=== PATIENT | male | born 1970 | race African-American/Black ===

== ENCOUNTER 2020-06-09 02:46 | Emergency (ER) | payer OTHER, SELFPAY ==
--- NOTE | ~2020-06-09 | CT_ITS ---
EXAMINATION: CT ABDOMEN AND PELVIS WITH CONTRAST CLINICAL INFORMATION: Left lower quadrant pain. History of diverticulitis and small bowel obstruction COMPARISON: 06/12/2019 and 04/10/2016 TECHNIQUE: Multidetector volumetric images were obtained from the superior aspect of the liver through the pubic symphysis following administration 85 mL of Omnipaque 350 intravenous contrast. Sagittal and coronal reformatted images were obtained on the technologist's workstation. Oral contrast: No This CT examination was performed using dose optimization techniques as appropriate, variously including the following: *Automated exposure control *Adjustment of mA and/or kV according to patient size (this includes techniques or standardized protocols for targeted exams where dose is matched to indication/reason for exam; i.e. extremities or head) *Use of iterative reconstruction technique DLP: 963 mGy-cm FINDINGS: LUNG BASES: The visualized lung bases are unremarkable. LIVER, GALLBLADDER, AND BILIARY TREE: The liver is normal in size, shape, and attenuation. No biliary ductal dilatation. There are multiple hypoattenuating lesions seen throughout the liver. Comparison to the prior noncontrast CT is limited. When compared to the study from 2017 with contrast, there is no significant change in appearance. While the lobulated lesion in segment 2 of the liver measuring 2.3 cm likely represents a cyst based on Hounsfield unit measurement, additional lesions in the right lobe of the liver are more nonspecific and favor hemangiomas. Cholecystectomy. PANCREAS: Unremarkable. SPLEEN: Unremarkable. ADRENAL GLANDS: Unremarkable. KIDNEYS AND URETERS: The kidneys are normal in size, shape, and attenuation. No hydronephrosis, hydroureter, or calculi seen. No perinephric stranding. BLADDER: Unremarkable. GASTROINTESTINAL TRACT: The stomach is unremarkable. Normal caliber small bowel. There is no obstruction. Colonic diverticulosis present without diverticulitis. Right hemicolectomy with enterocolic anastomosis in the anterior midabdomen. There is also a distal colonic anastomosis. No free air. No free fluid. ABDOMINAL WALL: No significant hernia is appreciated. LYMPH NODES: Normal. VASCULAR: Normal caliber aorta with minimal atherosclerotic calcification. PELVIC VISCERA: The prostate and seminal vesicles are unremarkable. OSSEOUS STRUCTURES: No acute or suspicious osseous abnormality. Mild degenerative changes in the spine. Surgical fixation of the right femur with chronic posttraumatic appearance. Degenerative changes of both hips. CT/CT abdomen pelvis w con IMPRESSION: No acute finding in the abdomen or pelvis. No inflammatory changes. There is diffuse colonic diverticulosis. No diverticulitis. Multiple hypoattenuating liver lesions are again noted, similar to 2017. This could be further evaluated with nonemergent MRI if clinically indicated.
[2020-06-09 02:51] VITALS: BP 143/88; PULSE 69; RESP 18; TEMP 36.8; O2SAT 96; BMI 38.4
--- NOTE | 2020-06-09 03:10 | ECG_ITS ---
Test Reason : ABD PAIN Blood Pressure : / mmHG Vent. Rate : 066 BPM Atrial Rate : 066 BPM P-R Int : 206 ms QRS Dur : 096 ms QT Int : 386 ms P-R-T Axes : 057 060 058 degrees QTc Int : 404 ms Normal sinus rhythm Normal ECG No previous ECGs available Referred By: Fernanda Ramos Electronically Signed By:MARIEL BACK MD
--- NOTE | 2020-06-09 03:13 | ED.ABDPAIN ---
HPI - Abdominal Pain General Chief Complaint: Abdominal Pain Stated Complaint: STOMACH PAIN Time Seen by Provider: 06/09/20 03:03 Source: patient and EMS Mode of arrival: EMS Limitations: no limitations History of Present Illness HPI narrative: Patient comes emergency room complaining of abdominal pain and distension. Patient states for the last 4 days he has not had any bowel movements, for last 2 days his abdomen has been increasing in size, becoming more distended and painful. Patient states that he takes chronic opioids for pain in his right hip, despite the pain medications he is still having significant discomfort in his abdomen. Patient has history of diverticulitis and has had 2 surgeries. Patient states that he came before his symptoms got any worse, at this time patient does not have any vomiting, nausea, denies fever chills MD elicited complaint: abdominal pain Related Data Home Medications Medication Instructions Recorded Confirmed oxycodone-acetaminophen [Percocet] 1 tab PO Q4-6H PRN 06/09/20 06/09/20 Previous Rx's Medication Instructions Recorded polyethylene glycol 3350 [Miralax] 17 g PO BID #119 g 06/09/20 Allergies Allergy/AdvReac Type Severity Reaction Status Date / Time aspirin Allergy Unknown Nausea Verified 06/09/20 03:42 Motrin Allergy Unknown Nausea Uncoded 06/09/20 03:42 Review of Systems Review of Systems Constitutional : No Weight loss, No Fever, No Chills, No Night Sweats, No Fatigue, No Malaise ENT/Mouth : No Hearing loss, No Ear Pain, No Nasal Congestion, No Sinus Pain, No Hoarseness, No sore throat, No Rhinorrhea, No Swallowing Difficulty Eyes: No Eye Pain, No Swelling, No Redness, No Foreign Body, No Discharge, No Vision Changes Cardiovascular : No Chest Pain, No SOB, No Dyspnea on Exertion, No Orthopnea, No Edema, No Palpitations Respiratory : No Cough, No Sputum, No Wheezing, No Smoke Exposure, No Dyspnea Gastrointestinal : No Nausea, No Vomiting, No Diarrhea, complaining of Constipation, complaining of diffuse abdominal pain, No Hematochezia, No Melena Genitourinary : no irregular bleeding, No Dysuria, No Urinary Frequency, No Hematuria, No Urinary Incontinence, No Urgency, No Flank Pain, No Urinary Flow Changes, No Hesitancy Musculoskeletal : No joint pain, No Myalgias, No Joint Swelling Skin : No Skin Lesions, No rash Neuro : No Weakness, No Numbness, No Paresthesias, No Loss of Consciousness, No Dizziness, No Headache Psych : No Anxiety/Panic, No Depression, No SI/HI/AH/VH, No Social Issues, Heme/Lymph: No Bruising, No Bleeding,No Lymphadenopathy Endocrine : No Polyuria, No Polydipsia, No Temperature Intolerance Physical Exam Vital Signs: Vital Signs: Last Vital Signs Temp 98.3 F 06/09/20 02:51 Pulse 73 06/09/20 05:31 Resp 18 06/09/20 05:31 BP 139/81 06/09/20 05:31 Pulse Ox 98 06/09/20 05:31 Body Mass Index 38.4 Appearance: Alert. Oriented X3. No acute distress. Eyes: Pupils equal, round and reactive to light. ENT: Pharynx normal. Neck: Normal inspection. Neck supple. No lymph nodes noted. No crepitus CVS: Normal heart rate and rhythm. Pulses normal. Normal S1 and S2 Respiratory: No respiratory distress. Breath sounds normal. No Wheezing. No rales Abdomen: Soft, distended, moderate pain to palpation especially over the left lower quadrant, no rebound, no guarding, No rigidity. Skin: Skin warm and dry. Normal skin color. Normal skin turgor. Extremities: No lower extremity edema. No lower extremity edema. No Lacerations. No Rash Neuro: Oriented X 3. No motor deficit. No sensory deficit. Moving all extermities. No slurred speech. Course Course Course Narrative: I discussed labs and imaging with the patient, patient's abdominal discomfort is likely secondary to constipation. Patient did not wait for urinalysis MDM - Abdominal Pain Lab Data Result diagrams: 06/09/20 03:28 06/09/20 03:28 Labs: Lab Results 06/09/20 06/09/20 06/09/20 Range/Units 03:28 03:28 03:28 WBC 9.1 (4.8-10.8) X10*3/uL RBC 5.15 (4.60-5.80) X10*6/uL Hgb 13.9 L (14.0-18.0) g/dl Hct 43.3 (42-52) % MCV 84.1 (80-98) fL MCH 27.0 (27.0-33.0) pg MCHC 32.1 (31.0-36.0) g/dl RDW 13.8 (11.0-16.0) % Plt Count 274 (160-400) X10*3/uL MPV 9.9 (9.4-12.4) fL Immature Gran % (Auto) 0.1 (0.0-0.4) % Neut % (Auto) 57.7 (45-73) % Lymph % (Auto) 33.4 (20-40) % [place] % (Auto) 7.7 (2-11) % Eos % (Auto) 0.9 (0-4) % Baso % (Auto) 0.2 (0-2) % Lymph # (Auto) 3.0 (1.2-4.9) X10*3/uL [place] # (Auto) 0.7 (0.1-1.2) X10*3/uL Eos # (Auto) 0.1 (0.0-0.4) X10*3/uL Baso # (Auto) 0.0 (0.0-0.2) X10*3/uL Abs Immat Gran (auto) 0.01 (0.00-0.03) X10*3/uL Absolute Neuts (auto) 5.2 (2.0-8.3) X10*3/uL Absolute Nucleated RBC 0.000 (0.0-0.012) X10*3/uL Nucleated RBC % (auto) 0.0 (0.0-0.2) /100WBC Sodium 138 (135-145) mmol/L Potassium 4.3 (3.3-5.1) mmol/L Chloride 108 (96-108) mmol/L Carbon Dioxide 19 L (22-29) mmol/L Anion Gap 15 (12-20) BUN 9 (9-16) mg/dL Creatinine 1.03 (0.5-1.4) mg/dL Estim Creat Clear Calc 107.5 Estimated GFR > 60 Random Glucose 142 H (60-115) mg/dL Calcium 8.6 (8.4-10.2) mg/dL Total Bilirubin 0.3 (0.0-1.0) mg/dL Direct Bilirubin < 0.2 (0.0-0.5) mg/dL AST 21 (5-37) U/L ALT 34 (0-40) U/L Alkaline Phosphatase 28 L (39-117) U/L Total Protein 6.7 (6.5-8.0) g/dL Albumin 3.8 (3.5-5.0) g/dL Lipase 52 (8-78) U/L Imaging Data CT scan - abdomen: Radiologist's impression: FINDINGS: LUNG BASES: The visualized lung bases are unremarkable. LIVER, GALLBLADDER, AND BILIARY TREE: The liver is normal in size, shape, and attenuation. No biliary ductal dilatation. There are multiple hypoattenuating lesions seen throughout the liver. Comparison to the prior noncontrast CT is limited. When compared to the study from 2017 with contrast, there is no significant change in appearance. While the lobulated lesion in segment 2 of the liver measuring 2.3 cm likely represents a cyst based on Hounsfield unit measurement, additional lesions in the right lobe of the liver are more nonspecific and favor hemangiomas. Cholecystectomy. PANCREAS: Unremarkable. SPLEEN: Unremarkable. ADRENAL GLANDS: Unremarkable. KIDNEYS AND URETERS: The kidneys are normal in size, shape, and attenuation. No hydronephrosis, hydroureter, or calculi seen. No perinephric stranding. BLADDER: Unremarkable. GASTROINTESTINAL TRACT: The stomach is unremarkable. Normal caliber small bowel. There is no obstruction. Colonic diverticulosis present without diverticulitis. Right hemicolectomy with enterocolic anastomosis in the anterior midabdomen. There is also a distal colonic anastomosis. No free air. No free fluid. ABDOMINAL WALL: No significant hernia is appreciated. LYMPH NODES: Normal. VASCULAR: Normal caliber aorta with minimal atherosclerotic calcification. PELVIC VISCERA: The prostate and seminal vesicles are unremarkable. OSSEOUS STRUCTURES: No acute or suspicious osseous abnormality. Mild degenerative changes in the spine. Surgical fixation of the right femur with chronic posttraumatic appearance. Degenerative changes of both hips. CT/CT abdomen pelvis w con IMPRESSION: No acute finding in the abdomen or pelvis. No inflammatory changes. There is diffuse colonic diverticulosis. No diverticulitis. ECG Data Attestation: I personally reviewed and interpreted this ECG as follows: (Sinus rhythm, heart rate 66, no ST segment depression or elevation, no T-wave inversion) Discharge Plan Discharge Clinical Impression: Abdominal pain Qualifiers: Abdominal location: generalized Qualified Code(s): R10.84 - Generalized abdominal pain Constipation Qualifiers: Constipation type: unspecified constipation type Qualified Code(s): K59.00 - Constipation, unspecified Patient Disposition: Home, Self-Care Instructions: Constipation (ED) Additional Instructions: Please follow-up with your primary care physician tomorrow. If you have any worsening or new symptoms, please return to the emergency room or call 911 Prescriptions: New polyethylene glycol 3350 [Miralax] 17 gram/dose powder 17 g PO BID Qty: 119 RF: 0 No Action oxycodone-acetaminophen [Percocet] 5-325 mg Tablet 1 tab PO Q4-6H PRN (Reason: Pain) RF: 0 PMFSH Past Medical History Medical History Chronic back pain Diverticulitis History of prediabetes Surgical History History of hip surgery Status post gastrointestinal surgery Social History Social History Alcohol intake: current Alcohol intake frequency: a few times a week Smoking Status: Current every day smoker Smoked in Last 30 Days: Yes Use of substances other than those prescribed or required for medical reasons: No Substance Use Type: Painkillers and Prescription Drugs Substance Use Type Other:: Percocet for chronic pain Substance Use Frequency: Chronic Longstanding Any prior treatment program specific to substance use: No Advance Directives: No Advance Directives Information Provided: No
[2020-06-09 03:29] VITALS: RESP 18
[2020-06-09] MEDS: ondansetron HCL 4 MG/2 ML VIAL IVPUSH (03:29)
[2020-06-09] MEDS: Morphine Sulfate 4 MG/ML CARTRIDGE IVPUSH ×2 (03:29→05:27)
[2020-06-09 03:36] LABS: MANUAL DIFF FLAG NO
[2020-06-09 03:39] LABS: Basophils Percent Auto 0.2 % (0-2); Eosinophils Absolute Auto 0.1 X10*3/uL (0.0-0.4); Eosinophils Percent Auto 0.9 % (0-4); Hematocrit 43.3 % (42-52); Hemoglobin 13.9 g/dl (14.0-18.0); Imm Gran Abs Auto 0.01 X10*3/uL (0.00-0.03); Imm Gran Pct Auto 0.1 % (0.0-0.4); Lymphocytes Percent Auto 33.4 % (20-40); Mean Corpuscular HGB Conc 32.1 g/dl (31.0-36.0); Mean Corpuscular Volume 84.1 fL (80-98); Mean Platelet Volume 9.9 fL (9.4-12.4); Monocytes Absolute Auto 0.7 X10*3/uL (0.1-1.2); Monocytes Percent Auto 7.7 % (2-11); Neutrophils Absolute Auto 5.2 X10*3/uL (2.0-8.3); Neutrophils Percent Auto 57.7 % (45-73); Platelet Count 274 X10*3/uL (160-400); Red Blood Count 5.15 X10*6/uL (4.60-5.80); Red Cell Distribution Width 13.8 % (11.0-16.0); White Blood Count 9.1 X10*3/uL (4.8-10.8)
[2020-06-09 04:00] LABS: Lipase 52 U/L (8-78)
[2020-06-09 04:03] LABS: Alanine Aminotransferase 34 U/L (0-40); Albumin Level 3.8 g/dL (3.5-5.0); Alkaline Phosphatase 28 U/L (39-117); Anion Gap 15 (12-20); Aspartate Amino Transferase 21 U/L (5-37); Bilirubin Direct < 0.2 mg/dL (0.0-0.5); Bilirubin Total 0.3 mg/dL (0.0-1.0); Blood Urea Nitrogen 9 mg/dL (9-16); Calcium 8.6 mg/dL (8.4-10.2); Carbon Dioxide 19 mmol/L (22-29); Chloride 108 mmol/L (96-108); Creatinine Clr Calc Pharmacy 107.5; Estimated Glomerular Filt Rate > 60; Glucose Random 142 mg/dL (60-115); Potassium 4.3 mmol/L (3.3-5.1); Sodium 138 mmol/L (135-145); Total Protein 6.7 g/dL (6.5-8.0)
[2020-06-09] MEDS: iohexoL 350 MG/ML 100 ML INFUS..BTL IV (05:10)
[2020-06-09 05:27] VITALS: RESP 18
[2020-06-09 05:31] VITALS: BP 139/81; PULSE 73; RESP 18; O2SAT 98
== END 2020-06-09 06:03 | disposition home or self-care (01) ==
PROVIDERS: Emergency Provider Emergency Medicine
DX: R10.84 Generalized abdominal pain (principal); K59.00 Constipation, unspecified; F17.200 Nicotine dependence, unspecified, uncomplicated
CPT/HCPCS: 36415; 74177; 80048; 80076; 83690; 85025; 93005; 96374; 96375; 99284; 99285; J2270; J2405; Q9967

== ENCOUNTER 2020-07-27 15:54 | Inpatient (IN) | payer OTHER, SELFPAY ==
--- NOTE | ~2020-07-27 | CT_ITS ---
EXAMINATION: CT ABDOMEN AND PELVIS WITH CONTRAST CLINICAL INFORMATION: Pain COMPARISON: CT abdomen pelvis 05/24/2019 TECHNIQUE: Multidetector volumetric images were obtained from the superior aspect of the liver through the pubic symphysis following administration 85 mL of Omnipaque 350 intravenous contrast. Sagittal and coronal reformatted images were obtained on the technologist's workstation. Oral contrast: No This CT examination was performed using dose optimization techniques as appropriate, variously including the following: *Automated exposure control *Adjustment of mA and/or kV according to patient size (this includes techniques or standardized protocols for targeted exams where dose is matched to indication/reason for exam; i.e. extremities or head) *Use of iterative reconstruction technique DLP: 807 mGy-cm FINDINGS: LUNG BASES: The visualized lung bases are unremarkable. LIVER, GALLBLADDER, AND BILIARY TREE: The liver is normal in size, shape, and attenuation. A 2.3 cm cyst is again seen in the left lobe of the liver with scattered other hypodensities. 3 hypodensities seen in the right lobe have characteristics more in line with hemangiomas. No biliary ductal dilatation is present. Gallbladder is surgically absent PANCREAS: Unremarkable. SPLEEN: Unremarkable. ADRENAL GLANDS: Unremarkable. KIDNEYS AND URETERS: The kidneys are normal in size, shape, and attenuation. No hydronephrosis, hydroureter, or calculi seen. No perinephric stranding. BLADDER: Unremarkable. GASTROINTESTINAL TRACT: Status post right hemicolectomy. A rectosigmoid anastomosis is present as well. Diverticular changes are present in the remaining colon and at the level of the hepatic flexure there are changes of acute diverticulitis present with mucosal thickening and marked pericolonic inflammatory change. There are a few tiny punctate air bubbles that may be extraluminal but they are very well contained. No drainable abscess is seen. No free intraperitoneal air is present. The small bowel is unremarkable. The appendix has been removed. ABDOMINAL WALL: No significant hernia is appreciated. LYMPH NODES: No retroperitoneal lymphadenopathy. VASCULAR: Unremarkable. PELVIC VISCERA: Prostate and seminal vesicles appear normal. OSSEOUS STRUCTURES: Unremarkable. CT/CT abdomen pelvis w con IMPRESSION: 1. Acute diverticulitis involving the region of the hepatic flexure with marked inflammatory changes and a few bubbles of well-contained extraluminal air. No drainable pericolonic abscess is seen. 2. Again noted are multiple hypodensities seen in the liver, some cysts, some probable hemangioma, stable in appearance
[2020-07-27 16:29] VITALS: BP 128/95; PULSE 93; RESP 16; TEMP 36.8; O2SAT 96; BMI 37.6
[2020-07-27 20:10] LABS: Basophils Percent Auto 0.1 % (0-2); Eosinophils Percent Auto 0.1 % (0-4); Hematocrit 47.5 % (42-52); Hemoglobin 15.4 g/dl (14.0-18.0); Imm Gran Abs Auto 0.07 X10*3/uL (0.00-0.03); Imm Gran Pct Auto 0.4 % (0.0-0.4); Lymphocytes Absolute Auto 2.4 X10*3/uL (1.2-4.9); Lymphocytes Percent Auto 12.7 % (20-40); MANUAL DIFF FLAG SCAN; Mean Corpuscular HGB Conc 32.4 g/dl (31.0-36.0); Mean Corpuscular Hemoglobin 27.4 pg (27.0-33.0); Mean Corpuscular Volume 84.4 fL (80-98); Mean Platelet Volume 9.8 fL (9.4-12.4); Monocytes Absolute Auto 1.7 X10*3/uL (0.1-1.2); Monocytes Percent Auto 9.2 % (2-11); Neutrophils Absolute Auto 14.7 X10*3/uL (2.0-8.3); Neutrophils Percent Auto 77.5 % (45-73); Platelet Count 279 X10*3/uL (160-400); Red Blood Count 5.63 X10*6/uL (4.60-5.80); Red Cell Distribution Width 13.6 % (11.0-16.0); SCAN SMEAR FLAG 1; White Blood Count 18.9 X10*3/uL (4.8-10.8)
[2020-07-27 20:33] LABS: SLIDE REVIEW VERIFIED
[2020-07-27 20:41] LABS: Alanine Aminotransferase 27 U/L (0-40); Albumin Level 4.7 g/dL (3.5-5.0); Alkaline Phosphatase 32 U/L (39-117); Anion Gap 16 (12-20); Aspartate Amino Transferase 15 U/L (5-37); Bilirubin Total 0.7 mg/dL (0.0-1.0); Blood Urea Nitrogen 9 mg/dL (9-16); Calcium 9.7 mg/dL (8.4-10.2); Carbon Dioxide 24 mmol/L (22-29); Chloride 106 mmol/L (96-108); Creatinine Clr Calc Pharmacy 78.3; Estimated Glomerular Filt Rate 53; Glucose Random 122 mg/dL (60-115); Potassium 4.1 mmol/L (3.3-5.1); Sodium 142 mmol/L (135-145); Total Protein 8.1 g/dL (6.5-8.0)
[2020-07-27 20:53] VITALS: BP 151/67; PULSE 75; RESP 16; TEMP 37; O2SAT 100
--- NOTE | 2020-07-27 21:20 | ED_ITS ---
HPI - Abdominal Pain General Chief Complaint: Abdominal Pain Stated Complaint: Stomach Pain X 3 Days Diverticulitis Time Seen by Provider: 07/27/20 21:14 Source: patient Mode of arrival: ambulatory History of Present Illness HPI narrative: 49-year-old male with history of diverticulitis presents with 3 days of abdominal discomfort, but states today became a lot worse with associated nausea and vomiting and last passage of bowel movement was this morning. Patient states he has continued to pass flatus and denies any fever, chills, shortness of breath, chest pain/palpitations or urinary symptoms. Related Data Home Medications Medication Instructions Recorded Confirmed oxycodone-acetaminophen [Percocet] 1 tab PO Q4-6H PRN 06/09/20 06/09/20 Previous Rx's Medication Instructions Recorded polyethylene glycol 3350 [Miralax] 17 g PO BID #119 g 06/09/20 Allergies Allergy/AdvReac Type Severity Reaction Status Date / Time aspirin Allergy Unknown Nausea Verified 06/09/20 03:42 Motrin Allergy Unknown Nausea Uncoded 06/09/20 03:42 Review of Systems Review of Systems Pertinent positives and negatives as stated in HPI 10 point review of systems is otherwise negative. Physical Exam Vital Signs: Vital Signs: Last Vital Signs Temp 98.6 F 07/27/20 20:53 Pulse 75 07/27/20 20:53 Resp 16 07/27/20 20:53 BP 151/67 H 07/27/20 20:53 Pulse Ox 100 07/27/20 20:53 Body Mass Index 37.6 VITAL SIGNS: Reviewed. GENERAL: Well developed, well nourished, in no acute distress. HEAD: Normocephalic/atraumatic EYES: PERRLA, EOMI OROPHARYNX: no oral lesions noted, posterior pharynx clearhy LUNGS: Normal breath sounds. No adventitious sounds or accessory muscle use. SpO2<100> CARDIOVASCULAR: Regular rate and rhythm without noted murmurs ABDOMEN: Soft, diffuse tenderness on exam without rebound maximal at left abdomen, non-distended with bowel sounds. NEUROLOGIC: Alert and oriented x 4. Strength and sensation to light touch were grossly intact x 4. Course Course Course Narrative: This is a 49-year-old male with history and clinical presentation suggestive of diverticulitis and less likely SBO. Review of all investigations consistent with acute diverticulitis. Patient will be treated with antiemetics, antibiotics, pain medication, as well as IV hydration. This case was discussed with surgical services who is accepting admission. MDM - Abdominal Pain Lab Data Result diagrams: 07/27/20 20:03 07/27/20 20:03 Labs: Lab Results 07/27/20 07/27/20 Range/Units 20:03 20:03 WBC 18.9 H (4.8-10.8) X10*3/uL RBC 5.63 (4.60-5.80) X10*6/uL Hgb 15.4 (14.0-18.0) g/dl Hct 47.5 (42-52) % MCV 84.4 (80-98) fL MCH 27.4 (27.0-33.0) pg MCHC 32.4 (31.0-36.0) g/dl RDW 13.6 (11.0-16.0) % Plt Count 279 (160-400) X10*3/uL MPV 9.8 (9.4-12.4) fL Immature Gran % (Auto) 0.4 (0.0-0.4) % Neut % (Auto) 77.5 H (45-73) % Lymph % (Auto) 12.7 L (20-40) % [place] % (Auto) 9.2 (2-11) % Eos % (Auto) 0.1 (0-4) % Baso % (Auto) 0.1 (0-2) % Lymph # (Auto) 2.4 (1.2-4.9) X10*3/uL [place] # (Auto) 1.7 H (0.1-1.2) X10*3/uL Eos # (Auto) 0.0 (0.0-0.4) X10*3/uL Baso # (Auto) 0.0 (0.0-0.2) X10*3/uL Abs Immat Gran (auto) 0.07 H (0.00-0.03) X10*3/uL Absolute Neuts (auto) 14.7 H (2.0-8.3) X10*3/uL Absolute Nucleated RBC 0.000 (0.0-0.012) X10*3/uL Nucleated RBC % (auto) 0.0 (0.0-0.2) /100WBC Smear Tech's Comments VERIFIED Sodium 142 (135-145) mmol/L Potassium 4.1 (3.3-5.1) mmol/L Chloride 106 (96-108) mmol/L Carbon Dioxide 24 (22-29) mmol/L Anion Gap 16 (12-20) BUN 9 (9-16) mg/dL Creatinine 1.40 (0.5-1.4) mg/dL Estim Creat Clear Calc 78.3 Estimated GFR 53 Random Glucose 122 H (60-115) mg/dL Calcium 9.7 D (8.4-10.2) mg/dL Total Bilirubin 0.7 (0.0-1.0) mg/dL AST 15 (5-37) U/L ALT 27 (0-40) U/L Alkaline Phosphatase 32 L (39-117) U/L Total Protein 8.1 H D (6.5-8.0) g/dL Albumin 4.7 D (3.5-5.0) g/dL Lipase 65 (8-78) U/L Discharge Plan Discharge Clinical Impression: Diverticulitis Patient Disposition: Admitted As Inpatient Prescriptions: No Action oxycodone-acetaminophen [Percocet] 5-325 mg Tablet 1 tab PO Q4-6H PRN (Reason: Pain) RF: 0 polyethylene glycol 3350 [Miralax] 17 gram/dose powder 17 g PO BID Qty: 119 RF: 0 PMFSH Past Medical History Source: nursing notes reviewed Medical History Chronic back pain Diverticulitis History of prediabetes Surgical History History of hip surgery Status post gastrointestinal surgery Social History Social History Alcohol intake: current Alcohol intake frequency: a few times a week Substance Use Type: Painkillers and Prescription Drugs Advance Directives: No Advance Directives Information Provided: Yes
[2020-07-27 21:28] LABS: Lipase 65 U/L (8-78)
[2020-07-27] MEDS: Ketorolac Tromethamine 15 MG/ML VIAL IVPUSH (21:48)
[2020-07-27] MEDS: ondansetron HCL 4 MG/2 ML VIAL IVPUSH (21:49)
[2020-07-27] MEDS: iohexoL 350 MG/ML 100 ML INFUS..BTL IV (22:02)
[2020-07-27 23:06] VITALS: RESP 16
[2020-07-27] MEDS: HYDROmorphone HCl 0.5 MG/0.5 ML SYRINGE 0.25 MG IVPUSH (23:06)
[2020-07-27] MEDS: Piperacillin Sodium/Tazobactam 3.375 GM in 0.9 % Sodium Chloride 50 ML IV (23:13)
[2020-07-27 23:14] LABS: Lactic Acid 1.1 mmol/L (0.5-2.0)
[2020-07-27 23:35] LABS: COVID-19 Test Negative (Negative)
[2020-07-28 00:17] VITALS: RESP 16
[2020-07-28] MEDS: 0.9 % Sodium Chloride Flush 3 ML SYRINGE IVFLUSH ×2 (00:17→16:46)
[2020-07-28] MEDS: Lactated Ringers 1,000 ML 80 ML IVCONT ×2 (00:35→13:48)
--- NOTE | 2020-07-28 02:00 | PC.NURSE ---
nurse to nurse report given to Thais ADRIAN
[2020-07-28 02:23] VITALS: BP 127/58; PULSE 81; RESP 20; TEMP 36.7; O2SAT 97
[2020-07-28] MEDS: Morphine Sulfate 4 MG/ML CARTRIDGE 3 MG IVPUSH ×3 (02:39→20:56)
[2020-07-28] MEDS: Piperacillin Sodium/Tazobactam 3.375 GM in 0.9 % Sodium Chloride 50 ML IV ×4 (05:34→22:54)
[2020-07-28] MEDS: oxyCODONE HCl Immed Release 5 MG TABLET 10 MG PO ×2 (05:48→09:55)
[2020-07-28 06:13] LABS: Hematocrit 42.1 % (42-52); Hemoglobin 13.5 g/dl (14.0-18.0); Mean Corpuscular HGB Conc 32.1 g/dl (31.0-36.0); Mean Corpuscular Hemoglobin 27.2 pg (27.0-33.0); Mean Corpuscular Volume 84.7 fL (80-98); Mean Platelet Volume 10.2 fL (9.4-12.4); Platelet Count 251 X10*3/uL (160-400); Red Blood Count 4.97 X10*6/uL (4.60-5.80); Red Cell Distribution Width 13.6 % (11.0-16.0); White Blood Count 15.8 X10*3/uL (4.8-10.8)
[2020-07-28 06:41] LABS: Anion Gap 15 (12-20); Blood Urea Nitrogen 11 mg/dL (9-16); Calcium 8.5 mg/dL (8.4-10.2); Carbon Dioxide 23 mmol/L (22-29); Chloride 106 mmol/L (96-108); Creatinine Clr Calc Pharmacy 94.5; Estimated Glomerular Filt Rate > 60; Glucose Random 98 mg/dL (60-115); Potassium 4.1 mmol/L (3.3-5.1); Sodium 140 mmol/L (135-145)
--- NOTE | 2020-07-28 07:20 | HE.PHANOTE ---
MED REC COMPLETE, PATIENT STATES THEY DO NOT TAKE ANY MEDICATION
[2020-07-28 07:52] VITALS: BP 121/65; PULSE 79; RESP 20; TEMP 36.2; O2SAT 93
--- NOTE | 2020-07-28 08:59 | P.HPGS_ITS ---
History of Present Illness History of Present Illness Date of Service: 07/31/20 Chief complaint: Acute Diverticulitis Narrative: Gustavo Thompson is a 49 year old male who cme to the ED last night because of abdominal pain. He says this has been going on on for about 3-04 days. He describes this as on the left side. He sys he had one episode of nausea and vomitting last night when he came to the ED. He denies being constipated. He does state he has had 2 surgeries for diverticulitis about 10 years ago in [facility]. Review of his records show he was here in the ED last May 2020 for abdominal pain and was diagnosed to have constipation. He denies fever or chills. He does state he feels much better now compared to yesterday, and say he has very minimal pain. Review of Systems Constitutional: Constitutional: Denies chills and Denies fever(s) Cardiovascular: Cardiovascular: Denies chest pain, Denies dyspnea and Denies dyspnea on exertion Respiratory: Respiratory: Denies cough, Denies dyspnea and Denies dyspnea on exertion Gastrointestinal: Gastrointestinal: Denies hematochezia, Denies change in bowel habits and Reports constipation Genitourinary: Genitourinary: Denies hematuria and Denies difficulty urinating Musculoskeletal: Musculoskeletal: Denies back pain and Denies limited range of motion Neurologic: Denies focal weakness and Denies convulsions Psychiatric: Psychiatric: Denies depression and Denies mood swings [facility] Past Medical History Medical History (Updated 07/28/20 @ 09:04 by Marek Cifuentes MD) Cholecystectomy planned Chronic back pain Diverticulitis History of prediabetes Morbid obesity Surgical History Surgical History History of hip surgery Status post gastrointestinal surgery Social History Social History Household Members: None Housing: Apartment Do you presently have visiting nurse or other home services: No Alcohol intake: current Alcohol intake frequency: a few times a week Patient Tobacco Use Status: Current everyday Tobacco user Tobacco use type: Cigarette e-Cigarette/Vaping Use: Never Used Substance Use Type: Marijuana service: No Meds Allergies Allergy/AdvReac Type Severity Reaction Status Date / Time aspirin Allergy Unknown Nausea Verified 06/09/20 03:42 Motrin Allergy Unknown Nausea Uncoded 06/09/20 03:42 Active Medications: Current Medications Generic Name Dose Route Start Last Admin Trade Name Jaspalq PRN Reason Stop Dose Admin Acetaminophen 650 mg 07/27/20 23:04 Acetaminophen 325 Mg Tablet PO Q4H PRN fever Lactated Ringer's 1,000 mls @ 80 mls/hr 07/27/20 23:15 07/28/20 00:35 Lr IVCONT 80 mls/hr .[id number] WILLIAN Administration Piperacillin Sod/Tazobactam 50 mls @ 100 mls/hr 07/28/20 05:00 07/28/20 07:22 Sod 3.375 gm/ Sodium Chloride IV Infused Q6H WILLIAN Infusion Morphine Sulfate 3 mg 07/27/20 23:02 07/28/20 02:39 Morphine Sulfate 4 Mg/Ml Cartridge IVPUSH 3 mg Q3H PRN Administration Pain, Severe (Pain Scale 7-10) Oxycodone HCl 10 mg 07/27/20 23:02 07/28/20 05:48 Oxycodone Hcl Immed Release 5 Mg Tablet PO 10 mg Q4H PRN Administration Pain, Moderate (Pain Scale 4-6 Sodium Chloride 3 ml 07/28/20 00:00 07/28/20 07:22 0.9 % Sodium Chloride Flush 3 Ml Syringe IVFLUSH Not Given QSHIFT [facility] Physical Exam Vital Signs: Vital Signs: Last Vital Signs Temp 97.2 F 07/28/20 07:52 Pulse 79 07/28/20 07:52 Resp 20 07/28/20 07:52 BP 121/65 07/28/20 07:52 Pulse Ox 93 07/28/20 07:52 Body Mass Index 37.6 Const: Other: obese, appears well General: comfortable and no acute distress Orientation/consciousness: patient oriented x3 Neck: Neck: Yes no lymphadenopathy Resp: Auscultation: clear to auscultation bilaterally Cardio: Rhythm: regular rhythm GI: Other: minimal tenderness on the left side on deep palpation Palpation (GI): Soft to palpation and no guarding Neuro: General: patient oriented x3 Results Results Labs: Short CBC 07/27/20 07/28/20 Range/Units 20:03 05:18 WBC 18.9 H 15.8 H (4.8-10.8) X10*3/uL Hgb 15.4 13.5 L (14.0-18.0) g/dl Hct 47.5 42.1 (42-52) % Plt Count 279 251 (160-400) X10*3/uL BMP 07/27/20 07/28/20 20:03 05:18 Sodium 142 140 Potassium 4.1 4.1 Chloride 106 106 Carbon Dioxide 24 23 BUN 9 11 Creatinine 1.40 1.16 Calcium 9.7 D 8.5 D Liver Function 07/27/20 Range/Units 20:03 Total Bilirubin 0.7 (0.0-1.0) mg/dL AST 15 (5-37) U/L ALT 27 (0-40) U/L Alkaline Phosphatase 32 L (39-117) U/L Albumin 4.7 D (3.5-5.0) g/dL Abdomen CT scan report/results: report reviewed and image reviewed CT scan - pelvis: report reviewed and image reviewed Assessment and Plan (1) Diverticulitis: Status: Acute He came to the ED last night because of left sided abdominal pain.His CT scan shows inflammatory changes around the splenic flexure of the colon c/w acute diverticulitis. There appears to be some small locules of air adjacent to this segment suggestive of a microperforation. There is no abscess collection. He actually feels much better this morning and was asking for food. I explained to him that the treatment would be IV fluids and bowel rest, so he will be on clear liquids for now. His CT scan has decreased from 18 to 15 since last night. His abdominal exam is very benign and he currently has minimal pain and ternderness. He does understand that there is always a small possibility of him requiring laparotomy or IR depending on his clinical course. Quality Stroke Does the patient have a stroke diagnosis?: No VTE Prior VTE?: No VTE Risk Level:: Medical - moderate - high VTE Device Contraindication: N/A - Device Ordered VTE Drug Contraindication: N/A - Med Ordered Procedures Date of Service Date of Service: 07/27/20
[2020-07-28] MEDS: Acetaminophen 325 MG TABLET 650 MG PO (09:55)
[2020-07-28 10:14] LABS: Glucose Urine UA NEG (NEG); Leukocyte Esterase Urine NEG (NEG); Nitrite Urine NEG (NEG); Specific Gravity - Urine 1.025 (1.005-1.025); Urine Blood TRACE (NEG); Urine Ketones 5 MG/DL (NEG); Urine Protein 1+ MG/DL (NEG-TRACE)
[2020-07-28 10:20] LABS: Appearance Urine HAZY; Color Urine YELLOW
--- NOTE | 2020-07-28 10:23 | MHC.CM.PN ---
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
[2020-07-28 11:02] LABS: Bacteria Urine TRACE /LPF; Other Crystals Urine 2+ /LPF; RBC Urine 0-2 /HPF (0); Squamous Epithelial Cell Urine 1+ /LPF; WBC Urine 0 /HPF (0-4)
[2020-07-28 14:51] VITALS: RESP 20
[2020-07-28 16:00] VITALS: BP 119/69; PULSE 75; RESP 18; TEMP 36.1; O2SAT 93
[2020-07-28 23:49] VITALS: BP 121/52; PULSE 79; RESP 16; TEMP 36.4; O2SAT 95
[2020-07-29] MEDS: Lactated Ringers 1,000 ML 80 ML IVCONT (03:10)
[2020-07-29] MEDS: Piperacillin Sodium/Tazobactam 3.375 GM in 0.9 % Sodium Chloride 50 ML IV ×4 (05:12→22:44)
[2020-07-29 06:25] LABS: Hematocrit 39.2 % (42-52); Hemoglobin 12.3 g/dl (14.0-18.0); Mean Corpuscular HGB Conc 31.4 g/dl (31.0-36.0); Mean Corpuscular Hemoglobin 26.6 pg (27.0-33.0); Mean Corpuscular Volume 84.7 fL (80-98); Mean Platelet Volume 10.2 fL (9.4-12.4); Platelet Count 224 X10*3/uL (160-400); Red Blood Count 4.63 X10*6/uL (4.60-5.80); Red Cell Distribution Width 13.5 % (11.0-16.0)
[2020-07-29 07:23] VITALS: BP 111/59; PULSE 69; RESP 16; TEMP 36.2; O2SAT 96
[2020-07-29] MEDS: oxyCODONE HCl Immed Release 5 MG TABLET 10 MG PO ×4 (08:06→22:45)
[2020-07-29] MEDS: Acetaminophen 325 MG TABLET 650 MG PO ×3 (08:06→17:16)
--- NOTE | 2020-07-29 08:54 | PM.PNGS ---
Subjective Subjective Date of Service: 07/29/20 Interval history: Mr. Thompson reports a decrease in his abdominal pain this morning. He is passin some flatus but no BM. No fever or chills. Physical Exam Vital Signs: Vital Signs: Last Vital Signs Temp 97.2 F 07/29/20 07:23 Pulse 69 07/29/20 07:23 Resp 16 07/29/20 07:23 BP 111/59 L 07/29/20 07:23 Pulse Ox 96 07/29/20 07:23 Body Mass Index 37.6 Const: General: cooperative, comfortable and no acute distress Resp: Effort & Inspection: normal respiratory effort, no cough and not tachypneic GI: Other: soft, mild distension, minimal tenderness in the right upper quadrant Skin: General skin exam: no rashes or lesions noted Extrem: General: Yes capillary refill normal and Yes no clubbing, cyanosis or edema Progress Note: A&P Assessment and plan (1) Diverticulitis: Status: Acute Assessment and Plan: 49 year old male with two previous procedures for diverticulitis, now with splenic flexure microperforation without abscess. WBC improved to 10K Abdominal examination, less tenderness but still with some tenderness in the left upper quadrant Continue clear liquids IV Zosyn Await return of bowel function Ambulation encouraged. Fall Risk Details Current Medications: Current Medications Generic Name Dose Route Start Last Admin Trade Name Freq PRN Reason Stop Dose Admin Acetaminophen 650 mg 07/27/20 23:04 07/29/20 08:06 Acetaminophen 325 Mg Tablet PO 650 mg Q4H PRN Administration fever Piperacillin Sod/Tazobactam 50 mls @ 100 mls/hr 07/28/20 05:00 07/29/20 05:52 Sod 3.375 gm/ Sodium Chloride IV Infused Q6H WILLIAN Infusion Morphine Sulfate 3 mg 07/27/20 23:02 07/28/20 20:56 Morphine Sulfate 4 Mg/Ml Cartridge IVPUSH 3 mg Q3H PRN Administration Pain, Severe (Pain Scale 7-10) Oxycodone HCl 10 mg 07/27/20 23:02 07/29/20 08:06 Oxycodone Hcl Immed Release 5 Mg Tablet PO 10 mg Q4H PRN Administration Pain, Moderate (Pain Scale 4-6 Sodium Chloride 3 ml 07/28/20 00:00 07/29/20 07:21 0.9 % Sodium Chloride Flush 3 Ml Syringe IVFLUSH Not Given QSHIFT WILLIAN Time Spent With Patient Time: Total time spent is greater than 50% in coordination of care (as documented) at patient's floor/unit and/or counseling patient: Time with patient: 15 - 24 minutes Procedures Date of Service Date of Service: 07/29/20 Quality Stroke Does the patient have a stroke diagnosis?: No VTE Prior VTE?: No VTE Risk Level:: Medical - low VTE Device Contraindication: Treatment Not Indicated VTE Drug Contraindication: Treatment Not Indicated
[2020-07-29 15:01] VITALS: BP 115/56; PULSE 65; RESP 16; TEMP 36.2; O2SAT 96
[2020-07-29] MEDS: 0.9 % Sodium Chloride Flush 3 ML SYRINGE IVFLUSH (17:16)
[2020-07-29 23:58] VITALS: BP 170/68; PULSE 82; RESP 18; TEMP 36.4; O2SAT 96
[2020-07-30] MEDS: 0.9 % Sodium Chloride Flush 3 ML SYRINGE IVFLUSH ×2 (00:52→08:15)
[2020-07-30] MEDS: Piperacillin Sodium/Tazobactam 3.375 GM in 0.9 % Sodium Chloride 50 ML IV (05:45)
[2020-07-30 07:33] VITALS: BP 115/60; PULSE 67; RESP 16; TEMP 36.3; O2SAT 98
[2020-07-30] MEDS: oxyCODONE HCl Immed Release 5 MG TABLET 10 MG PO (08:20)
[2020-07-30] MEDS: Acetaminophen 325 MG TABLET 650 MG PO (08:20)
--- NOTE | 2020-07-30 08:39 | MHC.CM.PN ---
PT CLEARED TO DC HOME TODAY WITH NO NEW SERVICES. PT WILL DRIVE HIMSELF HOME, CAR IS OUTSIDE.
--- NOTE | 2020-07-30 09:51 | PM.PNGS ---
Subjective Subjective Date of Service: 07/30/20 Interval history: Feels great with no abdominal pain, tolerating regular diet, feels ready to go home. Physical Exam Vital Signs: Vital Signs: Last Vital Signs Temp 97.3 F 07/30/20 07:33 Pulse 67 07/30/20 07:33 Resp 16 07/30/20 07:33 BP 115/60 07/30/20 07:33 Pulse Ox 98 07/30/20 07:33 Body Mass Index 37.6 Const: General: cooperative, healthy appearing, comfortable, no acute distress, well developed, alert and awake Resp: Other: Breathing comfortably on room air Effort & Inspection: normal respiratory effort GI: Palpation (GI): Soft to palpation, nontender, no guarding, not rigid and no masses Percussion: Yes normal to percussion Auscultation: normal bowel sounds Skin: General skin exam: no rashes or lesions noted Extrem: General: Yes no clubbing, cyanosis or edema Progress Note: A&P Assessment and plan (1) Diverticulitis: Status: Acute Assessment and Plan: Patient is much improved with no further abdominal pain, tolerating a regular diet without nausea or vomiting. Examination reveals his abdomen to be soft in all quadrants without tenderness, rebound, or guarding. Splenic flexure diverticulitis appears much improved. Patient will be discharged to home on oral antibiotics and will follow up with Dr. Cifuentes in 1 week. He was instructed to return for fever, chills, increased abdominal pain. Fall Risk Details Current Medications: Current Medications Generic Name Dose Route Start Last Admin Trade Name Freq PRN Reason Stop Dose Admin Acetaminophen 650 mg 07/27/20 23:04 07/30/20 08:20 Acetaminophen 325 Mg Tablet PO 650 mg Q4H PRN Administration fever Piperacillin Sod/Tazobactam 50 mls @ 100 mls/hr 07/28/20 05:00 07/30/20 06:31 Sod 3.375 gm/ Sodium Chloride IV Infused Q6H WILLIAN Infusion Morphine Sulfate 3 mg 07/27/20 23:02 07/28/20 20:56 Morphine Sulfate 4 Mg/Ml Cartridge IVPUSH 3 mg Q3H PRN Administration Pain, Severe (Pain Scale 7-10) Oxycodone HCl 10 mg 07/27/20 23:02 07/30/20 08:20 Oxycodone Hcl Immed Release 5 Mg Tablet PO 10 mg Q4H PRN Administration Pain, Moderate (Pain Scale 4-6 Sodium Chloride 3 ml 07/28/20 00:00 07/30/20 08:15 0.9 % Sodium Chloride Flush 3 Ml Syringe IVFLUSH 3 ml QSHIFT WILLIAN Administration Time Spent With Patient Time: Total time spent is greater than 50% in coordination of care (as documented) at patient's floor/unit and/or counseling patient: Time with patient: 15 - 24 minutes Procedures Date of Service Date of Service: 07/30/20 Quality Stroke Does the patient have a stroke diagnosis?: No VTE Prior VTE?: No VTE Risk Level:: Medical - low VTE Device Contraindication: Treatment Not Indicated VTE Drug Contraindication: Treatment Not Indicated
--- NOTE | 2020-07-31 16:59 | P.DS_ITS ---
DS: Providers Provider Date of Service: 07/31/20 Date of admission: 07/27/20 23:00 Primary care physician: Unknown Physician DS: Diagnosis Discharge Diagnosis (1) Diverticulitis: Status: Acute Problem details: 49-year-old male who came into the emergency room on July 28 because of left- sided abdominal pain. His CAT scan was suggestive of acute diverticulitis with microperforation at the splenic flexure. He has a history of diverticulitis in the distant past and has had multiple resections of the colon for this. He had a white count of 18 which was a on follow-up CBC. He was on cap clear liquids and was started on IV Zosyn. He had a very benign exam. He is diet was slowly advanced. He continued to tolerate this. He did not really have any significant pain or tenderness for his admission. Remained stable. He was therefore discharged on July 30, 2020. DS: Medications Discharge Medications Home Medications: Previous Rx's Medication Instructions Recorded amoxicillin-pot clavulanate 1 tab PO BID #14 tab 07/28/20 [Augmentin] DS: Summary Time Spent with Patient Time attestation: Total time spent providing and/or coordinating discharge services: Discharge coordination time: Less than 30 minutes Quality: Stroke Does the patient have a stroke diagnosis?: No Physical Exam Vital Signs: Vital Signs: Last Vital Signs Temp 97.3 F 07/30/20 07:33 Pulse 67 07/30/20 07:33 Resp 16 07/30/20 07:33 BP 115/60 07/30/20 07:33 Pulse Ox 98 07/30/20 07:33 Body Mass Index 37.6 Const: General: comfortable and no acute distress Orientation/consciousness: patient oriented x3 Neck: Neck: Yes no lymphadenopathy Resp: Auscultation: clear to auscultation bilaterally Cardio: Rhythm: regular rhythm GI: Palpation (GI): Soft to palpation, nontender and no guarding Neuro: General: patient oriented x3 DS: Data Data Completed and Pending Labs on day of discharge: Preliminary micro results at discharge 07/27/20 22:47 Blood Culture - Preliminary Blood - Venous No growth after 48 hours. 07/27/20 22:47 Blood Culture - Preliminary Blood - Venous No growth after 48 hours. Discharge Plan Discharge Patient Disposition: Home, Self-Care Discharge Diagnosis: acute diverticulitis Referrals: Physician,Unknown [Primary Care Provider] - 1 Week Discharge Medications: New amoxicillin-pot clavulanate [Augmentin] 875-125 mg tablet 1 tab PO BID Qty: 14 RF: 0 Discharge Orders: Discharge Order (Routine); Ordered 07/30/20 Ordered By: Carlos Starr Diet: other Activity on Discharge: As tolerated Stand Alone Forms: Patient Portal Discharge page Care Plan Goals: oral antibiotics for diverticulitis Health Concerns: watch for recurrent diverticulitis morbid obesity Plan of Treatment: oral antibiotics eventual ffup colonoscopy Assessment: doing well after treatment for diverticulitis Patient Instructions: Low Fiber Diet (DC) Discharge Date/Time: 07/30/20 10:10
== END 2020-07-30 10:10 | disposition home or self-care (01) | DRG 392 ==
LOC: HO.ED 22:55 → HO.EDOVER 23:26 → HO.IMC 07-28 01:00 → HO.S3 07-28 18:38
PROVIDERS: Admitting Provider Surgery; Emergency Provider Student in an Organized Health Care Education/Training Program; Visit Provider Surgery
DX: K57.20 Diverticulitis of large intestine with perforation and abscess without bleeding (principal); F17.210 Nicotine dependence, cigarettes, uncomplicated; Z71.6 Tobacco abuse counseling; Z20.822 Contact with and (suspected) exposure to COVID-19; Z88.6 Allergy status to analgesic agent
CPT/HCPCS: 36415; 74177; 80048; 80053; 81001; 83605; 83690; 85025; 85027; 87040; 87635; 99285; J1170; J1885; J2270; J2405; J2543; Q9967

== ENCOUNTER 2021-02-26 07:19 | Emergency (ER) | payer OTHER, SELFPAY ==
[2021-02-26] VITALS (8 sets, daily range): BP systolic 116–165; BP diastolic 68–89; PULSE 72–89; RESP 16–18; TEMP 36.4–37.3; O2SAT 97–99; BMI 37.6
--- NOTE | ~2021-02-26 | CT_ITS ---
EXAMINATION: CT ABDOMEN AND PELVIS WITH CONTRAST CLINICAL INFORMATION: Left lower quadrant pain COMPARISON: Previous CT of the abdomen and pelvis, most recent July 2020 TECHNIQUE: Multidetector volumetric images were obtained from the superior aspect of the liver through the pubic symphysis following administration 85 mL of Omnipaque 350 intravenous contrast. Sagittal and coronal reformatted images were obtained on the technologist's workstation. Oral contrast: Yes This CT examination was performed using dose optimization techniques as appropriate, variously including the following: *Automated exposure control *Adjustment of mA and/or kV according to patient size (this includes techniques or standardized protocols for targeted exams where dose is matched to indication/reason for exam; i.e. extremities or head) *Use of iterative reconstruction technique DLP: 816 mGy-cm FINDINGS: LUNG BASES: The visualized lung bases are unremarkable. LIVER, GALLBLADDER, AND BILIARY TREE: There multiple low-attenuation liver lesions. These appear stable. Larger lesions are a 2.5 cm low-attenuation lesion high in the lateral segment of the left lobe axial image 12 series 3 compatible with a cyst and 1.5 x 3 cm the junction of the anterior segment of the right lobe and medial segment of the left lobe axial image 21 series 3 and 1.8 cm in the anterior segment of the right lobe axial image 22 series 3. Bladder lesions are more suggestive of hemangiomas. The gallbladder is been removed. There is no biliary duct dilatation. PANCREAS: Unremarkable. SPLEEN: Unremarkable. ADRENAL GLANDS: Unremarkable. KIDNEYS AND URETERS: The kidneys are normal in size, shape, and attenuation. No hydronephrosis, hydroureter, or calculi seen. No perinephric stranding. BLADDER: Not optimally distended. GASTROINTESTINAL TRACT: There are postsurgical changes from right colectomy. There are also postsurgical changes in the distal sigmoid colon with surgical staple line. There is diverticulosis of the colon. There is mild wall thickening of the and left colon and stranding of the surrounding fat suggestive of diverticulitis. No evidence of obstruction, perforation or abscess is seen. ABDOMINAL WALL: There are postsurgical changes to the upper abdominal wall. LYMPH NODES: Normal. VASCULAR: Unremarkable. PELVIC VISCERA: Unremarkable. OSSEOUS STRUCTURES: There are are old traumatic deformity and orthopedic hardware seen in the right proximal femur. There are degenerative changes at the hip joints, right greater than left. CT/CT abdomen pelvis w con IMPRESSION: Mild diverticulitis of the left colon. Fleischner guidelines were followed.
[2021-02-26] MEDS: Ondansetron ODT 4 MG TAB.RAPDIS TRANSLINGU (07:45)
[2021-02-26] MEDS: Acetaminophen 325 MG TABLET 650 MG PO (07:45)
[2021-02-26 08:58] LABS: Hematocrit 48.8 % (42.0-52.0); Hemoglobin 15.8 g/dl (14.0-18.0); Mean Corpuscular HGB Conc 32.4 g/dl (31.0-36.0); Mean Corpuscular Hemoglobin 27.2 pg (27.0-33.0); Mean Corpuscular Volume 84.1 fL (80.0-98.0); Mean Platelet Volume 9.7 fL (9.4-12.4); Platelet Count 355 X10*3/uL (160-400); Red Cell Distribution Width 13.9 % (11.0-16.0); White Blood Count 15.1 X10*3/uL (4.8-10.8)
[2021-02-26 09:16] LABS: Anion Gap 13 (12-20); Blood Urea Nitrogen 9 mg/dL (9-16); Calcium 9.7 mg/dL (8.4-10.2); Carbon Dioxide 25 mmol/L (22-29); Chloride 107 mmol/L (96-108); Creatinine Clr Calc Pharmacy 86.7; Estimated Glomerular Filt Rate > 60; Glucose Random 115 mg/dL (60-115); Lipase 54 U/L (8-78); Potassium 4.4 mmol/L (3.3-5.1); Sodium 141 mmol/L (135-145)
[2021-02-26] MEDS: iohexoL 350 MG/ML 100 ML INFUS..BTL IV (13:31)
[2021-02-26] MEDS: Ketorolac Tromethamine 30 MG/ML VIAL 15 MG IVPUSH ×2 (13:33→20:13)
[2021-02-26 13:36] LABS: Alanine Aminotransferase 50 U/L (0-40); Albumin Level 4.4 g/dL (3.5-5.0); Alkaline Phosphatase 35 U/L (39-117); Aspartate Amino Transferase 19 U/L (5-37); Bilirubin Direct 0.2 mg/dL (0.0-0.5); Bilirubin Total 0.3 mg/dL (0.0-1.0); Magnesium 2.1 mg/dL (1.6-2.6); Total Protein 7.5 g/dL (6.5-8.0)
[2021-02-26] MEDS: 0.9 % Sodium Chloride 1,000 ML 999 ML IV ×2 (13:39→15:52)
[2021-02-26 13:59] LABS: Appearance Urine HAZY; Color Urine YELLOW; Glucose Urine UA NEG (NEG); Leukocyte Esterase Urine NEG (NEG); Nitrite Urine NEG (NEG); PH 5.5 (5.0-8.0); Specific Gravity - Urine >= 1.030 (1.005-1.025); UACC Culture Trigger NO; Urine Blood NEG (NEG); Urine Ketones 5 MG/DL (NEG); Urine Protein 1+ MG/DL (NEG-TRACE)
--- NOTE | 2021-02-26 14:10 | ED_ITS ---
HPI - Abdominal Pain General Chief Complaint: Abdominal Pain Stated Complaint: abd pain Time Seen by Provider: 02/26/21 12:08 Source: patient Mode of arrival: ambulatory History of Present Illness HPI narrative: 50-year-old male with a past medical history of pyelonephritis, diverticulitis, presenting to the ED complaining of left lower quadrant abdominal pain, nausea, vomiting, since last night. Admits to having BMs and passing flatus. Denies fever, chills, suspicious food intake, recent travel, dysuria/hematuria, flank pain MD elicited complaint: abdominal pain Pertinent past history: diverticulitis Onset (ago): hour(s) Pain Consistency: constant Related Data Previous Rx's Medication Instructions Recorded amoxicillin 875 mg-potassium 1 tab PO BID #14 tab 07/28/20 clavulanate 125 mg tablet (Augmentin) ciprofloxacin HCl 500 mg tablet 500 mg PO Q12H 7 Days #14 tab 02/26/21 metronidazole 500 mg tablet 500 mg PO Q8H 7 Days #21 tab 02/26/21 Allergies Allergy/AdvReac Type Severity Reaction Status Date / Time aspirin Allergy Unknown Nausea Verified 06/09/20 03:42 Motrin Allergy Unknown Nausea Uncoded 06/09/20 03:42 Review of Systems Review of Systems Constitutional: No Fever, No Chills, No Fatigue, No Malaise ENT/Mouth: No Hearing loss, No Ear Pain, No Nasal Congestion, No sore throat, No Rhinorrhea, No Swallowing Difficulty Eyes: No Eye Pain, No Swelling, No Redness Cardiovascular: No Chest Pain, No SOB, No Edema, No Palpitations Respiratory: No Cough, No Sputum Gastrointestinal: + Nausea, + Vomiting, No Diarrhea, No Constipation, + Ab dominal pain Genitourinary: No Dysuria, No Hematuria, No Urgency, No Flank Pain Musculoskeletal: No joint pain, No Myalgias, No Joint Swelling Skin: No Skin Lesions, No rash Neuro: No Weakness, No Headache Yes all other systems are reviewed and are negative Physical Exam Vital Signs: Vital Signs: Last Vital Signs Temp 97.5 F 02/26/21 12:52 Pulse 72 02/26/21 18:37 Resp 16 02/26/21 18:37 BP 123/73 02/26/21 18:37 Pulse Ox 98 02/26/21 18:37 BMI result Body Mass Index 37.6 Const: General: cooperative, healthy appearing and no acute distress Orientation/consciousness: patient oriented x3 Limitations: no limitations HENMT: Head: Yes normal to inspection and Yes atraumatic Ears: hearing grossly normal bilaterally General nose exam: Normal external nose present Face and sinus: Yes normal facial exam Eyes: General: appearance normal, both eyes and all related structures EOM: EOMs intact bilaterally Neck: Neck: Yes normal visual inspection and Yes no meningeal signs Resp: Effort & Inspection: normal respiratory effort and no respiratory distress Auscultation: clear to auscultation bilaterally Cardio: Rate: regular rate Heart sounds: S1 normal heart sound present and S2 normal heart sound present GI: Inspection: Yes normal to inspection Palpation (GI): Soft to palpation, Tenderness to palpation present (GI) in the LLQ, no guarding and not rigid : General: Yes no CVA tenderness Back/Spine/Pelvis: Back: no CVA tenderness Skin: Rashes: no rashes Wounds: no wounds Neuro: General: patient oriented x3 and no meningeal signs Gait exam (Neuro): Normal gait present Extrem: General: Yes normal to inspection Course Course Course Narrative: - leukocytosis of 15.1 likely reactive nausea/vomiting, labs otherwise unremarkable. Will obtain lactic/ blood cultures and CT - UA negative -1419---CT abdomen pelvis w con IMPRESSION: Mild diverticulitis of the left colon.? ? -1446--lactic elevated 2.2 likely from dehydration/N/V. Low concern for severe sepsis -1640--patient reports pain resolution, is tolerating PO in the ED without difficulty -1900-- ED care transferred to [facility] Misty albright repeat lactic and anticipated d/c home MDM - Abdominal Pain MDM Narrative Medical decision making narrative: 50-year-old male with a past medical history of pyelonephritis, diverticulitis, presenting to the ED complaining of left lower quadrant abdominal pain, nausea, vomiting, since last night. on exam vital signs stable, NAD/nontoxic appearing, abdomen soft with left lower quadrant tenderness, no rebound or guarding, no CVAT. Concern for diverticulitis. Low concern for SBO, appendicitis/ renal stone or UTI low concern for severe sepsis plan: Labs, UA, CT AP, IVF, symptomatic treatment, re-evaluation Differential Diagnosis Differential diagnosis: Likely abdominal pain, bowel perforation, constipation, diverticulitis and small bowel obstruction Medical Records Attestation: I reviewed the patient's medical records. Lab Data Attestation: I reviewed the patient's lab results. Result diagrams: 02/26/21 08:48 02/26/21 08:48 Labs: Lab Results 02/26/21 02/26/21 02/26/21 Range/Units 08:48 08:48 13:48 WBC 15.1 H (4.8-10.8) X10*3/uL RBC 5.80 (4.60-5.80) X10*6/uL Hgb 15.8 (14.0-18.0) g/dl Hct 48.8 (42.0-52.0) % MCV 84.1 (80.0-98.0) fL MCH 27.2 (27.0-33.0) pg MCHC 32.4 (31.0-36.0) g/dl RDW 13.9 (11.0-16.0) % Plt Count 355 (160-400) X10*3/uL MPV 9.7 (9.4-12.4) fL Absolute Nucleated RBC 0.000 (0.0-0.012) X10*3/uL Nucleated RBC % (auto) 0.0 (0.0-0.2) /100WBC Sodium 141 (135-145) mmol/L Potassium 4.4 (3.3-5.1) mmol/L Chloride 107 (96-108) mmol/L Carbon Dioxide 25 (22-29) mmol/L Anion Gap 13 (12-20) BUN 9 (9-16) mg/dL Creatinine 1.25 (0.5-1.4) mg/dL Estim Creat Clear Calc 86.7 Estimated GFR > 60 Random Glucose 115 (60-115) mg/dL Lactic Acid (0.5-2.0) mmol/L Calcium 9.7 D (8.4-10.2) mg/dL Magnesium 2.1 (1.6-2.6) mg/dL Total Bilirubin 0.3 (0.0-1.0) mg/dL Direct Bilirubin 0.2 (0.0-0.5) mg/dL AST 19 (5-37) U/L ALT 50 H (0-40) U/L Alkaline Phosphatase 35 L (39-117) U/L Total Protein 7.5 (6.5-8.0) g/dL Albumin 4.4 (3.5-5.0) g/dL Lipase 54 (8-78) U/L Urine Color YELLOW Urine Appearance HAZY Urine pH 5.5 (5.0-8.0) Ur Specific Disputanta >= 1.030 H (1.005-1.025) Urine Protein 1+ H (NEG-TRACE) MG/DL Urine Glucose (UA) NEG (NEG) MG/DL Urine Ketones 5 (NEG) MG/DL Urine Blood NEG (NEG) Urine Nitrite NEG (NEG) Ur Leukocyte Esterase NEG (NEG) Urine RBC 0-2 (0) /HPF Urine WBC 0-2 (0-4) /HPF Ur Squamous Epith Cells TRACE /LPF Urine Bacteria TRACE /LPF Urine Mucus 2+ /LPF 02/26/21 Range/Units 14:20 WBC (4.8-10.8) X10*3/uL RBC (4.60-5.80) X10*6/uL Hgb (14.0-18.0) g/dl Hct (42.0-52.0) % MCV (80.0-98.0) fL MCH (27.0-33.0) pg MCHC (31.0-36.0) g/dl RDW (11.0-16.0) % Plt Count (160-400) X10*3/uL MPV (9.4-12.4) fL Absolute Nucleated RBC (0.0-0.012) X10*3/uL Nucleated RBC % (auto) (0.0-0.2) /100WBC Sodium (135-145) mmol/L Potassium (3.3-5.1) mmol/L Chloride (96-108) mmol/L Carbon Dioxide (22-29) mmol/L Anion Gap (12-20) BUN (9-16) mg/dL Creatinine (0.5-1.4) mg/dL Estim Creat Clear Calc Estimated GFR Random Glucose (60-115) mg/dL Lactic Acid 2.2 H* (0.5-2.0) mmol/L Calcium (8.4-10.2) mg/dL Magnesium (1.6-2.6) mg/dL Total Bilirubin (0.0-1.0) mg/dL Direct Bilirubin (0.0-0.5) mg/dL AST (5-37) U/L ALT (0-40) U/L Alkaline Phosphatase (39-117) U/L Total Protein (6.5-8.0) g/dL Albumin (3.5-5.0) g/dL Lipase (8-78) U/L Urine Color Urine Appearance Urine pH (5.0-8.0) Ur Specific Disputanta (1.005-1.025) Urine Protein (NEG-TRACE) MG/DL Urine Glucose (UA) (NEG) MG/DL Urine Ketones (NEG) MG/DL Urine Blood (NEG) Urine Nitrite (NEG) Ur Leukocyte Esterase (NEG) Urine RBC (0) /HPF Urine WBC (0-4) /HPF Ur Squamous Epith Cells /LPF Urine Bacteria /LPF Urine Mucus /LPF Discharge Plan Discharge Clinical Impression: Diverticulitis Instructions: Diverticulitis (ED), Diverticulitis Diet (ED) Additional Instructions: you have diverticulitis of your colon. practice clear liquid diet for the next 3 days. Follow diverticulitis diet provided if pain persists or worsens, becomes unbearable, you have fever, you are unable to eat or drink please return to the emergency department Cipro and Flagyl are antibiotics please take as prescribed please follow-up with her primary care doctor Prescriptions: New metronidazole 500 mg tablet 500 mg PO Q8H 7 Days Qty: 21 RF: 0 ciprofloxacin HCl 500 mg tablet 500 mg PO Q12H 7 Days Qty: 14 RF: 0 No Action amoxicillin-pot clavulanate [Augmentin] 875-125 mg tablet 1 tab PO BID Qty: 14 RF: 0 Referrals: Jayesh Adams [Physician] - 3 days [facility] Past Medical History Attestation statement: The following information was validated with the patient. Medical History Cholecystectomy planned Chronic back pain Dislocated shoulder Diverticulitis History of prediabetes Morbid obesity Pyelonephritis Surgical History History of hip surgery History of partial colectomy Social History Social History Household Members: None Housing: Apartment Do you presently have visiting nurse or other home services: No Alcohol intake: current Alcohol intake frequency: a few times a week Patient Tobacco Use Status: Current everyday Tobacco user Tobacco use type: Cigarette e-Cigarette/Vaping Use: Never Used Substance Use Type: Marijuana Advance Directives: No Advance Directives Information Provided: No service: No
[2021-02-26 14:21] LABS: Bacteria Urine TRACE /LPF; Mucus Urine 2+ /LPF; RBC Urine 0-2 /HPF (0); Squamous Epithelial Cell Urine TRACE /LPF; WBC Urine 0-2 /HPF (0-4)
[2021-02-26 14:44] LABS: Lactic Acid 2.2 mmol/L (0.5-2.0)
[2021-02-26] MEDS: levoFLOXacin/D5W 750 MG/150 ML PIGGYBACK 100 MG IV (15:51)
[2021-02-26] MEDS: Morphine Sulfate 2 MG/ML CARTRIDGE IVPUSH (15:51)
[2021-02-26 16:23] LABS: Reflex Lactate? Lactic Acid Added
--- NOTE | 2021-02-26 16:46 | PC.NURSE ---
PT WAS CHALLENGING IV STICK. BLOOD CULTURES DELAYED DUE TO DIFFICULTY IN OBTAINING THEM. ABX HUNG SOON CULTURES OBTAINED.
[2021-02-26] MEDS: metroNIDAZOLE/NS 500 MG/100 ML PIGGYBACK 100 MG IV (17:35)
--- NOTE | 2021-02-26 18:11 | PC.NURSE ---
TECH ATTEMPTING TO OBTAIN SECOND LACTIC ACID
[2021-02-26 18:45] LABS: ~Lactic Acid-LAB USE ONLY 1.4 mmol/L (0.5-2.0)
[2021-02-26] MEDS: oxyCODONE HCl Immed Release 5 MG TABLET PO (19:35)
== END 2021-02-26 20:22 | disposition home or self-care (01) ==
PROVIDERS: Physician Assistant; Emergency Provider Emergency Medicine; PCP Internal Medicine
DX: K57.32 Diverticulitis of large intestine without perforation or abscess without bleeding (principal); R10.32 Left lower quadrant pain
CPT/HCPCS: 36415; 74177; 80048; 80076; 81001; 81003; 83605; 83690; 83735; 85027; 87040; 96361; 96374; 96375; 99284; J1885; J1956; J2270; Q9967

== ENCOUNTER 2021-06-09 08:40 | Outpatient (REF) | payer OTHER, SELFPAY ==
[2021-06-09 11:28] LABS: Cholesterol 209 mg/dL; HDL Cholesterol 60 mg/dL; LDL Cholesterol Calculated 125 mg/dl; Triglycerides 124 mg/dL
== END 2021-06-09 08:41 | disposition home or self-care (01) ==
LOC: HO.HMGCLDS 08:40
PROVIDERS: Visit Provider Student in an Organized Health Care Education/Training Program
DX: E11.9 Type 2 diabetes mellitus without complications (principal)
CPT/HCPCS: 36415; 80061

== ENCOUNTER 2021-10-16 00:12 | Emergency (ER) | payer OTHER, SELFPAY ==
--- NOTE | ~2021-10-16 | CT_ITS ---
EXAMINATION: CT ABDOMEN AND PELVIS WITHOUT CONTRAST CLINICAL INFORMATION: Left lower quadrant pain COMPARISON: 02/26/2021 TECHNIQUE: Multidetector volumetric imaging was performed from the superior aspect of the liver through the pubic symphysis. Sagittal and coronal reformatted images were obtained on the technologist's workstation. This CT examination was performed using dose optimization techniques as appropriate, variously including the following: *Automated exposure control *Adjustment of mA and/or kV according to patient size (this includes techniques or standardized protocols for targeted exams where dose is matched to indication/reason for exam; i.e. extremities or head) *Use of iterative reconstruction technique DLP: 910 mGy-cm FINDINGS: LUNG BASES: The visualized lung bases are unremarkable. LIVER, GALLBLADDER, AND BILIARY TREE: Redemonstrated left hepatic lobe cyst. Right hepatic lobe lesions identified previously are not as well demonstrated on this noncontrast exam. No intrahepatic biliary ductal dilatation. Status post cholecystectomy. PANCREAS: Unremarkable. SPLEEN: Unremarkable. ADRENAL GLANDS: Unremarkable. KIDNEYS AND URETERS: The kidneys are normal in size, shape, and attenuation. No hydronephrosis, hydroureter, or calculi seen. No perinephric stranding. BLADDER: Unremarkable. GASTROINTESTINAL TRACT: No evidence of bowel obstruction. There is colonic diverticulosis with focal wall thickening and surrounding inflammation in the mid descending colon, most consistent with diverticulitis. No pericolonic abscess or free air is seen. Status post partial colectomy with enterocolonic anastomosis in the central abdomen. ABDOMINAL WALL: No significant hernia is appreciated. LYMPH NODES: Normal. VASCULAR: Mild scattered calcification. PELVIC VISCERA: Unremarkable. OSSEOUS STRUCTURES: Partially visualized hardware in the right femur. CT/CT abdomen pelvis wo IV con IMPRESSION: Diverticulitis of the descending colon. No pericolonic abscess or free air identified. Correlation with recent or followup colonoscopy is advised to exclude an underlying mass lesion.
[2021-10-16 00:38] VITALS: PULSE 70; RESP 14; TEMP 36.9; O2SAT 98; BMI 36.9
[2021-10-16 01:16] LABS: MANUAL DIFF FLAG NO
[2021-10-16 01:19] LABS: Basophils Percent Auto 0.1 % (0-2); Eosinophils Absolute Auto 0.1 X10*3/uL (0.0-0.4); Eosinophils Percent Auto 0.7 % (0-4); Hematocrit 46.5 % (42.0-52.0); Hemoglobin 14.5 g/dl (14.0-18.0); Imm Gran Abs Auto 0.04 X10*3/uL (0.00-0.03); Imm Gran Pct Auto 0.3 % (0.0-0.4); Lymphocytes Absolute Auto 3.2 X10*3/uL (1.2-4.9); Lymphocytes Percent Auto 22.5 % (20-40); Mean Corpuscular HGB Conc 31.2 g/dl (31.0-36.0); Mean Corpuscular Hemoglobin 26.4 pg (27.0-33.0); Mean Corpuscular Volume 84.7 fL (80.0-98.0); Mean Platelet Volume 9.9 fL (9.4-12.4); Monocytes Absolute Auto 1.2 X10*3/uL (0.1-1.2); Monocytes Percent Auto 8.6 % (2-11); Neutrophils Absolute Auto 9.6 x10*3/uL (2.0-8.3); Neutrophils Percent Auto 67.8 % (45-73); Platelet Count 282 X10*3/uL (160-400); Red Blood Count 5.49 X10*6/uL (4.60-5.80); Red Cell Distribution Width 13.8 % (11.0-16.0); White Blood Count 14.2 X10*3/uL (4.8-10.8)
[2021-10-16 01:34] LABS: COVID-19 Test Negative (Negative); IDNOW Serial# 9DB6401D
[2021-10-16 01:37] LABS: Alanine Aminotransferase 28 U/L (0-40); Albumin Level 3.9 g/dL (3.5-5.0); Alkaline Phosphatase 29 U/L (39-117); Anion Gap 16 (12-20); Aspartate Amino Transferase 14 U/L (5-37); Bilirubin Total 0.2 mg/dL (0.0-1.0); Blood Urea Nitrogen 13 mg/dL (9-16); Calcium 8.8 mg/dL (8.4-10.2); Carbon Dioxide 23 mmol/L (22-29); Chloride 107 mmol/L (96-108); Creatinine Clr Calc Pharmacy 95.5; Estimated Glomerular Filt Rate > 60; Glucose Random 114 mg/dL (60-115); Potassium 4.3 mmol/L (3.3-5.1); Sodium 142 mmol/L (135-145); Total Protein 6.6 g/dL (6.5-8.0)
[2021-10-16 02:36] VITALS: BP 149/92; PULSE 72; RESP 20; TEMP 37.3; O2SAT 95
--- NOTE | 2021-10-16 02:51 | ED_ITS ---
HPI - Abdominal Pain General Chief Complaint: Abdominal Pain Stated Complaint: diverticulitis Time Seen by Provider: 10/16/21 00:14 Source: patient Mode of arrival: ambulatory History of Present Illness HPI narrative: 51-year-old male with history of diverticulitis who reports that over the past couple of days he has been experiencing worsening left lower quadrant pain and then today became quite severe and was associated with nausea as well as an isolated episode of vomiting. Otherwise he denies any subjective fevers but states he may have had some chills. Otherwise he denies any shortness of breath, chest pain/palpitations or urinary symptoms. Related Data Previous Rx's Medication Instructions Recorded cyclobenzaprine 10 mg tablet 10 mg PO BEDTIME #10 tabs 09/03/21 lidocaine 4 % topical patch 1 patch topical DAILY PRN pain #15 09/03/21 (AsperFlex (lidocaine)) ea amoxicillin 875 mg-potassium 1 tab PO Q12H 10 days #20 tabs 10/16/21 clavulanate 125 mg tablet ketorolac 10 mg tablet 10 mg PO Q6H PRN pain 5 days #20 10/16/21 tabs ondansetron 4 mg disintegrating 4 mg PO Q8H PRN nausea and 10/16/21 tablet vomiting #10 tabs Allergies Allergy/AdvReac Type Severity Reaction Status Date / Time aspirin Allergy Unknown Nausea Verified 09/03/21 09:35 Motrin Allergy Unknown Nausea Uncoded 09/03/21 09:35 Review of Systems Review of Systems Pertinent positives and negatives as stated in HPI 10 point review of systems is otherwise negative. [facility] Past Medical History Source: nursing notes reviewed Medical History Cholecystectomy planned Chronic back pain Dislocated shoulder Diverticulitis History of prediabetes Morbid obesity Pyelonephritis Surgical History History of hip surgery History of partial colectomy Social History Social History Household Members: None Housing: Apartment Do you presently have visiting nurse or other home services: No Alcohol intake: current Alcohol intake frequency: holidays/special occasions only Patient Tobacco Use Status: Current everyday Tobacco user Tobacco use type: Cigarette Smoked in Last 30 Days: Yes e-Cigarette/Vaping Use: Never Used Use of substances other than those prescribed or required for medical reasons: Yes Substance Use Type: Marijuana Substance Use Frequency: Occasionally Advance Directives: No Advance Directives Information Provided: No service: No Physical Exam ED Vital Signs: Vital Signs - 24 hr 10/16/21 00:38 10/16/21 02:36 10/16/21 04:27 Temperature 98.4 F 99.1 F Pulse Rate 70 72 68 Respiratory Rate 14 20 14 Blood Pressure 149/92 H 128/70 Pulse Oximetry 98 95 96 Oxygen Delivery Method Room Air Room Air Room Air BMI result Body Mass Index 36.9 VITAL SIGNS: Reviewed. GENERAL: Well developed, well nourished, in no acute distress. HEAD: Normocephalic/atraumatic EYES: PERRLA, EOMI EARS: Ext canals without abnormality OROPHARYNX: no oral lesions noted, posterior pharynx clear NECK: Supple, no adenopathy LUNGS: Normal breath sounds. No adventitious sounds or accessory muscle use. SpO2<95> CARDIOVASCULAR: Regular rate and rhythm without noted murmurs ABDOMEN: Soft, significant tenderness at the left lower quadrant, non-distended with bowel sounds. MUSCULOSKELETAL: No tenderness, deformities, or effusions noted on gross inspection. EXTREMITIES: No cyanosis, clubbing or edema. SKIN: Inspection of the skin reveals no rashes NEUROLOGIC: Alert and oriented x 4. Strength and sensation to light touch were grossly intact x 4. Course Course Course Narrative: 0100: 51-year-old male with history and clinical presentation consistent with diverticulitis and less clinical suspicion for renal colic or UTI. On review of all investigations findings are consistent with diverticulitis. Patient r eceived lactic acid/blood culture/antibiotics as well as pain medication and 1 L of IV fluids. On re-evaluation patient is feeling better and is otherwise stable for discharge to home. MDM - Abdominal Pain Lab Data Result diagrams: 10/16/21 01:00 10/16/21 01:00 Labs: Lab Results 10/16/21 10/16/21 10/16/21 Range/Units 01:00 01:00 01:00 WBC 14.2 H (4.8-10.8) X10*3/uL RBC 5.49 (4.60-5.80) X10*6/uL Hgb 14.5 (14.0-18.0) g/dl Hct 46.5 (42.0-52.0) % MCV 84.7 (80.0-98.0) fL MCH 26.4 L (27.0-33.0) pg MCHC 31.2 (31.0-36.0) g/dl RDW 13.8 (11.0-16.0) % Plt Count 282 (160-400) X10*3/uL MPV 9.9 (9.4-12.4) fL Immature Gran % (Auto) 0.3 (0.0-0.4) % Neut % (Auto) 67.8 (45-73) % Lymph % (Auto) 22.5 (20-40) % [place] % (Auto) 8.6 (2-11) % Eos % (Auto) 0.7 (0-4) % Baso % (Auto) 0.1 (0-2) % Lymph # (Auto) 3.2 (1.2-4.9) X10*3/uL [place] # (Auto) 1.2 (0.1-1.2) X10*3/uL Eos # (Auto) 0.1 (0.0-0.4) X10*3/uL Baso # (Auto) 0.0 (0.0-0.2) X10*3/uL Abs Immat Gran (auto) 0.04 H (0.00-0.03) X10*3/uL Absolute Neuts (auto) 9.6 H (2.0-8.3) x10*3/uL Absolute Nucleated RBC 0.000 (0.0-0.012) X10*3/uL Nucleated RBC % (auto) 0.0 (0.0-0.2) /100WBC Sodium 142 (135-145) mmol/L Potassium 4.3 (3.3-5.1) mmol/L Chloride 107 (96-108) mmol/L Carbon Dioxide 23 (22-29) mmol/L Anion Gap 16 (12-20) BUN 13 (9-16) mg/dL Creatinine 1.11 (0.5-1.4) mg/dL Estim Creat Clear Calc 95.5 Estimated GFR > 60 POC Glucose (60-115) mg/dL Random Glucose 114 (60-115) mg/dL Lactic Acid (0.5-2.0) mmol/L Calcium 8.8 D (8.4-10.2) mg/dL Magnesium 2.0 (1.6-2.6) mg/dL Total Bilirubin 0.2 (0.0-1.0) mg/dL AST 14 (5-37) U/L ALT 28 (0-40) U/L Alkaline Phosphatase 29 L (39-117) U/L Total Protein 6.6 (6.5-8.0) g/dL Albumin 3.9 (3.5-5.0) g/dL COVID-19 (TONIA) Negative (Negative) COVID-19 Clin Com See Note 10/16/21 10/16/21 Range/Units 02:57 04:30 WBC (4.8-10.8) X10*3/uL RBC (4.60-5.80) X10*6/uL Hgb (14.0-18.0) g/dl Hct (42.0-52.0) % MCV (80.0-98.0) fL MCH (27.0-33.0) pg MCHC (31.0-36.0) g/dl RDW (11.0-16.0) % Plt Count (160-400) X10*3/uL MPV (9.4-12.4) fL Immature Gran % (Auto) (0.0-0.4) % Neut % (Auto) (45-73) % Lymph % (Auto) (20-40) % [place] % (Auto) (2-11) % Eos % (Auto) (0-4) % Baso % (Auto) (0-2) % Lymph # (Auto) (1.2-4.9) X10*3/uL [place] # (Auto) (0.1-1.2) X10*3/uL Eos # (Auto) (0.0-0.4) X10*3/uL Baso # (Auto) (0.0-0.2) X10*3/uL Abs Immat Gran (auto) (0.00-0.03) X10*3/uL Absolute Neuts (auto) (2.0-8.3) x10*3/uL Absolute Nucleated RBC (0.0-0.012) X10*3/uL Nucleated RBC % (auto) (0.0-0.2) /100WBC Sodium (135-145) mmol/L Potassium (3.3-5.1) mmol/L Chloride (96-108) mmol/L Carbon Dioxide (22-29) mmol/L Anion Gap (12-20) BUN (9-16) mg/dL Creatinine (0.5-1.4) mg/dL Estim Creat Clear Calc Estimated GFR POC Glucose 104 (60-115) mg/dL Random Glucose (60-115) mg/dL Lactic Acid 1.5 (0.5-2.0) mmol/L Calcium (8.4-10.2) mg/dL Magnesium (1.6-2.6) mg/dL Total Bilirubin (0.0-1.0) mg/dL AST (5-37) U/L ALT (0-40) U/L Alkaline Phosphatase (39-117) U/L Total Protein (6.5-8.0) g/dL Albumin (3.5-5.0) g/dL COVID-19 (TONIA) (Negative) COVID-19 Clin Com Discharge Plan Discharge Clinical Impression: Diverticulitis Patient Disposition: Home, Self-Care Instructions: Diverticulitis (ED), Diverticulitis Diet (ED) Additional Instructions: 1. Resume all home medications as prescribed. 2. Tylenol 1000 mg, orally, every 6 hours as needed for pain control. Do not exceed 4000 mg within 24 hours. 3. Complete the entire course of antibiotics as ordered. 4. You need to call the office of your primary care provider 1st thing in the morning to schedule an appointment for re-evaluation and you will need to get a colonoscopy in approximately 6 weeks. Return to the ER for worsening symptoms. Prescriptions: New ondansetron 4 mg tablet,disintegrating 4 mg PO Q8H PRN (Reason: nausea and vomiting) Qty: 10 0RF amoxicillin-pot clavulanate 875-125 mg tablet 1 tab PO Q12H 10 Days Qty: 20 0RF ketorolac 10 mg tablet 10 mg PO Q6H PRN (Reason: pain) 5 Days Qty: 20 0RF Rx Instructions: Patient received Toradol in the emergency room. Please instruct patient that he will need to take milk or food prior to using this medication. No Action lidocaine [AsperFlex (lidocaine)] 4 % adhesive patch,medicated 1 patch topical DAILY PRN (Reason: pain) Qty: 15 0RF cyclobenzaprine 10 mg tablet 10 mg PO BEDTIME Qty: 10 0RF Referrals: Roma Yousif MD [Primary Care Provider] -
[2021-10-16 03:14] LABS: Lactic Acid 1.5 mmol/L (0.5-2.0)
[2021-10-16] MEDS: Ketorolac Tromethamine 30 MG/ML VIAL 15 MG IVPUSH (03:50)
[2021-10-16] MEDS: 0.9 % Sodium Chloride 1,000 ML 999 ML IV (03:53)
[2021-10-16] MEDS: Piperacillin Sodium/Tazobactam 3.375 GM in 0.9 % Sodium Chloride 50 ML IV (03:53)
[2021-10-16 04:27] VITALS: BP 128/70; PULSE 68; RESP 14; O2SAT 96
[2021-10-16 04:34] LABS: Glucose, Whole Blood 104 mg/dL (60-115)
[2021-10-16 05:56] VITALS: BP 115/66; PULSE 71; RESP 16; TEMP 37.1; O2SAT 98
[2021-10-16] MEDS: ondansetron HCL 4 MG/2 ML VIAL IVPUSH (05:57)
[2021-10-16] MEDS: Acetaminophen 325 MG TABLET 975 MG PO (05:58)
== END 2021-10-16 06:08 | disposition home or self-care (01) ==
PROVIDERS: Physician Assistant; Emergency Provider Student in an Organized Health Care Education/Training Program; PCP Internal Medicine
DX: K57.32 Diverticulitis of large intestine without perforation or abscess without bleeding (principal); R10.32 Left lower quadrant pain; Z79.899 Other long term (current) drug therapy; Z20.822 Contact with and (suspected) exposure to COVID-19
CPT/HCPCS: 36415; 74176; 80053; 82947; 83605; 83735; 85025; 87040; 87635; 96365; 96366; 96375; 99284; 99285; J1885; J2405; J2543

== ENCOUNTER 2021-10-19 03:47 | Emergency (ER) | payer OTHER, SELFPAY ==
[2021-10-19 03:57] VITALS: BP 120/74; PULSE 83; RESP 16; TEMP 36.4; O2SAT 97; BMI 36.9
--- NOTE | 2021-10-19 04:11 | ED.ABDPAIN ---
HPI - Abdominal Pain General Chief Complaint: General Medical Stated Complaint: abd blotting diarrhea fever Time Seen by Provider: 10/19/21 03:51 Source: patient and old records reviewed Mode of arrival: ambulatory Limitations: no limitations History of Present Illness HPI narrative: 51 yo male with hx of diverticulitis with 2 bowel resections in the past was seen on 10/16 for diverticulitis sent home on augmentin. He has been taking the augmentin. He started to introduce more solid food yesterday and noted increase in bloating. He woke up and also felt hot so he worried he had a fever. He denies other symptoms. He notes this pain is nothing like when he needed to have resections. MD elicited complaint: abdominal pain Pertinent past history: diverticulitis Onset (ago): hour(s) (few) Pain Consistency: intermittent Location: LLQ Severity: mild Quality: fullness and dull Radiation: none Migration to: no migration Exacerbating factors: eating Relieving factors: nothing Context: history of similar episodes Associated symptoms: other (feels a little bloated) Treatments prior to arrival: other (taking his augmentin as prescribed) Related Data Previous Rx's Medication Instructions Recorded cyclobenzaprine 10 mg tablet 10 mg PO BEDTIME #10 tabs 09/03/21 lidocaine 4 % topical patch 1 patch topical DAILY PRN pain #15 09/03/21 (AsperFlex (lidocaine)) ea amoxicillin 875 mg-potassium 1 tab PO Q12H 10 days #20 tabs 10/16/21 clavulanate 125 mg tablet ketorolac 10 mg tablet 10 mg PO Q6H PRN pain 5 days #20 10/16/21 tabs ondansetron 4 mg disintegrating 4 mg PO Q8H PRN nausea and 10/16/21 tablet vomiting #10 tabs Allergies Allergy/AdvReac Type Severity Reaction Status Date / Time aspirin Allergy Unknown Nausea Verified 09/03/21 09:35 Motrin Allergy Unknown Nausea Uncoded 09/03/21 09:35 Review of Systems Review of Systems Constitutional : No Weight loss, No Fever, No Chills ENT/Mouth : No sore throat, No Rhinorrhea Eyes: No Swelling, No Redness Cardiovascular : No Chest Pain, No SOB, NoEdema Respiratory : No Cough, No Sputum, No Wheezing Gastrointestinal : no Nausea, no Vomiting, no Diarrhea, positive mild abdominal Pain, No Hematochezia, No Melena Genitourinary : No Dysuria, No Urinary Frequency, No Hematuria, No Urgency Musculoskeletal : No joint pain, No Myalgias, No Joint Swelling Skin : No Skin Lesions, No rash Neuro : No Weakness, No Numbness, No Dizziness, No Headache Psych : No Anxiety/Panic, No Depression Heme/Lymph: No Bruising, No Lymphadenopathy Endocrine : No Polyuria, No Polydipsia All other systems reviewed and are negative. [facility] Past Medical History Attestation statement: The following information was validated with the patient. Medical History Cholecystectomy planned Chronic back pain Dislocated shoulder Diverticulitis History of prediabetes Morbid obesity Pyelonephritis Surgical History History of hip surgery History of partial colectomy Social History Social History Household Members: None Housing: Apartment Do you presently have visiting nurse or other home services: No Alcohol intake: current Alcohol intake frequency: holidays/special occasions only Patient Tobacco Use Status: Current everyday Tobacco user Tobacco use type: Cigarette e-Cigarette/Vaping Use: Never Used Substance Use Type: Marijuana Advance Directives: No Advance Directives Information Provided: Yes service: No Physical Exam ED Vital Signs: Vital Signs - 24 hr 10/19/21 03:57 Temperature 97.5 F Pulse Rate 83 Respiratory Rate 16 Blood Pressure 120/74 Pulse Oximetry 97 Oxygen Delivery Method Room Air BMI result Body Mass Index 36.9 Appearance: Alert. Oriented X3. No acute distress. Eyes: Pupils equal, round and reactive to light. ENT: Pharynx normal. Neck: Normal inspection. Neck supple. CVS: Normal heart rate and rhythm. Pulses normal. Respiratory: No respiratory distress. Breath sounds normal. Abdomen: Soft and nontender. maybe mild pain with deep palpation to LLQ Skin: Skin warm and dry. Normal skin color. Normal skin turgor. Extremities: No lower extremity edema. No calf ttp Neuro: Oriented X 3. No motor deficit. No sensory deficit. Course Course Course Narrative: benign abdomen CBC normal can continue outpatient treatment MDM - Abdominal Pain MDM Narrative Medical decision making narrative: 51 yo male with hx of diverticulitis with bowel resection in the past dx with another bout on 10/16 started on augmentin which he has been taking. He started to eat more solid foods and became bloated. He was nervous and wanted to get checked out. I explained he is on the treatment for diverticulitis and that it should help to clear his inflammation up. He has very minimal pain to palpation at this time, no fevers here (no anti-pyretics at home), no n/v/d. He feels reassured and actually wants to leave but he does agree to check some blood work. Doubt SBO or abscess, suspect bloating is due to him introducing food. Lab Data Result diagrams: 10/19/21 04:30 10/19/21 04:30 Labs: Lab Results 10/19/21 10/19/21 10/19/21 Range/Units 04:30 04:30 04:30 WBC 8.8 (4.8-10.8) X10*3/uL RBC 5.18 (4.60-5.80) X10*6/uL Hgb 14.0 (14.0-18.0) g/dl Hct 44.0 (42.0-52.0) % MCV 84.9 (80.0-98.0) fL MCH 27.0 (27.0-33.0) pg MCHC 31.8 (31.0-36.0) g/dl RDW 13.6 (11.0-16.0) % Plt Count 261 (160-400) X10*3/uL MPV 10.1 (9.4-12.4) fL Immature Gran % (Auto) 0.2 (0.0-0.4) % Neut % (Auto) 50.6 (45-73) % Lymph % (Auto) 40.6 H (20-40) % [place] % (Auto) 6.9 (2-11) % Eos % (Auto) 1.4 (0-4) % Baso % (Auto) 0.3 (0-2) % Lymph # (Auto) 3.6 (1.2-4.9) X10*3/uL [place] # (Auto) 0.6 (0.1-1.2) X10*3/uL Eos # (Auto) 0.1 (0.0-0.4) X10*3/uL Baso # (Auto) 0.0 (0.0-0.2) X10*3/uL Abs Immat Gran (auto) 0.02 (0.00-0.03) X10*3/uL Absolute Neuts (auto) 4.5 (2.0-8.3) x10*3/uL Absolute Nucleated RBC 0.000 (0.0-0.012) X10*3/uL Nucleated RBC % (auto) 0.0 (0.0-0.2) /100WBC Lactic Acid 0.8 (0.5-2.0) mmol/L COVID-19 (TONIA) Negative (Negative) COVID-19 Clin Com See Note Discharge Plan Discharge Clinical Impression: Diverticulitis Patient Disposition: Home, Self-Care Instructions: Diverticulitis (ED) Additional Instructions: return to ED for any worsening symptoms or concerns return for fevers, worsening pain, bloody stools, no improvement FINISH ALL ANTIBIOTICS. Prescriptions: No Action ondansetron 4 mg tablet,disintegrating 4 mg PO Q8H PRN (Reason: nausea and vomiting) Qty: 10 0RF amoxicillin-pot clavulanate 875-125 mg tablet 1 tab PO Q12H 10 Days Qty: 20 0RF ketorolac 10 mg tablet 10 mg PO Q6H PRN (Reason: pain) 5 Days Qty: 20 0RF Rx Instructions: Patient received Toradol in the emergency room. Please instruct patient that he will need to take milk or food prior to using this medication. lidocaine [AsperFlex (lidocaine)] 4 % adhesive patch,medicated 1 patch topical DAILY PRN (Reason: pain) Qty: 15 0RF cyclobenzaprine 10 mg tablet 10 mg PO BEDTIME Qty: 10 0RF
[2021-10-19 04:37] LABS: Basophils Percent Auto 0.3 % (0-2); Eosinophils Absolute Auto 0.1 X10*3/uL (0.0-0.4); Eosinophils Percent Auto 1.4 % (0-4); Imm Gran Abs Auto 0.02 X10*3/uL (0.00-0.03); Imm Gran Pct Auto 0.2 % (0.0-0.4); Lymphocytes Absolute Auto 3.6 X10*3/uL (1.2-4.9); Lymphocytes Percent Auto 40.6 % (20-40); MANUAL DIFF FLAG NO; Mean Corpuscular HGB Conc 31.8 g/dl (31.0-36.0); Mean Corpuscular Volume 84.9 fL (80.0-98.0); Mean Platelet Volume 10.1 fL (9.4-12.4); Monocytes Absolute Auto 0.6 X10*3/uL (0.1-1.2); Monocytes Percent Auto 6.9 % (2-11); Neutrophils Absolute Auto 4.5 x10*3/uL (2.0-8.3); Neutrophils Percent Auto 50.6 % (45-73); Platelet Count 261 X10*3/uL (160-400); Red Blood Count 5.18 X10*6/uL (4.60-5.80); Red Cell Distribution Width 13.6 % (11.0-16.0); White Blood Count 8.8 X10*3/uL (4.8-10.8)
[2021-10-19 04:52] LABS: COVID-19 Test Negative (Negative)
[2021-10-19 04:53] LABS: Lactic Acid 0.8 mmol/L (0.5-2.0)
[2021-10-19 05:05] LABS: Alanine Aminotransferase 33 U/L (0-40); Albumin Level 3.9 g/dL (3.5-5.0); Alkaline Phosphatase 27 U/L (39-117); Anion Gap 15 (12-20); Aspartate Amino Transferase 23 U/L (5-37); Bilirubin Direct < 0.2 mg/dL (0.0-0.5); Bilirubin Total 0.2 mg/dL (0.0-1.0); Blood Urea Nitrogen 10 mg/dL (9-16); Calcium 8.6 mg/dL (8.4-10.2); Carbon Dioxide 21 mmol/L (22-29); Chloride 108 mmol/L (96-108); Creatinine Clr Calc Pharmacy 101.9; Estimated Glomerular Filt Rate > 60; Glucose Random 107 mg/dL (60-115); Lipase 33 U/L (8-78); Magnesium 2.2 mg/dL (1.6-2.6); Potassium 4.3 mmol/L (3.3-5.1); Sodium 140 mmol/L (135-145); Total Protein 6.9 g/dL (6.5-8.0)
== END 2021-10-19 05:42 | disposition home or self-care (01) ==
PROVIDERS: Emergency Provider Emergency Medicine; PCP Internal Medicine
DX: K57.32 Diverticulitis of large intestine without perforation or abscess without bleeding (principal); R10.32 Left lower quadrant pain; Z20.822 Contact with and (suspected) exposure to COVID-19; Z79.899 Other long term (current) drug therapy
CPT/HCPCS: 36415; 80048; 80076; 83605; 83690; 83735; 85025; 87040; 87635; 99283

== ENCOUNTER 2021-11-28 10:09 | Emergency (ER) | payer OTHER, SELFPAY ==
--- NOTE | ~2021-11-28 | CT_ITS ---
EXAMINATION: CT ABDOMEN AND PELVIS WITHOUT CONTRAST CLINICAL INFORMATION: Left lower quadrant pain with history diverticulitis, microperforation and small bowel obstruction COMPARISON: CT abdomen pelvis 10/16/2021 TECHNIQUE: Multidetector volumetric imaging was performed from the superior aspect of the liver through the pubic symphysis. Sagittal and coronal reformatted images were obtained on the technologist's workstation. This CT examination was performed using dose optimization techniques as appropriate, variously including the following: *Automated exposure control *Adjustment of mA and/or kV according to patient size (this includes techniques or standardized protocols for targeted exams where dose is matched to indication/reason for exam; i.e. extremities or head) *Use of iterative reconstruction technique DLP: None 143 mGy-cm FINDINGS: LUNG BASES: The visualized lung bases are unremarkable. LIVER, GALLBLADDER, AND BILIARY TREE: Mild hepatic hypoattenuation/steatosis. 2.4 cm fluid density simple cyst in the lateral segment left liver lobe. Subcentimeter hypodense probable cyst in the posterior segment right liver lobe, unchanged. No new liver lesion. No biliary ductal dilation. Status post cholecystectomy. Surgical clips in the gallbladder fossa. PANCREAS: Unremarkable. SPLEEN: Unremarkable. ADRENAL GLANDS: Unremarkable. KIDNEYS AND URETERS: The kidneys are normal in size, shape, and attenuation. No hydronephrosis, hydroureter, or calculi seen. No perinephric stranding. BLADDER: Unremarkable. GASTROINTESTINAL TRACT: Colonic diverticulosis. No evidence of acute diverticulitis. Previously seen changes at diverticulitis of the descending colon have resolved. Status post prior sigmoid resection and anastomosis as well as right hemicolectomy with ileocolonic anastomosis. No dilated bowel loops. No bowel wall thickening. No ascites or free air ABDOMINAL WALL: Mild linear scarring in the midline abdomen consistent with prior incision. No hernia LYMPH NODES: . No lymphadenopathy. VASCULAR: Normal caliber abdominal aorta. Minimal vascular calcifications. PELVIC VISCERA: Unremarkable. OSSEOUS STRUCTURES: Small sclerotic lesion in the anterior right sixth rib, unchanged, presumably a bone island. No acute fracture or suspicious osseous lesion. 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 Plain screw fixation of the proximal right femur and femoral neck. CT/CT abdomen pelvis wo IV con IMPRESSION: 1. Colonic diverticulosis. No evidence of acute diverticulitis. 2. No evidence of bowel obstruction or other acute intra-abdominal process.
[2021-11-28 12:09] VITALS: BP 116/80; PULSE 71; RESP 16; TEMP 36.5; O2SAT 97; BMI 37.2
[2021-11-28 12:29] LABS: Hematocrit 46.6 % (42.0-52.0); Hemoglobin 14.9 g/dl (14.0-18.0); Mean Corpuscular Hemoglobin 26.7 pg (27.0-33.0); Mean Corpuscular Volume 83.5 fL (80.0-98.0); Mean Platelet Volume 9.5 fL (9.4-12.4); Platelet Count 263 X10*3/uL (160-400); Red Blood Count 5.58 X10*6/uL (4.60-5.80); Red Cell Distribution Width 13.9 % (11.0-16.0)
[2021-11-28 12:52] LABS: Anion Gap 15 (12-20); Blood Urea Nitrogen 12 mg/dL (9-16); Calcium 9.3 mg/dL (8.4-10.2); Carbon Dioxide 24 mmol/L (22-29); Chloride 108 mmol/L (96-108); Creatinine Clr Calc Pharmacy 94.2; Estimated Glomerular Filt Rate > 60; Glucose Random 106 mg/dL (60-115); Potassium 4.4 mmol/L (3.3-5.1); Sodium 143 mmol/L (135-145)
[2021-11-28 19:05] LABS: Alanine Aminotransferase 45 U/L (0-40); Albumin Level 4.4 g/dL (3.5-5.0); Alkaline Phosphatase 30 U/L (39-117); Aspartate Amino Transferase 20 U/L (5-37); Bilirubin Direct < 0.2 mg/dL (0.0-0.5); Bilirubin Total 0.3 mg/dL (0.0-1.0); Lipase 32 U/L (8-78); Total Protein 7.3 g/dL (6.5-8.0)
--- NOTE | 2021-11-28 21:24 | ED.ABDPAIN ---
HPI - Abdominal Pain General Chief Complaint: Abdominal Pain Stated Complaint: abd pain Time Seen by Provider: 11/28/21 21:14 Source: patient Mode of arrival: ambulatory Limitations: no limitations History of Present Illness HPI narrative: Patient comes emergency room complaining of 3 to 4 days of left lower quadrant pain. Patient denies nausea vomiting, states that he has been having loose stool, no constipation. Patient history of diverticulitis with SBO., perforations. Patient states that it feels very similar to his previous episodes of diverticulitis. Patient denies URI or UTI symptoms. No fever or chills. Related Data Previous Rx's Medication Instructions Recorded cyclobenzaprine 10 mg tablet 10 mg PO BEDTIME #10 tabs 09/03/21 lidocaine 4 % topical patch 1 patch topical DAILY PRN pain #15 09/03/21 (AsperFlex (lidocaine)) ea amoxicillin 875 mg-potassium 1 tab PO Q12H 10 days #20 tabs 10/16/21 clavulanate 125 mg tablet ketorolac 10 mg tablet 10 mg PO Q6H PRN pain 5 days #20 10/16/21 tabs ondansetron 4 mg disintegrating 4 mg PO Q8H PRN nausea and 10/16/21 tablet vomiting #10 tabs ciprofloxacin HCl 500 mg tablet 500 mg PO BID #14 tabs 11/28/21 metronidazole 250 mg tablet 250 mg PO BID #14 tabs 11/28/21 Allergies Allergy/AdvReac Type Severity Reaction Status Date / Time aspirin Allergy Unknown Nausea Verified 09/03/21 09:35 Motrin Allergy Unknown Nausea Uncoded 09/03/21 09:35 Review of Systems Review of Systems Constitutional : No Weight loss, No Fever, No Chills, No Night Sweats, No Fatigue, No Malaise ENT/Mouth : No Hearing loss, No Ear Pain, No Nasal Congestion, No Sinus Pain, No Hoarseness, No sore throat, No Rhinorrhea, No Swallowing Difficulty Eyes: No Eye Pain, No Swelling, No Redness, No Foreign Body, No Discharge, No Vision Changes Cardiovascular : No Chest Pain, No SOB, No Dyspnea on Exertion, No Orthopnea, No Edema, No Palpitations Respiratory : No Cough, No Sputum, No Wheezing, No Smoke Exposure, No Dyspnea Gastrointestinal : No Nausea, No Vomiting, No Diarrhea, No Constipation, complaining of abdominal pain, left lower quadrant, no black stool Genitourinary : no irregular bleeding, No Dysuria, No Urinary Frequency, No Hematuria, No Urinary Incontinence, No Urgency, No Flank Pain, No Urinary Flow Changes, No Hesitancy Musculoskeletal : No joint pain, No Myalgias, No Joint Swelling Skin : No Skin Lesions, No rash Neuro : No Weakness, No Numbness, No Paresthesias, No Loss of Consciousness, No Dizziness, No Headache Psych : No Anxiety/Panic, No Depression, No SI/HI/AH/VH, No Social Issues, Heme/Lymph: No Bruising, No Bleeding,No Lymphadenopathy Endocrine : No Polyuria, No Polydipsia, No Temperature Intolerance FOR[facility]LY [facility] Past Medical History Medical History Cholecystectomy planned Chronic back pain Dislocated shoulder Diverticulitis History of prediabetes Morbid obesity Pyelonephritis Surgical History History of hip surgery History of partial colectomy Social History Social History Household Members: None Housing: Apartment Do you presently have visiting nurse or other home services: No Alcohol intake: current Alcohol intake frequency: holidays/special occasions only Patient Tobacco Use Status: Current everyday Tobacco user Tobacco use type: Cigarette e-Cigarette/Vaping Use: Never Used Substance Use Type: Marijuana Advance Directives: No service: No Physical Exam ED Vital Signs: Vital Signs - 24 hr 11/28/21 12:09 11/28/21 23:26 Temperature 97.7 F 97.8 F Pulse Rate 71 72 Respiratory Rate 16 18 Blood Pressure 116/80 120/76 Pulse Oximetry 97 99 Oxygen Delivery Method Room Air Room Air BMI result Body Mass Index 37.2 Const Other: Appearance: Alert. Oriented X3. No acute distress. Eyes: Pupils equal, round and reactive to light. ENT: Pharynx normal. Neck: Normal inspection. Neck supple. No lymph nodes noted. No crepitus CVS: Normal heart rate and rhythm. Pulses normal. Normal S1 and S2 Respiratory: No respiratory distress. Breath sounds normal. No Wheezing. No rales Abdomen: Soft , [id number] tenderness to palpation over the left lower quadrant, no guarding, no rebound Skin: Skin warm and dry. Normal skin color. Normal skin turgor. Extremities: No lower extremity edema. No Lacerations. No Rash Neuro: Oriented X 3. No motor deficit. No sensory deficit. Moving all extremities. No slurred speech. CN 2 through 12 grossly intact Psych: calm, cooperative, normal affect Course Course Course Narrative: I discussed with the patient labs and imaging, no acute findings. White blood cell count within normal limits. It is possible the patient may have an early onset of diverticulitis. Patient has had multiple episodes of diverticulitis and is familiar with the pain sensation of this condition. Patient will be treated with p.o. antibiotics. MDM - Abdominal Pain Lab Data Result diagrams: 11/28/21 12:17 11/28/21 12:17 Labs: Lab Results 11/28/21 11/28/21 Range/Units 12:17 12:17 WBC 10.0 (4.8-10.8) X10*3/uL RBC 5.58 (4.60-5.80) X10*6/uL Hgb 14.9 (14.0-18.0) g/dl Hct 46.6 (42.0-52.0) % MCV 83.5 (80.0-98.0) fL MCH 26.7 L (27.0-33.0) pg MCHC 32.0 (31.0-36.0) g/dl RDW 13.9 (11.0-16.0) % Plt Count 263 (160-400) X10*3/uL MPV 9.5 (9.4-12.4) fL Absolute Nucleated RBC 0.000 (0.0-0.012) X10*3/uL Nucleated RBC % (auto) 0.0 (0.0-0.2) /100WBC Sodium 143 (135-145) mmol/L Potassium 4.4 (3.3-5.1) mmol/L Chloride 108 (96-108) mmol/L Carbon Dioxide 24 (22-29) mmol/L Anion Gap 15 (12-20) BUN 12 (9-16) mg/dL Creatinine 1.13 (0.5-1.4) mg/dL Estim Creat Clear Calc 94.2 Estimated GFR > 60 Random Glucose 106 (60-115) mg/dL Calcium 9.3 D (8.4-10.2) mg/dL Total Bilirubin 0.3 (0.0-1.0) mg/dL Direct Bilirubin < 0.2 (0.0-0.5) mg/dL AST 20 (5-37) U/L ALT 45 H (0-40) U/L Alkaline Phosphatase 30 L (39-117) U/L Total Protein 7.3 (6.5-8.0) g/dL Albumin 4.4 (3.5-5.0) g/dL Lipase 32 (8-78) U/L Imaging Data CT scan - abdomen: Radiologist's impression: FINDINGS: LUNG BASES: The visualized lung bases are unremarkable.? LIVER, GALLBLADDER, AND BILIARY TREE: Mild hepatic hypoattenuation/steatosis. 2.4 cm fluid density simple cyst in the lateral segment left liver lobe. Subcentimeter hypodense probable cyst in the posterior segment right liver lobe, unchanged. No new liver lesion. No biliary ductal dilation. Status post cholecystectomy. Surgical clips in the gallbladder fossa.? PANCREAS: Unremarkable.? SPLEEN: Unremarkable.? ADRENAL GLANDS: Unremarkable.? KIDNEYS AND URETERS: The kidneys are normal in size, shape, and attenuation. No hydronephrosis, hydroureter, or calculi seen. No perinephric stranding. ? BLADDER: Unremarkable.? GASTROINTESTINAL TRACT: Colonic diverticulosis. No evidence of acute diverticulitis. Previously seen changes at diverticulitis of the descending colon have resolved. Status post prior sigmoid resection and anastomosis as well as right hemicolectomy with ileocolonic anastomosis. No dilated bowel loops. No bowel wall thickening. No ascites or free air? ABDOMINAL WALL: Mild linear scarring in the midline abdomen consistent with prior incision. No hernia? LYMPH NODES: . No lymphadenopathy. VASCULAR: Normal caliber abdominal aorta. Minimal vascular calcifications. PELVIC VISCERA: Unremarkable.? OSSEOUS STRUCTURES: Small sclerotic lesion in the anterior right sixth rib, unchanged, presumably a bone island. No acute fracture or suspicious osseous lesion. 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 Plain screw fixation of the proximal right femur and femoral neck.? CT/CT abdomen pelvis wo IV con IMPRESSION: 1.? Colonic diverticulosis. No evidence of acute diverticulitis. 2.? No evidence of bowel obstruction or other acute intra-abdominal process. Discharge Plan Discharge Clinical Impression: Diverticulosis Patient Disposition: Home, Self-Care Instructions: Diverticulosis (ED), Diverticulitis Diet (ED) Additional Instructions: Please follow-up with your primary care physician tomorrow. If you have any worsening or new symptoms, please return to the emergency room or call 911 Prescriptions: New ciprofloxacin HCl 500 mg tablet 500 mg PO BID Qty: 14 0RF metronidazole 250 mg tablet 250 mg PO BID Qty: 14 0RF No Action ondansetron 4 mg tablet,disintegrating 4 mg PO Q8H PRN (Reason: nausea and vomiting) Qty: 10 0RF amoxicillin-pot clavulanate 875-125 mg tablet 1 tab PO Q12H 10 Days Qty: 20 0RF ketorolac 10 mg tablet 10 mg PO Q6H PRN (Reason: pain) 5 Days Qty: 20 0RF Rx Instructions: Patient received Toradol in the emergency room. Please instruct patient that he will need to take milk or food prior to using this medication. lidocaine [AsperFlex (lidocaine)] 4 % adhesive patch,medicated 1 patch topical DAILY PRN (Reason: pain) Qty: 15 0RF cyclobenzaprine 10 mg tablet 10 mg PO BEDTIME Qty: 10 0RF
--- OUTSIDE RECORDS SUMMARY | 2021-11-28 21:46 | XMS_ITS | Continuity of Care Document ---
:1970 Author Organization [facility] enter/[facility] [place] Address Unavailable , Care Team Providers Name Role Phone Greer Stephen DO Primary Care Physician Encounter [facility] [place] [facility] Date(s): 05/03/21 - 06/02/21 [facility] Allergies, Adverse Reactions, Alerts Substance Reaction Severity Status Tylenol GI upset Active Immunizations Given and Recorded Vaccine Date Status Refusal Reason SARS-CoV-2 (COVID-19) mRNA BNT-162b2 vac 07/06/20 Given SARS-CoV-2 (COVID-19) mRNA BNT-162b2 vac 06/15/20 Given Influenza Virus Vaccine (oldterm) 01/06/20 Recorded tetanus/diphtheria/pertussis, acel(Tdap) 06/23/15 Given Medications Cane See Instructions, # 1 each, Maintenance, Dx: congenital hip deformity Fall risk [facility], 01/20/20 7:44:00 EST, Supply Start Date: 01/20/20 Status: Ordereddiclofenac 1% topical gel = 2 Gm, Topically, 4 times a day, PRN Pain , Moderate, # 100 Gm, 3 Refills, Maintenance, 03/31/21 7:45:00 EST, [id number], 176, cm, 10/31/20 14:09:00 EDT, Height Start Date: 03/31/21 Status: OrderedhydrOXYzine hydrochloride 25 mg oral tablet 1 tablet = 25 mg, By Mouth, 2 times a day, PRN for anxiety, take prior to procedure. May repeat x 1 after 2 hours, # 2 tablet, 0 Refills, Soft Stop, 04/10/20 16:07:00 EST, Tablet, [id number], Partial fill upon patient request if the prescripti... Start Date: 04/10/20 Stop Date: 04/11/20 Status: Orderedraised toilet seat raised toilet seat, See Instructions, # 1 each, Refills 0, Tot. Refills 0, Maintenance, Dx: congenital hip deformity fall risk [facility], 01/20/20 7:44:00 EST, Supply Start Date: 01/20/20 Status: Orderedshower chair shower chair, See Instructions, # 1 each, Refills 0, Tot. Refills 0, Maintenance, Dx: congenital hipdeformity fall risk [facility], 01/20/20 7:44:00 EST, Supply Start Date: 01/20/20 Status: Ordered Problem List Condition Effective Dates Status Health Status Informant Shoulder dislocation(Confirmed) Active Diverticulitis(Confirmed) Active Right hip pain(Confirmed) Active Obesity(Confirmed) Active Positive FIT (fecal immunochemical Active test)(Confirmed)1 Osteoarthritis of right hip(Confirmed) Active *[id number] Active [place]gaard(Confirmed) Pyelonephritis(Confirmed) Active Renal insufficiency(Confirmed) Active Tobacco use disorder(Confirmed) Active Diabetes mellitus type 2 in Active obese(Confirmed) 1referred for colonoscopy Social History Social History Type Response Smoking Status 5-9 cigarettes (between 1/4 to 1/2 pack)/day in last 30 days entered on: 04/10/20 Sex
--- OUTSIDE RECORDS SUMMARY | 2021-11-28 21:46 | XMS_ITS | Continuity of Care Document ---
:1970 Author Organization [facility] enter/[facility] Address Unavailable , Care Team Providers Name Role Phone Zafar DO Greer Primary Care Physician Encounter [facility] Date(s): 10/31/20 - 12/30/20 [facility] Attending Physician: Nancy Flores MD Admitting Physician: Nancy Flores MD Allergies, Adverse Reactions, Alerts Substance Reaction Severity Status Tylenol GI upset Active No known allergies Active Immunizations Given and Recorded Vaccine Date [...] PRN Pain , Moderate, # 100 Gm, 0 Refills, Maintenance, 10/31/20 15:02:00 EDT, [id number], 176, cm, 10/31/20 14:09:00 EDT, Height Start Date: 10/31/20 Stop Date: 11/30/20 Status: OrderedhydrOXYzine hydrochloride 25 mg oral tablet [...] Active test)(Confirmed)1 Osteoarthritis of right hip(Confirmed) Active *[id number] 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
--- OUTSIDE RECORDS SUMMARY | 2021-11-28 21:46 | XMS_ITS | Continuity of Care Document ---
:1970 Author Organization [facility] enter/[facility] [place] Address Unavailable , Care Team Providers Name Role Phone Greer Stephen DO Primary Care Physician Encounter [facility] [place] Date(s): 04/11/21 - 05/11/21 [facility] Allergies, Adverse Reactions, Alerts Substance Reaction Severity [...] 7:44:00 EST, Supply Start Date: 01/20/20 Status: Orderedtriamcinolone 0.1% topical ointment 1 application, Topically, 2 times a day, for 14 days, apply to both elbows, # 60 Gm, 0 Refills, Acute 05/18/21 15:01:00 EDT, 05/04/21 15:01:00 EDT, Ointment, [id number], 1 application Topically2 times a day,x14 days,Instr:apply to both elbows... 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
--- OUTSIDE RECORDS SUMMARY | 2021-11-28 21:47 | XMS_ITS | Continuity of Care Document ---
:1970 Author Organization [facility] Address [address] [place] [address]- Care Team Providers Name Role Phone Roma Youisf MD Primary Care Physician [phone] [place] [facility] [place] 01/04/20 - 02/03/20 [facility] [address] [place] [address]- Allergies, Adverse Reactions, Alerts Substance Reaction Severity Status Tylenol GI upset Active No known allergies Active Immunizations Given and Recorded Vaccine Date Status Refusal Reason Influenza Virus Vaccine (oldterm) 01/06/20 Recorded tetanus/diphtheria/pertussis, acel(Tdap) 06/23/15 Given Medications Cane See Instructions, # 1 each, Maintenance, Dx: congenital hip deformity Fall risk [facility], 01/20/20 7:44:00 EST, Supply Start Date: 01/20/20 Status: Ordereddiclofenac 1% topical gel = 2 Gm, Topically, 4 times a day, # 100 Gm, 0 Refills, Maintenance, 06/07/19 15:04:00 EDT, [id number], 176, cm, 07/18/17 14:01:00 EDT, Height, 113.63, kg, 10/06/17 17:04:00 EDT, Dry Weight Start Date: 06/07/19 Status: Orderedraised toilet seat raised toilet seat, [...] Active Right hip pain(Confirmed) Active Obesity(Confirmed) Active Osteoarthritis of right hip(Confirmed) Active *[id number] 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
--- OUTSIDE RECORDS SUMMARY | 2021-11-28 21:47 | XMS_ITS | Continuity of Care Document ---
:1970 Author Organization [facility] enter/[facility] [place] Address Unavailable , Care Team Providers Name Role Phone Greer Stephen DO Primary Care Physician [place] [facility] [place] 07/05/21 - 08/04/21 [facility] Allergies, Adverse Reactions, Alerts Substance Reaction Severity [...] Active test)(Confirmed)1 Osteoarthritis of right hip(Confirmed) Active *[id number] Active Laura(Confirmed) Pyelonephritis(Confirmed) Active Renal insufficiency(Confirmed) Active Tobacco use disorder(Confirmed) Active Diabetes mellitus type 2 in Active obese(Confirmed) 1referred for colonoscopy Social History Social History Type Response Smoking Status 5-9 cigarettes (between 1/4 to 1/2 pack)/day in last 30 days entered on: 04/10/20 Sex
--- OUTSIDE RECORDS SUMMARY | 2021-11-28 21:47 | XMS_ITS | Continuity of Care Document ---
:1970 Author Organization [facility] Address [address] [place] [address]- Care Team Providers Name Role Phone Roma Yousif MD Primary Care Physician [phone] [id number] Date(s[facility] - 06/14/19 [facility] [address] [address] Encounter Diagnosis Obesity (Discharge Diagnosis) - 06/07/19 Tobacco use disorder (Discharge Diagnosis) - 06/07/19 Osteoarthritis of right hip (Discharge Diagnosis) - 06/07/19 Diabetes mellitus type 2 in obese (Discharge Diagnosis) - 06/07/19 Screening for prostate cancer (Discharge Diagnosis) - 06/07/19 Screening for colon cancer (Discharge Diagnosis) - 06/07/19 Attending Physician: Roma Yousif MD Allergies, Adverse Reactions, Alerts Substance Reaction Severity Status Tylenol GI upset Active No known allergies Active Immunizations Given and Recorded Vaccine Date Status Refusal Reason tetanus/diphtheria/pertussis, acel(Tdap) 06/23/15 Given Medications diclofenac 1% topical gel = 2 Gm, Topically, 4 times a day, # 100 Gm, 0 Refills, Maintenance, 06/07/19 15:04:00 EDT, [id number], 176, cm, 07/18/17 14:01:00 EDT, Height, 113.63, kg, 10/06/17 17:04:00 EDT, Dry Weight Start Date: 06/07/19 Status: Orderednicotine 21 mg/24 hr transdermal film, extended release 1 patch, Topically, Daily, for 30 days, # 30 patch, 0 Refills, Acute 07/07/19 15:12:00 EDT, 06/06/2014:12:00 EDT, [id number], 1 patch Topically Daily,x30 days, 176, cm, 07/18/17 14:01:00 EDT, Height, 113.63, kg, 10/06/17 17:04:00 EDT, Dry Weight Start Date: 06/07/19 Stop Date: 07/07/19 Status: Ordered Problem List Condition Effective Dates Status Health Status Informant Shoulder dislocation(Confirmed) Active Diverticulitis(Confirmed) Active Right hip pain(Confirmed) Active Obesity(Confirmed) Active Osteoarthritis of right hip(Confirmed) Active Pyelonephritis(Confirmed) Active Renal insufficiency(Confirmed) Active Tobacco use disorder(Confirmed) Active Diabetes mellitus type 2 in Active obese(Confirmed) Diagnosis Diagnosis Type Effective Dates Health Clinical Infor mant Status Service Obesity Discharge 06/07/19 Diagnosis Tobacco use disorder Discharge 06/07/19 Diagnosis Osteoarthritis of Discharge 06/07/19 right hip Diagnosis Diabetes mellitus Discharge 06/07/19 type 2 in obese Diagnosis Screening for Discharge 06/07/19 prostate cancer Diagnosis Screening for colon Discharge 06/07/19 cancer Diagnosis Social History Social History Type Response Smoking Status Current every day smoker; To bacco user in household: No; Type: Cigarettes; Tobacco use times per day: 1/2 PPD; entered on: 07/18/17 Sex
--- OUTSIDE RECORDS SUMMARY | 2021-11-28 21:47 | XMS_ITS | Continuity of Care Document ---
:1970 Author Organization [facility] Address [address] [place] [address]- Care Team Providers Name Role Phone Roma Yousif MD Primary Care Physician Encounter [facility] Date(s): 03/09/20 - 06/07/[address] [address] Attending Physician: Roma Yuosif MD Admitting Physician: Roma Yousif MD Referring Physician: Roma Yousif MD Allergies, Adverse Reactions, [...] EDT, Dry Weight Start Date: 06/07/19 Status: OrderedhydrOXYzine hydrochloride 25 mg oral tablet [...] Obesity(Confirmed) Active Osteoarthritis of right hip(Confirmed) Active *[id number] Director 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
--- OUTSIDE RECORDS SUMMARY | 2021-11-28 21:47 | XMS_ITS | Continuity of Care Document ---
:1970 Author Organization [facility] enter/[facility] Address [address] [place] [address]- Care Team Providers Name Role Phone Roma Yousif MD Primary Care Physician En[place] [facility] [place] Date(s): 06/14/19 - 07/14/19 [facility]/[address] [address]- [facility] Attending Physician: Kelsi Jane Admitting Physician: AdmKelsi norton Referring Physician: AdmtrKelsi Allergies, Adverse Reactions, Alerts Substance Reaction Severity [...] EDT, Dry Weight Start Date: 06/07/19 Status: Ordered Problem List Condition Effective Dates [...]
--- OUTSIDE RECORDS SUMMARY | 2021-11-28 21:47 | XMS_ITS | Continuity of Care Document ---
:1970 Author Organization [facility] enter/[facility] Address [address] [place] [address]- Care Team Providers Name Role Phone Greer Stephen DO Primary Care Physician Encounter [facility] [place] Date(s): 10/12/21 - 11/11/21 [facility]/[address] [address]- Attending Physician: Kelsi Jane Admitting Physician: Kelsi Jane Referring Physician: Admtr, Ar8 Allergies, Adverse Reactions, Alerts Substance Reaction Severity [...] Date: 01/20/20 Status: Orderedtriamcinolone 0.1% topical ointment See Instructions, APPLY TOPICALLY TWICE DAILY FOR 14 DAYS APPLY TO BOTH ELBOWS, # 60 Gm, 0 Refills, [id number], 30, APPLY TOPICALLY TWICE DAILY FOR 14 DAYS APPLY TO BOTH ELBOWS, 176, cm, 05/10/21 8:40:00 EDT, Height Start Date: 09/05/21 Status: Ordered Problem List Condition Confirmation Course Effective Dates Status Health I nformant Status Shoulder dislocation Confirmed Active Diverticulitis Confirmed Active Right hip pain Confirmed Active Obesity Confirmed Active Positive FIT (fecal Confirmed Active immunochemical test)1 Osteoarthritis of Confirmed Active right hip [id number] Care Confirmed Active Partner Zoe Lungo Pyelonephritis Confirmed Active Renal insufficiency Confirmed Active Tobacco use disorder Confirmed Active Diabetes mellitus Confirmed Active type 2 in obese 1referred for colonoscopy Social History Social History Type Response Smoking Status 5-9 cigarettes (between 1/4 to 1/2 pack)/day in last 30 days entered on: 04/10/20 Sex Patient Care team information PersonnelName: Greer Stephen DO Address: Address: [address] [place] [address] [place], [place] [address]
--- OUTSIDE RECORDS SUMMARY | 2021-11-28 21:47 | XMS_ITS | Continuity of Care Document ---
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
--- OUTSIDE RECORDS SUMMARY | 2021-11-28 21:47 | XMS_ITS | Continuity of Care Document ---
:1970 Author Organization [facility] enter/[facility] [place] Address Unavailable , Care Team Providers Name Role Phone Zafar DO Greer Primary Care Physician Encounter [facility] [place] Date(s): 02/28/21 - 04/28/21 [facility] Attending Physician: Nancy Flores MD Admitting Physician: Nancy Flores MD Allergies, Adverse Reactions, Alerts No Known Allergies Immunizations Given and Recorded Vaccine Date Status [...] Active test)(Confirmed)1 Osteoarthritis of right hip(Confirmed) Active *[id number] 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
--- OUTSIDE RECORDS SUMMARY | 2021-11-28 21:47 | XMS_ITS | Continuity of Care Document ---
:1970 Author Organization [facility] enter/[facility] Address [address] [place] [address]- Care Team Providers Name Role Phone Roma Yousif MD Primary Care Physician Encounter [facility] [place] Date(s): 02/29/20 - 03/30/20 [facility] [address] [place] [address]- Allergies, Adverse Reactions, Alerts Substance Reaction Severity [...] # 2 tablet, 0 Refills, Soft Stop, 03/14/20 14:23:00 EST, Tablet, [id number], Partial fill upon patient request if the prescripti... Start Date: 03/14/20 Stop Date: 03/15/20 Status: Orderedraised toilet seat raised toilet seat, [...] Obesity(Confirmed) Active Osteoarthritis of right hip(Confirmed) Active *[id number] Signal Tester - Active Lauren Worley(Confirmed) Pyelonephritis(Confirmed) Active Renal insufficiency(Confirmed) Active Tobacco use disorder(Confirmed) Active Diabetes mellitus type 2 in Active obese(Confirmed) Social History Social History Type Response Smoking Status 5-9 cigarettes (between 1/4 to 1/2 pack)/day in last 30 days entered on: 12/29/19 Sex
--- OUTSIDE RECORDS SUMMARY | 2021-11-28 21:47 | XMS_ITS | Continuity of Care Document ---
:1970 Author Organization [facility] enter/[facility] [place] Address Unavailable , Care Team Providers Name Role Phone Zafar DO Greer Primary Care Physician Encounter [facility] [place] Date(s): 04/11/21 - 06/08/21 [facility] Attending Physician: Nancy Flores MD Admitting Physician: [...] Active test)(Confirmed)1 Osteoarthritis of right hip(Confirmed) Active *[id number] Active Laura(Confirmed) Pyelonephritis(Confirmed) Active Renal insufficiency(Confirmed) Active Tobacco use disorder(Confirmed) Active Diabetes mellitus type 2 in Active obese(Confirmed) 1referred for colonoscopy Social History Social History Type Response Smoking Status 5-9 cigarettes (between 1/4 to 1/2 pack)/day in last 30 days entered on: 04/10/20 Sex
--- OUTSIDE RECORDS SUMMARY | 2021-11-28 21:47 | XMS_ITS | Continuity of Care Document ---
:1970 Author Organization [facility] Address [address] [place] [address]- Care Team Providers Name Role Phone Roma Yousif MD Primary Care Physician [id number] Date(s[facility] 06/14/19 - 06/21/19 [facility] [address] [place] [address]- [place] Encounter Diagnosis Pyelonephritis (Discharge Diagnosis) - 06/14/19 Attending Physician: Roma Yousif MD Allergies, Adverse [...] obese(Confirmed) Diagnosis Diagnosis Type Effective Dates Health Status Clinical In formant Service Pyelonephritis Discharge 06/14/19 Diagnosis Social History Social History Type Response Smoking Status Current every day smoker; To bacco user in household: No; Type: Cigarettes; Tobacco use times per day: 1/2 PPD; entered on: 07/18/17 Sex
--- OUTSIDE RECORDS SUMMARY | 2021-11-28 21:47 | XMS_ITS | Continuity of Care Document ---
:1970 Author Organization [facility] Address [address] [place] [address]- Care Team Providers Name Role Phone Benja COREY, Roma Torres Primary Care Physician [id number] Date(s): 03/05/19 - 03/15/19 [facility]/[address] [address]- [facility] Attending Physician: Kelsi Jane Admitting Physician: Kelsi Jane Referring Physician: AdmtrKelsi Allergies, Adverse Reactions, Alerts Substance Reaction Severity Status Tylenol GI upset Active No known allergies Active Immunizations Given and Recorded Vaccine Date Status Refusal Reason tetanus/diphtheria/pertussis, acel(Tdap) 06/23/15 Given Medications cane cane, See Instructions, # 1 application, Refills 0, Tot. Refills 0, Maintenance, dx: Hip deformity [facility], 07/29/16 9:04:30, Compound Start Date: 07/29/16 Status: OrderedColace sodium 100 mg oral capsule 100 mg, 1, capsule, By Mouth, 2 times a day, # 60 capsule, Refills 0, Tot. Refills 0, Maintenance, 05/15/16 9:22:20, Route to Pharmacy Electronically, [id number], [facility]/pharmacy#[id number] Start Date: 05/15/16 Status: OrderedHeating Pad See Instructions, # 1 units, Maintenance, use [id number] min three times a day as needed for hip pain Dx: knee OA [facility], 04/22/16 10:38:16, Compound Start Date: 04/22/16 Status: Orderedplease transfer one transfer shower chair please transfer one transfer shower chair, See Instructions, # 1 each, Refills 0, Tot. Refills 0, Maintenance, diagnosis: right hip chronic pain., 06/06/15 16:25:14, Compound Start Date: 06/06/15 Status: OrderedViagra 100 mg oral tablet 0.5 -1 tablet, By Mouth, Daily, 1 hour before sexual activity, # 5 tablet, 0 Refills, Maintenance, 03/30/18 9:20:10 EST, Tablet Start Date: 03/30/18 Status: Ordered Problem List Condition Effective Dates Status Health Status Informant Shoulder dislocation(Confirmed) Active Diverticulitis(Confirmed) Active Right hip pain(Confirmed) Active Obesity(Confirmed) Active Osteoarthritis of right hip(Confirmed) Active Renal insufficiency(Confirmed) Active Tobacco use disorder(Confirmed) Active Diabetes mellitus type 2 in Active obese(Confirmed) Social History Social History Type Response Smoking Status Current every day smoker; To bacco user in household: No; Type: Cigarettes; Tobacco use times per day: 1/2 PPD; entered on: 07/18/17 Sex
--- OUTSIDE RECORDS SUMMARY | 2021-11-28 21:47 | XMS_ITS | Continuity of Care Document ---
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
--- OUTSIDE RECORDS SUMMARY | 2021-11-28 21:47 | XMS_ITS | Continuity of Care Document ---
:1970 Author Organization [facility] Address [address] [place] [address]- Care Team Providers Name Role Phone Roma Yousif MD Primary Care Physician [place] [facility] [place] 12[place]30[place]19 - 01/29/20 [facility] [address] [place] [address]- Referring Physician: Thu Whitman Allergies, Adverse Reactions, Alerts Substance Reaction Severity [...] Gm, 0 Refills, Maintenance, 06/07/19 15:04:00 EDT, [facility]/pharmacy #[id number], 176, cm, 07/18/17 14:01:00 EDT, Height, [...] Obesity(Confirmed) Active Osteoarthritis of right hip(Confirmed) Active *[id number] 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
--- OUTSIDE RECORDS SUMMARY | 2021-11-28 21:47 | XMS_ITS | Continuity of Care Document ---
:1970 Author Organization [facility] Address [address] [place] [address]- Care Team Providers Name Role Phone Greer Stephen DO Primary Care Physician [place] [facility] [place] - 11/21/20 [facility] [address], [place] [address] Attending Physician: Kelsi Jane Admitting Physician: Kelsi [...] # 2 tablet, 0 Refills, Soft Stop, 03/01/21 16:07:00 EST, Tablet, [facility]/pharmacy #[id number], Partial fill upon patient request if the prescripti... Start Date: 04/10/20 Stop Date: 04/11/20 Status: Orderedlidocaine 5% topical ointment 1 application, Topically, 3 times a day, PRN Pain , Moderate, for 30 days, # 35 Gm, 0 Refills, Acute11/30/20 15:02:00 EDT, 10/31/20 15:02:00 EDT, Ointment, [facility]/pharmacy #[id number], Partial fill upon patient request if the prescription is for a schedule II... 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
--- OUTSIDE RECORDS SUMMARY | 2021-11-28 21:47 | XMS_ITS | Continuity of Care Document ---
:1970 Author Organization 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
--- OUTSIDE RECORDS SUMMARY | 2021-11-28 21:47 | XMS_ITS | Continuity of Care Document ---
:[address] 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
--- OUTSIDE RECORDS SUMMARY | 2021-11-28 21:47 | XMS_ITS | Continuity of Care Document ---
:1970 Author Organization [facility] enter/[facility] [place] Address Unavailable , Care Team Providers Name Role Phone Greer Stephen DO Primary Care Physician [facility] Date(s): 06/25/21 - 07/25/21 [facility] Allergies, Adverse Reactions, Alerts Substance Reaction Severity [...] Active test)(Confirmed)1 Osteoarthritis of right hip(Confirmed) Active *[id number] Active Laura(Confirmed) Pyelonephritis(Confirmed) Active Renal insufficiency(Confirmed) Active Tobacco use disorder(Confirmed) Active Diabetes mellitus type 2 in Active obese(Confirmed) 1referred for colonoscopy Social History Social History Type Response Smoking Status 5-9 cigarettes (between 1/4 to 1/2 pack)/day in last 30 days entered on: 04/10/20 Sex
--- OUTSIDE RECORDS SUMMARY | 2021-11-28 21:47 | XMS_ITS | Continuity of Care Document ---
:1970 Author Organization [facility] enter/[facility] Address [address] [place] [address]- Care Team Providers Name Role Phone Roma Yousif MD Primary Care Physician [phone] [place] [facility] [place] 02/07/20 - 03/08/20 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
--- OUTSIDE RECORDS SUMMARY | 2021-11-28 21:47 | XMS_ITS | Continuity of Care Document ---
:1970 Author Organization [facility] enter/[facility] [place] Address Unavailable , Care Team Providers Name Role Phone Greer Stephen DO Primary Care Physician Encounter [facility] Date(s): 10/30/20 - 11/29/20 [facility] Allergies, Adverse Reactions, Alerts Substance Reaction [...] Acute11/30/20 15:02:00 EDT, 10/31/20 15:02:00 EDT, [facility]int[facility], [id number], Partial fill upon patient request if the [...] Active test)(Confirmed)1 Osteoarthritis of right hip(Confirmed) Active *[id number] 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
--- OUTSIDE RECORDS SUMMARY | 2021-11-28 21:47 | XMS_ITS | Continuity of Care Document ---
:1970 Author Organization [facility] Address [address] [place] [address]- Care Team Providers Name Role Phone Roma Yousif MD Primary Care Physician [id number] Date(s): 03/30/19 - 05/26/19 [facility] [address] [place] [address]- [facility] Attending Physician: Roma Yousif MD Admitting Physician: Roma Yousif MD Allergies, Adverse Reactions, [...] Maintenance, 05/15/16 9:22:20, Route to Pharmacy Electronically, [id number], [facility]/pharmacy#[id number] Start Date: 05/15/16 Status: OrderedHeating Pad See Instructions, # 1 units, Maintenance, use ntp48-47 min three times a day as needed [...]
--- OUTSIDE RECORDS SUMMARY | 2021-11-28 21:47 | XMS_ITS | Continuity of Care Document ---
:1970 Author Organization [facility] Address [address] [place] [address]- Care Team Providers Name Role Phone Roma Yousif MD Primary Care Physician [phone] Encounter [facility] [place] Date(s): 01/28/19 - 04/04/19 [facility]/[address] [address]- [place] Attending Physician: Roma Yousif MD Admitting Physician: [...] Maintenance, 05/15/16 9:22:20, Route to Pharmacy Electronically, [id number], [facility]/pharmacy#[id number] Start Date: 05/15/16 Status: OrderedHeating Pad See Instructions, # 1 units, Maintenance, use iyi70-24 min three times a day as needed [...]
--- OUTSIDE RECORDS SUMMARY | 2021-11-28 21:47 | XMS_ITS | Continuity of Care Document ---
:1970 Author Organization [facility] enter/[facility] [place] Address Unavailable , Care Team Providers Name Role Phone Zafar DO Greer Primary Care Physician [facility] [place] [place] Date(s): 06/13/21 - 07/15/21 [facility] Attending Physician: Nancy Flores MD Admitting Physician: Nnacy Flores MD Allergies, Adverse Reactions, Alerts Substance [...] Active test)(Confirmed)1 Osteoarthritis of right hip(Confirmed) Active *[id number]-Kalyn Active Laura(Confirmed) Pyelonephritis(Confirmed) Active Renal insufficiency(Confirmed) Active Tobacco use disorder(Confirmed) Active Diabetes mellitus type 2 in Active obese(Confirmed) 1referred for colonoscopy Social History Social History Type Response Smoking Status 5-9 cigarettes (between 1/4 to 1/2 pack)/day in last 30 days entered on: 04/10/20 Sex
--- OUTSIDE RECORDS SUMMARY | 2021-11-28 21:47 | XMS_ITS | Continuity of Care Document ---
:1970 Author Organization [facility] Address [address] [place] [address]- Care Team Providers Name Role Phone Greer Stephen DO Primary Care Physician [place] [facility] [place]): [place] 10/29/20 [facility] [address] [place] [address]- Encounter Diagnosis Scar (Discharge Diagnosis) - 10/22/20 Attending Physician: Roscoe Muhammad DO Referring Physician: Roma Yousif MD Allergies, Adverse [...] EDT, Dry Weight Start Date: 06/07/19 Status: Ordereddoxycycline hyclate 100 mg oral capsule 1 capsule = 100 mg, By Mouth, 2 times a day, for 10 days, # 20 capsule, 0 Refills, Acute 11/01/20 11:17:00 EDT, 10/22/20 11:17:00 EDT, Capsule, Partial fill upon patient request if the prescription is for a schedule II opioid drug. Start Date: 10/22/20 Stop Date: 11/01/20 Status: OrderedhydrOXYzine hydrochloride 25 mg oral tablet [...] 7:44:00 EST, Supply Start Date: 01/20/20 Status: OrderedViagra 100 mg oral tablet 0.5 -1 tablet, By Mouth, Daily, 1 hour before sexual activity, # 5 tablet, 0 Refills, Maintenance, 08/17/20 8:29:00 EDT, [facility], [id number], 176, cm, 04/10/20 14:01:00 EST, Height Start Date: 08/17/20 Status: Ordered Problem List Condition Effective Dates Status Health Status Informant Shoulder dislocation(Confirmed) Active Diverticulitis(Confirmed) Active Right hip pain(Confirmed) Active Obesity(Confirmed) Active Osteoarthritis of right hip(Confirmed) Active *[id number] 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 Lauren Worley(Confirmed) Pyelonephritis(Confirmed) Active Renal insufficiency(Confirmed) Active Tobacco use disorder(Confirmed) Active Diabetes mellitus type 2 in Active obese(Confirmed) Diagnosis Diagnosis Type Effective Dates Health Status Clinical Serv ice Informant Scar Discharge 10/22/20 Diagnosis Vital Signs Most recent to oldest [Reference Range]: 1 Height 176 cm (10/22/20 10:54 AM) Oxygen Saturation [94-100 %] 97 % (10/22/20 10:54 AM) Pulse Rate [55-90 bpm] 72 bpm (10/22/20 10:54 AM) Blood Pressure [90-138/55-84 mm Hg] 141/88 mm Hg *H* (10/22/20 10:54 AM) Respiratory Rate [16-30 br/min] 18 br/min (10/22/20 10:54 AM) Temperature [96.8-100.4 DegF] 98.1 DegF (10/22/20 10:54 AM) Mode of Delivery (Oxygen) Room air (10/22/20 10:54 AM) Blood pressure sites Arm, right (10/22/20 10:54 AM) Temperature Route Temporal (10/22/20 10:54 AM) Social History Social History Type Response Smoking Status 5-9 cigarettes (between 1/4 to 1/2 pack)/day in last 30 days entered on: 04/10/20 Sex
--- OUTSIDE RECORDS SUMMARY | 2021-11-28 21:47 | XMS_ITS | Continuity of Care Document ---
:1970 Author Organization [facility] enter/[facility] [place] Address Unavailable , Care Team Providers Name Role Phone Greer Stephen DO Primary Care Physician [facility] [place] Date(s): 09/08/20 - 10/08/20 [facility] Allergies, Adverse Reactions, Alerts Substance Reaction Severity [...] 0 Refills, Maintenance, 08/17/20 8:29:00 EDT, Tablet, [facility]/pharmacy #[id number], 176, cm, 04/10/20 14:01:00 EST, Height Start Date: 08/17/20 Status: Ordered Problem List Condition Effective Dates Status Health Status Informant Shoulder dislocation(Confirmed) Active Diverticulitis(Confirmed) Active Right hip pain(Confirmed) Active Obesity(Confirmed) Active Osteoarthritis of right hip(Confirmed) Active *[id number] 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
--- OUTSIDE RECORDS SUMMARY | 2021-11-28 21:47 | XMS_ITS | Continuity of Care Document ---
:1970 Author Organization [facility] enter/[facility] Address [address] [place] [address]- Care Team Providers Name Role Phone Roma Yousif MD Primary Care Physician [place] [facility] [place] 02/24/20 - 03/25/20 [facility] [address] [place] [address]- Allergies, Adverse Reactions, Alerts Substance Reaction Severity [...] Obesity(Confirmed) Active Osteoarthritis of right hip(Confirmed) Active *[id number] Primary Care Coordinator - Active Lauren Worley(Confirmed) Pyelonephritis(Confirmed) Active Renal insufficiency(Confirmed) Active Tobacco use disorder(Confirmed) Active Diabetes mellitus type 2 in Active obese(Confirmed) Social History Social History Type Response Smoking Status 5-9 cigarettes (between 1/4 to 1/2 pack)/day in last 30 days entered on: 12/29/19 Sex
--- OUTSIDE RECORDS SUMMARY | 2021-11-28 21:47 | XMS_ITS | Continuity of Care Document ---
:1970 Author Organization [facility] enter/[facility] [place] Address Unavailable , Care Team Providers Name Role Phone Greer Stephen DO Primary Care Physician [place] [facility] [place] Date(s): 06/11/21 - 07/11/21 [facility] Allergies, Adverse Reactions, Alerts Substance Reaction [...] Active test)(Confirmed)1 Osteoarthritis of right hip(Confirmed) Active *[id number] Active [place](Confirmed) Pyelonephritis(Confirmed) Active Renal insufficiency(Confirmed) Active Tobacco use disorder(Confirmed) Active Diabetes mellitus type 2 in Active obese(Confirmed) 1referred for colonoscopy Social History Social History Type Response Smoking Status 5-9 cigarettes (between 1/4 to 1/2 pack)/day in last 30 days entered on: 04/10/20 Sex
--- OUTSIDE RECORDS SUMMARY | 2021-11-28 21:47 | XMS_ITS | Continuity of Care Document ---
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
--- OUTSIDE RECORDS SUMMARY | 2021-11-28 21:47 | XMS_ITS | Continuity of Care Document ---
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
--- OUTSIDE RECORDS SUMMARY | 2021-11-28 21:47 | XMS_ITS | Continuity of Care Document ---
:1970 Author Organization [facility] Address [address] [place] [address]- Care Team Providers Name Role Phone Roma Yousif MD Primary Care Physician [place] [facility] [place] - 01/28/20 [facility] [address] [place] [address]- Attending Physician: AdmKelsi norton Admitting Physician: AdmtrKelsi Referring Physician: Admtr, ArElie Allergies, Adverse Reactions, Alerts Substance Reaction Severity [...] Obesity(Confirmed) Active Osteoarthritis of right hip(Confirmed) Active *[id number] 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
--- OUTSIDE RECORDS SUMMARY | 2021-11-28 21:47 | XMS_ITS | Continuity of Care Document ---
:1970 Author Organization [facility] Address [address] [place] [address]- Care Team Providers Name Role Phone Roma Yousif MD Primary Care Physician [phone] [place] [facility] [place] 09/02/19 - 10/02/19 [facility] [address] [place] [address]- [facility] Allergies, Adverse Reactions, Alerts Substance Reaction [...] EDT, Dry Weight Start Date: 06/07/19 Status: OrderedNicotine 2 mg gum 1 each = 2 mg, Chew, Every 2 hours, PRN as needed for smoking cessation, # 40 each, 0 Refills, Acute10/25/19 15:12:00 EDT, 09/27/19 15:12:00 EDT, Gum, [id number], 176, cm, 09/27/19 14:37:00 EDT, Height, 113.63, kg, 10/06/17 17:04:00 EDT, Dry... Start Date: 09/27/19 Stop Date: 10/25/19 Status: Ordered Problem List Condition Effective Dates [...]
--- OUTSIDE RECORDS SUMMARY | 2021-11-28 21:47 | XMS_ITS | Continuity of Care Document ---
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
--- OUTSIDE RECORDS SUMMARY | 2021-11-28 21:47 | XMS_ITS | Continuity of Care Document ---
:1970 Author Organization [facility] enter/[facility] [place] Address Unavailable , Care Team Providers Name Role Phone Greer Stephen DO Primary Care Physician [place] [facility] [place]21 [place] 06/09/21 [facility] Attending Physician: Kelsi Jane Admitting Physician: Kelsi Jane Referring Physician: Kelsi Jane Allergies, Adverse Reactions, Alerts Substance Reaction Severity [...] Active test)(Confirmed)1 Osteoarthritis of right hip(Confirmed) Active *[id number]-Kalyn Active [place](Confirmed) Pyelonephritis(Confirmed) Active Renal insufficiency(Confirmed) Active Tobacco use disorder(Confirmed) Active Diabetes mellitus type 2 in Active obese(Confirmed) 1referred for colonoscopy Social History Social History Type Response Smoking Status 5-9 cigarettes (between 1/4 to 1/2 pack)/day in last 30 days entered on: 04/10/20 Sex
--- OUTSIDE RECORDS SUMMARY | 2021-11-28 21:47 | XMS_ITS | Continuity of Care Document ---
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
--- OUTSIDE RECORDS SUMMARY | 2021-11-28 21:48 | XMS_ITS | Continuity of Care Document ---
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
--- OUTSIDE RECORDS SUMMARY | 2021-11-28 21:48 | XMS_ITS | Continuity of Care Document ---
:1970 Author Organization [facility] enter/[facility] [place] Address Unavailable , Care Team Providers Name Role Phone Greer Stephen DO Primary Care Physician En[place] [facility] [place] Date(s): 08/27/21 - 09/26/21 [facility] Allergies, Adverse Reactions, Alerts Substance [...] BOTH ELBOWS, # 60 Gm, 0 Refills, [id number], 30, APPLY TOPICALLY TWICE DAILY FOR 14 DAYS APPLY TO BOTH ELBOWS, 176, cm, 05/10/21 8:40:00 EDT, Height Start Date: 09/05/21 Status: Ordered Problem List Condition Effective Dates Status Health Status Informant Shoulder dislocation(Confirmed) Active Diverticulitis(Confirmed) Active Right hip pain(Confirmed) Active Obesity(Confirmed) Active Positive FIT (fecal immunochemical Active test)(Confirmed)1 Osteoarthritis of right hip(Confirmed) Active *[id number]-[id number] Active [place](Confirmed) Pyelonephritis(Confirmed) Active Renal insufficiency(Confirmed) Active Tobacco use disorder(Confirmed) Active Diabetes mellitus type 2 in Active obese(Confirmed) 1referred for colonoscopy Social History Social History Type Response Smoking Status 5-9 cigarettes (between 1/4 to 1/2 pack)/day in last 30 days entered on: 04/10/20 Sex
--- OUTSIDE RECORDS SUMMARY | 2021-11-28 21:48 | XMS_ITS | Continuity of Care Document ---
:1970 Author Organization [facility] enter/[facility] [place] Address Unavailable , Care Team Providers Name Role Phone Greer Stephen DO Primary Care Physician En[facility] [place] Date(s): 09/08/20 - 10/08/20 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
--- OUTSIDE RECORDS SUMMARY | 2021-11-28 21:48 | XMS_ITS | Continuity of Care Document ---
:1970 Author Organization [facility] enter/[facility] [place] Address Unavailable , Care Team Providers Name Role Phone Greer Stephen DO Primary Care Physician En[place] [facility] [place] Date(s): 06/15/21 - 07/15/21 [facility] Attending Physician: Kelsi Jane Admitting Physician: [...] Active test)(Confirmed)1 Osteoarthritis of right hip(Confirmed) Active *[id number]-Kalyn Active [place](Confirmed) Pyelonephritis(Confirmed) Active Renal insufficiency(Confirmed) Active Tobacco use disorder(Confirmed) Active Diabetes mellitus type 2 in Active obese(Confirmed) 1referred for colonoscopy Social History Social History Type Response Smoking Status 5-9 cigarettes (between 1/4 to 1/2 pack)/day in last 30 days entered on: 04/10/20 Sex
--- OUTSIDE RECORDS SUMMARY | 2021-11-28 21:48 | XMS_ITS | Continuity of Care Document ---
:1970 Author Organization [facility] enter/[facility] Address [address] [place] [address]- Care Team Providers Name Role Phone Greer Stephen DO Primary Care Physician [place] [facility] [place](s): 09/27/21 - 11/11/21 [facility]/[address] [address]- Attending Physician: Roma Yousif MD Admitting Physician: [...] BOTH ELBOWS, # 60 Gm, 0 Refills, [facility]ORE 0[facility], 30, APPLY TOPICALLY TWICE DAILY FOR 14 DAYS APPLY TO BOTH ELBOWS, 176, cm, 05/10/21 8:40:00 EDT, Height Start Date: 09/05/21 Status: Ordered Problem List Condition Confirmation Course Effective Dates Status Health I nformant Status Shoulder dislocation Confirmed Active Diverticulitis Confirmed Active Right hip pain Confirmed Active Obesity Confirmed Active Positive FIT (fecal Confirmed Active immunochemical test)1 Osteoarthritis of Confirmed Active right hip [id number] Care Confirmed Active Partner Zoe Lungo Pyelonephritis Confirmed Active Renal insufficiency Confirmed Active Tobacco use disorder Confirmed Active Diabetes mellitus Confirmed Active type 2 in obese 1referred for colonoscopy Social History Social History Type Response Smoking Status 5-9 cigarettes (between 1/4 to 1/2 pack)/day in last 30 days entered on: 04/10/20 Sex Patient Care team information PersonnelName: Greer Stephen DO Address: Address: [address] [place] [address]
--- OUTSIDE RECORDS SUMMARY | 2021-11-28 21:48 | XMS_ITS | Continuity of Care Document ---
:1970 Author Organization [facility] enter/[facility] Address [address] [place] [address]- Care Team Providers Name Role Phone Roma Yousif MD Primary Care Physician 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
--- OUTSIDE RECORDS SUMMARY | 2021-11-28 21:48 | XMS_ITS | Continuity of Care Document ---
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
--- OUTSIDE RECORDS SUMMARY | 2021-11-28 21:48 | XMS_ITS | Continuity of Care Document ---
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
--- OUTSIDE RECORDS SUMMARY | 2021-11-28 21:48 | XMS_ITS | Continuity of Care Document ---
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
--- OUTSIDE RECORDS SUMMARY | 2021-11-28 21:48 | XMS_ITS | Continuity of Care Document ---
:1970 Author Organization [facility] Address [address] [place] [address]- Care Team Providers Name Role Phone Roma Yousif MD Primary Care Physician [facility] [place] Date(s): 12/29/19 - 01/28/20 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
--- OUTSIDE RECORDS SUMMARY | 2021-11-28 21:48 | XMS_ITS ---
:1970 Author Organization [facility] Address [address] [place] [address] Care Team Providers Name Role Phone JOSTIN CABRALES Unavailable Unavailable PROBLEMS Unknown Problems ALLERGIES Substance Reaction Event Type Date Status Tylenol Unknown Drug Allergy Oct, Active ENCOUNTERS Encounter Location Date Diagnosis [facility] [address] [address] Oct, [facility] [place] tendinitis o f right leg [address] M76.821 ; Planta r fasciitis, right M72.2 ; Lower limb lengt h difference M21.7 0 and Pes planus of right foot M21.41 IMMUNIZATIONS No Known Immunizations SOCIAL HISTORY Never Assessed REASON FOR REFERRAL FUNCTIONAL STATUS PLAN OF CARE Activity Details Follow Up 4 Weeks Reason: VITAL SIGNS Weight 251.1 lbs 2019-10-19 Heart Rate 84 /min 2019-10-19 Temperature 98.1 degrees Fahrenheit 2019-10-19 Respiratory Rate 16 /min 2019-10-19 MEDICATIONS Medication Instructions Dosage Frequency Start End Date Duration Stat us Date Diclofenac Transdermal 4 as directed 6h Act margaret Sodium 1 % times a day PROCEDURES Procedure Date Ordered Result Body Site Pneumati walking boot prefab Oct 19, 2019 X-RAY EXAM OF FOOT 3 Views Oct 19, 2019 RESULTS No Results REASON FOR VISIT 4 week f/u R foot, Rt foot arch fell would like to know if he needs surgery Insurance Providers [facility] Member Patient Patient Patient Patient Patient Subscriber Subscriber Subscriber Group Insurance Plan Plan Plan Plan ID Relationship Address Phone Name Date of ID Name Date of No Type Insurance Insurance Insurance Coverage to Subscriber Address Phone Name Dates CIGNA [phone] CIGNA self Gustavo [id number] [place] [address] Medicare [phone] Medicare self Gustavo [id number] [facility] [address] [place] [phone]
--- OUTSIDE RECORDS SUMMARY | 2021-11-28 21:48 | XMS_ITS | Continuity of Care Document ---
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
--- OUTSIDE RECORDS SUMMARY | 2021-11-28 21:48 | XMS_ITS | Continuity of Care Document ---
:1970 Author Organization [facility] Address [address] [place] [address]- Care Team Providers Name Role Phone Benja COREY, Roma Torres Primary Care Physician [phone] [id number] Date(s): 04/26/19 - 05/06/19 [facility]/[address] [address]- [facility] Attending Physician: Kelsi Jane Admitting [...] Maintenance, 05/15/16 9:22:20, Route to Pharmacy Electronically, [id number], [facility]/pharmacy#[id number] Start Date: 05/15/16 Status: OrderedHeating Pad See Instructions, # 1 units, Maintenance, use [id number] min three times a day as needed [...]
--- OUTSIDE RECORDS SUMMARY | 2021-11-28 21:48 | XMS_ITS | Continuity of Care Document ---
:1970 Author Organization [facility] enter/[facility] [place] Address Unavailable , Care Team Providers Name Role Phone Greer Stephen DO Primary Care Physician En[place] [facility] [place] Date(s): 04/04/21 - 05/04/21 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
--- OUTSIDE RECORDS SUMMARY | 2021-11-28 21:48 | XMS_ITS | Continuity of Care Document ---
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
--- OUTSIDE RECORDS SUMMARY | 2021-11-28 21:48 | XMS_ITS | Continuity of Care Document ---
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
--- OUTSIDE RECORDS SUMMARY | 2021-11-28 21:48 | XMS_ITS | Continuity of Care Document ---
:1970 Author Organization [facility] enter/[facility] [place] Address Unavailable , Care Team Providers Name Role Phone Greer Stephen DO Primary Care Physician Encounter [facility] Date(s): 06/18/21 - 07/18/21 [facility] Allergies, Adverse Reactions, Alerts Substance [...] Active test)(Confirmed)1 Osteoarthritis of right hip(Confirmed) Active *[id number] Active [place](Confirmed) Pyelonephritis(Confirmed) Active Renal insufficiency(Confirmed) Active Tobacco use disorder(Confirmed) Active Diabetes mellitus type 2 in Active obese(Confirmed) 1referred for colonoscopy Social History Social History Type Response Smoking Status 5-9 cigarettes (between 1/4 to 1/2 pack)/day in last 30 days entered on: 04/10/20 Sex
--- OUTSIDE RECORDS SUMMARY | 2021-11-28 21:48 | XMS_ITS | Continuity of Care Document ---
:1970 Author Organization [facility] enter/[facility] [place] Address Unavailable , Care Team Providers Name Role Phone Greer Stephen DO Primary Care Physician [place] [facility] [place](s[place] 06/20/21 - 07/20/21 [facility] Allergies, Adverse Reactions, Alerts Substance [...] Active test)(Confirmed)1 Osteoarthritis of right hip(Confirmed) Active *[id number] Active Laura(Confirmed) Pyelonephritis(Confirmed) Active Renal insufficiency(Confirmed) Active Tobacco use disorder(Confirmed) Active Diabetes mellitus type 2 in Active obese(Confirmed) 1referred for colonoscopy Social History Social History Type Response Smoking Status 5-9 cigarettes (between 1/4 to 1/2 pack)/day in last 30 days entered on: 04/10/20 Sex
--- OUTSIDE RECORDS SUMMARY | 2021-11-28 21:48 | XMS_ITS | Continuity of Care Document ---
:[address] 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
--- OUTSIDE RECORDS SUMMARY | 2021-11-28 21:48 | XMS_ITS | Continuity of Care Document ---
:1970 Author Organization [facility] enter/[facility] [place] Address Unavailable , Care Team Providers Name Role Phone Greer Stephen DO Primary Care Physician [place] [facility] Date(s): 11/07/20 - 12/07/20 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
[2021-11-28] MEDS: 0.9 % Sodium Chloride 1,000 ML 999 ML IVCONT (22:36)
[2021-11-28] MEDS: Morphine Sulfate 4 MG/ML CARTRIDGE IVPUSH (22:36)
--- NOTE | 2021-11-28 22:40 | PC.NURSE ---
pt a&ox3, attempted to obtain IV access, 2nd nurse placed 20 G IV left AC, medicated per provider order - pt reporting 7/10 abd pain.
[2021-11-28 23:26] VITALS: BP 120/76; PULSE 72; RESP 18; TEMP 36.6; O2SAT 99
== END 2021-11-29 00:04 | disposition home or self-care (01) ==
PROVIDERS: Student in an Organized Health Care Education/Training Program; Emergency Provider Emergency Medicine; PCP Internal Medicine
DX: K57.90 Diverticulosis of intestine, part unspecified, without perforation or abscess without bleeding (principal); R10.32 Left lower quadrant pain; E11.9 Type 2 diabetes mellitus without complications; F17.210 Nicotine dependence, cigarettes, uncomplicated; F12.90 Cannabis use, unspecified, uncomplicated; E66.9 Obesity, unspecified; Z68.37 Body mass index [BMI] 37.0-37.9, adult
CPT/HCPCS: 36415; 74176; 80048; 80076; 83690; 85027; 96374; 99284; J2270

== ENCOUNTER 2022-08-19 07:58 | Outpatient (REF) | payer OTHER, SELFPAY ==
[2022-08-19 12:29] LABS: Prostate Specific Antigen Scr 2.91 ng/mL (<0.05-4.0)
[2022-08-19 14:22] LABS: Alanine Aminotransferase 32 U/L (0-40); Alkaline Phosphatase 27 U/L (39-117); Anion Gap 16 (12-20); Aspartate Amino Transferase 17 U/L (5-37); Bilirubin Total 0.3 mg/dL (0.0-1.0); Blood Urea Nitrogen 8 mg/dL (9-16); Calcium 9.3 mg/dL (8.4-10.2); Carbon Dioxide 23 mmol/L (22-29); Chloride 109 mmol/L (96-108); Cholesterol 180 mg/dL; Estimated Glomerular Filt Rate 60; Glucose Fasting 117 mg/dL (60-99); HDL Cholesterol 60 mg/dL; LDL Cholesterol Calculated 101 mg/dl; Potassium 3.7 mmol/L (3.3-5.1); Sodium 144 mmol/L (135-145); TSH reflex Free T4 2.43 uIU/mL (0.32-4.0); Triglycerides 98 mg/dL
[2022-08-21 04:01] LABS: HIV AB/AG Nonreactive (Nonreactive); HIV Num 1 0.07 S/CO (0.00-0.99); ~Hepatitis C Antibody Nonreactive (Nonreactive)
== END 2022-08-19 07:59 | disposition home or self-care (01) ==
LOC: HO.HMGCLDS 07:58
PROVIDERS: PCP Nurse Practitioner Family; Visit Provider Nurse Practitioner Family
DX: Z00.00 Encounter for general adult medical examination without abnormal findings (principal); Z12.5 Encounter for screening for malignant neoplasm of prostate; Z11.4 Encounter for screening for human immunodeficiency virus [HIV]; Z20.2 Contact with and (suspected) exposure to infections with a predominantly sexual mode of transmission; Z13.220 Encounter for screening for lipoid disorders; Z13.29 Encounter for screening for other suspected endocrine disorder
CPT/HCPCS: 36415; 80053; 80061; 81003; 84153; 84443; 85025; 86780; 86803; 87389

== ENCOUNTER 2022-08-21 14:55 | Outpatient (AMB) | payer OTHER, SELFPAY ==
[2022-08-21 15:02] VITALS: BP 134/92; PULSE 89; RESP 18; O2SAT 97; BMI 37.1
--- NOTE | 2022-08-21 15:02 | A.OFFVIS_ITS ---
Intake Vital Signs 08/21/22 15:02 Height 5 ft 9 in Weight 251 lb 8 oz BMI 37.1 BP 134/92 H Blood Pressure Location Rt brachial Position Sitting Respiration 18 Pulse 89 Pulse Source Pulse Oximeter Pulse Oximetry (%) 97 Oxygen Delivery Method Room Air Intake Visit Reasons: Pain in right hip Allergies aspirin Allergy (Unknown, Verified 08/21/22 15:01) Nausea Motrin Allergy (Unknown, Uncoded 09/03/21 09:35) Nausea HPI HPI Comments History of Present Illness Details Gustavo is a pleasant 51-year-old male who presents the office today for evaluation management of his chronic right hip and right lower back pain. Patient was referred here from his primary care doctor after recent annual physical exam. Patient's main concern today is right hip pain. Status post extensive right hip surgery at the age of 11 or 12 years old. He reports that he has hardware in the right hip, 6-8 screws , that should have been removed in his 20's. He has been told in the past that he needs a right hip replacement but he has been hesitant as he has anxiety about anesthesia. The patient states that he has had chronic pain in the right hip but it has progressively become worse as he has gotten older and with weight gain over the past several years. He is currently working on weight loss with diet and walking. He has not had any recent imaging of his hip or back. He has tried [id number]-bvt-qearycy medications and topical medications that do not help. He says he had a cortisone injection in the hip years ago but he is scared to get repeat injections. Pain today is reported as 8 out of 10 and described as constant worse in the middle the night but is present at all times today. Patient also complaining of right lower back pain. This has been ongoing for many years and is described as tight aching and spasming. Area is tender to palpation and unrelieved with qutv-gry-ynplcny or topical medications. He has tried physical therapy many years ago for this pain and states that it made him feel more sore. In terms of muscle damage condition is described as spasming, cramping, squeezing, throbbing, stabbing and sharp. Pain is adversely affecting his ability to enjoy life, enjoy recreational activities, sleep and walk. Patient denies current alcohol use. Smoking 1/2 pack per day and is working on quitting. Social marijuana use that he obtained from the dispensary. Patient denies implantable devices, pacemaker and/or defibrillator. [facility] Medical History Cholecystectomy planned Chronic back pain Dislocated shoulder Diverticulitis History of prediabetes Morbid obesity Pyelonephritis Surgical History History of hip surgery History of partial colectomy Social History Household Members: None Housing: Apartment Do you presently have visiting nurse or other home services: No Alcohol intake: current Alcohol intake frequency: holidays/special occasions only Patient Tobacco Use Status: Current everyday Tobacco user Tobacco use type: Cigarette Cigarettes Per Day: 10 e-Cigarette/Vaping Use: Never Used Second Hand Smoke Exposure: No Substance Use Type: Marijuana service: No Current occupational status: disabled Current occupational exposures/hazards: No Cognitive needs: No Hearing needs: No Vision needs: Yes Review of Systems Const All systems reviewed & are unremarkable except as noted in HPI and below Physical Exam Vital Signs: Last Vital Signs Pulse 89 08/21/22 15:02 Resp 18 08/21/22 15:02 BP 134/92 H 08/21/22 15:02 Pulse Ox 97 08/21/22 15:02 Oxygen Delivery Method Room Air 08/21/22 15:02 BMI result Body Mass Index 37.1 General: awake, alert, oriented. Answers questions appropriately. Fully engaged in examination. Skin: warm, dry, intact without visible rashes or lesions. HEENT: Normocephalic. Conjuntivae clear without exudate. Sclera non-icteric. Hearing intact. Cardiac: External chest normal in appearance. Respiratory: No signs of trauma. No signs of respiratory distress. No cough, audible wheezing or stridor. Abdomen: without gross distension. Neurological: Oriented to person, place, time and situation. Thought process intact. No gait abnormalities appreciated. Psychiatric: Appropriate mood and affect. Good judgment and insight. Back/Spine/Pelvis Other: Lumbar exam: Able to stand on bilateral tiptoes and bilateral heels. Able to transition from sit to stand unassisted. Visual inspection without gross abnormality Tender to palpation over right paraspinal muscles. Palpable tense muscle right lower back Nontender to palpation over midline lumbar vertebrae paraspinal muscles in region of L2-3 to L4-5 ROM: limited secondary to pain with extension to 10 degrees. flexion to 45 degrees Strength: 5/5 BLE Sensation: intact and symmetric BLE DTR: intact and symmetric Straight leg raises with and without dorsiflexion negative bilaterally Extrem Right lower extremity: hip/thigh (pain with external rotation. normal to visible inspection.) Assessment & Plan Assessment & Plan (1) Myofascial low back pain: Code(s): M54.50 - Low back pain, unspecified (2) Lumbar spondylosis: Code(s): M47.816 - Spondylosis without myelopathy or radiculopathy, lumbar region (3) Right hip pain: Code(s): M25.551 - Pain in right hip Plan Gustavo is a pleasant 51-year-old male who presented to the office today for evaluation and management of his chronic right hip and right lower back pain. Will obtain imaging, x-ray right hip and lumbar spine ordered. Referral placed for orthopedics to evaluate and manage right hip pain. If patient is not candidate for surgical repair or management at Orthopedics will consider interventional management in our office. Patient was encouraged to quit smoking. He has NRT at home and is working on quitting PT eval and treat ordered for myofacial lower back pain. Tizanidine 2mg po bid as needed for muscle spasm. Discussed options for treatment including diagnostic interventional testing, epidural steroid injections, peripheral nerve stimulation with Sprint, RFA and more permanent neuromodulation. Patient will follow up here after he is evaluated by orthopedics for Right Hip Pain as this is his main pain generator at this time. May follow up sooner if needed. All questions and concerns have been answered and patient agrees with the plan. Orders: Orders PT Evaluation and Treatment Today M54.50 - Low back pain, unspecified XR hip RT w PEL1V Today M25.551 - Pain in right hip XR lumbar spine 4V min Today M47.816 - Spondylosis without myelopathy or radiculopathy, lumbar region Referrals Orthopedics Referral M25.551 - Pain in right hip Medications: New tizanidine 2 mg PO BID PRN 60 tabs 0RF muscle spasticity M54.50 - Low back pain, unspecified Coding Level of Care Code New Pt Level 4 (53677) Diagnoses Myofascial low back pain M54.50 Lumbar spondylosis M47.816 Right hip pain M25.551
== END 2022-08-21 15:30 | disposition home or self-care (01) ==
PROVIDERS: PCP Nurse Practitioner Family; Visit Provider Registered Nurse Emergency
DX: M25.551 Pain in right hip (principal); M54.50 Low back pain, unspecified; M47.816 Spondylosis without myelopathy or radiculopathy, lumbar region
CPT/HCPCS: 99204

== ENCOUNTER → 2022-08-21 14:55 | Outpatient (BNVA) | payer OTHER, SELFPAY | PROVIDERS: PCP Nurse Practitioner Family; Visit Provider Registered Nurse Emergency | DX: M54.50 Low back pain, unspecified (principal); M47.816 Spondylosis without myelopathy or radiculopathy, lumbar region; M25.551 Pain in right hip | CPT/HCPCS: 99202 ==

== ENCOUNTER 2022-08-22 06:33 | Outpatient (REF) | payer OTHER, SELFPAY ==
--- NOTE | ~2022-08-22 | XR_ITS ---
EXAMINATION: LUMBAR SPINE AND RIGHT HIP CLINICAL INFORMATION: Right hip pain COMPARISON: CT abdomen pelvis 11/28/2021 TECHNIQUE: 2 views right hip, 5 views cervical spine. FINDINGS: Lumbar spine: Some mild spondylitic endplate changes are present with some osteophytes. Vertebral body heights and disc spaces are well preserved. No bony destructive lesions are seen. Facet joints appear unremarkable. Some mild sclerotic changes seen at the SI joints. There is an old fracture of the right femur with with a plate and screw device present laterally. Appearances are unchanged when compared to the 02/16/2015 study. There is misalignment of the completely healed fracture fragments with lateral displacement of the neck slightly and medial displacement of the femoral head. Hardware is intact and no new fractures are seen. The plate is slightly bent laterally but appearances are unchanged when compared to the 2016 study. Degenerative changes are seen in the hip which have progressed slightly since 2016. XR/XR hip RT w PEL1V IMPRESSION: 1. Mild degenerative changes in the lumbar spine. 2. Old right femoral fracture with plate and screw device intact. 3. Some progression of degenerative changes in the right hip since the 2016 study.
--- NOTE | ~2022-08-22 | XR_ITS ---
EXAMINATION: LUMBAR SPINE AND RIGHT HIP CLINICAL INFORMATION: Right hip pain COMPARISON: CT abdomen pelvis 11/28/2021 TECHNIQUE: 2 views right hip, 5 views cervical spine. FINDINGS: Lumbar spine: Some mild spondylitic endplate changes are present with some osteophytes. Vertebral body heights and disc spaces are well preserved. No bony destructive lesions are seen. Facet joints appear unremarkable. Some mild sclerotic changes seen at the SI joints. There is an old fracture of the right femur with with a plate and screw device present laterally. Appearances are unchanged when compared to the 02/16/2015 study. There is misalignment of the completely healed fracture fragments with lateral displacement of the neck slightly and medial displacement of the femoral head. Hardware is intact and no new fractures are seen. The plate is slightly bent laterally but appearances are unchanged when compared to the 2016 study. Degenerative changes are seen in the hip which have progressed slightly since 2016. XR/XR lumbar spine 4V min IMPRESSION: 1. Mild degenerative changes in the lumbar spine. 2. Old right femoral fracture with plate and screw device intact. 3. Some progression of degenerative changes in the right hip since the 2016 study.
[2022-08-22 11:59] LABS: Magnesium 2.1 mg/dL (1.6-2.6)
[2022-08-22 12:37] LABS: Folate 11.4 ng/mL (> or = 4.0); Vitamin B12 307 pg/mL (200-900)
[2022-08-26 16:13] LABS: Ceruloplasmin 33 mg/dL (18-36)
[2022-08-27 16:38] LABS: Zinc 100 mcg/dL (60-130)
== END 2022-08-22 06:34 | disposition home or self-care (01) ==
LOC: HO.HMGCX 06:33
PROVIDERS: Absent Provider Registered Nurse Emergency; PCP Nurse Practitioner Family; Visit Provider Nurse Practitioner Family
DX: M25.551 Pain in right hip (principal); R74.8 Abnormal levels of other serum enzymes; M47.816 Spondylosis without myelopathy or radiculopathy, lumbar region
CPT/HCPCS: 36415; 72110; 73502; 82390; 82607; 82746; 83735; 84630

== ENCOUNTER → 2022-08-29 13:18 | Outpatient (BNVA) | payer OTHER, SELFPAY | PROVIDERS: PCP Nurse Practitioner Family; Visit Provider Registered Nurse Emergency ==

== ENCOUNTER 2022-08-29 13:19 | Outpatient (AMB) | payer OTHER, SELFPAY ==
--- NOTE | 2022-08-29 13:19 | A.OFFVIS_ITS ---
Intake Intake Visit Reasons: follow up xray results Allergies aspirin Allergy (Unknown, Verified 08/29/22 13:19) Nausea Motrin Allergy (Unknown, Uncoded 09/03/21 09:35) Nausea HPI HPI Comments History of Present Illness Details Tele visit completed today with Gustavo to review recent x-rays. Result as per below. Patient reports that he has received a call from physical therapy and has scheduled his 1st appointment. Today he is requesting medication for his pain. Tizanidine was prescribed at last visit the patient has not picked up from the pharmacy or taken. Patient advised to start this medication will and take as directed. He is still waiting to hear from Orthopedics to schedule appointment. Prior: Gustavo is a pleasant 51-year-old male who presents the office today for evaluation management of his chronic right hip and right lower back pain. Patient was referred here from his primary care doctor after recent annual physical exam. Patient's main concern today is right hip pain. Status post extensive right hip surgery at the age of 11 or 12 years old. He reports that he has hardware in the right hip, 6-8 screws , that should have been removed in his 20's. He has been told in the past that he needs a right hip replacement but he has been hesitant as he has anxiety about anesthesia. The patient states that he has had chronic pain in the right hip but it has progressively become worse as he has gotten older and with weight gain over the past several years. He is currently working on weight loss with diet and walking. He has not had any recent imaging of his hip or back. He has tried pcai-run-pdxrvzj medications and topical medications that do not help. He says he had a cortisone injection in the hip years ago but he is scared to get repeat injections. Pain today is reported as 8 out of 10 and described as constant worse in the middle the night but is present at all times today. Patient also complaining of right lower back pain. This has been ongoing for many years and is described as tight aching and spasming. Area is tender to palpation and unrelieved with doxk-njz-mwmmkfz or topical medications. He has tried physical therapy many years ago for this pain and states that it made him feel more sore. In terms of muscle damage condition is described as spasming, cramping, squeezing, throbbing, stabbing and sharp. Pain is adversely affecting his ability to enjoy life, enjoy recreational activities, sleep and walk. Patient denies current alcohol use. Smoking 1/2 pack per day and is working on quitting. Social marijuana use that he obtained from the dispensary. Patient denies implantable devices, pacemaker and/or defibrillator. [facility] Medical History Cholecystectomy planned Chronic back pain Dislocated shoulder Diverticulitis History of prediabetes Morbid obesity Pyelonephritis Surgical History History of hip surgery History of partial colectomy Social History Household Members: None Housing: Apartment Do you presently have visiting nurse or other home services: No Alcohol intake: current Alcohol intake frequency: holidays/special occasions only Patient Tobacco Use Status: Current everyday Tobacco user Tobacco use type: Cigarette Cigarettes Per Day: 10 e-Cigarette/Vaping Use: Never Used Second Hand Smoke Exposure: No Substance Use Type: Marijuana service: No Current occupational status: disabled Current occupational exposures/hazards: No Cognitive needs: No Hearing needs: No Vision needs: Yes Review of Systems Const All systems reviewed & are unremarkable except as noted in HPI and below Physical Exam Const General: alert Orientation/consciousness: patient oriented x3 Neuro General: patient oriented x3 Psych Attitude: cooperative Thought process: Normal thought process present Thought content: Normal thought content present Insight: Good insight present (Psych) Results Reviewed Results Reviewed: 08/22/2022 FINDINGS: Lumbar spine: Some mild spondylitic endplate changes are present with some osteophytes. Vertebral body heights and disc spaces are well preserved. No bony destructive lesions are seen. Facet joints appear unremarkable. Some mild sclerotic changes seen at the SI joints. There is an old fracture of the right femur with with a plate and screw device present laterally. Appearances are unchanged when compared to the 02/16/2015 study. There is misalignment of the completely healed fracture fragments with lateral displacement of the neck slightly and medial displacement of the femoral head. Hardware is intact and no new fractures are seen. The plate is slightly bent laterally but appearances are unchanged when compared to the 2016 study. Degenerative changes are seen in the hip which have progressed slightly since 2016. XR/XR lumbar spine 4V min IMPRESSION: 1.? Mild degenerative changes in the lumbar spine. 2.? Old right femoral fracture with plate and screw device intact. 3.? Some progression of degenerative changes in the right hip since the 2016 study. Assessment & Plan Assessment & Plan (1) Myofascial low back pain: Code(s): M54.50 - Low back pain, unspecified (2) Lumbar spondylosis: Code(s): M47.816 - Spondylosis without myelopathy or radiculopathy, lumbar region (3) Right hip pain: Code(s): M25.551 - Pain in right hip Plan Televisit completed today with patient to review recent xray results C/W plan for PT as scheduled Tizanidine 2mg po bid as needed, to pickle maker from pharmacy. Patient waiting for call from ortho to schedule, referral was placed at last visit. Continue to work on quitting smoking. Patient will follow up here after he is evaluated by orthopedics for Right Hip Pain as this is his main pain generator at this time. May follow up sooner if needed. All questions and concerns have been answered and patient agrees with the plan. Telehealth Telehealth Location of provider rendering services: practice address Location of patient: address on file Patient Identification confirmed using: Name, : Yes Telehealth method: voice only Patient verbally consented to treatment: Yes Patient verbally consented to billing insurance company: Yes Patient informed of any privacy concerns related to visit: Yes Coding Level of Care Code Tele Est Pt Level 3 (31998) Diagnoses Myofascial low back pain M54.50 Lumbar spondylosis M47.816 Right hip pain M25.551
== END 2022-08-29 13:44 | disposition home or self-care (01) ==
PROVIDERS: PCP Nurse Practitioner Family; Visit Provider Registered Nurse Emergency
DX: M54.50 Low back pain, unspecified (principal); M47.816 Spondylosis without myelopathy or radiculopathy, lumbar region; M25.551 Pain in right hip
CPT/HCPCS: 99441

== ENCOUNTER 2022-10-03 05:16 | Outpatient (REF) | payer OTHER, SELFPAY ==
--- NOTE | ~2022-10-03 | XR_ITS ---
EXAMINATION: XR HIP, RIGHT CLINICAL INFORMATION: Right hip pain. COMPARISON: Radiographs dated 08/22/2022 and 02/16/2015. TECHNIQUE: AP and frog-leg lateral views of the right hip are submitted, together with a frontal view of the pelvis. FINDINGS: There is bony demineralization. There is moderately severe narrowing of the right acetabular joint space, most pronounced superiorly. The right femoral head is smooth. There is a healed fracture seen of the proximal right femur, with intact fixator plate and fixator screws. No hardware failure or loosening is seen. No unusual degenerative change is seen in the left hip. The sacroiliac joints are symmetric and well-maintained. The pubic symphysis is intact. There is a left pelvic phlebolith. No foreign body is seen. XR/XR hip RT min 2V IMPRESSION: 1. There is moderately severe osteoarthritic change of the right hip. 2. A healed posttraumatic deformity is seen of the proximal right femur. There is an intact orthopedic fixator plate and fixator screws applied to the proximal right femur. 3. No unusual degenerative change is seen of the left hip.
== END 2022-10-03 05:17 | disposition home or self-care (01) ==
LOC: HO.HOSX 05:16
PROVIDERS: Visit Provider Orthopaedic Surgery
DX: Z01.818 Encounter for other preprocedural examination (principal); M16.11 Unilateral primary osteoarthritis, right hip; R19.5 Other fecal abnormalities; N18.9 Chronic kidney disease, unspecified; E66.01 Morbid (severe) obesity due to excess calories; Z79.899 Other long term (current) drug therapy
CPT/HCPCS: 73502; 99202

== ENCOUNTER 2022-10-03 10:09 | Outpatient (AMB) | payer OTHER, SELFPAY ==
--- NOTE | 2022-10-03 10:19 | A.OFFVIS_ITS ---
Intake Vital Signs 10/03/22 10:28 Height 5 ft 9 in Weight 249 lb 9.012 oz BMI 36.9 BP 173/74 H Blood Pressure Location Lt brachial Position Sitting Pulse 71 Intake Visit Reasons: colonoscopy screening Intake Note: Patient presents to in office visit today as a new patient colonoscopy screening. CC: Patient reports occasional constipation,and having hemorrhoids in the past. Patient reports hx of colectomy d/t diverticulitis. Denies other GI symptoms today.. Allergies ibuprofen [From Motrin IB] Adverse Reaction (Mild, Verified 10/03/22 11:48) upset stomach HPI colonoscopy screening HPI Details 50-year-old male here for preprocedural meeting to discuss a screening colonoscopy. R he is referred by Roma Yousif MD of [facility] in [place]. PMX Diabetes diet Renal insufficiency Smoker Obesity History of pyelonephritis Chronic hip pain * SURGICAL HISTORY Osteotomy right hip -1982 Partial colectomy due to diverticulosis/diverticulitis x 2 cholecystectomy * ALLERGIES Tylenol-GI upset * [employer] LABS: Laboratory Tests 08/19/22 08/19/22 08:10 08:10 WBC 8.0 Hgb 14.9 Hct 47.4 Plt Count 295 Estimated GFR 60 Total Bilirubin 0.3 AST 17 ALT 32 Alkaline Phosphata se 27 L TSH 2.43 TODAY'S VISIT This will be his first colonoscopy. He has occasional rectal bleeding, but has a long hx of CIC and hemorrhoids. His constipation is now well controlled on Colace. He has had 2 surgeries/partial colectomies for TICS. No upper GI problems. Once with anesthesia he woke up shivering, but this was many years ago and he has not had any trouble subsequently. He denies any cardiac or respiratory problems. NO ID problems. His mother did not have CRC or polyps, he had a couple of great uncles with CRC and fathers side of FHX not known. [facility] Medical History Cholecystectomy planned Chronic back pain Dislocated shoulder Diverticulitis History of prediabetes Morbid obesity Pyelonephritis Surgical History History of hip surgery History of partial colectomy S/P cholecystectomy Social History Household Members: None Housing: Apartment Do you presently have visiting nurse or other home services: No Alcohol intake: current Alcohol intake frequency: holidays/special occasions only Patient Tobacco Use Status: Current everyday Tobacco user Tobacco use type: Cigarette Cigarettes Per Day: 10 e-Cigarette/Vaping Use: Never Used Second Hand Smoke Exposure: No Substance Use Type: Marijuana service: No Current occupational status: disabled Current occupational exposures/hazards: No Cognitive needs: No Hearing needs: No Vision needs: Yes Review of Systems Const Denies fatigue, Denies fever(s), Denies night sweats, Denies poor appetite and Denies weight loss ENT Reports Normal hearing present, Denies dental pain, Denies dysphagia, Denies hearing loss, Denies mouth pain, Denies odynophagia, Denies throat swelling, Denies tongue swelling and Reports other (Dentition adequate) Card Reports no additional complaints Resp Reports no additional complaints GI Denies abdominal pain, Denies melena, Denies bloating, Denies hematochezia, Reports constipation, Denies GI cramping, Denies dysphagia, Denies excessive flatus, Denies early satiety, Denies heartburn, Denies diarrhea, Denies nausea, Denies odynophagia, Denies vomiting and Denies hematemesis Skin/Breast Denies pruritus, Denies lesions, Denies rash and Denies jaundice Neuro Reports Normal hearing present and Denies Abnormal speech present Endo Denies fatigue Aller/Immun Denies throat swelling and Denies tongue swelling Physical Exam Vital Signs: Last Vital Signs Pulse 71 10/03/22 10:28 BP 173/74 H 10/03/22 10:28 BMI result Body Mass Index 36.9 Const General: cooperative, no acute distress, well developed and well groomed Nutritional Appearance: well nourished and obese Orientation/consciousness: oriented to person, oriented to place and oriented to time Limitations: No language barrier HEENT Head: Yes normocephalic and Yes atraumatic Eyes General: appearance normal, both eyes and all related structures Pupils: Equal, round and reactive pupils present Neck Neck: Yes normal visual inspection and Yes no lymphadenopathy Thyroid: Thyroid normal Resp Effort & Inspection: normal respiratory effort and able to speak in complete sentences Auscultation: clear to auscultation bilaterally Cardio Rate: regular rate Rhythm: regular rhythm Heart sounds: Normal, physiologic split S2 sound present Peripheral pulses: radial pulses present and posterior tibial pulses present GI Inspection: No distended, No Abdominal panniculus present, Yes obesity and Yes scar Palpation (GI): Soft to palpation, nontender, no guarding, not rigid and No hepatosplenomegaly present Percussion: Yes normal to percussion Auscultation: normal bowel sounds Rectal Exam - Male: Yes deferred Abdomen image: 1. surgical scars 2. 3. 4. Skin General skin exam: no rashes or lesions noted, turgor normal, skin not dry, no jaundice, No spider nevi and no striae Rashes: no rashes Nails: normal Neuro General: oriented to person, oriented to place and oriented to time Cranial nerves: Yes Equal, round and reactive pupils present and Yes Normal hearing present Speech: No Abnormal speech present Extrem General: Yes normal to inspection, No clubbing, No cyanosis and No edema Psych Appearance: grossly normal and well kempt Mental Status: mental status grossly normal Speech and movement: Normal speech and movement present Affect: normal affect Attitude: cooperative Thought process: Normal thought process present and not confabulating Thought content: Normal thought content present Insight: Limited insight present (Psych) Judgement: Limited judgement present (Psych) Assessment & Plan Assessment & Plan (1) Pre-op examination: Code(s): Z01.818 - Encounter for other preprocedural examination Plan: This will be his first colonoscopy. He has occasional rectal bleeding, but has a long hx of CIC and hemorrhoids. His constipation is now well controlled on Colace. He has had 2 surgeries/partial colectomies for TICS. No upper GI problems. Once with anesthesia he woke up shivering, but this was many years ago and he has not had any trouble subsequently. He denies any cardiac or respiratory problems. NO ID problems. His mother did not have CRC or polyps, he had a couple of great uncles with CRC and fathers side of FHX not known. (2) Positive colorectal cancer screening using Cologuard test: Code(s): R19.5 - Other fecal abnormalities (3) Morbid obesity: Code(s): E66.01 - Morbid (severe) obesity due to excess calories (4) Chronic kidney disease: Code(s): N18.9 - Chronic kidney disease, unspecified Coding Level of Care Code New Pt Level 3 (45336) Diagnoses Pre-op examination Z01.818 Positive colorectal cancer screening using Cologuard test R19.5 Morbid obesity E66.01 Chronic kidney disease N18.9
[2022-10-03 10:28] VITALS: BP 173/74; PULSE 71; BMI 36.9
== END 2022-10-03 13:07 | disposition home or self-care (01) ==
PROVIDERS: PCP Nurse Practitioner Family; Visit Provider Nurse Practitioner
DX: Z01.818 Encounter for other preprocedural examination (principal); Z12.11 Encounter for screening for malignant neoplasm of colon; Z80.0 Family history of malignant neoplasm of digestive organs; R19.5 Other fecal abnormalities
CPT/HCPCS: 99203

== ENCOUNTER 2022-10-03 11:20 | Outpatient (AMB) | payer OTHER, SELFPAY ==
--- NOTE | 2022-10-03 11:28 | A.OFFVIS_ITS ---
Intake Intake Visit Reasons: Rewriter-Pain in right hip Intake Note: Gustavo a 52 year old male who presents today as a new patient for an evaluation of constant right hip pain. Patient reports hip surgery at age 12 [address] [facility]. Hx of a cortisone injection that provided him relief but has a fear of needles. Currently attending PT, states at times becomes too painful. He mentions having a right leg discrepancy and was given a wedge by PT. He states being told needing a hip replacement. Finds no relief with tylenol, motrin or tizanidine. Allergies ibuprofen [From Motrin IB] Adverse Reaction (Mild, Verified 10/03/22 11:48) upset stomach Medication List - Last Reconciled 10/03/22 by Douglas Vazquez MD betamethasone dipropionate 0.05% 1 appl topical DAILY PRN 2 weeks ketoconazole 2% 1 appl topical BID tizanidine 2 mg PO BID PRN PFSH Medical History Cholecystectomy planned Chronic back pain Dislocated shoulder Diverticulitis History of prediabetes Morbid obesity Pyelonephritis Surgical History (Reviewed 10/03/22 @ 11:49 by Pricila Plunkett [facility]) History of hip surgery History of partial colectomy S/P cholecystectomy Social History Household Members: None Housing: Apartment Do you presently have visiting nurse or other home services: No Alcohol intake: current Alcohol intake frequency: holidays/special occasions only Patient Tobacco Use Status: Current everyday Tobacco user Tobacco use type: Cigarette Cigarettes Per Day: 10 e-Cigarette/Vaping Use: Never Used Second Hand Smoke Exposure: No Substance Use Type: Marijuana service: No Current occupational status: disabled Current occupational exposures/hazards: No Cognitive needs: No Hearing needs: No Vision needs: Yes Physical Exam Const Other: Well-nourished well-developed very friendly male awake alert and oriented x3 in no acute distress Extrem Other: Bilateral lower extremity examination shows good capillary refill, no skin lesions noted, normal sensation light touch Right hip examination shows an external rotation deformity, decreased range of motion when compared to his left hip, pain with range of motion, no tenderness over his bursa Results Reviewed Results Reviewed: X-rays of the patient's right hip show hardware with in his proximal femur consistent with a prior osteotomy, severe hip joint space narrowing with grade 4 [id number] arthritis, subchondral sclerosis, osteophyte formation, no acute bony abnormalities Assessment & Plan Assessment & Plan (1) Arthritis of right hip: Code(s): M16.11 - Unilateral primary osteoarthritis, right hip Plan: Mr. Thompson presents with progressively worsening right hip pain due to end-stage degenerative joint disease. At this point the patient has failed continued non operative treatments. The patient will most likely knee total hip replacement surgery. Because of his prior osteotomy and subsequent deformity of his proximal femur I did recommend that he follow-up at a tertiary care center. I did give him the names and phone numbers for Dr. Seymour Santos at [facility] in [place], [place] as well as Dr. Quang Schmidt at [facility] in [place], [place]. The patient will contact one of their offices for a consultation. He will follow up with me on an as-needed basis. Feel free to call me at any time should questions regarding his orthopedic management arise. Thank you very much for asking me to see this very friendly gentleman. I spent 22 minutes in reviewing the patient's records and imaging studies, seeing the patient and documenting in the medical record. Orders: Orders XR hip RT min 2V Today M25.551 - Pain in right hip Medications: New tramadol 50 mg PO Q8H PRN 60 tabs 0RF pain Coding Level of Care Code New Pt Level 2 (94583) Diagnoses Arthritis of right hip M16.11
== END 2022-10-03 12:03 | disposition home or self-care (01) ==
PROVIDERS: PCP Nurse Practitioner Family; Visit Provider Orthopaedic Surgery
DX: M16.11 Unilateral primary osteoarthritis, right hip (principal)
CPT/HCPCS: 99202

== ENCOUNTER 2022-10-30 10:00 | Outpatient (RCR) | payer OTHER, SELFPAY ==
--- NOTE | 2022-09-19 11:54 | MHC.PT.EP ---
[facility] [place] Office [place] Office [place] Office [address] Caren Barajas [address] [phone] F: [phone] F: [phone] F: [phone] F: [phone] Physical Therapy Plan of Care Date of Evaluation: Date of Surgery: Diagnosis: This is a 52 yo male presenting to skilled PT with a script for low back pain. Assessment: This is a 52 yo male presenting to skilled PT with a script for low back pain. Patient has a history of chronic R hip and R lower back pain. Both have been getting worse as he has been getting older. He reports that he is status post extensive right hip surgery at the age of 11 or 12 years old due to a growth plate (he has hardware in the right hip, 6-8 screws , that should have been removed in his 20's, his hip is causing more back pain). He also reports that he has been told in the past that he needs a right hip replacement but he has been hesitant as he has anxiety about anesthesia. Additionally, he says he had a cortisone injection in the hip years ago but he is scared to get repeat injections (waiting to see ortho). He has tried rvhz-otl-dxjuliz medications and topical medications that do not help. He has tried PT in the past and this was somewhat helpful. Pain today is reported across the low back but can be worse on the R. This is achy, occasional spasms and tender to palpate. Patient reports that he would like to lose weight and this may help as well. Assessment reveals pain that ranges from up to an 8/10 at the worst. Patient demos decreased lumbar ROM, R hip, strength of core, back and LE's and TTP at lumbar paraspinals and R lateral hip and impaired posture with forward head, rounded shoulders and LLD. Based on functional limitations, impaired QOL and pain tolerance patient is a good candidate for skilled PT 1x/wk for 8wks. Frequency and Duration: The patient will be seen 1x/wk for 8wks Short Term Goals: (in 2 wks) I in HEP Demo proper technique of core stab and PPT without cues Demo proper squat techniques without pain Demo good understanding of heel lift and management Assisted Goals: (in 4wks) Demo at least 1 grade MMT improvement of BLE Demo WFL and equal ROM of lumbar without pain Improve pain to no more than 5/10 at the worst Improve oswestry by at least 10 points Understand total hip replacement prehab, options and healing times Treatment Plan: Modalities to reduce pain, spasms and effusion. Manual therapy to restore motion and function. Therapeutic exercise to improve strength and flexibility. Neuromuscular re-education for posture and balance. Therapeutic activities to return to functional activities of daily living. Electronically signed by: Jessica Harrison PT Please sign and return to therapist. Thank you for your referral.
--- NOTE | 2022-11-27 10:11 | MHC.PT.DC ---
[facility] [place] [facility] [place] [facility] [place] [facility] [address] Caren Barajas [address] [phone] F: [phone] F: [phone] F: [phone] F: [phone] Physical Therapy Discharge Report Diagnosis: This is a 52 yo male presenting to skilled PT with a script for low back pain. Date of Surgery: Date of Evaluation: 09/19/22 Date of Discharge: 11/27/22 Treatments to Date: 3 Cancellations to Date: 0 No Shows to Date: 0 Discharge Status: Visit Non-compliance Discharge Summary: Per last tx note 10/30: Patient has came to 1 visit, cancelled following ones due to various complications. He saw [facility] ortho per note: Mr. Thompson presents with progressively worsening right hip pain due to end-stage degenerative joint disease. At this point the patient has failed continued non operative treatments. The patient will most likely knee total hip replacement surgery. Because of his prior osteotomy and subsequent deformity of his proximal femur I did recommend that he follow-up at a tertiary care center. I did give him the names and phone numbers for Dr. Seymour Santos at [facility] in [place], [place] as well as Dr. Quang Schmidt at [facility] in [place], [place]. The patient will contact one of their offices for a consultation. He will follow up with me on an as-needed basis. Feel free to call me at any time should questions regarding his orthopedic management arise. Thank you very much for asking me to see this very friendly gentleman. Patient reports that he has not called these referral places yet. Continued our session with education on appropriate rest breaks and with respect to his pain. Patient proceeded to no show 3 appointments following this discussion on visit compliance. He was DC'd from our system due to poor attendence. Electronically signed by: Jessica Harrison PT Please sign and return to therapist. Thank you for your referral.
== END 2022-11-27 10:16 | disposition home or self-care (01) ==
LOC: HO.PTCHIC 10:00
PROVIDERS: PCP Nurse Practitioner Family; Visit Provider Registered Nurse Emergency
DX: M54.50 Low back pain, unspecified (principal)
CPT/HCPCS: 97110; 97162

== ENCOUNTER 2022-11-20 08:14 | Outpatient (AMB) | payer OTHER, SELFPAY ==
[2022-11-20 09:03] VITALS: BP 120/80; PULSE 73; TEMP 36.6; O2SAT 97; BMI 37.2
--- NOTE | 2022-11-20 09:03 | AM.OFFWIN_ITS ---
Intake Vital Signs 11/20/22 09:03 Height 5 ft 9 in Weight 252 lb 2 oz BMI 37.2 BP 120/80 Blood Pressure Location Lt brachial Position Sitting Pulse 73 Pulse Source Pulse Oximeter Temp 97.8 F Temp Source Temporal Artery Scan Pulse Oximetry (%) 97 Oxygen Delivery Method Room Air Intake Visit Reasons: EP, chest congestion [phone] Intake Note: pt is here for c/o chest congestion with cough 1x week Patient Tobacco Use Status: Current everyday Tobacco user Allergies ibuprofen [From Motrin IB] Adverse Reaction (Mild, Verified 11/20/22 09:03) upset stomach Do you need a note to return to daycare/school/sports/work: Yes HPI HPI Comments History of Present Illness Details This is a 52-year-old male with no stated past medical history presenting for evaluation of a cough that he has had intermittently over the past 1 week. Patient states his symptoms started with a stuffy nose and body aches and resulted in a cough that was primarily nocturnal. Patient took Mucinex and NyQuil for relief of his symptoms and states he feels that ?I am probably at the end of it. ? The patient denies having any seasonal allergies or asthma. Patient denies also having any fevers, chills, ear pain, sore throat, chest pain or overt shortness of breath. [facility] Medical History Cholecystectomy planned Chronic back pain Dislocated shoulder Diverticulitis History of prediabetes Morbid obesity Pyelonephritis Surgical History (Reviewed 10/03/22 @ 11:49 by Pricila Plunkett [facility]) History of hip surgery History of partial colectomy S/P cholecystectomy Social History Household Members: None Housing: Apartment Do you presently have visiting nurse or other home services: No Alcohol intake: current Alcohol intake frequency: holidays/special occasions only Patient Tobacco Use Status: Current everyday Tobacco user Tobacco use type: Cigarette Cigarettes Per Day: 10 e-Cigarette/Vaping Use: Never Used Second Hand Smoke Exposure: No Substance Use Type: Marijuana service: No Current occupational status: disabled Current occupational exposures/hazards: No Cognitive needs: No Hearing needs: No Vision needs: Yes Review of Systems Const All systems reviewed & are unremarkable except as noted in HPI and below Denies chills, Denies fatigue and Denies fever(s) ENT Denies otalgia, Denies nasal discharge and Denies post nasal drip Card Denies no additional complaints and Denies dyspnea Resp Denies chest congestion, Reports cough, Denies dyspnea and Denies wheezing Reports no additional complaints Musc Reports no additional complaints Neuro Reports no additional complaints Psych Reports no additional complaints Endo Denies fatigue Aller/Immun Reports no additional complaints and Denies wheezing Physical Exam Vital Signs: Last Vital Signs Temp 97.8 F 11/20/22 09:03 Pulse 73 11/20/22 09:03 BP 120/80 11/20/22 09:03 Pulse Ox 97 11/20/22 09:03 Oxygen Delivery Method Room Air 11/20/22 09:03 BMI result Body Mass Index 37.2 Const General: cooperative, comfortable, well developed, alert and awake; No acute distress Nutritional Appearance: well nourished and obese Orientation/consciousness: patient oriented x3 Limitations: no limitations HEENT Head: Yes normal to inspection Ears: hearing grossly normal bilaterally, external ears normal and TM's normal bilaterally General nose exam: Normal external nose present Face and sinus: Yes normal facial exam and Yes sinuses nontender Mouth: Normal oral and palatal mucosa present and moist mucous membranes Throat: Yes posterior oropharynx normal Eyes General: appearance normal, both eyes and all related structures Conjunctivae: conjunctivae normal EOM: EOMs intact bilaterally Resp Effort & Inspection: normal respiratory effort, able to speak in complete sentences, no audible wheezes, no respiratory distress and no stridor Auscultation: clear to auscultation bilaterally, no crackles, no rales, no rhonchi and no wheezes Cardio Rate: regular rate Rhythm: regular rhythm Skin General skin exam: no rashes or lesions noted Neuro General: patient oriented x3 Psych Appearance: grossly normal Mental Status: mental status grossly normal Insight: Good insight present (Psych) Judgement: Good judgement present (Psych) Assessment & Plan Assessment & Plan (1) Upper respiratory infection: Code(s): J06.9 - Acute upper respiratory infection, unspecified Plan: Patient will continue taking Mucinex [id number] and stay very well hydrated with water upon returning home. He will follow up with his primary care physician as an outpatient within 10-14 days if his symptoms persist. Coding Level of Care Code Est Pt Level 3 (18986) Diagnoses Upper respiratory infection J06.9 Time Spent (min) 15
== END 2022-11-20 09:55 | disposition home or self-care (01) ==
PROVIDERS: PCP Nurse Practitioner Family; Visit Provider Physician Assistant
DX: J06.9 Acute upper respiratory infection, unspecified (principal)
CPT/HCPCS: 99213

== ENCOUNTER 2022-12-17 10:09 | Outpatient (AMB) | payer OTHER, SELFPAY ==
--- NOTE | 2022-12-17 10:47 | A.OFFPC_ITS ---
Vital Signs 12/17/22 10:50 Weight 251 lb BP 110/70 Blood Pressure Location Rt brachial Position Sitting Pulse 72 Pulse Source Pulse Oximeter Pulse Oximetry (%) 97 Oxygen Delivery Method Room Air Intake Visit Reasons: 4m follow up Intake Note: would like a rx for vitamin d, and stool softner. Allergies ibuprofen [From Motrin IB] Adverse Reaction (Mild, Verified 12/17/22 10:50) upset stomach Medication List - Last Reconciled 12/17/22 by MARQUIS Juarez-BERT betamethasone dipropionate 0.05% 1 appl topical DAILY PRN 2 weeks ketoconazole 2% 1 appl topical BID nicotine (Nicoderm CQ) 1 patch transdermal DAILY tizanidine 2 mg PO BID PRN tramadol 50 mg PO Q8H PRN Tobacco use date assessed: 08/14/22 HPI 4m follow up HPI Details Pt currently smokes half a pack a day. He is requesting nicoderm patch, will send. ELEVATED FBS: Pt is cutting back on soda. Will repeat labs. Denies polyuria, polydipsia, and neuropathy. Pt has been seen by ortho due to right hip pain. It was recommended that he follow up either in [place] or [place] (see ortho's note). [facility] Medical History Cholecystectomy planned Chronic back pain Dislocated shoulder Diverticulitis History of prediabetes Morbid obesity Pyelonephritis Surgical History S/P cholecystectomy History of partial colectomy History of hip surgery Social History Household Members: None Housing: Apartment Do you presently have visiting nurse or other home services: No Alcohol intake: current Alcohol intake frequency: holidays/special occasions only Patient Tobacco Use Status: Current everyday Tobacco user Tobacco use type: Cigarette Cigarettes Per Day: 10 e-Cigarette/Vaping Use: Never Used Second Hand Smoke Exposure: No Substance Use Type: Marijuana service: No Current occupational status: disabled Current occupational exposures/hazards: No Cognitive needs: No Hearing needs: No Vision needs: Yes Review of Systems Const Reports as per HPI Physical exam (Primary Care) Vital Signs: Last Vital Signs Pulse 72 12/17/22 10:50 BP 110/70 12/17/22 10:50 Pulse Ox 97 12/17/22 10:50 Oxygen Delivery Method Room Air 12/17/22 10:50 Tobacco/Smoking Status: Tobacco use Status Tobacco use date assessed 08/14/22 12/17/22 10:49 Patient Tobacco Use Status Current everyday Tobacco 12/17/22 10:49 Tobacco use type Cigarette 12/17/22 10:49 e-Cigarette/Vaping Use Never Used 12/17/22 10:49 Const General: cooperative Nutritional Appearance: obese Orientation/consciousness: patient oriented x3 Resp Effort & Inspection: normal respiratory effort Auscultation: clear to auscultation bilaterally Cardio Rate: regular rate Rhythm: regular rhythm Heart sounds: S1 normal heart sound present and S2 normal heart sound present Neuro General: patient oriented x3 Extrem Right lower extremity: no edema Left lower extremity: no edema Psych Appearance: grossly normal Mental Status: mental status grossly normal Speech and movement: Normal speech and movement present Affect: normal affect Attitude: cooperative Thought process: Normal thought process present Thought content: Normal thought content present Insight: Good insight present (Psych) Judgement: Good judgement present (Psych) Assessment and Plan Assessment & Plan (1) Elevated fasting blood sugar: Code(s): R73.01 - Impaired fasting glucose Plan: Labs ordered (2) Vitamin D deficiency: Code(s): E55.9 - Vitamin D deficiency, unspecified Plan: Labs ordered (3) Arthritis of right hip: Code(s): M16.11 - Unilateral primary osteoarthritis, right hip Plan: seeing ortho (4) Smoker: Code(s): F17.200 - Nicotine dependence, unspecified, uncomplicated Plan: nicoderm Plan The patient agreed to the use of a dental assistant medical assistant for this encounter. Scribed for MARQUIS Ortiz-BERT by Diamond Baumann dental assistant medical assistant, on 12/17/2022 at 11:00 EST. Orders: Orders Complete Blood Count Auto Diff Today R73.01 - Impaired fasting glucose Comprehensive [place]. Panel Fast Today R73.01 - Impaired fasting glucose TSH reflex Free T4 Today R73.01 - Impaired fasting glucose UA CC w/rflx Micro + Cult Today R73.01 - Impaired fasting glucose Vitamin D 25-OH Total Today E55.9 - Vitamin D deficiency, unspecified Lipid Panel Today R73.01 - Impaired fasting glucose Medications: New nicotine (Nicoderm CQ) 1 patch transdermal DAILY 28 ea 0RF Coding Level of Care Code Est Pt Level 3 (95363) Diagnoses Elevated fasting blood sugar R73.01 Vitamin D deficiency E55.9 Arthritis of right hip M16.11 Smoker F17.200
[2022-12-17 10:50] VITALS: BP 110/70; PULSE 72; O2SAT 97
== END 2022-12-17 11:20 | disposition home or self-care (01) ==
PROVIDERS: PCP Nurse Practitioner Family; Visit Provider Nurse Practitioner Family
DX: R73.01 Impaired fasting glucose (principal); E55.9 Vitamin D deficiency, unspecified; M16.11 Unilateral primary osteoarthritis, right hip; F17.200 Nicotine dependence, unspecified, uncomplicated
CPT/HCPCS: 99213

== ENCOUNTER 2022-12-19 06:30 | Outpatient (REF) | payer OTHER, SELFPAY ==
[2022-12-19 11:16] LABS: MANUAL DIFF FLAG NO
[2022-12-19 11:34] LABS: Appearance Urine Turbid; Color Urine Dark Yellow; Glucose Urine UA Negative (Negative); Leukocyte Esterase Urine Negative (Negative); Nitrite Urine Negative (Negative); PH 5.5 (5.0-9.0); Specific Gravity - Urine >= 1.030 (1.005-1.025); Urine Blood Negative (Negative); Urine Ketones Negative (Negative); Urine Protein Negative (Neg-Trace)
[2022-12-19 11:40] LABS: Basophils Percent Auto 0.2 % (0-2); Eosinophils Absolute Auto 0.2 X10*3/uL (0.0-0.4); Eosinophils Percent Auto 1.7 % (0-4); Hematocrit 48.2 % (42.0-52.0); Hemoglobin 15.4 g/dl (14.0-18.0); Imm Gran Abs Auto 0.02 X10*3/uL (0.00-0.03); Imm Gran Pct Auto 0.2 % (0.0-0.4); Lymphocytes Absolute Auto 4.4 X10*3/uL (1.2-4.9); Lymphocytes Percent Auto 47.1 % (20-40); Mean Corpuscular Hemoglobin 26.8 pg (27.0-33.0); Mean Platelet Volume 10.4 fL (9.4-12.4); Monocytes Absolute Auto 0.8 X10*3/uL (0.1-1.2); Monocytes Percent Auto 8.2 % (2-11); Neutrophils Percent Auto 42.6 % (45-73); Platelet Count 241 X10*3/uL (160-400); Red Blood Count 5.74 X10*6/uL (4.60-5.80); Red Cell Distribution Width 14.3 % (11.0-16.0); White Blood Count 9.4 X10*3/uL (4.8-10.8)
[2022-12-19 11:47] LABS: Alanine Aminotransferase 34 U/L (0-40); Alkaline Phosphatase 31 U/L (39-117); Anion Gap 13 (12-20); Aspartate Amino Transferase 20 U/L (5-37); Bilirubin Total 0.4 mg/dL (0.0-1.0); Blood Urea Nitrogen 10 mg/dL (9-16); Calcium 9.1 mg/dL (8.4-10.2); Carbon Dioxide 28 mmol/L (22-29); Chloride 104 mmol/L (96-108); Cholesterol 196 mg/dL (<200); Estimated Glomerular Filt Rate > 60; Glucose Fasting 100 mg/dL (60-99); HDL Cholesterol 56 mg/dL (>40); LDL Cholesterol Calculated 117 mg/dL (<100); Potassium 3.8 mmol/L (3.3-5.1); Sodium 141 mmol/L (135-145); Total Protein 7.2 g/dL (6.5-8.0); Triglycerides 118 mg/dL (<150)
[2022-12-19 12:09] LABS: TSH reflex Free T4 7.25 uIU/mL (0.32-4.0); Vitamin D 25-OH Total 40.7 ng/mL (>30)
[2022-12-19 13:12] LABS: Free T4 (Free Thyroxine) 0.95 ng/dL (0.71-1.85)
== END 2022-12-19 06:31 | disposition home or self-care (01) ==
LOC: HO.HMGCLDS 06:30
PROVIDERS: PCP Nurse Practitioner Family; Visit Provider Nurse Practitioner Family
DX: R73.01 Impaired fasting glucose (principal); E55.9 Vitamin D deficiency, unspecified; Z13.220 Encounter for screening for lipoid disorders; Z13.29 Encounter for screening for other suspected endocrine disorder
CPT/HCPCS: 36415; 80053; 80061; 81003; 82306; 84439; 84443; 85025

== ENCOUNTER 2023-01-14 09:31 | Outpatient (AMB) | payer OTHER, SELFPAY ==
--- NOTE | 2023-01-14 09:36 | A.OFFVIS_ITS ---
Intake Intake Visit Reasons: Elevated PSA Intake Note: New Patient presents for initial visit for Elevated PSA (psa 2.91) Urology Medications: none Blood Thinner: none Information Security Engineer Required: No Accompanied by: Self / Same As Patient Allergies ibuprofen [From Motrin IB] Adverse Reaction (Mild, Verified 01/14/23 10:27) upset stomach Medication List - Last Reconciled 01/14/23 by REN Boyd betamethasone dipropionate 0.05% 1 appl topical DAILY PRN 2 weeks ketoconazole 2% 1 appl topical BID nicotine (Nicoderm CQ) 1 patch transdermal DAILY tizanidine 2 mg PO BID PRN tramadol 50 mg PO Q8H PRN HPI HPI Comments History of Present Illness Details Gustavo is a very pleasant 52-year-old male patient of . He has a past medical history of pyelonephritis, morbid obesity, chronic back pain, pre diabetes, and diverticulitis. In discussion with the patient today reports to be doing and feeling well. He reports having followed up with his PCP annually at which time blood work was ordered and obtained. Patient reports recommendations for Urology follow-up given PSA results. PSA results reviewed with the patient today. PSA 09/01--2.9. Discussed at length potential causes of elevated PSA. When asked he denies any bothersome urinary issues or concerns at this time. He reports to have lost approximately 10 lb over the last few months as he is trying to lose weight and live a healthier lifestyle. When asked he does report family history of prostate cancer. He reports paternal uncle with prostate cancer. He also reports prostate cancer in his maternal great uncle. Discussed redraw of PSA with no sex the night before, no caffeine morning of, and no heavy lifting 1-2 days prior. Discussed obtaining retroperitoneal ultrasound for further assessment evaluation. He otherwise denies urinary urgency, urinary frequency, incontinence, nocturia, hematuria, dysuria, foul smelling urine, changes to urinary stream, flank pain, fever, and or chills. He is happy with his current voiding parameters. In office urinalysis results reviewed with the patient today. HARJIT- smooth and no suspicious nodules palpated. [facility] Medical History Dislocated shoulder Pyelonephritis Morbid obesity Cholecystectomy planned Chronic back pain History of prediabetes Diverticulitis Surgical History S/P cholecystectomy History of partial colectomy History of hip surgery Social History Household Members: None Housing: Apartment Do you presently have visiting nurse or other home services: No Alcohol intake: current Alcohol intake frequency: holidays/special occasions only Patient Tobacco Use Status: Current everyday Tobacco user Tobacco use type: Cigarette Cigarettes Per Day: 10 e-Cigarette/Vaping Use: Never Used Second Hand Smoke Exposure: No Substance Use Type: Marijuana service: No Current occupational status: disabled Current occupational exposures/hazards: No Cognitive needs: No Hearing needs: No Vision needs: Yes Review of Systems Const All systems reviewed & are unremarkable except as noted in HPI and below Eyes Reports no additional complaints ENT Reports no additional complaints Card Reports no additional complaints Resp Reports no additional complaints GI Reports no additional complaints Reports as per HPI Musc Reports no additional complaints Neuro Reports no additional complaints Psych Reports no additional complaints Endo Reports as per HPI Caesar/Lymph Reports no additional complaints Aller/Immun Reports no additional complaints Physical Exam Const General: cooperative, healthy appearing, comfortable, no acute distress, well developed, alert and awake Nutritional Appearance: overweight Orientation/consciousness: patient oriented x3 Limitations: no limitations HEENT Head: Yes normal to inspection, Yes normocephalic and Yes atraumatic Ears: hearing grossly normal bilaterally Eyes General: appearance normal, both eyes and all related structures Neck Neck: Yes normal visual inspection and Yes trachea midline Chest Chest palpation & inspection: normal inspection of the chest Resp Effort & Inspection: normal respiratory effort and able to speak in complete sentences Cardio Rate: regular rate GI Inspection: Yes normal to inspection General: Yes no CVA tenderness Back/Spine/Pelvis Back: no CVA tenderness Skin General skin exam: no rashes or lesions noted Neuro General: patient oriented x3 Extrem General: Yes normal to inspection Psych Appearance: grossly normal and well kempt Mental Status: mental status grossly normal Speech and movement: Normal speech and movement present and Clear speech present Affect: normal affect Attitude: cooperative Thought process: Normal thought process present Thought content: Normal thought content present Insight: Fair insight present (Psych) Judgement: Fair judgement present (Psych) Results AMB Urinalysis, Automated UA Leukoctes 0 Flaco/uL Last Edit by Forreste Aigouss on 01/14/23 10:15 UA Nitrite Negative Last Edit by [employer] on 01/14/23 10:15 UA Urobilinogen 0.2 mg/dL Last Edit by [employer] on 01/14/23 10:15 UA Protein 30 mg/dL Last Edit by [employer] on 01/14/23 10:15 UA pH 6.0 Last Edit by [employer] on 01/14/23 10:15 UA Blood 0 Abner/uL Last Edit by [employer] on 01/14/23 10:15 UA Specific [place] 1.030 Last Edit by [employer] on 01/14/23 10:15 UA Ketone Positive Last Edit by [employer] on 01/14/23 10:15 UA Bilirubin 0 mg/dL Last Edit by [employer] on 01/14/23 10:15 UA Glucose 0 mg/dL Last Edit by [employer] on 01/14/23 10:15 Results Reviewed Results Reviewed: Laboratory Last Values Urine pH (Auto) 6.0 01/14/23 09:40 Specific [place] (Auto) 1.030 01/14/23 09:40 Urine Protein (Auto) 30 mg/dL 01/14/23 09:40 Glucose (UA)(Auto) 0 mg/dL 01/14/23 09:40 Urine Ketones (Auto) Positive 01/14/23 09:40 Urine Blood (Auto) 0 Abner/uL 01/14/23 09:40 Urine Nitrite (Auto) Negative 01/14/23 09:40 Urine Bilirubin (Auto) 0 mg/dL 01/14/23 09:40 Urine Urobilinogen (Auto) 0.2 mg/dL 01/14/23 09:40 Leukocyte Esterase (Auto) 0 Flaco/uL 01/14/23 09:40 Assessment & Plan Assessment & Plan (1) Elevated PSA: Code(s): R97.20 - Elevated prostate specific antigen [PSA] Plan In office urinalysis results reviewed with the patient today; as noted above. Patient denies any bothersome urinary issues or concerns at this time. Recent PSA results reviewed with the patient today; as noted above. Discussed at length potential causes of elevated PSA. Will obtain redraw of PSA with no sex the night before no caffeine morning of, and no heavy lifting 1-2 days prior to lab draw. Will obtain retroperitoneal ultrasound for further assessment evaluation. Patient is happy with current voiding parameters. Follow-up in 1-2 months with imaging and labs to be completed prior; or sooner with any issues, concerns, and or questions. Orders: Orders AMB Urinalysis Automated Today Z13.9 - Encounter for screening, unspecified PSA,Total (Free>4and<10) Today E11.69 - Type 2 diabetes mellitus with other specified complication, N52.1 - Erectile dysfunction due to diseases classified elsewhere US retroperitoneal comp Today N40.0 - Benign prostatic hyperplasia without lower urinary tract symptoms Patient Instructions: The patient had an opportunity to ask questions regarding the treatment plan. All questions were answered. Physical exam, labs, and imaging were discussed and reviewed in detail. As well as risks, benefits, and discussion of treatment choices. No major barriers to understanding were identified. The patient expressed understanding and agreement with the above treatment plan. The patient was made aware they should contact our office by phone for worsening of their current condition, the appearance of new symptoms, or with any questions or concerns. Compliance is encouraged with any medications and follow up testing that is ordered. It is a privilege to be allowed the opportunity to participate in? your urological care.? Again, if you have any questions or co ncerns If you have any questions or concerns please do not hesitate to contact me. The office is [phone]. This note is constructed using voice recognition software. While every effort has been made to ensure accuracy gse mechanic errors may have been included. Yours sincerely, REN Boyd Coding Level of Care Code New Pt Level 3 (06715) Diagnoses Elevated PSA R97.20
== END 2023-01-14 10:27 | disposition home or self-care (01) ==
PROVIDERS: PCP Nurse Practitioner Family; Visit Provider Nurse Practitioner Family
DX: R97.20 Elevated prostate specific antigen [PSA] (principal); Z13.9 Encounter for screening, unspecified
CPT/HCPCS: 99203

== ENCOUNTER → 2023-01-14 09:31 | Outpatient (BNVA) | payer OTHER, SELFPAY | PROVIDERS: PCP Nurse Practitioner Family; Visit Provider Nurse Practitioner Family | DX: R97.20 Elevated prostate specific antigen [PSA] (principal) | CPT/HCPCS: 81003; 99202 ==

== ENCOUNTER 2023-02-06 06:14 | Outpatient (REF) | payer OTHER, SELFPAY ==
[2023-02-06 12:07] LABS: PSA,Total (Free>4and<10) 2.12 ng/mL (0.00-4.00)
[2023-02-06 12:09] LABS: TSH reflex Free T4 6.47 uIU/mL (0.32-4.0)
[2023-02-06 12:57] LABS: Free T4 (Free Thyroxine) 0.79 ng/dL (0.71-1.85)
== END 2023-02-06 06:15 | disposition home or self-care (01) ==
LOC: HO.HMGCLDS 06:14
PROVIDERS: Internal Medicine; PCP Nurse Practitioner Family; Visit Provider Nurse Practitioner Family
DX: E03.9 Hypothyroidism, unspecified (principal); E11.69 Type 2 diabetes mellitus with other specified complication; N52.1 Erectile dysfunction due to diseases classified elsewhere; Z12.5 Encounter for screening for malignant neoplasm of prostate
CPT/HCPCS: 36415; 84153; 84439; 84443

== ENCOUNTER 2023-02-12 09:43 | Outpatient (REF) | payer OTHER, SELFPAY | END 2023-02-12 09:44 | disposition home or self-care (01) | LOC: HO.HMGCX 09:43 | PROVIDERS: PCP Nurse Practitioner Family; Visit Provider Nurse Practitioner Family | DX: N40.0 Benign prostatic hyperplasia without lower urinary tract symptoms (principal) | CPT/HCPCS: 76775 ==

== ENCOUNTER 2023-02-18 13:04 | Outpatient (REF) | payer OTHER, SELFPAY ==
--- NOTE | ~2023-02-18 | US_ITS ---
EXAMINATION: US PELVIS LIMITED (BLADDER) CLINICAL INFORMATION: BPH. COMPARISON: Renal ultrasound 02/12/2023. CT abdomen and pelvis without contrast 11/28/2021. Renal ultrasound 08/04/2019. TECHNIQUE: Real-time imaging of the bladder. FINDINGS: BLADDER: Partially distended, limiting evaluation. Bilateral ureteral jets are demonstrated. Prevoid bladder volume is 129 mL. Postvoid bladder volume is 10.0 mL. ADDITIONAL FINDINGS: Prostate volume 19.6 mL. US/US bladder IMPRESSION: 1. Postvoid bladder volume is 10.0 mL. 2. Prostate volume 19.6 mL.
== END 2023-02-18 13:05 | disposition home or self-care (01) ==
LOC: HO.HMGCX 13:04
PROVIDERS: PCP Nurse Practitioner Family; Visit Provider Nurse Practitioner Family
DX: N40.0 Benign prostatic hyperplasia without lower urinary tract symptoms (principal)
CPT/HCPCS: 76857

== ENCOUNTER 2023-03-07 13:11 | Outpatient (AMB) | payer OTHER, SELFPAY ==
--- NOTE | 2023-03-07 13:12 | A.OFFVIS_ITS ---
Intake Intake Visit Reasons: follow up ultrasound and psa lab (set) Intake Note: Patient presents today for a follow-up on: U/S and PSA labs Meds- None Allergies to Antibiotic- No Known Allergies Blood Thinner- None Extension Service Advisor Required: No Allergies ibuprofen [From Motrin IB] Adverse Reaction (Mild, Verified 03/08/23 16:57) upset stomach Medication List - Last Reconciled 03/08/23 by REN Boyd betamethasone dipropionate 0.05% 1 appl topical DAILY PRN 2 weeks ketoconazole 2% 1 appl topical BID nicotine (Nicoderm CQ) 1 patch transdermal DAILY tizanidine 2 mg PO BID PRN tramadol 50 mg PO Q8H PRN HPI HPI Comments History of Present Illness Details Gustavo is a very pleasant 52-year-old male patient of . He has a past medical history of pyelonephritis, morbid obesity, chronic back pain, pre diabetes, and diverticulitis. He is being followed up on today via telehealth for his elevated PSA. Of note, patient was seen approximately 6 weeks ago at which time redraw of PSA was ordered as well as retroperitoneal ultrasound for further assessment evaluation. In discussion with the patient today reports to be doing and feeling well. Recent retroperitoneal ultrasound results reviewed with the patient today. Bilateral kidneys with no calculi or hydronephrosis. Right kidney with a benign 1.8 cm Bosniak class 2 cyst with a single septation which requires no additional follow-up per radiology report. The bladder is partially distended, limiting evaluation. Bilateral ureteral jets are demonstrated. Pre void bladder volume is approximately 130 mL. Postvoid bladder volume is approximately 10 mL. Prostate volume was measured at approximately 20 mL. PSAs are as follows: 09/01--2.9 02/01--2.1 Discussed at length potential causes of elevated PSA. When asked he continues to deny any bothersome urinary issues or concerns at this time. He does have a family history of prostate cancer. He reports paternal uncle and maternal great uncle with a history of prostate cancer. When asked he otherwise denies urinary urgency, urinary frequency, incontinence, nocturia, hematuria, dysuria, foul smelling urine, changes to urinary stream, flank pain, fever, and or chills. He is happy with his current voiding parameters. [facility] Medical History Dislocated shoulder Pyelonephritis Morbid obesity Cholecystectomy planned Chronic back pain History of prediabetes Diverticulitis Surgical History S/P cholecystectomy History of partial colectomy History of hip surgery Social History Household Members: None Housing: Apartment Do you presently have visiting nurse or other home services: No Alcohol intake: current Alcohol intake frequency: holidays/special occasions only Patient Tobacco Use Status: Current everyday Tobacco user Tobacco use type: Cigarette Cigarettes Per Day: 10 e-Cigarette/Vaping Use: Never Used Second Hand Smoke Exposure: No Substance Use Type: Marijuana service: No Current occupational status: disabled Current occupational exposures/hazards: No Cognitive needs: No Hearing needs: No Vision needs: Yes Review of Systems Const All systems reviewed & are unremarkable except as noted in HPI and below Eyes Reports no additional complaints ENT Reports no additional complaints Card Reports no additional complaints Resp Reports no additional complaints GI Reports no additional complaints Reports as per HPI Musc Reports no additional complaints Neuro Reports no additional complaints Psych Reports no additional complaints Endo Reports as per HPI Caesar/Lymph Reports no additional complaints Aller/Immun Reports no additional complaints Physical Exam Const General: cooperative Resp Effort & Inspection: able to speak in complete sentences Psych Speech and movement: Clear speech present Attitude: cooperative Insight: Fair insight present (Psych) Judgement: Fair judgement present (Psych) Results Reviewed Results Reviewed: Date of Service: 02/12/23 EXAMINATION: US RETROPERITONEAL LIMITED (RENAL ONLY) FINDINGS: RIGHT KIDNEY: 11.0 x 5.8 x 6.0 cm (SAG x AP x TRV). The kidney is normal in size, contour, and echogenicity. Renal cortical thickness is normal. No renal calculi or hydronephrosis. A benign 1.8 cm Bosniak class II cyst with a single septation is noted which requires no additional imaging or follow up. At the time of the 02/16/2021 CT scan this measured 1.3 cm. No solid renal masses are seen. LEFT KIDNEY: 11.3 x 4.8 x 5.5 cm (SAG x AP x TRV). The kidney is normal in size, contour, and echogenicity. Renal cortical thickness is normal. No calculi or focal parenchymal lesions. No hydronephrosis. IMPRESSION: Negative exam. Date of Service: 02/18/23 EXAMINATION: US PELVIS LIMITED (BLADDER) FINDINGS: BLADDER: Partially distended, limiting evaluation. Bilateral ureteral jets are demonstrated. Prevoid bladder volume is 129 mL. Postvoid bladder volume is 10.0 mL. ADDITIONAL FINDINGS: Prostate volume 19.6 mL. IMPRESSION: 1. Postvoid bladder volume is 10.0 mL. 2. Prostate volume 19.6 mL. Assessment & Plan Assessment & Plan (1) Elevated PSA: Code(s): R97.20 - Elevated prostate specific antigen [PSA] (2) Renal cyst: Code(s): N28.1 - Cyst of kidney, acquired Plan Recent retroperitoneal ultrasound results reviewed with the patient today; as noted above. Recent PSA results reviewed with the patient today; as noted above. Discussed at length potential causes for borderline elevated PSA as well as renal cysts. Patient currently denies any bothersome urinary issues or concerns. He is happy with his current voiding parameters. Will obtain PSA in 4 months. Follow-up in 4 months with lab to be completed prior; or sooner with any issues, concerns, and or questions. Orders: Orders Prostate Specific Antigen 4 Months R97.20 - Elevated prostate specific antigen [PSA] Patient Instructions: The patient had an opportunity to ask questions regarding the treatment plan. All questions were answered. Physical exam, labs, and imaging were discussed and reviewed in detail. As well as risks, benefits, and discussion of treatment choices. No major barriers to understanding were identified. The patient expressed understanding and agreement with the above treatment plan. The patient was made aware they should contact our office by phone for worsening of their current condition, the appearance of new symptoms, or with any questions or concerns. Compliance is encouraged with any medications and follow up testing that is ordered. It is a privilege to be allowed the opportunity to participate in? your urological care.? Again, if you have any questions or concerns If you have any questions or concerns please do not hesitate to contact me. The office is [phone]. This note is constructed using voice recognition software. While every effort has been made to ensure accuracy [place] airport errors may have been included. Yours sincerely, LACI BoydP- Telehealth Telehealth Location of provider rendering services: practice address Location of patient: address on file Patient Identification confirmed using: Name, : Yes Telehealth method: voice only Patient verbally consented to treatment: Yes Patient verbally consented to billing insurance company: Yes Patient informed of any privacy concerns related to visit: Yes Minutes spent on Phone/Video with Pt.: 15 Coding Level of Care Code Tele Est Pt Level 3 (53694) Diagnoses Elevated PSA R97.20 Renal cyst N28.1
== END 2023-03-07 14:05 | disposition home or self-care (01) ==
LOC: HO.HUSH 13:11
PROVIDERS: PCP Nurse Practitioner Family; Visit Provider Nurse Practitioner Family
DX: R97.20 Elevated prostate specific antigen [PSA] (principal); N28.1 Cyst of kidney, acquired
CPT/HCPCS: 99442

== ENCOUNTER → 2023-03-07 13:11 | Outpatient (BNVA) | payer OTHER, SELFPAY | PROVIDERS: PCP Nurse Practitioner Family; Visit Provider Nurse Practitioner Family ==

== ENCOUNTER 2023-04-07 01:15 | Inpatient (IN) | payer OTHER, SELFPAY ==
[2023-04-07] VITALS (8 sets, daily range): BP systolic 101–144; BP diastolic 63–76; PULSE 59–89; RESP 16–20; TEMP 36.4–36.9; O2SAT 91–100; BMI 36.2; BMI 36.1
--- NOTE | ~2023-04-07 | US_ITS ---
EXAMINATION: US ABDOMEN LIMITED CLINICAL INFORMATION: Abdominal pain, multiple hypodense liver lesions found on CT scanning. COMPARISON: CT scan of abdomen and pelvis on 04/07/2023 TECHNIQUE: Real-time imaging of the right upper quadrant abdominal viscera. FINDINGS: PANCREAS: Normal. LIVER: A multiseptated hypoechoic cystic lesion is seen in anterior left hepatic lobe measuring 2.0 cm in AP diameter, 2.4 cm in width, 1.8 cm in vertical height. Tiny hypoechoic cystic lesion is seen in lateral left hepatic lobe measuring 0.4 cm in AP diameter, 1.0 cm in width, 0.9 cm in vertical height. An isoechoic lesion is seen in anterior left hepatic lobe measuring 1.1 cm in AP diameter, 1.2 cm in width, 1.5 cm in vertical height. A hyperechoic lesion is seen in anterior right hepatic lobe measuring 3.9 cm in AP diameter, 1.8 cm in width, 2.8 cm in vertical height. Hyperechoic lesion is seen in medial right hepatic lobe anterior to the right main portal vein, measuring 2.5 cm in AP diameter, 2.0 cm in width, 1.9 cm in vertical height. A tiny mildly hypoechoic lesion is seen in right hepatic dome measuring 1.2 cm in AP diameter, 1.1 cm in width, 1.1 cm in vertical height. Tiny hyperechoic lesion is seen at anterior capsular border of right hepatic lobe measuring 0.8 cm in AP diameter, 1.0 cm in width, 0.8 cm in vertical height. The liver is normal in size. The liver contour is normal. Parenchymal echogenicity is diffusely increased. There is no intrahepatic biliary duct dilatation seen. GALLBLADDER: Surgically absent. US/US abdomen limited IMPRESSION: Multiple hepatic lesions, including cystic lesions and hyperechoic lesion suggestive of hemangiomas. Further evaluation with pre and postcontrast MRI abdomen is recommended.
--- NOTE | ~2023-04-07 | CT_ITS ---
EXAMINATION: CT ABDOMEN AND PELVIS WITH CONTRAST CLINICAL INFORMATION: Pain. COMPARISON: 11/28/2021 TECHNIQUE: Multidetector volumetric images were obtained from the superior aspect of the liver through the pubic symphysis following administration 100 mL of Omnipaque 350 intravenous contrast. Sagittal and coronal reformatted images were obtained on the technologist's workstation. Oral contrast: No This CT examination was performed using dose optimization techniques as appropriate, variously including the following: *Automated exposure control *Adjustment of mA and/or kV according to patient size (this includes techniques or standardized protocols for targeted exams where dose is matched to indication/reason for exam; i.e. extremities or head) *Use of iterative reconstruction technique DLP: 827 mGy-cm FINDINGS: LUNG BASES: The visualized lung bases are unremarkable. LIVER, GALLBLADDER, AND BILIARY TREE: There is a 2.4 cm cyst at the dome of the liver. There are multiple hypodensities right lobe of the liver measuring up to 2.1 cm. There has been a prior cholecystectomy. PANCREAS: Unremarkable. SPLEEN: Unremarkable. ADRENAL GLANDS: Unremarkable. KIDNEYS AND URETERS: The kidneys are normal in size, shape, and attenuation. No hydronephrosis, hydroureter, or calculi seen. No perinephric stranding. There is a 1.7 cm cyst mid to upper pole right kidney BLADDER: Unremarkable. GASTROINTESTINAL TRACT: There is a sigmoid colonic anastomosis. There is also a partial right and transverse colonic colectomy. There are diffuse diverticula throughout the remaining colon with infiltrative change along a diverticula of the mid transverse colon. ABDOMINAL WALL: No significant hernia is appreciated. LYMPH NODES: Normal. VASCULAR: Unremarkable. PELVIC VISCERA: Unremarkable. OSSEOUS STRUCTURES: There is a right hip deformity. There is moderate right hip degenerative change and mild left hip degenerative change. There is mild diffuse thoracolumbar disc degenerative change. CT/CT abdomen pelvis w IV con IMPRESSION: 1. Acute diverticulitis of the mid transverse colon. 2. Multiple hypodensities in the right lobe of the liver. These are not fully characterized on this study. Consider ultrasound evaluation. There is a cyst at the dome of the liver. Fleischner guidelines were followed.
[2023-04-07 01:50] LABS: Hematocrit 45.8 % (42.0-52.0); Hemoglobin 15.1 g/dl (14.0-18.0); Mean Corpuscular Hemoglobin 27.2 pg (27.0-33.0); Mean Corpuscular Volume 82.4 fL (80.0-98.0); Mean Platelet Volume 9.3 fL (9.4-12.4); Platelet Count 272 X10*3/uL (160-400); Red Blood Count 5.56 X10*6/uL (4.60-5.80); Red Cell Distribution Width 13.7 % (11.0-16.0)
[2023-04-07 01:52] LABS: WBC ABN SCTR FOR CBC 1; White Blood Count 12.9 X10*3/uL (4.8-10.8)
[2023-04-07 02:06] LABS: Alanine Aminotransferase 31 U/L (0-40); Alkaline Phosphatase 33 U/L (39-117); Anion Gap 16 (12-20); Aspartate Amino Transferase 16 U/L (5-37); Bilirubin Direct 0.1 mg/dL (0.0-0.5); Bilirubin Total 0.3 mg/dL (0.0-1.0); Blood Urea Nitrogen 11 mg/dL (9-16); Calcium 8.6 mg/dL (8.4-10.2); Carbon Dioxide 21 mmol/L (22-29); Chloride 108 mmol/L (96-108); Creatinine Clr Calc Pharmacy 100.7; Estimated Glomerular Filt Rate > 60; Glucose Random 138 mg/dL (60-115); Lipase 59 U/L (8-78); Potassium 3.6 mmol/L (3.3-5.1); Sodium 141 mmol/L (135-145); Total Protein 6.9 g/dL (6.5-8.0)
[2023-04-07 02:13] LABS: Atypical Lymph Absolute Manual 0.3 x10*3/uL; Atypical Lymphs Percent Manual 2 % (0-6); Band Neutrophils Percent 1 % (3-5); Eosinophils Absolute Manual 0.3 X10*3/uL (0.0-0.4); Eosinophils Percent Manual 2 % (0-4); Lymphocytes Absolute Manual 2.8 X10*3/uL (1.2-4.9); Lymphocytes Percent Manual 22 % (20-40); Monocytes Absolute Manual 0.6 X10*3/uL (0.1-1.2); Monocytes Percent Manual 5 % (2-11); Neutrophils Absolute Manual 8.9 X10*3/uL (2.0-8.3); Neutrophils Percent Manual 68 % (45-73)
[2023-04-07 02:14] LABS: Platelet Estimate NORMAL (NORMAL); Platelet Morphology Comment NORMAL; RBC Morphology NORMAL; Toxic Vacuolation PRESENT
[2023-04-07 02:21] LABS: Appearance Urine Cloudy; Color Urine Yellow; Glucose Urine UA Negative (Negative); Leukocyte Esterase Urine Negative (Negative); Nitrite Urine Negative (Negative); PH 5.5 (5.0-9.0); Specific Gravity - Urine >= 1.030 (1.005-1.025); Urine Blood Negative (Negative); Urine Ketones Trace mg/dL (Negative); Urine Protein Trace mg/dL (Neg-Trace)
--- NOTE | 2023-04-07 03:19 | ED_ITS ---
HPI - Abdominal Pain General Chief Complaint: Abdominal Pain Stated Complaint: diverticulitis Time Seen by Provider: 04/07/23 03:19 Source: patient Mode of arrival: ambulatory Limitations: no limitations History of Present Illness HPI narrative: 52-year-old male with a history of diabetes mellitus, diverticulitis with 2 bowel resections who presents emergency department for evaluation of left lower quadrant pain times 2-3 days with vomiting that started yesterday . The patient states the pain came on gradually, and is constant, sharp and 8/10. States the pain feels similar to his diverticulitis pain that he has had in the past. Patient states he took Zofran at home but this did not stop his vomiting. He was concerned that his pain was getting worse so he came to the emergency department for evaluation. He denied fever but did have chills. He denied sore throat, cough, chest pain, shortness of breath. He denied diarrhea, dark stools or bloody stools. Related Data Previous Rx's Medication Instructions Recorded betamethasone dipropionate 0.05 % 1 appl topical DAILY PRN skin 10/05/22 topical cream irritation 2 weeks #45 grams tizanidine 2 mg tablet 2 mg PO BID PRN for muscle spasm 11/21/22 #60 tabs nicotine 14 mg/24 hr daily 1 patch transdermal DAILY #28 ea 12/17/22 transdermal patch (Nicoderm CQ) tramadol 50 mg tablet 50 mg PO Q8H PRN pain #60 tabs 03/04/23 ketoconazole 2 % topical cream 1 appl topical BID #60 grams 03/07/23 bisacodyl 5 mg tablet,delayed 20 mg (4 x 5 mg) PO ONCE 1 day #4 03/27/23 release (Dulcolax (bisacodyl)) tabs peg 3350-electrolytes 236 240 ml PO Q10M #4,000 mL 03/27/23 gram-22.74 gram-6.74 gram-5.86 gram solution simethicone 125 mg capsule (Gas 125 mg PO ONCE abdominal 03/27/23 Relief (simethicone)) distention #4 caps Allergies Allergy/AdvReac Type Severity Reaction Status Date / Time ibuprofen [From Motrin IB] AdvReac Mild upset Verified 04/07/23 01:23 stomach Review of Systems Review of Systems Yes all other systems are reviewed and are negative PMFSH Past Medical History PMFSH Narrative: Social history: He does smoke cigarettes. He denies tobacco, alcohol use. Medical History Dislocated shoulder Pyelonephritis Morbid obesity Cholecystectomy planned Chronic back pain History of prediabetes Diverticulitis Surgical History S/P cholecystectomy History of partial colectomy History of hip surgery Social History Social History Household Members: None Housing: Apartment Do you presently have visiting nurse or other home services: No Unable to assess alcohol history related to: Unknown Alcohol intake: current Alcohol intake frequency: holidays/special occasions only Patient Tobacco Use Status: Current everyday Tobacco user Tobacco use type: Cigarette Cigarettes Per Day: 10 Smoked in Last 30 Days: No e-Cigarette/Vaping Use: Never Used Second Hand Smoke Exposure: No Use of substances other than those prescribed or required for medical reasons: No Substance Use Type: Marijuana Advance Directives: No Advance Directives Information Provided: No service: No Current occupational status: disabled Current occupational exposures/hazards: No Cognitive needs: No Hearing needs: No Vision needs: Yes Physical Exam ED Vital Signs: Vital Signs - 24 hr 04/07/23 01:23 04/07/23 04:32 Temperature 97.9 F 97.9 F Pulse Rate 89 89 Respiratory Rate 16 20 Blood Pressure 144/72 H 128/69 Pulse Oximetry 91 L 95 Oxygen Delivery Method Room Air Room Air BMI result Body Mass Index 36.2 Vital signs revealed an elevated blood pressure of 144/72 otherwise unremarkable Exam: General: Awake, alert in no distress, elevated BNP 36.2. Head: Normocephalic, atraumatic EENT: PERRL, Lids normal, sclera normal, conjunctiva normal, nose normal , ears normal, throat without erythema or exudates Neck: Supple, no adenopathy Lung: breath sounds symmetric, no wheezing, rales or rhonchi Chest: symmetric movement, nontender Heart: regular rate and rhythm, normal S1, S2 no murmurs or rubs Abdomen: soft, mild diffuse tenderness with moderate left lower quadrant tenderness Back: no vertebral tenderness, no CVAT Extremities: no deformities, moves all extremities symmetrically Neuro: Awake, alert, oriented, normal speech, cranial nerves intact, moves all extremities symmetrically Psych: Pleasant, cooperative Medical Decision Making Medical Decision Making [facility] Narrative: 52-year-old male with a history of diabetes mellitus, diverticulitis with 2 bowel resections who presents emergency department for evaluation of left lower quadrant pain times 2-3 days with nausea, vomiting x1 day. Vital signs revealed an elevated blood pressure otherwise unremarkable. Exam revealed my diffuse abdominal tenderness with moderate left lower quadrant tenderness. Differential diagnosis: ?Includes but is not limited to diverticulitis, pancreatitis, viral syndrome, anemia, electrolyte abnormalities Following evaluation was ordered: CBC, CMP, lipase, urinalysis, CT scan of the abdomen pelvis with IV contrast Patient was initially treated with the following: Normal saline x1 L, Morphine 4 mg IV and Zofran 4 mg IV Course: 06:28 My interpretation patient's laboratory evaluation is as follows: WBC elevated 12,900. Glucose elevated 138. Lipase was normal. LFTs were normal. Urinalysis was negative. Lipase was normal. CT scan is consistent with acute diverticulitis of the mid transverse colon. Patient did get some relief with the above treatment however his pain is now come back. I ordered morphine 4 mg IV , lactated Ringer's at 150 cc an hour and Zosyn 4.5 g IV. Given his multiple episodes of diverticulitis and to surgical resections, the patient will need to be admitted for further management of his diverticulitis. I did discuss the patient's presentation and the need for admission over tiger text with the covering hospitalist, Dr. Preet Cline Admission/Observation Consideration of admission/observation: Escalation of care including admission/observation considered Lab Data [facility] Lab Attestation statement: I reviewed the patient's lab results. 04/07/23 01:44 04/07/23 01:44 Labs: Lab Results 04/07/23 04/07/23 04/07/23 Range/Units 01:44 02:14 03:45 WBC 12.9 H (4.8-10.8) X10*3/uL RBC 5.56 (4.60-5.80) X10*6/uL Hgb 15.1 (14.0-18.0) g/dl Hct 45.8 (42.0-52.0) % MCV 82.4 (80.0-98.0) fL MCH 27.2 (27.0-33.0) pg MCHC 33.0 (31.0-36.0) g/dl RDW 13.7 (11.0-16.0) % Plt Count 272 (160-400) X10*3/uL MPV 9.3 L (9.4-12.4) fL Immature Gran % (Auto) Cancelled Neut % (Auto) Cancelled Lymph % (Auto) Cancelled Nobles % (Auto) Cancelled Eos % (Auto) Cancelled Baso % (Auto) Cancelled Lymph # (Auto) Cancelled Nobles # (Auto) Cancelled Eos # (Auto) Cancelled Baso # (Auto) Cancelled Abs Immat Gran (auto) Cancelled Absolute Neuts (auto) Cancelled Absolute Nucleated RBC 0.000 (0.0-0.012) X10*3/uL Nucleated RBC % (auto) 0.0 (0.0-0.2) /100WBC Neutrophils % (Manual) 68 (45-73) % Band Neutrophils % 1 L (3-5) % Lymphocytes % (Manual) 22 (20-40) % Atypical Lymphs % (Man) 2 (0-6) % Monocytes % (Manual) 5 (2-11) % Eosinophils % (Manual) 2 (0-4) % Abs Neuts (Manual) 8.9 H (2.0-8.3) X10*3/uL Lymphocytes # (Manual) 2.8 (1.2-4.9) X10*3/uL Atyp Lymphs # (Manual) 0.3 x10*3/uL Monocytes # (Manual) 0.6 (0.1-1.2) X10*3/uL Eosinophils # (Manual) 0.3 (0.0-0.4) X10*3/uL Toxic Vacuolation PRESENT Platelet Estimate NORMAL (NORMAL) Plt Morphology Comment NORMAL RBC Morphology NORMAL Sodium 141 (135-145) mmol/L Potassium 3.6 (3.3-5.1) mmol/L Chloride 108 (96-108) mmol/L Carbon Dioxide 21 L (22-29) mmol/L Anion Gap 16 (12-20) BUN 11 (9-16) mg/dL Creatinine 1.03 (0.5-1.4) mg/dL Estim Creat Clear Calc 100.7 Estimated GFR > 60 Random Glucose 138 H (60-115) mg/dL Lactic Acid 1.5 (0.5-2.0) mmol/L Calcium 8.6 (8.4-10.2) mg/dL Total Bilirubin 0.3 (0.0-1.0) mg/dL Direct Bilirubin 0.1 (0.0-0.5) mg/dL AST 16 (5-37) U/L ALT 31 (0-40) U/L Alkaline Phosphatase 33 L (39-117) U/L Total Protein 6.9 (6.5-8.0) g/dL Albumin 4.0 (3.5-5.0) g/dL Lipase 59 (8-78) U/L Urine Color Yellow Urine Appearance Cloudy Urine pH 5.5 (5.0-9.0) Ur Specific [place] >= 1.030 H (1.005-1.025) Urine Protein Trace (Neg-Trace) mg/dL Urine Glucose (UA) Negative (Negative) mg/dL Urine Ketones Trace (Negative) mg/dL Urine Blood Negative (Negative) Urine Nitrite Negative (Negative) Ur Leukocyte Esterase Negative (Negative) Radiology Impression Discussion of test interpretation with radiology: I have reviewed the radiologist's reading. Radiologist Impression: CT abdomen pelvis w IV con IMPRESSION: 1. Acute diverticulitis of the mid transverse colon. 2. Multiple hypodensities in the right lobe of the liver. These are not fully characterized on this study. Consider ultrasound evaluation. There is a cyst at the dome of the liver. Fleischner guidelines were followed. Dictated By: Derek York Chronic Conditions Patient?s care impacted by: Other (Chronic kidney disease) Medications Administered Discontinued Medications Generic Name Dose Route Start Last Admin Trade Name Freq PRN Reason Stop Dose Admin Sodium Chloride 1,000 mls @ 999 mls/hr 04/07/23 03:29 04/07/23 04:49 Ns IV 04/07/23 04:29 Infused .Q1H1M STA Infusion Iohexol 100 ml 04/07/23 04:27 04/07/23 04:28 Iohexol 350 Mg/Ml 100 Ml Infus..Btl IV 04/07/23 04:28 100 ml ONCE ONE Administration Morphine Sulfate 4 mg 04/07/23 03:29 04/07/23 03:50 Morphine Sulfate 4 Mg/Ml Cartridge IVPUSH 04/07/23 03:30 4 mg ONCE STA Administration Protocol Ondansetron HCl 4 mg 04/07/23 03:29 04/07/23 03:50 Ondansetron Hcl 4 Mg/2 Ml Vial IVPUSH 04/07/23 03:30 4 mg ONCE ONE Administration Critical Care Time Critical Care Time Critical Care Time: Yes Total Critical Care Time: 35 Attestation: Critical Care: The patient was critically ill with a high probability of imminent or life threatening deterioration. I spent greater than 30 minutes of discontinuous time evaluating the patient,delivering critical care at the bedside, discussing and evaluating pertinent data with consultants. Critical care time does not include time spent performing separately billable procedures or teaching. Total time spent performing critical care was 35 minutes. Discharge Plan Discharge Clinical Impression: Acute diverticulitis Abdominal pain Qualifiers: Abdominal location: left lower quadrant Qualified Code(s): R10.32 - Left lower quadrant pain Patient Disposition: Admitted As Inpatient Prescriptions: No Action betamethasone dipropionate 0.05 % cream 1 appl topical DAILY PRN (Reason: skin irritation) 14 Days Qty: 45 0RF tizanidine 2 mg tablet 2 mg PO BID PRN (Reason: for muscle spasm) Qty: 60 0RF tramadol 50 mg tablet 50 mg PO Q8H PRN (Reason: pain) Qty: 60 0RF ketoconazole 2 % cream 1 appl topical BID Qty: 60 0RF peg 3350-electrolytes 236-22.74-6.74 -5.86 gram recon soln 240 ml PO Q10M Qty: 4000 0RF Rx Instructions: Refer to prep instructions given/ mailed to you from GI OFFICE. until fecal effluent is clear bisacodyl [Dulcolax (bisacodyl)] 5 mg tablet,delayed release (DR/EC) 20 mg PO ONCE 1 Days Qty: 4 0RF Rx Instructions: take at noon the day before colonoscopy simethicone [Gas Relief (simethicone)] 125 mg capsule 125 mg PO ONCE Qty: 4 0RF Rx Instructions: take 2 at noon the day before colonoscopy and last 2 pills once you finish drinking second half of prep nicotine [Nicoderm CQ] 14 mg/24 hr patch 24 hour 1 patch transdermal DAILY Qty: 28 0RF
[2023-04-07] MEDS: 0.9 % Sodium Chloride 1,000 ML 999 ML IV (03:47)
[2023-04-07] MEDS: Morphine Sulfate 4 MG/ML CARTRIDGE IVPUSH ×5 (03:50→19:39)
[2023-04-07] MEDS: ondansetron HCL 4 MG/2 ML VIAL IVPUSH (03:50)
[2023-04-07 04:00] LABS: Lactic Acid 1.5 mmol/L (0.5-2.0)
[2023-04-07] MEDS: iohexoL 350 MG/ML 100 ML INFUS..BTL IV (04:28)
[2023-04-07] MEDS: Piperacillin Sodium/Tazobactam 4.5 GM in 0.9 % Sodium Chloride 100 ML IV ×3 (07:05→18:13)
[2023-04-07] MEDS: Lactated Ringers 1,000 ML 150 ML IVCONT ×3 (08:00→22:19)
--- NOTE | 2023-04-07 08:05 | PC.NURSE ---
pt is alert and oriented, skin appropriate for ethnicity, respirations even and unlabored, pt denies pain and denies nausea, pt is aware of plan to admit to the hospital, vs stable at this time
--- NOTE | 2023-04-07 08:55 | PHA.MEDREC ---
Pharmacy Consult ? Medication Reconciliation Pharmacy has completed the medication reconciliation. Patient stated he is on no medications at home
--- NOTE | 2023-04-07 09:16 | P.CONGS_ITS ---
History of Present Illness Consult details Consult date: 04/07/23 Requesting physician: Nelda Samano Narrative: 52-year-old male patient presenting with complaints of abdominal pain in the left lower quadrant. The abdominal pain began approximately 3 days ago and was initially intermittent but then became more severe and associated with nausea and vomiting. He presented to the emergency department this morning for further evaluation. The pain is mainly located in the left lower quadrant and is associated with chills but no fever. He reports a previous history of diverticulitis and previously underwent both a right colectomy and sigmoid colectomy, both performed at [facility]. The previous surgery was performed approximately 12 years ago. He is also status post cholecystectomy. He feels his abdominal pain is similar to previous episodes of diverticulitis. Workup in the emergency department revealed tenderness in the left lower quadrant. Laboratories revealed an elevated WBC of 12.9. CT abdomen and pelvis revealed areas of diverticulosis with surrounding inflammation mainly in the mid transverse colon. No evidence of free air or abscess were appreciated. He is admitted to the hospitalist service for management of this recurrent diverticulitis. Review of Systems 2 Review of Systems: Yes all other systems are reviewed and are negative [facility] Past Medical History Medical History Dislocated shoulder Pyelonephritis Morbid obesity Cholecystectomy planned Chronic back pain History of prediabetes Diverticulitis Surgical History Surgical History S/P cholecystectomy History of partial colectomy History of hip surgery Social History Social History Household Members: None Housing: Apartment Do you presently have visiting nurse or other home services: No Unable to assess alcohol history related to: Unknown Alcohol intake: current Alcohol intake frequency: holidays/special occasions only Patient Tobacco Use Status: Never used Tobacco Tobacco use type: Cigarette Cigarettes Per Day: 10 Smoked in Last 30 Days: No e-Cigarette/Vaping Use: Never Used Second Hand Smoke Exposure: No Use of substances other than those prescribed or required for medical reasons: No Substance Use Type: Marijuana Advance Directives: No Advance Directives Information Provided: No Nutrition Risks: No Nutritional Risk service: No Current occupational status: disabled Current occupational exposures/hazards: No Cognitive needs: No Hearing needs: No Vision needs: Yes Meds Allergies Allergy/AdvReac Type Severity Reaction Status Date / Time ibuprofen [From Motrin IB] AdvReac Mild upset Verified 04/07/23 01:23 stomach Active Medications: Current Medications Lactated Ringer's (Lr) 1,000 mls @ 150 mls/hr IVCONT .Q6H40M [facility] Last Admin: 04/07/23 08:00 Dose: 150 mls/hr Piperacillin Sod/Tazobactam (Sod 4.5 gm/ Sodium Chloride) 100 mls @ 200 mls/hr IV Q6H [facility] Sodium Chloride (0.9 % Sodium Chloride Flush 3 Ml Syringe) 3 ml IVFLUSH QSHIFT [facility] Home Medications Medication Instructions Recorded Confirmed Last Taken Type No Known Home Meds 04/07/23 04/07/23 Unknown History Physical Exam 2 Vital Signs: Vital Signs: Last Vital Signs Temp 97.5 F 04/07/23 08:03 Pulse 62 04/07/23 08:03 Resp 20 04/07/23 08:16 BP 101/67 04/07/23 08:03 Pulse Ox 97 04/07/23 08:03 O2 Del Method Room Air 04/07/23 08:03 BMI result Body Mass Index 36.2 Const: General: cooperative and no acute distress Nutritional Appearance: w ell nourished Orientation/consciousness: patient oriented x3 Limitations: no limitations HEENT: Head: Yes normocephalic and Yes atraumatic Ears: hearing grossly normal bilaterally Resp: Effort & Inspection: normal respiratory effort, no audible wheezes, no cough and no respiratory distress Cardio: Jugular venous distension: no JVD GI: Other: Soft, mild tenderness to deep palpation in the left lower quadrant without rebound, guarding or rigidity. Midline incision is noted as well as trocar incisions from prior laparoscopic cholecystectomy. No evidence of hernia appreciated. Bowel sounds are normoactive. Normal to percussion. Inspection: Yes normal to inspection Skin: Other: Warm, dry, no rash Neuro: General: patient oriented x3 Extrem: General: Yes no clubbing, cyanosis or edema Results Labs 04/07/23 01:44 04/07/23 01:44 Labs: Abnormal lab results 04/07/23 04/07/23 Range/Units 01:44 02:14 WBC 12.9 H (4.8-10.8) X10*3/uL MPV 9.3 L (9.4-12.4) fL Band Neutrophils % 1 L (3-5) % Abs Neuts (Manual) 8.9 H (2.0-8.3) X10*3/uL Carbon Dioxide 21 L (22-29) mmol/L Random Glucose 138 H (60-115) mg/dL Alkaline Phosphatase 33 L (39-117) U/L Ur Specific [place] >= 1.030 H (1.005-1.025) Short CBC 04/07/23 Range/Units 01:44 WBC 12.9 H (4.8-10.8) X10*3/uL Hgb 15.1 (14.0-18.0) g/dl Hct 45.8 (42.0-52.0) % Plt Count 272 (160-400) X10*3/uL BMP 04/07/23 01:44 Sodium 141 Potassium 3.6 Chloride 108 Carbon Dioxide 21 L BUN 11 Creatinine 1.03 Calcium 8.6 Liver Function 04/07/23 Range/Units 01:44 Total Bilirubin 0.3 (0.0-1.0) mg/dL Direct Bilirubin 0.1 (0.0-0.5) mg/dL AST 16 (5-37) U/L ALT 31 (0-40) U/L Alkaline Phosphatase 33 L (39-117) U/L Albumin 4.0 (3.5-5.0) g/dL Urine 04/07/23 Range/Units 02:14 Urine Color Yellow Urine Appearance Cloudy Urine pH 5.5 (5.0-9.0) Ur Specific [place] >= 1.030 H (1.005-1.025) Urine Protein Trace (Neg-Trace) mg/dL Urine Glucose (UA) Negative (Negative) mg/dL All other labs normal. Imaging Abdomen CT scan report/results: image reviewed CT scan - pelvis: image reviewed Assessment and Plan (1) Acute diverticulitis: Status: Acute Plan 52-year-old male patient with a prior history of diverticulitis and previous partial colectomy for diverticulitis now presenting with a recurrent episode of 3 days duration. Review of the CT abdomen and pelvis reveals mild changes suggestive of uncomplicated sigmoid diverticulitis. He has undergone a previous right colectomy with ileocolonic anastomosis as well as a sigmoid colectomy with end-to-end anastomosis. Examination reveals mild tenderness in the left lower quadrant with no evidence of peritoneal signs. Patient is admitted to the hospitalist service for IV antibiotics. We will follow during his hospitalization. Patient is scheduled for colonoscopy with Dr. Hancock on 04/10/2023. Procedures Date of Service Date of Service: 04/07/23
--- NOTE | 2023-04-07 12:06 | PM.IMHP ---
History of Present Illness Date of Service: 04/07/23 Attending physician on admission: Nelda Samano Chief Complaint: acute diverticulitis 52-year-old male with a history of prediabetes , diverticulitis with 2 bowel resections who presents emergency department for evaluation of left lower quadrant pain times 2-3 days with vomiting, patient says the pain is on and off and gradually was getting more, 8/10 mostly in the left-sided and upper abdomen, patient received Zofran and antibiotics in the ED as well as pain medication abdominal pain somewhat improving. Patient still has significant abdominal pain and feel nauseated ,unable to tolerate diet-so will be getting admitted for acute diverticulitis. denied fever but did have chills. He denied sore throat, cough, chest pain, shortness of breath. He denied diarrhea, dark stools or bloody stools. Lab imaging reviewed: WBC 12.9, lactic said acid normal, CT abdomen-acute diverticulitis of mid transverse colon, possible question liver cysts. Blood cultures sent ED requested admission: Acute diverticulitis recurrent-symptomatic and need IV antibiotics and antiemetics as well as IV pain medications Review of Systems Review of Systems: As above. Yes all other systems are reviewed and are negative [facility] Medical History Dislocated shoulder Pyelonephritis Morbid obesity Cholecystectomy planned Chronic back pain History of prediabetes Diverticulitis Surgical History S/P cholecystectomy History of partial colectomy History of hip surgery Social History Household Members: None Housing: Apartment Do you presently have visiting nurse or other home services: No Unable to assess alcohol history related to: Unknown Alcohol intake: current Alcohol intake frequency: holidays/special occasions only Patient Tobacco Use Status: Never used Tobacco Tobacco use type: Cigarette Cigarettes Per Day: 10 e-Cigarette/Vaping Use: Never Used Second Hand Smoke Exposure: No Substance Use Type: Marijuana service: No Current occupational status: disabled Current occupational exposures/hazards: No Cognitive needs: No Hearing needs: No Vision needs: Yes Meds Allergies Allergy/AdvReac Type Severity Reaction Status Date / Time ibuprofen [From Motrin IB] AdvReac Mild upset Verified 02/26/24 01:23 stomach Active Medications: Current Medications Enoxaparin Sodium (Enoxaparin Sodium 40 Mg/0.4 Ml Syringe) 40 mg SUBCUT Q24H [facility] Lactated Ringer's (Lr) 1,000 mls @ 150 mls/hr IVCONT .Q6H40M [facility] Last Admin: 04/07/23 08:00 Dose: 150 mls/hr Piperacillin Sod/Tazobactam (Sod 4.5 gm/ Sodium Chloride) 100 mls @ 200 mls/hr IV Q6H [facility] Morphine Sulfate (Morphine Sulfate 4 Mg/Ml Cartridge) 4 mg IVPUSH Q3H PRN; Protocol PRN Reason: Pain, Mild (Pain Scale 1-3) Last Admin: 04/07/23 11:44 Dose: 4 mg Sodium Chloride (0.9 % Sodium Chloride Flush 3 Ml Syringe) 3 ml IVFLUSH QSHIFT [facility] Home Medications Medication Instructions Recorded Confirmed Last Taken Type No Known Home Meds 04/07/23 04/07/23 Unknown History Physical Exam Vital Signs and Narrative: Vital Signs: Last Vital Signs Temp 97.8 F 04/07/23 10:26 Pulse 68 04/07/23 10:26 Resp 18 04/07/23 10:26 BP 122/69 04/07/23 10:26 Pulse Ox 100 04/07/23 10:26 O2 Del Method Room Air 04/07/23 10:26 BMI result Body Mass Index 36.1 Appearance: Alert.? Oriented X3.? Eyes: Pupils equal, round and reactive to light.? Sclera nonicteric.? ENT: Pharynx normal.? Moist mucous membranes. cvs: rrr, [id number] , no murmur res: clear to auscultation ,no rhonchii or wheezing abd: no rebound or guarding ,left lower and mid abd pain, bs present. ext pulses present , no cyanosis . neuro: axo3 , nonfocal. Results Labs 04/07/23 01:44 04/07/23 01:44 Labs: Laboratory Results - last 24 hr 04/07/23 04/07/23 04/07/23 01:44 02:14 03:45 MCV 82.4 MCH 27.2 MCHC 33.0 RDW 13.7 Plt Count 272 MPV 9.3 L Immature Gran % (Auto) Cancelled Neut % (Auto) Cancelled Lymph % (Auto) Cancelled [place] % (Auto) Cancelled Eos % (Auto) Cancelled Baso % (Auto) Cancelled Lymph # (Auto) Cancelled [place] # (Auto) Cancelled Eos # (Auto) Cancelled Baso # (Auto) Cancelled Abs Immat Gran (auto) Cancelled Absolute Neuts (auto) Cancelled Absolute Nucleated RBC 0.000 Nucleated RBC % (auto) 0.0 Neutrophils % (Manual) 68 Band Neutrophils % 1 L Lymphocytes % (Manual) 22 Atypical Lymphs % (Man) 2 Monocytes % (Manual) 5 Eosinophils % (Manual) 2 Abs Neuts (Manual) 8.9 H Lymphocytes # (Manual) 2.8 Atyp Lymphs # (Manual) 0.3 Monocytes # (Manual) 0.6 Eosinophils # (Manual) 0.3 Toxic Vacuolation PRESENT Platelet Estimate NORMAL Plt Morphology Comment NORMAL RBC Morphology NORMAL Anion Gap 16 Estim Creat Clear Calc 100.7 Estimated GFR > 60 Random Glucose 138 H Lactic Acid 1.5 Calcium 8.6 Total Bilirubin 0.3 Direct Bilirubin 0.1 AST 16 ALT 31 Alkaline Phosphatase 33 L Total Protein 6.9 Albumin 4.0 Lipase 59 Urine Color Yellow Urine Appearance Cloudy Urine pH 5.5 Ur Specific [place] >= 1.030 H Urine Protein Trace Urine Glucose (UA) Negative Urine Ketones Trace Urine Blood Negative Urine Nitrite Negative Ur Leukocyte Esterase Negative Imaging Radiologist's Impressions: Impressions Abdomen/Pelvis CT 04/07/23 04:25 IMPRESSION: 1. Acute diverticulitis of the mid transverse colon. 2. Multiple hypodensities in the right lobe of the liver. These are not fully characterized on this study. Consider ultrasound evaluation. There is a cyst at the dome of the liver. Fleischner guidelines were followed. Assessment and Plan (1) Abdominal pain: Qualifiers: Abdominal location: left lower quadrant Qualified Code(s): R10.32 - Left lower quadrant pain Status: Acute (2) Acute diverticulitis: Status: Acute Plan ADM DAY-1 52-year-old in with history of diverticulitis came with acute diverticulitis episode. acute diverticulitis has history of surgeries due to diverticulitis has abd pain ,blood cultures sent started on iv zosyn ,iv morphine ,iv hydration,surgery eval abd ct? liver cysts lfts seems fine will add abd us mild hyperglycemia: History of prediabetic Will check hemoglobin A1c. Morbid obesity: Patient was advised to lose weight, cutdown calories. DVT prophylaxis: SubQ Lovenox Patient will benefit from 48-72 hour inpatient stay for acute diverticulitis considering recurrent episodes and has history of surgeries due to diverticulitis-need IV antibiotics, hydration and IV pain medication and also unable to tolerate p.o. yet. Also need workup for liver cyst, hyperglycemia. Above management discussed with the patient and he understand and in agreement with the above plan, time spent 70 min. Quality Stroke Does the patient have a stroke diagnosis?: No VTE Prior VTE?: No VTE Risk Level:: Medical - moderate - high VTE Device Contraindication: N/A - Device Ordered VTE Drug Contraindication: N/A - Med Ordered
[2023-04-07] MEDS: Enoxaparin Sodium 40 MG/0.4 ML SYRINGE SUBCUT (12:18)
[2023-04-07 12:33] LABS: Estimated Average Glucose 123 mg/dL; Hemoglobin A1c % 5.9 % (<6.0)
[2023-04-07] MEDS: 0.9 % Sodium Chloride Flush 3 ML SYRINGE IVFLUSH (19:42)
[2023-04-08] MEDS: Piperacillin Sodium/Tazobactam 4.5 GM in 0.9 % Sodium Chloride 100 ML IV ×2 (00:11→06:04)
[2023-04-08 01:49] VITALS: RESP 18
[2023-04-08] MEDS: Morphine Sulfate 4 MG/ML CARTRIDGE IVPUSH (01:49)
[2023-04-08 03:27] VITALS: BP 114/56; PULSE 68; RESP 18; TEMP 36.4; O2SAT 97
[2023-04-08] MEDS: Lactated Ringers 1,000 ML 150 ML IVCONT (06:06)
[2023-04-08 06:33] LABS: Hematocrit 41.4 % (42.0-52.0); Hemoglobin 13.3 g/dl (14.0-18.0); Mean Corpuscular HGB Conc 32.1 g/dl (31.0-36.0); Mean Corpuscular Hemoglobin 27.4 pg (27.0-33.0); Mean Corpuscular Volume 85.2 fL (80.0-98.0); Platelet Count 246 X10*3/uL (160-400); Red Blood Count 4.86 X10*6/uL (4.60-5.80); Red Cell Distribution Width 13.6 % (11.0-16.0); White Blood Count 11.9 X10*3/uL (4.8-10.8)
[2023-04-08 06:49] LABS: Alanine Aminotransferase 27 U/L (0-40); Albumin Level 3.3 g/dL (3.5-5.0); Alkaline Phosphatase 27 U/L (39-117); Anion Gap 11 (12-20); Aspartate Amino Transferase 18 U/L (5-37); Bilirubin Total 0.5 mg/dL (0.0-1.0); Blood Urea Nitrogen 7 mg/dL (9-16); Calcium 8.2 mg/dL (8.4-10.2); Carbon Dioxide 24 mmol/L (22-29); Chloride 109 mmol/L (96-108); Creatinine Clr Calc Pharmacy 105.8; Estimated Glomerular Filt Rate > 60; Glucose Random 101 mg/dL (60-115); Potassium 3.6 mmol/L (3.3-5.1); Sodium 140 mmol/L (135-145); Total Protein 5.9 g/dL (6.5-8.0)
--- NOTE | 2023-04-08 07:22 | PM.PNGS ---
Subjective Subjective Date of Service: 04/08/23 <Anni Blackman PA-C - Last Filed: 04/08/23 07:25> 04/08/23 <Carlos Starr MD - Last Filed: 04/08/23 07:26> Interval history: Feels improved this morning, less abdominal pain. Feels hungry. <Anni Blackman PA-C - Last Filed: 04/08/23 07:25> Physical Exam Vital Signs: Vital Signs: Last Vital Signs Temp 97.6 F 04/08/23 03:27 Pulse 68 04/08/23 03:27 Resp 18 04/08/23 03:27 BP 114/56 L 04/08/23 03:27 Pulse Ox 97 04/08/23 03:27 O2 Del Method Room Air 04/08/23 03:27 BMI result Body Mass Index 36.1 <Anni Blackman PA-C - Last Filed: 04/08/23 07:25> Const: General: comfortable, no acute distress, well developed and alert <Anni Blackman PA-C - Last Filed: 04/08/23 07:25> Orientation/consciousness: patient oriented x3 <nAni Blackman PA-C - Last Filed: 04/08/23 07:25> Resp: Effort & Inspection: normal respiratory effort <Anni Blackman PA-C - Last Filed: 04/08/23 07:25> GI: Inspection: No distended <Anni Blackman PA-C - Last Filed: 04/08/23 07:25> Palpation (GI): Soft to palpation, Tenderness to palpation present (GI) (mild LUQ/left sided), no guarding and not rigid <Anni Blackman PA-C - Last Filed: 04/08/23 07:25> Skin: General skin exam: no rashes or lesions noted <MARISOL Eric Last Filed: 04/08/23 07:25> Neuro: General: patient oriented x3 <MARISOL Eric Last Filed: 04/08/23 07:25> Objective Data Active Medications Enoxaparin Sodium (Enoxaparin Sodium 40 Mg/0.4 Ml Syringe) 40 mg SUBCUT Q24H [facility] Last Admin: 04/07/23 12:18 Dose: 40 mg Documented By: DAYAN Lactated Ringer's (Lr) 1,000 mls @ 150 mls/hr IVCONT .Q6H40M [facility] Last Infusion: 04/08/23 06:38 Dose: 150 mls/hr Documented By: IAN Piperacillin Sod/Tazobactam (Sod 4.5 gm/ Sodium Chloride) 100 mls @ 200 mls/hr IV Q6H [facility] Last Infusion: 04/08/23 06:38 Dose: Infused Documented By: IAN Morphine Sulfate (Morphine Sulfate 4 Mg/Ml Cartridge) 4 mg IVPUSH Q3H PRN; Protocol PRN Reason: Pain, Mild (Pain Scale 1-3) Last Admin: 04/08/23 01:49 Dose: 4 mg Documented By: MELISSA Sodium Chloride (0.9 % Sodium Chloride Flush 3 Ml Syringe) 3 ml IVFLUSH QSHIFT [facility] Last Admin: 04/07/23 19:42 Dose: 3 ml Documented By: IAN <Anni Blackman PA-C - Last Filed: 04/08/23 07:25> Labs CBC & Chem 7: 04/08/23 06:03 04/08/23 06:03 <Anni Blackman PA-C - Last Filed: 04/08/23 07:25> Labs: Laboratory Results - last 24 hr 04/07/23 04/08/23 01:44 06:03 MCV 85.2 MCH 27.4 MCHC 32.1 RDW 13.6 Plt Count 246 MPV 10.0 Absolute Nucleated RBC 0.000 Nucleated RBC % (auto) 0.0 Anion Gap 11 L Estim Creat Clear Calc 105.8 Estimated GFR > 60 Random Glucose 101 Estimat Average Glucose 123 Hemoglobin A1c % 5.9 Calcium 8.2 L Total Bilirubin 0.5 AST 18 ALT 27 Alkaline Phosphatase 27 L Total Protein 5.9 L Albumin 3.3 L <Anni Blackman PA-C - Last Filed: 04/08/23 07:25> Microbiology Microbiology Results: Microbiology 04/07/23 03:45 Blood Culture - Preliminary Blood - Venous No growth after 24 hours. 04/07/23 03:45 Blood Culture - Preliminary Blood - Venous No growth after 24 hours. <Anni Blackman PA-C - Last Filed: 04/08/23 07:25> Procedures Date of Service Date of Service: 04/08/23 <Anni Blackman PA-C - Last Filed: 04/08/23 07:25> 04/08/23 <Carlos Starr MD - Last Filed: 04/08/23 07:26> Progress Note: A&P Assessment and plan (1) Acute diverticulitis: Status: Acute <Anni Blackman PA-C - Last Filed: 04/08/23 07:25> Assessment and Plan: 52 year old male admitted with recurrent diverticulitis of transverse/left colon. Improved today. Abd with mild LUQ/left sided tenderness, no peritoneal signs. Cont supportive measures with IV abx. Can advance to clear liquids and then further as tolerated. <Anni Blackman PA-C - Last Filed: 04/08/23 07:25> Time Spent With Patient Time: Total time managing care of this patient today ____ minutes. <Anni Blackman PA-C - Last Filed: 04/08/23 07:25> Quality Stroke Does the patient have a stroke diagnosis?: No <Anni Blackman PA-C - Last Filed: 04/08/23 07:25> VTE Prior VTE?: No <Anni Blackman PA-C - Last Filed: 04/08/23 07:25> VTE Risk Level:: Medical - moderate - high <Anni Blackman PA-C - Last Filed: 04/08/23 07:25> VTE Device Contraindication: N/A - Device Ordered <Anni Blackman PA-C - Last Filed: 04/08/23 07:25> VTE Drug Contraindication: N/A - Med Ordered <Anni Blackman PA-C - Last Filed: 04/08/23 07:25>
--- NOTE | 2023-04-08 07:23 | PM.PNGS ---
Subjective Subjective Date of Service: 04/08/23 Interval history: Patient feels improved today with decreased abdominal pain, no BM yet. Physical Exam Vital Signs: Vital Signs: Last Vital Signs Temp 97.6 F 04/08/23 03:27 Pulse 68 04/08/23 03:27 Resp 18 04/08/23 03:27 BP 114/56 L 04/08/23 03:27 Pulse Ox 97 04/08/23 03:27 O2 Del Method Room Air 04/08/23 03:27 BMI result Body Mass Index 36.1 Const: General: comfortable Nutritional Appearance: well nourished Orientation/consciousness: patient oriented x3 Limitations: no limitations Resp: Effort & Inspection: normal respiratory effort GI: Inspection: Yes normal to inspection Palpation (GI): Soft to palpation, nontender, no guarding and not rigid Percussion: Yes normal to percussion Auscultation: normal bowel sounds Neuro: General: patient oriented x3 Extrem: General: No edema Objective Data Active Medications Enoxaparin Sodium (Enoxaparin Sodium 40 Mg/0.4 Ml Syringe) 40 mg SUBCUT Q24H [facility] Last Admin: 04/07/23 12:18 Dose: 40 mg Documented By: DYAAN Lactated Ringer's (Lr) 1,000 mls @ 150 mls/hr IVCONT .Q6H40M [facility] Last Infusion: 04/08/23 06:38 Dose: 150 mls/hr Documented By: IAN Piperacillin Sod/Tazobactam (Sod 4.5 gm/ Sodium Chloride) 100 mls @ 200 mls/hr IV Q6H [facility] Last Infusion: 04/08/23 06:38 Dose: Infused Documented By: IAN Morphine Sulfate (Morphine Sulfate 4 Mg/Ml Cartridge) 4 mg IVPUSH Q3H PRN; Protocol PRN Reason: Pain, Mild (Pain Scale 1-3) Last Admin: 04/08/23 01:49 Dose: 4 mg Documented By: MELISSA Sodium Chloride (0.9 % Sodium Chloride Flush 3 Ml Syringe) 3 ml IVFLUSH QSHIFT [facility] Last Admin: 04/07/23 19:42 Dose: 3 ml Documented By: IAN Labs 04/08/23 06:03 04/08/23 06:03 Labs: Laboratory Results - last 24 hr 04/07/23 04/08/23 01:44 06:03 MCV 85.2 MCH 27.4 MCHC 32.1 RDW 13.6 Plt Count 246 MPV 10.0 Absolute Nucleated RBC 0.000 Nucleated RBC % (auto) 0.0 Anion Gap 11 L Estim Creat Clear Calc 105.8 Estimated GFR > 60 Random Glucose 101 Estimat Average Glucose 123 Hemoglobin A1c % 5.9 Calcium 8.2 L Total Bilirubin 0.5 AST 18 ALT 27 Alkaline Phosphatase 27 L Total Protein 5.9 L Albumin 3.3 L Microbiology Microbiology Results: Microbiology 04/07/23 03:45 Blood Culture - Preliminary Blood - Venous No growth after 24 hours. 04/07/23 03:45 Blood Culture - Preliminary Blood - Venous No growth after 24 hours. Procedures Date of Service Date of Service: 04/08/23 Progress Note: A&P Assessment and plan (1) Acute diverticulitis: Status: Acute Plan Recurrent diverticulitis, uncomplicated showing evidence of improvement. Abdominal exam is benign today. Start clears, advance as tolerated. No surgical intervention anticipated. Time Spent With Patient Time: Total time managing care of this patient today ____ minutes. Quality Stroke Does the patient have a stroke diagnosis?: No VTE Prior VTE?: No VTE Risk Level:: Medical - moderate - high VTE Device Contraindication: N/A - Device Ordered VTE Drug Contraindication: N/A - Med Ordered
[2023-04-08 08:00] VITALS: BP 113/58; PULSE 77; RESP 14; TEMP 36.1; O2SAT 96
--- NOTE | 2023-04-08 08:50 | PM.GICN ---
History of Present Illness Data of Consult Service Date: 04/08/23 Requesting physician: Anand Mitchell Primary Care Provider: Carlos Mcdonald [facility] HPI Reason for consult: diverticulitis 52-year-old male with a history of prediabetes , diverticulitis with 2 bowel resections who I am seeing for diverticulitis Initially presents with 8/10 left lower quadrant pain times 2-3 days with vomiting. Pain is left-sided and upper abdomen, and comes on and off without any particular exacerbating factors or relievers. He denies diarrhea, dark stools or bloody stools. Since recieivng fludis and ABX his pain has gone, and he no longer has nausea or vomiting. denied fever but did have chills. He denied sore throat, cough, chest pain, shortness of breath. He wants to try oral diet. --passing gas. He says this attack feels simialr to prior attacks of diverticulitis in the past. Review of Systems Review of Systems: Constitutional : No Weight loss, No Fever, No Chills ENT/Mouth : No sore throat, No Rhinorrhea Eyes: No Swelling, No Redness Cardiovascular : No Chest Pain, No SOB, No Edema Respiratory : No Cough, No Sputum, No Wheezing Gastrointestinal : see HPI Genitourinary : NO Dysuria, No Urinary Frequency, No Hematuria, No Urgency Musculoskeletal : No joint pain, No Myalgias, No Joint Swelling Skin : No Skin Lesions, No rash Neuro : No Weakness, No Numbness, No Dizziness, No Headache Psych : No Anxiety/Panic, No Depression Heme/Lymph: No Bruising, No Lymphadenopathy Endocrine : No Polyuria, No Polydipsia All other systems reviewed and are negative. [facility] Past Medical History Medical History Dislocated shoulder Pyelonephritis Morbid obesity Cholecystectomy planned Chronic back pain History of prediabetes Diverticulitis Family History Pertinent family history: no first degree relatives of CRC Surgical History Surgical History S/P cholecystectomy History of partial colectomy History of hip surgery Social History Social History Household Members: None Housing: Apartment Housing Other:: one flight of stairs Do you presently have visiting nurse or other home services: Yes (through [facility]) Unable to assess alcohol history related to: Unknown Alcohol intake: current Alcohol intake frequency: holidays/special occasions only Patient Tobacco Use Status: Current everyday Tobacco user Tobacco use type: Cigarette Cigarette Packs Per Day: 0.5 Cigarettes Per Day: 10.0 e-Cigarette/Vaping Use: Never Used Second Hand Smoke Exposure: No Substance Use Type: Marijuana service: No Current occupational status: disabled Current occupational exposures/hazards: No Cognitive needs: No Hearing needs: No Vision needs: Yes Meds Allergies Allergy/AdvReac Type Severity Reaction Status Date / Time ibuprofen [From Motrin IB] AdvReac Mild upset Verified 04/07/23 01:23 stomach Active Medications: Current Medications Enoxaparin Sodium (Enoxaparin Sodium 40 Mg/0.4 Ml Syringe) 40 mg SUBCUT Q24H [facility] Last Admin: 04/07/23 12:18 Dose: 40 mg Lactated Ringer's (Lr) 1,000 mls @ 150 mls/hr IVCONT .Q6H40M [facility] Last Infusion: 04/08/23 06:38 Dose: 150 mls/hr Piperacillin Sod/Tazobactam (Sod 4.5 gm/ Sodium Chloride) 100 mls @ 200 mls/hr IV Q6H [facility] Last Infusion: 04/08/23 06:38 Dose: Infused Morphine Sulfate (Morphine Sulfate 4 Mg/Ml Cartridge) 4 mg IVPUSH Q3H PRN; Protocol PRN Reason: Pain, Mild (Pain Scale 1-3) Last Admin: 04/08/23 01:49 Dose: 4 mg Sodium Chloride (0.9 % Sodium Chloride Flush 3 Ml Syringe) 3 ml IVFLUSH QSHIFT [facility] Last Admin: 04/08/23 07:50 Dose: Not Given Physical Exam Vital Signs: Vital Signs: Last Vital Signs Temp 96.9 F 04/08/23 08:00 Pulse 77 04/08/23 08:00 Resp 14 04/08/23 08:00 BP 113/58 L 04/08/23 08:00 Pulse Ox 96 04/08/23 08:00 O2 Del Method Room Air 04/08/23 08:00 BMI result Body Mass Index 36.1 EXAM: GENERAL: The patient is well developed and nontoxic. VITAL SIGNS:see workflow HEENT: Nonicteric sclerae, PERRLA, EOMI. Oropharynx clear. Moist mucous membranes. Conjunctivae appear well perfused. No thyroid mass. CHEST: Chest wall is nontender. HEART: Regular rate and rhythm without murmurs. LUNGS: Clear to auscultation bilaterally. ABDOMEN: Soft, positive bowel sounds, nontender, no organomegaly.no flank tenderness--scars seen SKIN: No rash, no excessive bruising, petechiae, or purpura. NEUROLOGIC: Cranial nerves II-XII intact without motor/sensory deficit. Psych: Appearance: grossly normal Results Labs 04/08/23 06:03 04/08/23 06:03 Labs: Short CBC 04/08/23 Range/Units 06:03 WBC 11.9 H (4.8-10.8) X10*3/uL Hgb 13.3 L (14.0-18.0) g/dl Hct 41.4 L (42.0-52.0) % Plt Count 246 (160-400) X10*3/uL BMP 04/08/23 06:03 Sodium 140 Potassium 3.6 Chloride 109 H Carbon Dioxide 24 BUN 7 L Creatinine 0.98 Calcium 8.2 L Liver Function 04/08/23 Range/Units 06:03 Total Bilirubin 0.5 (0.0-1.0) mg/dL AST 18 (5-37) U/L ALT 27 (0-40) U/L Alkaline Phosphatase 27 L (39-117) U/L Albumin 3.3 L (3.5-5.0) g/dL Microbiology Microbiology Results: Microbiology 04/07/23 03:45 Blood - Venous Blood Culture - Preliminary No growth after 24 hours. 04/07/23 03:45 Blood - Venous Blood Culture - Preliminary No growth after [address] scan - abdomen: Attestation: I personally reviewed and interpreted this imaging study as follows: (small segment of stranding and diverticulitis in transverse colon, cystic appearing lesions noted in liver) Assessment and Plan (1) Acute diverticulitis: Status: Acute Plan 1/ Acute uncomplicated diverticulitis , with good response to antibiotics, recurrent attacks 2/ benign appearing liver cyst but radiologist recommends MRI for further eval PLAN: 1/ No real good way to prevent recurrent attacks, but can try probiotics like ALIGN with prebiotic, also high fiber diet and avoiding constipation and using stool softener 2/ Supposed to have colonoscopy in few days, will r/s for 4-6 weeks time for further evaluation of the colon 3/ outpatient MRI liver protocol Procedures Date of Service Date of Service: 04/08/23
[2023-04-08] MEDS: Enoxaparin Sodium 40 MG/0.4 ML SYRINGE SUBCUT (11:40)
--- NOTE | 2023-04-08 12:11 | PM.DS ---
DS: Providers Provider Date of Service: 04/08/23 Date of admission: 04/07/23 08:11 Date of discharge: 04/08/23 Primary care physician: MARQUIS Mckeon-BERT Consults: 04/07/23 08:11 Consult to General Surgery Routine Consulting Provider: [facility] [place] [place] General Surgeons Reason for consultation: Recurrent diverticulitis Has provider been notified: No DS: Diagnosis Discharge Diagnosis (1) Acute diverticulitis: Status: Acute (2) Liver cyst: Status: Acute (3) Elevated TSH: Status: Acute DS: Summary Hospital Course Hospital Course: From the history and physical by the admitting hospitalist, Jevon Samano, 04/07/23: 52-year-old male with a history of prediabetes , diverticulitis with 2 bowel resections who presents emergency department for evaluation of left lower quadrant pain times 2-3 days with vomiting, patient says the pain is on and off and gradually was getting more, 8/10 mostly in the left-sided and upper abdomen, patient received Zofran and antibiotics in the ED as well as pain medication abdominal pain somewhat improving. Patient still has significant abdominal pain and feel nauseated ,unable to tolerate diet-so will be getting admitted for acute diverticulitis. denied fever but did have chills. He denied sore throat, cough, chest pain, shortness of breath. He denied diarrhea, dark stools or bloody stools. Lab imaging reviewed: WBC 12.9, lactic said acid normal, CT abdomen-acute diverticulitis of mid transverse colon, possible question liver cysts. Blood cultures sent ED requested admission: Acute diverticulitis recurrent-symptomatic and need IV antibiotics and antiemetics as well as IV pain medications He was admitted to the medical-surgical floor and treated with IV fluids, IV Zosyn, and bowel rest. Surgery and Gastroenterology were consulted. No surgical intervention was indicated. His diet was advanced as his symptoms improved. He had been scheduled for colonoscopy with his disability rater, Rosendo Hancock, 04/10/23; this will be postponed for 4-6 weeks. He was discharged home on 8 days of amoxicillin-clavulanate. Incidental findings: Multiple hypodensities in the right lobe of the liver on CT scan. US showed multiple hepatic lesions, including cystic lesions and hyperechoic lesion suggestive of hemangiomas. Further evaluation with pre and postcontrast MRI abdomen is recommended. This should be done as an outpatient. TSH was high at 6.47, free T4 normal at 0.79. TSH should be repeated in 6 weeks. Time Attestation Total time managing care of this patient today: 35 mintues. Discharge coordination time: Greater than 30 minutes Quality: Safe Use of Opioids Does Pt have an Active Cancer Diagnosis on the Problem List?: No Quality: Stroke Does the patient have a stroke diagnosis?: No Physical Exam Vital Signs: Vital Signs: Last Vital Signs Temp 96.9 F 04/08/23 08:00 Pulse 77 04/08/23 08:00 Resp 14 04/08/23 08:00 BP 113/58 L 04/08/23 08:00 Pulse Ox 96 04/08/23 08:00 O2 Del Method Room Air 04/08/23 08:00 BMI result Body Mass Index 36.1 Gen: in no acute distress HEENT: sclera anicteric, moist mucus membranes Neck: supple Lungs: clear to auscultation bilaterally Heart: regular rate and rhythm, no murmurs Abd: soft, non-tender, non-distended Ext: no edema Skin: warm/well-perfused Neuro: alert and oriented x3, no focal findings Psych: appropriate affect DS: Data Data Completed and Pending Completed studies during hospitalization [Text1]: Laboratory Results WBC 11.9 X10*3/uL (4.8-10.8) H 04/08/23 06:03 RBC 4.86 X10*6/uL (4.60-5.80) 04/08/23 06:03 Hgb 13.3 g/dl (14.0-18.0) L 04/08/23 06:03 Hct 41.4 % (42.0-52.0) L 04/08/23 06:03 MCV 85.2 fL (80.0-98.0) 04/08/23 06:03 MCH 27.4 pg (27.0-33.0) 04/08/23 06:03 MCHC 32.1 g/dl (31.0-36.0) 04/08/23 06:03 RDW 13.6 % (11.0-16.0) 04/08/23 06:03 Plt Count 246 X10*3/uL (160-400) 04/08/23 06:03 MPV 10.0 fL (9.4-12.4) 04/08/23 06:03 Immature Gran % (Auto) Cancelled 04/07/23 01:44 Neut % (Auto) Cancelled 04/07/23 01:44 Lymph % (Auto) Cancelled 04/07/23 01:44 [place] % (Auto) Cancelled 04/07/23 01:44 Eos % (Auto) Cancelled 04/07/23 01:44 Baso % (Auto) Cancelled 04/07/23 01:44 Lymph # (Auto) Cancelled 04/07/23 01:44 [place] # (Auto) Cancelled 04/07/23 01:44 Eos # (Auto) Cancelled 04/07/23 01:44 Baso # (Auto) Cancelled 04/07/23 01:44 Abs Immat Gran (auto) Cancelled 04/07/23 01:44 Absolute Neuts (auto) Cancelled 04/07/23 01:44 Absolute Nucleated RBC 0.000 X10*3/uL (0.0-0.012) 04/08/23 06:03 Nucleated RBC % (auto) 0.0 /100WBC (0.0-0.2) 04/08/23 06:03 Neutrophils % (Manual) 68 % (45-73) 04/07/23 01:44 Band Neutrophils % 1 % (3-5) L 04/07/23 01:44 Lymphocytes % (Manual) 22 % (20-40) 04/07/23 01:44 Atypical Lymphs % (Man) 2 % (0-6) 04/07/23 01:44 Monocytes % (Manual) 5 % (2-11) 04/07/23 01:44 Eosinophils % (Manual) 2 % (0-4) 04/07/23 01:44 Abs Neuts (Manual) 8.9 X10*3/uL (2.0-8.3) H 04/07/23 01:44 Lymphocytes # (Manual) 2.8 X10*3/uL (1.2-4.9) 04/07/23 01:44 Atyp Lymphs # (Manual) 0.3 x10*3/uL 04/07/23 01:44 Monocytes # (Manual) 0.6 X10*3/uL (0.1-1.2) 04/07/23 01:44 Eosinophils # (Manual) 0.3 X10*3/uL (0.0-0.4) 04/07/23 01:44 Toxic Vacuolation PRESENT 04/07/23 01:44 Platelet Estimate NORMAL (NORMAL) 04/07/23 01:44 Plt Morphology Comment NORMAL 04/07/23 01:44 RBC Morphology NORMAL 04/07/23 01:44 Sodium 140 mmol/L (135-145) 04/08/23 06:03 Potassium 3.6 mmol/L (3.3-5.1) 04/08/23 06:03 Chloride 109 mmol/L (96-108) H 04/08/23 06:03 Carbon Dioxide 24 mmol/L (22-29) 04/08/23 06:03 Anion Gap 11 (12-20) L 04/08/23 06:03 BUN 7 mg/dL (9-16) L 04/08/23 06:03 Creatinine 0.98 mg/dL (0.5-1.4) 04/08/23 06:03 Estim Creat Clear Calc 105.8 04/08/23 06:03 Estimated GFR > 60 04/08/23 06:03 Random Glucose 101 mg/dL (60-115) 04/08/23 06:03 Estimat Average Glucose 123 mg/dL 04/07/23 01:44 Hemoglobin A1c % 5.9 % (<6.0) 04/07/23 01:44 Lactic Acid 1.5 mmol/L (0.5-2.0) 04/07/23 03:45 Calcium 8.2 mg/dL (8.4-10.2) L 04/08/23 06:03 Total Bilirubin 0.5 mg/dL (0.0-1.0) 04/08/23 06:03 Direct Bilirubin 0.1 mg/dL (0.0-0.5) 04/07/23 01:44 AST 18 U/L (5-37) 04/08/23 06:03 ALT 27 U/L (0-40) 04/08/23 06:03 Alkaline Phosphatase 27 U/L (39-117) L 04/08/23 06:03 Total Protein 5.9 g/dL (6.5-8.0) L 04/08/23 06:03 Albumin 3.3 g/dL (3.5-5.0) L 04/08/23 06:03 Lipase 59 U/L (8-78) 04/07/23 01:44 Urine Color Yellow 04/07/23 02:14 Urine Appearance Cloudy 04/07/23 02:14 Urine pH 5.5 (5.0-9.0) 04/07/23 02:14 Ur Specific [place] >= 1.030 (1.005-1.025) H 04/07/23 02:14 Urine Protein Trace mg/dL (Neg-Trace) 04/07/23 02:14 Urine Glucose (UA) Negative mg/dL (Negative) 04/07/23 02:14 Urine Ketones Trace mg/dL (Negative) 04/07/23 02:14 Urine Blood Negative (Negative) 04/07/23 02:14 Urine Nitrite Negative (Negative) 04/07/23 02:14 Ur Leukocyte Esterase Negative (Negative) 04/07/23 02:14 Impressions Abdomen/Pelvis CT 04/07/23 04:25 IMPRESSION: 1. Acute diverticulitis of the mid transverse colon. 2. Multiple hypodensities in the right lobe of the liver. These are not fully characterized on this study. Consider ultrasound evaluation. There is a cyst at the dome of the liver. Fleischner guidelines were followed. Abdomen Ultrasound 04/07/23 14:29 IMPRESSION: Multiple hepatic lesions, including cystic lesions and hyperechoic lesion suggestive of hemangiomas. Further evaluation with pre and postcontrast MRI abdomen is recommended. Discharge Plan Discharge Anticipated Discharge Date/Time: 04/08/23 12:08 Patient Disposition: Home, Self-Care Discharge Diagnosis: acute diverticulitis Referrals: Carlos Mcdonald FNP-BC [Primary Care Provider] - 1 Week Rosendo Hancock MD [Physician] - 4 Weeks Discharge Medications: New amoxicillin-pot clavulanate 875-125 mg tablet 1 tab PO BID Qty: 16 0RF Discharge Orders: Discharge Order (Routine); Ordered 04/08/23 Ordered By: Anand Mitchell Diet: high-fiber Activity on Discharge: As tolerated Stand Alone Forms: Patient Portal Discharge page Other Ambulatory Orders: TSH reflex Free T4 (Routine) Timeframe: 6 Weeks Facility: [facility] - Location: Laboratory Ordered By: Anand Mitchell Care Plan Goals: GI health Health Concerns: acute diverticulitis liver cysts elevated TSH Plan of Treatment: amoxicillin-clavulanate 875-125 mg twice daily for 8 days acetaminophen [Tylenol] for pain high-fiber diet with plenty of fluids consider [id number] probiotics follow up with Dr Hancock in 4 weeks; colonoscopy will be rescheduled discuss output MRI hemangioma protocol to assess liver cysts repeat TSH in 6 weeks Please follow up with your primary care doctor within 1 week. Return to the hospital if you experience recurrent or worsening symptoms. Assessment: See Discharge Summary.
--- NOTE | 2023-04-08 13:08 | MHC.CM.PN ---
pt is dcd home no servies
== END 2023-04-08 13:10 | disposition home or self-care (01) | DRG 392 ==
LOC: HO.ED 06:38 → HO.EDOVER 08:17 → HO.S3 09:36
PROVIDERS: Admitting Provider Internal Medicine; Emergency Provider Emergency Medicine Emergency Medical Services; PCP Nurse Practitioner Family; Visit Provider Family Medicine
DX: K57.32 Diverticulitis of large intestine without perforation or abscess without bleeding (principal); F17.210 Nicotine dependence, cigarettes, uncomplicated; Z71.6 Tobacco abuse counseling; K76.89 Other specified diseases of liver; D18.09 Hemangioma of other sites; R73.03 Prediabetes; E66.01 Morbid (severe) obesity due to excess calories; Z68.36 Body mass index [BMI] 36.0-36.9, adult; Z71.3 Dietary counseling and surveillance
CPT/HCPCS: 36415; 74177; 76705; 80053; 81003; 82248; 83036; 83605; 83690; 85007; 85027; 87040; 99285; J1650; J2270; J2405; J2543; J7120; Q9967

== ENCOUNTER → 2023-04-07 08:11 | Outpatient (BNV) | payer OTHER, SELFPAY | PROVIDERS: Admitting Provider Internal Medicine; Emergency Provider Emergency Medicine Emergency Medical Services; PCP Nurse Practitioner Family; Visit Provider Surgery | DX: K57.92 Diverticulitis of intestine, part unspecified, without perforation or abscess without bleeding (principal) | CPT/HCPCS: 99024; 99222; 99232 ==

== ENCOUNTER → 2023-04-07 08:11 | Outpatient (BNV) | payer OTHER, SELFPAY | PROVIDERS: Admitting Provider Internal Medicine; Emergency Provider Emergency Medicine Emergency Medical Services; PCP Nurse Practitioner Family; Visit Provider Internal Medicine | DX: K57.92 Diverticulitis of intestine, part unspecified, without perforation or abscess without bleeding (principal); K76.89 Other specified diseases of liver; R79.89 Other specified abnormal findings of blood chemistry | CPT/HCPCS: 99222; 99239 ==

== ENCOUNTER → 2023-04-07 08:11 | Outpatient (BNV) | payer OTHER, SELFPAY | PROVIDERS: Admitting Provider Internal Medicine; Emergency Provider Emergency Medicine Emergency Medical Services; PCP Nurse Practitioner Family; Visit Provider Internal Medicine Gastroenterology | DX: K57.92 Diverticulitis of intestine, part unspecified, without perforation or abscess without bleeding (principal) | CPT/HCPCS: 99223 ==

== ENCOUNTER 2023-04-12 01:14 | Inpatient (IN) | payer OTHER, SELFPAY ==
--- NOTE | ~2023-04-12 | CT_ITS ---
EXAMINATION: CT ABDOMEN AND PELVIS WITH CONTRAST CLINICAL INFORMATION: Question diverticular abscess COMPARISON: 04/07/2023 TECHNIQUE: Multidetector volumetric images were obtained from the superior aspect of the liver through the pubic symphysis following administration 85 mL of Omnipaque 350 intravenous contrast. Sagittal and coronal reformatted images were obtained on the technologist's workstation. Oral contrast: No This CT examination was performed using dose optimization techniques as appropriate, variously including the following: *Automated exposure control *Adjustment of mA and/or kV according to patient size (this includes techniques or standardized protocols for targeted exams where dose is matched to indication/reason for exam; i.e. extremities or head) *Use of iterative reconstruction technique DLP: 892 mGy-cm FINDINGS: LUNG BASES: Minimal bibasilar atelectasis. LIVER, GALLBLADDER, AND BILIARY TREE: The liver is normal in size, shape, and attenuation. There is redemonstration of several hepatic lesions without significant change from 04/07/2023. A lesion in the anterior left hepatic lobe has a density of a cyst, while the lesions in the right hepatic lobe are only mildly hypoattenuating and remain indeterminate on CT. No biliary ductal dilatation is present. Patient is status post cholecystectomy. PANCREAS: Unremarkable. SPLEEN: Unremarkable. ADRENAL GLANDS: Unremarkable. KIDNEYS AND URETERS: Bilateral nephrograms are symmetric. No hydronephrosis or obstructing calculus identified. Right upper pole renal cyst noted; no follow-up recommended. BLADDER: Unremarkable. GASTROINTESTINAL TRACT: No evidence of bowel obstruction. Suture line is present in the sigmoid colon. There is diffuse colonic diverticulosis. Enterocolonic anastomosis is present in the region of the proximal to mid transverse colon. In comparison to the prior examination there is increased stranding adjacent to diverticula in the mid transverse colon with associated wall thickening, favoring worsening diverticulitis. No discrete pericolonic abscess is seen. No appreciable free fluid or free air. ABDOMINAL WALL: No significant hernia is appreciated. LYMPH NODES: Normal. VASCULAR: Mild scattered atherosclerotic calcifications. PELVIC VISCERA: Unremarkable. OSSEOUS STRUCTURES: Partially visualized hardware in the right femur. Moderate degenerative change of the right hip. Mild degenerative changes in the spine. CT/CT abdomen pelvis w IV con IMPRESSION: 1. Increased stranding adjacent to diverticula in the mid transverse colon, consistent with worsened appearance of diverticulitis compared to 04/07/2023. No pericolonic abscess identified. 2. Redemonstrated hepatic lesions, some of which remain indeterminate. As noted on recent ultrasound report, further assessment with dynamic liver MRI is recommended for more definitive evaluation.
[2023-04-12 01:17] VITALS: BP 126/93; PULSE 95; RESP 14; TEMP 37.5; O2SAT 96; BMI 36.9
--- NOTE | 2023-04-12 01:36 | ED.ABDPAIN ---
HPI - Abdominal Pain General Chief Complaint: Abdominal Pain Stated Complaint: Vomiting Time Seen by Provider: 04/12/23 01:33 Source: patient Mode of arrival: ambulatory Limitations: no limitations History of Present Illness HPI narrative: Patient history of diverticulitis status post partial colectomy last one was 5 years ago was admitted here on 03/08 for abdominal pain/diverticulitis discharge 03/10 patient was feeling better the day of discharge had poked drops that evening and next day also since yesterday evening having more pain with nausea and vomited 2- 3 times no fever no chills no blood in the stool patient have increased pain in upper abdomen now Related Data Previous Rx's Medication Instructions Recorded amoxicillin 875 mg-potassium 1 tab PO BID #16 tabs 04/08/23 clavulanate 125 mg tablet Allergies Allergy/AdvReac Type Severity Reaction Status Date / Time No Known Allergies Allergy Verified 04/12/23 01:17 Review of Systems Review of Systems Yes all other systems are reviewed and are negative PMFSH Past Medical History Medical History Dislocated shoulder Pyelonephritis Morbid obesity Cholecystectomy planned Chronic back pain History of prediabetes Diverticulitis Surgical History S/P cholecystectomy History of partial colectomy History of hip surgery Social History Social History Household Members: None Housing: Apartment Housing Other:: one flight of stairs Do you presently have visiting nurse or other home services: Yes (through [facility]) Unable to assess alcohol history related to: Unknown Alcohol intake: current Alcohol intake frequency: holidays/special occasions only Patient Tobacco Use Status: Never used Tobacco Tobacco use type: Cigarette Cigarette Packs Per Day: 0.5 Cigarettes Per Day: 10.0 Smoked in Last 30 Days: No e-Cigarette/Vaping Use: Never Used Second Hand Smoke Exposure: No Use of substances other than those prescribed or required for medical reasons: No Substance Use Type: Marijuana Advance Directives: No Advance Directives Information Provided: No service: No Current occupational status: disabled Current occupational exposures/hazards: No Cognitive needs: No Hearing needs: No Vision needs: Yes Physical Exam ED Vital Signs: Vital Signs - 24 hr 04/12/23 01:17 Temperature 99.5 F Pulse Rate 95 Respiratory Rate 14 Blood Pressure 126/93 H Pulse Oximetry 96 Oxygen Delivery Method Room Air BMI result Body Mass Index 36.9 Appearance: Alert. Oriented X3. No acute distress. Eyes: No pallor or icterus ENT: Pharynx normal. Oral Mucosa moist Neck: Normal inspection. Neck supple. CVS: Normal heart rate and rhythm. Pulses normal. Respiratory: No respiratory distress. Equal air entry bilateral, no wheezing/rales/rhonchi Abdomen: Soft , guarding tenderness mid abdomen no rebound tenderness Bowel sounds are present, no mass palpable, no CVA tenderness Skin: Skin warm and dry. Normal skin color. Normal skin turgor. Extremities: No lower extremity edema. Neuro: Oriented X 3. Medical Decision Making Medical Decision Making [facility] Narrative: Patient with recurrent diverticulitis recently discharged comes back with increased pain after eating food CT scan showed worsening of the inflammation labs showed elevated wbc's gone. Will admit patient for IV hydration and IV antibiotic and pain management Differential Diagnosis Differential Diagnoses: The differential diagnosis associated with the presentation includes Diverticulitis/pancreatitis/enteritis Admission/Observation Consideration of admission/observation: Escalation of care including admission/observation considered Consult Healthcare Provider Management of the patient was discussed with: Hospitalist Lab Data [facility] Lab Attestation statement: I reviewed the patient's lab results. 04/12/23 04:58 04/12/23 04:58 Labs: Lab Results 04/12/23 Range/Units 02:03 WBC 13.5 H (4.8-10.8) X10*3/uL RBC 5.44 (4.60-5.80) X10*6/uL Hgb 14.9 (14.0-18.0) g/dl Hct 45.1 (42.0-52.0) % MCV 82.9 (80.0-98.0) fL MCH 27.4 (27.0-33.0) pg MCHC 33.0 (31.0-36.0) g/dl RDW 13.7 (11.0-16.0) % Plt Count 295 (160-400) X10*3/uL MPV 9.8 (9.4-12.4) fL Immature Gran % (Auto) 0.3 (0.0-0.4) % Neut % (Auto) 68.6 (45-73) % Lymph % (Auto) 23.7 (20-40) % [place] % (Auto) 6.4 (2-11) % Eos % (Auto) 0.8 (0-4) % Baso % (Auto) 0.2 (0-2) % Lymph # (Auto) 3.2 (1.2-4.9) X10*3/uL [place] # (Auto) 0.9 (0.1-1.2) X10*3/uL Eos # (Auto) 0.1 (0.0-0.4) X10*3/uL Baso # (Auto) 0.0 (0.0-0.2) X10*3/uL Abs Immat Gran (auto) 0.04 H (0.00-0.03) X10*3/uL Absolute Neuts (auto) 9.3 H (2.0-8.3) x10*3/uL Absolute Nucleated RBC 0.000 (0.0-0.012) X10*3/uL Nucleated RBC % (auto) 0.0 (0.0-0.2) /100WBC Sodium 142 (135-145) mmol/L Potassium 3.7 (3.3-5.1) mmol/L Chloride 109 H (96-108) mmol/L Carbon Dioxide 24 (22-29) mmol/L Anion Gap 13 (12-20) BUN 9 (9-16) mg/dL Creatinine 1.16 (0.5-1.4) mg/dL Estim Creat Clear Calc 90.4 Estimated GFR > 60 Random Glucose 120 H (60-115) mg/dL Lactic Acid 1.5 (0.5-2.0) mmol/L Calcium 9.2 D (8.4-10.2) mg/dL Total Bilirubin 0.2 (0.0-1.0) mg/dL AST 15 (5-37) U/L ALT 32 (0-40) U/L Alkaline Phosphatase 31 L (39-117) U/L Total Protein 7.1 (6.5-8.0) g/dL Albumin 4.0 (3.5-5.0) g/dL Lipase 41 (8-78) U/L Independent Interpretation I performed an independent interpretation of an: CT Scan Radiology Impression Discussion of test interpretation with radiology: I have reviewed the radiologist's reading. Medications Administered Generic Name Dose Route Start Last Admin Trade Name Freq PRN Reason Stop Dose Admin Enoxaparin Sodium 40 mg 04/12/23 04:15 04/12/23 04:25 Enoxaparin Sodium 40 Mg/0.4 Ml Syringe SUBCUT Not Given DAILY WILLIAN Piperacillin Sod/Tazobactam 100 mls @ 200 mls/hr 04/12/23 08:00 04/12/23 07:33 Sod 4.5 gm/ Sodium Chloride IV 200 mls/hr Q6H WILLIAN Administration Sodium Chloride 3 ml 04/12/23 08:00 04/12/23 07:35 0.9 % Sodium Chloride Flush 3 Ml Syringe IVFLUSH 3 ml QSHIFT WILLIAN Administration Discontinued Medications Generic Name Dose Route Start Last Admin Trade Name Freq PRN Reason Stop Dose Admin Sodium Chloride 1,000 mls @ 999 mls/hr 04/12/23 01:42 04/12/23 03:55 Ns IV 04/12/23 02:42 Infused .Q1H1M ONE Infusion Piperacillin Sod/Tazobactam 50 mls @ 100 mls/hr 04/12/23 01:43 04/12/23 03:55 Sod 3.375 gm/ Sodium Chloride IV 04/12/23 02:12 Infused ONCE ONE Infusion Iohexol 85 ml 04/12/23 02:57 04/12/23 02:58 Iohexol 350 Mg/Ml 100 Ml Infus..Btl IV 04/12/23 02:58 85 ml ONCE ONE Administration Morphine Sulfate 4 mg 04/12/23 01:43 04/12/23 02:06 Morphine Sulfate 4 Mg/Ml Cartridge IVPUSH 04/12/23 01:44 4 mg ONCE ONE Administration Protocol Morphine Sulfate 4 mg 04/12/23 03:49 04/12/23 04:01 Morphine Sulfate 4 Mg/Ml Cartridge IVPUSH 04/12/23 03:50 4 mg ONCE ONE Administration Protocol Ondansetron HCl 4 mg 04/12/23 01:43 04/12/23 02:06 Ondansetron Hcl 4 Mg/2 Ml Vial IVPUSH 04/12/23 01:44 4 mg ONCE ONE Administration Discharge Plan Discharge Clinical Impression: Acute diverticulitis Patient Disposition: Admitted As Inpatient
[2023-04-12] MEDS: 0.9 % Sodium Chloride 1,000 ML 999 ML IV (02:05)
[2023-04-12] MEDS: ondansetron HCL 4 MG/2 ML VIAL IVPUSH (02:06)
[2023-04-12] MEDS: Morphine Sulfate 4 MG/ML CARTRIDGE IVPUSH ×6 (02:06→23:15)
[2023-04-12 02:07] LABS: MANUAL DIFF FLAG NO
[2023-04-12 02:08] LABS: Basophils Percent Auto 0.2 % (0-2); Eosinophils Absolute Auto 0.1 X10*3/uL (0.0-0.4); Eosinophils Percent Auto 0.8 % (0-4); Hematocrit 45.1 % (42.0-52.0); Hemoglobin 14.9 g/dl (14.0-18.0); Imm Gran Abs Auto 0.04 X10*3/uL (0.00-0.03); Imm Gran Pct Auto 0.3 % (0.0-0.4); Lymphocytes Absolute Auto 3.2 X10*3/uL (1.2-4.9); Lymphocytes Percent Auto 23.7 % (20-40); Mean Corpuscular Hemoglobin 27.4 pg (27.0-33.0); Mean Corpuscular Volume 82.9 fL (80.0-98.0); Mean Platelet Volume 9.8 fL (9.4-12.4); Monocytes Absolute Auto 0.9 X10*3/uL (0.1-1.2); Monocytes Percent Auto 6.4 % (2-11); Neutrophils Absolute Auto 9.3 x10*3/uL (2.0-8.3); Neutrophils Percent Auto 68.6 % (45-73); Platelet Count 295 X10*3/uL (160-400); Red Blood Count 5.44 X10*6/uL (4.60-5.80); Red Cell Distribution Width 13.7 % (11.0-16.0); White Blood Count 13.5 X10*3/uL (4.8-10.8)
[2023-04-12] MEDS: Piperacillin Sodium/Tazobactam 3.375 GM in 0.9 % Sodium Chloride 50 ML IV (02:08)
[2023-04-12 02:20] LABS: Lactic Acid 1.5 mmol/L (0.5-2.0)
[2023-04-12 02:25] LABS: Alanine Aminotransferase 32 U/L (0-40); Alkaline Phosphatase 31 U/L (39-117); Anion Gap 13 (12-20); Aspartate Amino Transferase 15 U/L (5-37); Bilirubin Total 0.2 mg/dL (0.0-1.0); Blood Urea Nitrogen 9 mg/dL (9-16); Calcium 9.2 mg/dL (8.4-10.2); Carbon Dioxide 24 mmol/L (22-29); Chloride 109 mmol/L (96-108); Creatinine Clr Calc Pharmacy 90.4; Estimated Glomerular Filt Rate > 60; Glucose Random 120 mg/dL (60-115); Lipase 41 U/L (8-78); Potassium 3.7 mmol/L (3.3-5.1); Sodium 142 mmol/L (135-145); Total Protein 7.1 g/dL (6.5-8.0)
[2023-04-12] MEDS: iohexoL 350 MG/ML 100 ML INFUS..BTL 85 ML IV (02:58)
--- NOTE | 2023-04-12 04:13 | P.HPHOSP_ITS ---
History of Present Illness Date of Service: 04/12/23 Chief Complaint: Abdominal pain This is a 52-year-old male with pertinent history of diverticulitis status post bowel resections x2, prediabetes who presents to the emergency department for evaluation of left-sided abdominal pain. Of note, patient was admitted on 04/07 with acute diverticulitis and discharged on 04/08 with prescription for p.o. Augmentin. Patient states he felt better when he went home. He cooked pork chops and ate for dinner. Patient subsequently started having pain again on . It is located on the left lower quadrant, progressive in onset, nonradiating and without any relieving factors. Also has associated nausea and vomiting. No fever, chills, chest discomfort, palpitations, shortness of breath, changes in urinary habits. In the emergency department, patient was found to be septic and imaging concerning for worsened appearance of diverticulitis Review of Systems 2 Constitutional: Constitutional: Reports no additional constitutional complaints Cardiovascular: Cardiovascular: Reports no additional cardiovascular complaints Respiratory: Respiratory: Reports no additional respiratory complaints Gastrointestinal: Gastrointestinal: Reports abdominal pain, Reports nausea and Reports vomiting Genitourinary: Genitourinary: Reports no additional male genitourinary complaints [facility] Medical History Dislocated shoulder Pyelonephritis Morbid obesity Cholecystectomy planned Chronic back pain History of prediabetes Diverticulitis Surgical History S/P cholecystectomy History of partial colectomy History of hip surgery Social History Household Members: None Housing: Apartment Housing Other:: one flight of stairs Do you presently have visiting nurse or other home services: Yes (through [facility]) Unable to assess alcohol history related to: Unknown Alcohol intake: current Alcohol intake frequency: holidays/special occasions only Patient Tobacco Use Status: Never used Tobacco Tobacco use type: Cigarette Cigarette Packs Per Day: 0.5 Cigarettes Per Day: 10.0 Smoked in Last 30 Days: No e-Cigarette/Vaping Use: Never Used Second Hand Smoke Exposure: No Use of substances other than those prescribed or required for medical reasons: No Substance Use Type: Marijuana Advance Directives: No Advance Directives Information Provided: No service: No Current occupational status: disabled Current occupational exposures/hazards: No Cognitive needs: No Hearing needs: No Vision needs: Yes Meds Allergies Allergy/AdvReac Type Severity Reaction Status Date / Time No Known Allergies Allergy Verified 04/12/23 01:17 Physical Exam 2 Vital Signs and Narrative: Vital Signs: Last Vital Signs Temp 99.5 F 04/12/23 01:17 Pulse 95 04/12/23 01:17 Resp 14 04/12/23 01:17 BP 126/93 H 04/12/23 01:17 Pulse Ox 96 04/12/23 01:17 O2 Del Method Room Air 04/12/23 01:17 BMI result Body Mass Index 36.9 Middle-aged male lying in bed in mild distress Neck supple, no JVD Regular rate and rhythm, S1-S2 heard Regular breath sounds bilaterally, no wheezing or crackles appreciated Abdomen with left lower quadrant tenderness, no rigidity, no rebound tenderness Patient is awake, alert and oriented to self, place, time and person ; no focal motor deficit Psych: Normal mood No pedal edema Results Labs 04/12/23 02:03 04/12/23 02:03 Labs: Laboratory Results - last 24 hr 04/12/23 02:03 MCV 82.9 MCH 27.4 MCHC 33.0 RDW 13.7 Plt Count 295 MPV 9.8 Immature Gran % (Auto) 0.3 Neut % (Auto) 68.6 Lymph % (Auto) 23.7 [place] % (Auto) 6.4 Eos % (Auto) 0.8 Baso % (Auto) 0.2 Lymph # (Auto) 3.2 [place] # (Auto) 0.9 Eos # (Auto) 0.1 Baso # (Auto) 0.0 Abs Immat Gran (auto) 0.04 H Absolute Neuts (auto) 9.3 H Absolute Nucleated RBC 0.000 Nucleated RBC % (auto) 0.0 Anion Gap 13 Estim Creat Clear Calc 90.4 Estimated GFR > 60 Random Glucose 120 H Lactic Acid 1.5 Calcium 9.2 D Total Bilirubin 0.2 AST 15 ALT 32 Alkaline Phosphatase 31 L Total Protein 7.1 Albumin 4.0 Lipase 41 Imaging Radiologist's Impressions: Impressions Abdomen/Pelvis CT 04/12/23 02:45 IMPRESSION: 1. Increased stranding adjacent to diverticula in the mid transverse colon, consistent with worsened appearance of diverticulitis compared to 04/07/2023. No pericolonic abscess identified. 2. Redemonstrated hepatic lesions, some of which remain indeterminate. As noted on recent ultrasound report, further assessment with dynamic liver MRI is recommended for more definitive evaluation. Assessment and Plan (1) Acute diverticulitis: Status: Acute Plan This is a 52-year-old male with pertinent history of diverticulitis status post bowel resections x2, prediabetes who presents to the emergency department for evaluation of left-sided abdominal pain #. Sepsis due to acute diverticulitis: Will admit patient for intractable pain and initiate empiric IV antibiotics. Resuscitated with IV crystalloids. Lactic acid and blood culture obtained. IV opioids p.r.n. for analgesia. NPO for bowel rest and advance diet as tolerated #. Imaging with multiple hypodensities of liver: Outpatient follow-up with MRI with and without contrast #. Obesity: Counseled regarding diet and exercise DVT prophylaxis: Tamela Full code Admit as inpatient and will require two night minimum hospital stay for IV antibiotics (as above), which is not possible in a lesser acute setting. Quality Stroke Does the patient have a stroke diagnosis?: No VTE Prior VTE?: No VTE Risk Level:: Medical - moderate - high VTE Device Contraindication: Treatment Not Indicated VTE Drug Contraindication: N/A - Med Ordered
--- NOTE | 2023-04-12 04:38 | PC.NURSE ---
Pt presents to ED with diverticulitis exacerbation. Pt was seen here and discharged recently with diverticulitis. He ate some pork chops tonight and abd pain increased. Pt came in for evaluation and dispo is admission. Pt has a 20g IV in the left AC. Pt is A&Ox4, GCS 15, with warm, dry skin. Pt reporting 7/10 pain, medicated with morphine. Pt will be admitted, pending bed assignment at this time.
[2023-04-12 05:18] LABS: MANUAL DIFF FLAG NO
[2023-04-12 05:23] LABS: Basophils Percent Auto 0.2 % (0-2); Eosinophils Absolute Auto 0.1 X10*3/uL (0.0-0.4); Eosinophils Percent Auto 0.6 % (0-4); Hematocrit 42.4 % (42.0-52.0); Hemoglobin 13.9 g/dl (14.0-18.0); Imm Gran Abs Auto 0.05 X10*3/uL (0.00-0.03); Imm Gran Pct Auto 0.4 % (0.0-0.4); Lymphocytes Absolute Auto 3.4 X10*3/uL (1.2-4.9); Lymphocytes Percent Auto 27.6 % (20-40); Mean Corpuscular HGB Conc 32.8 g/dl (31.0-36.0); Mean Corpuscular Hemoglobin 27.6 pg (27.0-33.0); Mean Corpuscular Volume 84.1 fL (80.0-98.0); Mean Platelet Volume 9.9 fL (9.4-12.4); Monocytes Absolute Auto 0.9 X10*3/uL (0.1-1.2); Monocytes Percent Auto 6.9 % (2-11); Neutrophils Percent Auto 64.3 % (45-73); Platelet Count 283 X10*3/uL (160-400); Red Blood Count 5.04 X10*6/uL (4.60-5.80); Red Cell Distribution Width 13.8 % (11.0-16.0); White Blood Count 12.5 X10*3/uL (4.8-10.8)
[2023-04-12 05:34] LABS: Anion Gap 12 (12-20); Blood Urea Nitrogen 8 mg/dL (9-16); Calcium 8.6 mg/dL (8.4-10.2); Carbon Dioxide 23 mmol/L (22-29); Chloride 111 mmol/L (96-108); Creatinine Clr Calc Pharmacy 96.2; Estimated Glomerular Filt Rate > 60; Glucose Random 110 mg/dL (60-115); Potassium 3.7 mmol/L (3.3-5.1); Sodium 142 mmol/L (135-145)
[2023-04-12 05:43] VITALS: BP 101/52; PULSE 88; RESP 16; TEMP 36.6; O2SAT 95
[2023-04-12 06:08] VITALS: BP 123/72; PULSE 63; RESP 16; TEMP 36.6; O2SAT 95
--- NOTE | 2023-04-12 06:10 | PC.NURSE ---
Pt has been stable throughout the night. Pt was not initially called a septic alert. As soon as this RN found out, 2 BP readings were entered within the hour. Pt vital signs have remained WNL. Pt reporting a 5/10 pain in the abdomen, which has been helped by morphine IV.
[2023-04-12] MEDS: Piperacillin Sodium/Tazobactam 4.5 GM in 0.9 % Sodium Chloride 100 ML IV ×3 (07:33→19:50)
[2023-04-12] MEDS: 0.9 % Sodium Chloride Flush 3 ML SYRINGE IVFLUSH ×3 (07:35→19:53)
--- NOTE | 2023-04-12 07:40 | PC.NURSE ---
this RN resumed care of pt a this time. pt ambulates to the restroom w/ strong/steady gait independently. no use of assistive devices needed. no sob/wob noted upon ambulation. abx administered per provider order. pt c/o 09/19 left sided abdominal pain - pt requesting medication - this rn is unable to administer at this time d/t previous PRN dose that was administered. pt notified/aware that medication will be administered when able. denies n/v/d. states he is feeling full of gas. pt waiting for bed assignment at this time. respirations even and unlabored. call simon placed within reach.
--- NOTE | 2023-04-12 07:54 | PHA.MEDREC ---
Pharmacy Consult ? Medication Reconciliation Pharmacy has completed the medication reconciliation. spoke with patient to confirm medications. He reports taking the antibiotic yesterday and uses docusate about 3x/week prn.
--- NOTE | 2023-04-12 08:55 | PC.NURSE ---
PRN medication administered per provider order. effectiveness pending.
--- NOTE | 2023-04-12 11:11 | MHC.CM.PN ---
PT REPORTS HE LIVES ALONE AND HAS A PHYS THERAPIST DAILY THAT ASSISTS WITH SHOPPING, HOUSEWORK AND SOME PERSONAL CARE HE ALSO HAS A RN CM FROM [facility] THAT CHECKS IN YEARLY AND AFTER INPT ADMISSIONS PT DOES NOT HAVE A HCP AND DECLINES TO COMPLETE ONE AT THIS TIME PCP: BRAYAN ADDISON IMM DELIVERED DCP: HOME, RESUME PHYS THERAPIST SERVICES PT TO ARRANGE TRANSPORT
--- NOTE | 2023-04-12 11:28 | P.PNIM_ITS ---
Subjective Subjective Date of Service: 04/12/23 Interval History: still with pain Physical Exam 2 Vital Signs: Vital Signs: Last Vital Signs Temp 98 F 04/12/23 06:08 Pulse 63 04/12/23 06:08 Resp 16 04/12/23 06:08 BP 123/72 04/12/23 06:08 Pulse Ox 95 04/12/23 06:08 O2 Del Method Room Air 04/12/23 06:08 BMI result Body Mass Index 36.9 General: AO X 3, no acute distress Resp: CTA bilateral, no accessory muscles used CVS: S1,S2,RRR GI: soft, luq tender, non distended Neuro: motor grossly intact, alert Psych: appropriate affect, appropriate insight Objective Data Active Medications Acetaminophen (Acetaminophen 325 Mg Tablet) 650 mg PO Q6H PRN PRN Reason: Pain, Mild (Pain Scale 1-3) Enoxaparin Sodium (Enoxaparin Sodium 40 Mg/0.4 Ml Syringe) 40 mg SUBCUT DAILY [facility] Last Admin: 04/12/23 04:25 Dose: Not Given Documented By: TAYLOR Non-Admin Reason: Patient Refused Piperacillin Sod/Tazobactam (Sod 4.5 gm/ Sodium Chloride) 100 mls @ 200 mls/hr IV Q6H [facility] Last Infusion: 04/12/23 08:03 Dose: Infused Documented By: KEIKO Melatonin (Melatonin 3 Mg Tablet) 6 mg PO BEDTIME PRN PRN Reason: Insomnia Morphine Sulfate (Morphine Sulfate 4 Mg/Ml Cartridge) 4 mg IVPUSH Q4H PRN; Protocol PRN Reason: Pain, Severe (Pain Scale 7-10) Last Admin: 04/12/23 08:52 Dose: 4 mg Documented By: KEIKO Ondansetron HCl (Ondansetron Hcl 4 Mg/2 Ml Vial) 4 mg IVPUSH Q8H PRN PRN Reason: Nausea and Vomiting Sodium Chloride (0.9 % Sodium Chloride Flush 3 Ml Syringe) 3 ml IVFLUSH QSHIFT [facility] Last Admin: 04/12/23 07:35 Dose: 3 ml Documented By: KEIKO Labs 04/12/23 04:58 04/12/23 04:58 Labs: Laboratory Results - last 24 hr 04/12/23 04/12/23 02:03 04:58 MCV 82.9 84.1 MCH 27.4 27.6 MCHC 33.0 32.8 RDW 13.7 13.8 Plt Count 295 283 MPV 9.8 9.9 Immature Gran % (Auto) 0.3 0.4 Neut % (Auto) 68.6 64.3 Lymph % (Auto) 23.7 27.6 [place] % (Auto) 6.4 6.9 Eos % (Auto) 0.8 0.6 Baso % (Auto) 0.2 0.2 Lymph # (Auto) 3.2 3.4 [place] # (Auto) 0.9 0.9 Eos # (Auto) 0.1 0.1 Baso # (Auto) 0.0 0.0 Abs Immat Gran (auto) 0.04 H 0.05 H Absolute Neuts (auto) 9.3 H 8.0 Absolute Nucleated RBC 0.000 0.000 Nucleated RBC % (auto) 0.0 0.0 Anion Gap 13 12 Estim Creat Clear Calc 90.4 96.2 Estimated GFR > 60 > 60 Random Glucose 120 H 110 Lactic Acid 1.5 Calcium 9.2 D 8.6 D Total Bilirubin 0.2 AST 15 ALT 32 Alkaline Phosphatase 31 L Total Protein 7.1 Albumin 4.0 Lipase 41 Assessment and Plan (1) Acute diverticulitis: Status: Acute Plan 52M PMH recurrent diverticulitis status post bowel resection x2, prediabetes, obesity presented with left upper quadrant abdominal pain Sepsis due to Acute recurrent diverticulitis IV Zosyn Pain control advanced to clears Incidental finding of hypodensities liver on CT scan Likely hemangiomas and benign cysts Recommendations are for outpatient MRI liver protocol Pre diabetes, Obesity Weight loss recommended DVT prophylaxis with Lovenox Full Code reason for continued hospitalization: Awaiting tolerance of p.o. Quality Stroke Does the patient have a stroke diagnosis?: No VTE Prior VTE?: No VTE Risk Level:: Medical - moderate - high VTE Device Contraindication: Treatment Not Indicated VTE Drug Contraindication: N/A - Med Ordered
[2023-04-12 12:06] VITALS: BP 127/70; PULSE 57; RESP 16; TEMP 36.6; O2SAT 95
--- NOTE | 2023-04-12 14:12 | PC.NURSE ---
Pt transferred to [place] [id number], tone jhaveri is the nurse taking care of this patient. Medicated with morphine for 7/10 abdominal pain prior to transfer
[2023-04-12 14:35] VITALS: BP 134/64; PULSE 68; RESP 17; TEMP 36.1; O2SAT 98
[2023-04-12] MEDS: Nicotine 7 MG PATCH.TD24 TRANSDERMA (14:36)
[2023-04-12 19:52] VITALS: BP 136/72; PULSE 65; RESP 18; TEMP 36.6; O2SAT 96
[2023-04-13] MEDS: Piperacillin Sodium/Tazobactam 4.5 GM in 0.9 % Sodium Chloride 100 ML IV ×2 (01:48→08:46)
[2023-04-13 03:31] VITALS: BP 111/50; PULSE 65; RESP 16; TEMP 36.6; O2SAT 98
[2023-04-13 05:48] LABS: Hematocrit 40.5 % (42.0-52.0); Hemoglobin 13.2 g/dl (14.0-18.0); Mean Corpuscular HGB Conc 32.6 g/dl (31.0-36.0); Mean Corpuscular Hemoglobin 27.7 pg (27.0-33.0); Mean Corpuscular Volume 84.9 fL (80.0-98.0); Mean Platelet Volume 9.6 fL (9.4-12.4); Platelet Count 252 X10*3/uL (160-400); Red Blood Count 4.77 X10*6/uL (4.60-5.80); Red Cell Distribution Width 13.8 % (11.0-16.0); White Blood Count 10.8 X10*3/uL (4.8-10.8)
[2023-04-13 05:54] LABS: Anion Gap 11 (12-20); Blood Urea Nitrogen 7 mg/dL (9-16); Calcium 8.6 mg/dL (8.4-10.2); Carbon Dioxide 26 mmol/L (22-29); Chloride 107 mmol/L (96-108); Creatinine Clr Calc Pharmacy 96.2; Estimated Glomerular Filt Rate > 60; Glucose Fasting 104 mg/dL (60-99); Potassium 3.6 mmol/L (3.3-5.1); Sodium 140 mmol/L (135-145)
[2023-04-13 06:45] VITALS: BP 103/50; PULSE 63; RESP 17; TEMP 36.3; O2SAT 98
[2023-04-13] MEDS: Enoxaparin Sodium 40 MG/0.4 ML SYRINGE SUBCUT (08:46)
[2023-04-13] MEDS: Nicotine 7 MG PATCH.TD24 TRANSDERMA (08:46)
[2023-04-13] MEDS: 0.9 % Sodium Chloride Flush 3 ML SYRINGE IVFLUSH (08:48)
[2023-04-13] MEDS: Acetaminophen 325 MG TABLET 650 MG PO (08:56)
--- NOTE | 2023-04-13 11:19 | P.PNIM_ITS ---
Subjective Subjective Date of Service: 04/13/23 Interval History: improved Physical Exam 2 Vital Signs: Vital Signs: Last Vital Signs Temp 97.4 F 04/13/23 06:45 Pulse 63 04/13/23 06:45 Resp 17 04/13/23 06:45 BP 103/50 L 04/13/23 06:45 Pulse Ox 98 04/13/23 06:45 O2 Del Method Room Air 04/13/23 06:45 BMI result Body Mass Index 36.9 General: AO X 3, no acute distress Resp: CTA bilateral, no accessory muscles used CVS: S1,S2,RRR GI: soft, non tender, non distended Neuro: motor grossly intact, alert Psych: appropriate affect, appropriate insight Objective Data Active Medications Acetaminophen (Acetaminophen 325 Mg Tablet) 650 mg PO Q6H PRN PRN Reason: Pain, Mild (Pain Scale 1-3) Last Admin: 04/13/23 08:56 Dose: 650 mg Documented By: PURVI Enoxaparin Sodium (Enoxaparin Sodium 40 Mg/0.4 Ml Syringe) 40 mg SUBCUT DAILY [facility] Last Admin: 04/13/23 08:46 Dose: 40 mg Documented By: PURVI Piperacillin Sod/Tazobactam (Sod 4.5 gm/ Sodium Chloride) 100 mls @ 200 mls/hr IV Q6H [facility] Last Infusion: 04/13/23 09:39 Dose: Infused Documented By: PURVI Melatonin (Melatonin 3 Mg Tablet) 6 mg PO BEDTIME PRN PRN Reason: Insomnia Morphine Sulfate (Morphine Sulfate 4 Mg/Ml Cartridge) 4 mg IVPUSH Q4H PRN; Protocol PRN Reason: Pain, Severe (Pain Scale 7-10) Last Admin: 04/12/23 23:15 Dose: 4 mg Documented By: PAVEL Nicotine (Nicotine 7 Mg Patch.Td24) 7 mg TRANSDERMA DAILY [facility] Last Admin: 04/13/23 08:46 Dose: 7 mg Documented By: PURVI Ondansetron HCl (Ondansetron Hcl 4 Mg/2 Ml Vial) 4 mg IVPUSH Q8H PRN PRN Reason: Nausea and Vomiting Sodium Chloride (0.9 % Sodium Chloride Flush 3 Ml Syringe) 3 ml IVFLUSH QSHIFT [facility] Last Admin: 04/13/23 08:48 Dose: 3 ml Documented By: PURVI Labs 04/13/23 05:22 04/13/23 05:22 Labs: Laboratory Results - last 24 hr 04/13/23 05:22 MCV 84.9 MCH 27.7 MCHC 32.6 RDW 13.8 Plt Count 252 MPV 9.6 Absolute Nucleated RBC 0.000 Nucleated RBC % (auto) 0.0 Anion Gap 11 L Estim Creat Clear Calc 96.2 Estimated GFR > 60 Fasting Glucose 104 H Calcium 8.6 Microbiology Microbiology Results: Microbiology 04/12/23 04:59 Blood Culture - Preliminary Blood - Venous No growth after 24 hours. 04/12/23 04:58 Blood Culture - Preliminary Blood - Venous No growth after 24 hours. Assessment and Plan (1) Acute diverticulitis: Status: Acute Plan 52M PMH recurrent diverticulitis status post bowel resection x2, prediabetes, obesity presented with left upper quadrant abdominal pain Sepsis due to Acute recurrent diverticulitis IV Zosyn Pain control advanced to solids Incidental finding of hypodensities liver on CT scan Likely hemangiomas and benign cysts Recommendations are for outpatient MRI liver protocol Pre diabetes, Obesity Weight loss recommended DVT prophylaxis with Lovenox Full Code reason for continued hospitalization: Awaiting tolerance of p.o. Quality Stroke Does the patient have a stroke diagnosis?: No VTE Prior VTE?: No VTE Risk Level:: Medical - moderate - high VTE Device Contraindication: Treatment Not Indicated VTE Drug Contraindication: N/A - Med Ordered
--- NOTE | 2023-04-13 13:26 | PM.DS ---
DS: Providers Provider Date of Service: 04/13/23 Date of admission: 04/12/23 04:11 Primary care physician: ROGELIO Mckeon DS: Diagnosis Discharge Diagnosis (1) Acute diverticulitis: Status: Acute DS: Summary Hospital Course Hospital Course: from initial hpi: 52-year-old male with pertinent history of diverticulitis status post bowel resections x2, prediabetes who presents to the emergency department for evaluation of left-sided abdominal pain. Of note, patient was admitted on 04/07 with acute diverticulitis and discharged on 04/08 with prescription for p.o. Augmentin. Patient states he felt better when he went home. He cooked pork chops and ate for dinner. Patient subsequently started having pain again on . It is located on the left lower quadrant, progressive in onset, nonradiating and without any relieving factors. Also has associated nausea and vomiting. No fever, chills, chest discomfort, palpitations, shortness of breath, changes in urinary habits. In the emergency department, patient was found to be septic and imaging concerning for worsened appearance of diverticulitis hospital course: Patient was admitted for sepsis due to acute recurrent diverticulitis. He was treated with IV Zosyn. Symptoms improved. He was able to tolerate solid diet eventually. He will be discharged on 7 more days of levofloxacin and Flagyl. He will follow up with Gastroenterology as outpatient. For incidental finding of hypodensities on the liver, these are likely hemangiomas and benign cysts has been seen previously. Recommendations are for outpatient MRI liver protocol. For prediabetes and obesity weight loss recommended. Patient is feeling better will be discharged home. Time Attestation Discharge coordination time: Greater than 30 minutes Quality: Safe Use of Opioids Does Pt have an Active Cancer Diagnosis on the Problem List?: No Quality: Stroke Does the patient have a stroke diagnosis?: No Physical Exam Vital Signs: Vital Signs: Last Vital Signs Temp 97.4 F 04/13/23 06:45 Pulse 63 04/13/23 06:45 Resp 17 04/13/23 06:45 BP 103/50 L 04/13/23 06:45 Pulse Ox 98 04/13/23 06:45 O2 Del Method Room Air 04/13/23 06:45 BMI result Body Mass Index 36.9 General: AO X 3, no acute distress Resp: CTA bilateral, no accessory muscles used CVS: S1,S2,RRR GI: soft, non tender, non distended Neuro: motor grossly intact, alert Psych: appropriate affect, appropriate insight DS: Data Data Completed and Pending Labs on day of discharge: Laboratory Results - last 24 hr 04/13/23 05:22 WBC 10.8 RBC 4.77 Hgb 13.2 L Hct 40.5 L MCV 84.9 MCH 27.7 MCHC 32.6 RDW 13.8 Plt Count 252 MPV 9.6 Absolute Nucleated RBC 0.000 Nucleated RBC % (auto) 0.0 Sodium 140 Potassium 3.6 Chloride 107 Carbon Dioxide 26 Anion Gap 11 L BUN 7 L Creatinine 1.09 Estim Creat Clear Calc 96.2 Estimated GFR > 60 Fasting Glucose 104 H Calcium 8.6 Preliminary micro results at discharge 04/12/23 04:59 Blood Culture - Preliminary Blood - Venous No growth after 24 hours. 04/12/23 04:58 Blood Culture - Preliminary Blood - Venous No growth after 24 hours. Discharge Plan Discharge Anticipated Discharge Date/Time: 04/13/23 13:23 Patient Disposition: Home, Self-Care Discharge Diagnosis: dvierticulitis Referrals: Carlos Mcdonald, PROJECTION WELDING MACHINE OPERATOR-BC [Primary Care Provider] - 1 Week Discharge Medications: New levofloxacin 750 mg tablet 750 mg PO DAILY Qty: 7 0RF metronidazole 500 mg tablet 500 mg PO Q8H Qty: 21 0RF Continued tramadol 50 mg tablet 50 mg PO Q8H PRN (Reason: pain) docusate sodium 100 mg capsule 200 - 300 mg PO DAILY PRN (Reason: Constipation) Discontinued amoxicillin-pot clavulanate 875-125 mg tablet 1 tab PO BID Qty: 16 0RF Discharge Orders: Discharge Order (Routine); Ordered 04/13/23 Ordered By: Tonio Guzman Diet: Advance to usual diet Activity on Discharge: As tolerated Stand Alone Forms: Patient Portal Discharge page Care Plan Goals: recovery Health Concerns: recurrent diverticulitis Plan of Treatment: levaquin flagyl for 1 week, follow up with gi as outpatient Assessment: see above
== END 2023-04-13 13:42 | disposition home or self-care (01) | DRG 872 ==
LOC: HO.ED 01:33 → HO.EDOVER 04:15 → HO.S3 13:32
PROVIDERS: Admitting Provider Student in an Organized Health Care Education/Training Program; Emergency Provider Internal Medicine; PCP Nurse Practitioner Family; Visit Provider Internal Medicine
DX: A41.9 Sepsis, unspecified organism (principal); K57.32 Diverticulitis of large intestine without perforation or abscess without bleeding; E66.9 Obesity, unspecified; K76.89 Other specified diseases of liver; R73.03 Prediabetes; Z68.37 Body mass index [BMI] 37.0-37.9, adult; Z79.899 Other long term (current) drug therapy
CPT/HCPCS: 36415; 74177; 80048; 80053; 83605; 83690; 85025; 85027; 87040; 99285; J1650; J2270; J2405; J2543; Q9967

== ENCOUNTER → 2023-04-12 04:11 | Outpatient (BNV) | payer OTHER, SELFPAY | PROVIDERS: Admitting Provider Student in an Organized Health Care Education/Training Program; Emergency Provider Internal Medicine; PCP Nurse Practitioner Family; Visit Provider Student in an Organized Health Care Education/Training Program | DX: K57.92 Diverticulitis of intestine, part unspecified, without perforation or abscess without bleeding (principal); Z90.49 Acquired absence of other specified parts of digestive tract | CPT/HCPCS: 99222; 99238; 99499 ==

== ENCOUNTER 2023-05-16 10:02 | Outpatient (AMB) | payer OTHER, SELFPAY ==
--- NOTE | 2023-05-16 10:03 | MHC.OFFVIS ---
Intake Intake Visit Reasons: Hospital follow up Intake Note: Gustavo presents as a phone call. CC: He states that her has no main concerns at this time but the Ed told him to speak with a GI specialist. Shore Worker Required: No Allergies No Known Allergies Allergy (Verified 05/16/23 10:03) HPI Hospital follow up HPI Details 52-year-old male with a history of prediabetes , diverticulitis with 2 bowel resections who I am calling for f/u for diverticulitis RECAP: I saw him as in patient 04/05 He presented with 8/10 left lower quadrant pain times 2-3 days with vomiting. Pain is left-sided and upper abdomen, and comes on and off without any particular exacerbating factors or relievers. He denied diarrhea, dark stools or bloody stools. He says this attack feels simialr to prior attacks of diverticulitis in the past. Imaging: Ct with diverticulitis, indeterminate liver lesions--similar to prior, personally reivewed, look like simple cysts INTERIM: he feels well no abdominal pain appetite good needs colonoscopy PCP ordered MRI but he really doesnt want to do an MRI for the liver work up, a/P: 1/ diverticulitis, needs colonoscopy 2/ Liver lesions, appear to be simple cysts but last Ct report radiologist was unable to r/o more serious path PLAN: 1/ will get triple phase CT, pt is unable to go for MRI 2/ colonoscopy--he has colyte at home [facility] Medical History Dislocated shoulder Pyelonephritis Morbid obesity Cholecystectomy planned Chronic back pain History of prediabetes Diverticulitis Surgical History S/P cholecystectomy History of partial colectomy History of hip surgery Social History Household Members: None Housing: Apartment Housing Other:: one flight of stairs Do you presently have visiting nurse or other home services: Yes (POSTING SPECIALIST and occasional VNA) Unable to assess alcohol history related to: Unknown Alcohol intake: current Alcohol intake frequency: holidays/special occasions only Patient Tobacco Use Status: Current everyday Tobacco user Tobacco use type: Cigarette Cigarette Packs Per Day: 0.33 Cigarettes Per Day: 6.6 e-Cigarette/Vaping Use: Never Used Second Hand Smoke Exposure: No Substance Use Type: Marijuana service: No Current occupational status: disabled Current occupational exposures/hazards: No Cognitive needs: No Hearing needs: No Vision needs: Yes Assessment & Plan Assessment & Plan (1) Liver lesion: Code(s): K76.9 - Liver disease, unspecified Plan: as above Orders: Orders CT abdomen wo/w IV con 05/16/23 K76.9 - Liver disease, unspecified Telehealth Telehealth Location of provider rendering services: practice address Location of patient: address on file Patient Identification confirmed using: Name, : Yes Telehealth method: voice only Patient verbally consented to treatment: Yes Patient verbally consented to billing insurance company: Yes Patient informed of any privacy concerns related to visit: Yes Minutes spent on Phone/Video with Pt.: 8 Coding Level of Care Code Tele Est Pt Level 3 (22268) Diagnoses Liver lesion K76.9
== END 2023-05-16 11:49 | disposition home or self-care (01) ==
LOC: HO.HGI 10:02
PROVIDERS: PCP Nurse Practitioner Family; Visit Provider Internal Medicine Gastroenterology
DX: K76.9 Liver disease, unspecified (principal)
CPT/HCPCS: 99441

== ENCOUNTER → 2023-05-16 10:02 | Outpatient (BNVA) | payer OTHER, SELFPAY | PROVIDERS: PCP Nurse Practitioner Family; Visit Provider Internal Medicine Gastroenterology ==

== ENCOUNTER 2023-07-01 06:02 | Outpatient (REF) | payer OTHER, SELFPAY ==
[2023-07-01 11:10] LABS: Prostate Specific Antigen 2.59 ng/mL (<0.05-4.0)
[2023-07-01 11:21] LABS: TSH reflex Free T4 5.27 uIU/mL (0.32-4.0)
[2023-07-01 13:07] LABS: Free T4 (Free Thyroxine) 0.84 ng/dL (0.71-1.85)
[2023-07-02 18:13] LABS: Thyroid Peroxidase Antibodies 35 IU/mL (<9)
== END 2023-07-01 06:03 | disposition home or self-care (01) ==
LOC: HO.HMGCLDS 06:02
PROVIDERS: PCP Nurse Practitioner Family; Referring Provider Nurse Practitioner Family; Visit Provider Nurse Practitioner Family
DX: R97.20 Elevated prostate specific antigen [PSA] (principal); E03.9 Hypothyroidism, unspecified; Z12.5 Encounter for screening for malignant neoplasm of prostate
CPT/HCPCS: 36415; 84153; 84439; 84443; 86376

== ENCOUNTER 2023-07-08 09:19 | Outpatient (AMB) | payer OTHER, SELFPAY ==
--- NOTE | 2023-07-08 09:19 | A.OFFVIS_ITS ---
Intake Visit Reasons: 4m f/u PSA Intake Note: Patient presents today for a tele visit follow-up on: PSA labs PSA: 2.59 Meds: None Allergies to Antibiotic: No Known Allergies Blood Thinner: None Operational Assistant Required: No Allergies No Known Allergies Allergy (Verified 07/08/23 09:27) HPI Comments Details: Gustavo is a very pleasant 52-year-old male patient of Dr. Mcdonald. He has a past medical history of pyelonephritis, morbid obesity, chronic back pain, pre diabetes, and diverticulitis. He is being followed up on today via telehealth for his elevated PSA. In discussion with the patient today he reports to be doing and feeling well. Recent PSA results reviewed with the patient today as noted and trended below. Previous workup has included a retroperitoneal ultrasound noting bilateral kidneys with no calculi or hydronephrosis. Right kidney with a benign 1.8 cm Bosniak class 2 cyst with a single septation which requires no additional follow-up per radiology report. The bladder is partially distended, limiting evaluation. Bilateral ureteral jets are demonstrated. Pre void bladder volume is approximately 130 mL. Postvoid bladder volume is approximately 10 mL. Prostate volume was measured at approximately 20 mL. PSAs are as follows: 09/01 2.9, 02/01 2.1, 07/03 2.6 Discussed at length potential causes of elevated PSA. When asked he continues to deny any bothersome urinary issues or concerns at this time. He does have a family history of prostate cancer. He reports paternal uncle and maternal great uncle with a history of prostate cancer. When asked he otherwise denies urinary urgency, urinary frequency, incontinence, nocturia, hematuria, dysuria, foul smelling urine, changes to urinary stream, flank pain, fever, and or chills. He is happy with his current voiding parameters. [facility] Medical History Dislocated shoulder Pyelonephritis Morbid obesity Cholecystectomy planned Chronic back pain History of prediabetes Diverticulitis Surgical History S/P cholecystectomy History of partial colectomy History of hip surgery Social History Household Members: None Housing: Apartment Housing Other:: one flight of stairs Do you presently have visiting nurse or other home services: Yes (MEDIA STRATEGIST and occasional VNA) Unable to assess alcohol history related to: Unknown Alcohol intake: current Alcohol intake frequency: holidays/special occasions only Patient Tobacco Use Status: Current everyday Tobacco user Tobacco use type: Cigarette Cigarette Packs Per Day: 0.33 Cigarettes Per Day: 6.6 e-Cigarette/Vaping Use: Never Used Second Hand Smoke Exposure: No Substance Use Type: Marijuana service: No Current occupational status: disabled Current occupational exposures/hazards: No Cognitive needs: No Hearing needs: No Vision needs: Yes Review of Systems Const All systems reviewed & are unremarkable except as noted in HPI and below Eyes Reports no additional complaints ENT Reports no additional complaints Card Reports no additional complaints Resp Reports no additional complaints GI Reports no additional complaints Reports as per HPI Musc Reports no additional complaints Neuro Reports no additional complaints Psych Reports no additional complaints Endo Reports as per HPI Caesar/Lymph Reports no additional complaints Aller/Immun Reports no additional complaints Physical Exam Const General: cooperative Resp Effort & Inspection: able to speak in complete sentences Psych Speech and movement: Clear speech present Attitude: cooperative Insight: Fair insight present (Psych) Judgement: Fair judgement present (Psych) Telehealth Telehealth Telehealth Platform: [facility] Location of provider rendering services: practice address Location of patient: address on file Patient Identification confirmed using: Name, : Yes Telehealth method: voice only Patient verbally consented to treatment: Yes Patient verbally consented to billing insurance company: Yes Patient informed of any privacy concerns related to visit: Yes Minutes spent on Phone/Video with Pt.: 15 Assessment & Plan Assessment & Plan (1) Elevated PSA: Code(s): R97.20 - Elevated prostate specific antigen [PSA] Category: Medical (2) Renal cyst: Code(s): N28.1 - Cyst of kidney, acquired Category: Medical Plan Recent PSA results reviewed with the patient today; as noted above. Discussed at length potential causes for borderline elevated PSA. Patient currently denies any bothersome urinary issues or concerns. He is happy with his current voiding parameters. Will obtain PSA in 4 month; for surveillance monitoring; discussed importance of limiting caffeine morning of lab draw, no sex the night before, no heavy lifting 1-2 days prior to lab draw. Follow-up in 4 months with lab to be completed prior; or sooner with any issues, concerns, and or questions. Orders: Orders Prostate Specific Antigen 4 Months R97.20 - Elevated prostate specific antigen [PSA] Patient Instructions: The patient had an opportunity to ask questions regarding the treatment plan. All questions were answered. Physical exam, labs, and imaging were discussed and reviewed in detail. As well as risks, benefits, and discussion of treatment choices. No major barriers to understanding were identified. The patient expressed understanding and agreement with the above treatment plan. The patient was made aware they should contact our office by phone for worsening of their current condition, the appearance of new symptoms, or with any questions or concerns. Compliance is encouraged with any medications and follow up testing that is ordered. It is a privilege to be allowed the opportunity to participate in? your urological care.? Again, if you have any questions or concerns If you have any questions or concerns please do not hesitate to contact me. The office is [phone]. This note is constructed using voice recognition software. While every effort has been made to ensure accuracy digital editor errors may have been included. Yours sincerely, REN Boyd Coding Level of Care Code Tele Est Pt Level 3 (37551) Diagnoses Elevated PSA R97.20 Renal cyst N28.1
== END 2023-07-08 09:52 | disposition home or self-care (01) ==
LOC: HO.HUSH 09:19
PROVIDERS: PCP Nurse Practitioner Family; Visit Provider Nurse Practitioner Family
DX: R97.20 Elevated prostate specific antigen [PSA] (principal); N28.1 Cyst of kidney, acquired
CPT/HCPCS: 99442

== ENCOUNTER → 2023-07-08 09:19 | Outpatient (BNVA) | payer OTHER, SELFPAY | PROVIDERS: PCP Nurse Practitioner Family; Visit Provider Nurse Practitioner Family ==

== ENCOUNTER 2023-08-03 21:56 | Inpatient (IN) | payer OTHER, SELFPAY ==
--- NOTE | ~2023-08-03 | CT_ITS ---
EXAMINATION: CT ABDOMEN AND PELVIS WITH CONTRAST CLINICAL INFORMATION: Left lower quadrant pain. COMPARISON: 04/12/2023 TECHNIQUE: Multidetector volumetric images were obtained from the superior aspect of the liver through the pubic symphysis following administration 85 mL of Omnipaque 350 intravenous contrast. Sagittal and coronal reformatted images were obtained on the technologist's workstation. Oral contrast: No This CT examination was performed using dose optimization techniques as appropriate, variously including the following: *Automated exposure control *Adjustment of mA and/or kV according to patient size (this includes techniques or standardized protocols for targeted exams where dose is matched to indication/reason for exam; i.e. extremities or head) *Use of iterative reconstruction technique DLP: 764 mGy-cm FINDINGS: LUNG BASES: The visualized lung bases are unremarkable. LIVER, GALLBLADDER, AND BILIARY TREE: There are multiple stable hepatic hypodensities. There is no intrahepatic biliary duct dilatation. There has been a prior cholecystectomy. PANCREAS: Unremarkable. SPLEEN: Unremarkable. ADRENAL GLANDS: Unremarkable. KIDNEYS AND URETERS: The kidneys are normal in size, shape, and attenuation. No hydronephrosis, hydroureter, or calculi seen. No perinephric stranding. There is a 1.6 cm cyst upper pole right kidney. BLADDER: Unremarkable. GASTROINTESTINAL TRACT: There has been a partial colectomy. There are diverticula of the transverse and descending colon with distal descending colonic thickening and surrounding infiltration. ABDOMINAL WALL: No significant hernia is appreciated. LYMPH NODES: Normal. VASCULAR: Unremarkable. PELVIC VISCERA: Unremarkable. OSSEOUS STRUCTURES: There is mild diffuse thoracolumbar disc degenerative change. There is moderate right and mild left hip degenerative change. CT/CT abdomen pelvis w IV con IMPRESSION: Diverticulitis of the distal descending colon. Fleischner guidelines were followed.
[2023-08-03 22:32] VITALS: BP 139/104; PULSE 67; RESP 20; TEMP 36.8; O2SAT 98; BMI 36.9
[2023-08-03 23:34] VITALS: BP 147/77; PULSE 65; RESP 16; TEMP 36.6; O2SAT 98
--- NOTE | 2023-08-03 23:37 | ED.ABDPAIN ---
HPI - Abdominal Pain General Chief Complaint: Abdominal Pain Stated Complaint: possible diverticulitis episode Time Seen by Provider: 08/03/23 23:37 Source: patient Mode of arrival: ambulatory Limitations: no limitations History of Present Illness ED Provider: debra LANGE narrative: Patient with history of diverticulitis in the past last episode was 05/03 been having lower abdominal discomfort for last 2 weeks was seen by nurse practitioner at home 3 weeks ago and based on the symptoms started on antibiotics which he took for 10 days patient was feeling better after taking antibiotics but for last 2 days noticed pain coming back again with discomfort in left lower quadrant and nausea and poor appetite no fever no urinary symptoms Related Data Home Medications ?Medication ?Instructions ?Recorded ?Confirmed docusate sodium 100 mg capsule 200 - 300 mg PO DAILY PRN 04/12/23 04/12/23 Constipation Previous Rx's ?Medication ?Instructions ?Recorded tramadol 50 mg tablet 50 mg PO Q8H PRN pain #60 tabs 07/02/23 levothyroxine 25 mcg tablet 25 mcg PO DAILY #90 tabs 07/14/23 Allergies Allergy/AdvReac Type Severity Reaction Status Date / Time No Known Allergies Allergy Verified 08/03/23 22:37 Review of Systems Review of Systems Yes all other systems are reviewed and are negative PMFSH Past Medical History Medical History Dislocated shoulder Pyelonephritis Morbid obesity Cholecystectomy planned Chronic back pain History of prediabetes Diverticulitis Surgical History S/P cholecystectomy History of partial colectomy History of hip surgery Social History Social History Household Members: None Housing: Apartment Housing Other:: one flight of stairs Do you presently have visiting nurse or other home services: Yes (PHOTOENGRAVING SKETCH MAKER and occasional VNA) Unable to assess alcohol history related to: Unknown Alcohol intake: current Alcohol intake frequency: a few times a week Patient Tobacco Use Status: Current everyday Tobacco user Tobacco use type: Cigarette Cigarette Packs Per Day: 0.33 Cigarettes Per Day: 6.6 Smoked in Last 30 Days: No e-Cigarette/Vaping Use: Never Used Second Hand Smoke Exposure: No Use of substances other than those prescribed or required for medical reasons: No Substance Use Type: Marijuana Advance Directives: No Advance Directives Information Provided: No service: No Current occupational status: disabled Current occupational exposures/hazards: No Cognitive needs: No Hearing needs: No Vision needs: Yes Physical Exam ED Vital Signs: Vital Signs - 24 hr 08/03/23 22:32 08/03/23 23:34 08/04/23 01:29 Temperature 98.2 F 97.8 F 98.0 F Pulse Rate 67 65 73 Respiratory Rate 20 16 16 Blood Pressure 139/104 H 147/77 H 128/56 L Pulse Oximetry 98 98 96 Oxygen Delivery Method Room Air Room Air Room Air BMI result Body Mass Index 36.9 Appearance: Alert. Oriented X3. No acute distress. Eyes: No pallor or icterus ENT: Pharynx normal. Oral Mucosa moist Neck: Normal inspection. Neck supple. CVS: Normal heart rate and rhythm. Pulses normal. Respiratory: No respiratory distress. Equal air entry bilateral, no wheezing/rales/rhonchi Abdomen: Soft and tenderness and guarding left lower quadrant no rebound tenderness. Bowel sounds are present, no mass palpable, no CVA tenderness Skin: Skin warm and dry. Normal skin color. Normal skin turgor. Extremities: No lower extremity edema. No calf tenderness No motor deficit. No sensory deficit.No cerebellar signs , cranial nerves II-XII intact Medical Decision Making Medical Decision Making [facility] Narrative: Patient with uncomplicated diverticulitis with lactic acidosis with elevated WBC count with recent antibiotic use will admit patient for further evaluation at this time there is no abscess or perforation patient received IV fluids and antibiotics Differential Diagnosis Differential Diagnoses: The differential diagnosis associated with the presentation includes Diverticulitis/diverticular abscess/bowel perforation Admission/Observation Consideration of admission/observation: Escalation of care including admission/observation considered Consult Healthcare Provider Management of the patient was discussed with: Hospitalist Lab Data [facility] Lab Attestation statement: I reviewed the patient's lab results. 08/03/23 23:55 08/03/23 23:55 Labs: Lab Results 08/03/23 Range/Units 23:55 WBC 17.1 H (4.8-10.8) X10*3/uL RBC 5.52 (4.60-5.80) X10*6/uL Hgb 15.2 (14.0-18.0) g/dl Hct 46.1 (42.0-52.0) % MCV 83.5 (80.0-98.0) fL MCH 27.5 (27.0-33.0) pg MCHC 33.0 (31.0-36.0) g/dl RDW 14.4 (11.0-16.0) % Plt Count 295 (160-400) X10*3/uL MPV 10.1 (9.4-12.4) fL Immature Gran % (Auto) 0.4 (0.0-0.4) % Neut % (Auto) 72.1 (45-73) % Lymph % (Auto) 18.9 L (20-40) % Dickinson % (Auto) 8.0 (2-11) % Eos % (Auto) 0.4 (0-4) % Baso % (Auto) 0.2 (0-2) % Lymph # (Auto) 3.2 (1.2-4.9) X10*3/uL Dickinson # (Auto) 1.4 H (0.1-1.2) X10*3/uL Eos # (Auto) 0.1 (0.0-0.4) X10*3/uL Baso # (Auto) 0.0 (0.0-0.2) X10*3/uL Abs Immat Gran (auto) 0.07 H (0.00-0.03) X10*3/uL Absolute Neuts (auto) 12.3 H (2.0-8.3) x10*3/uL Absolute Nucleated RBC 0.000 (0.0-0.012) X10*3/uL Nucleated RBC % (auto) 0.0 (0.0-0.2) /100WBC Sodium 143 (135-145) mmol/L Potassium 3.7 (3.3-5.1) mmol/L Chloride 108 (96-108) mmol/L Carbon Dioxide 23 (22-29) mmol/L Anion Gap 16 (12-20) BUN 9 (9-16) mg/dL Creatinine 1.18 (0.5-1.4) mg/dL Estim Creat Clear Calc 88.8 Estimated GFR > 60 Random Glucose 119 H (60-115) mg/dL Lactic Acid 4.1 H* (0.5-2.0) mmol/L Calcium 9.6 D (8.4-10.2) mg/dL Total Bilirubin 0.4 (0.0-1.0) mg/dL AST 20 (5-37) U/L ALT 32 (0-40) U/L Alkaline Phosphatase 39 (39-117) U/L Total Protein 7.5 (6.5-8.0) g/dL Albumin 4.1 (3.5-5.0) g/dL Independent Interpretation I performed an independent interpretation of an: CT Scan Radiology Impression Discussion of test interpretation with radiology: I have reviewed the radiologist's reading. Radiologist Impression: CT/CT abdomen pelvis w IV con IMPRESSION: Diverticulitis of the distal descending colon. Fleischner guidelines were followed. Medications Administered Discontinued Medications Generic Name Dose Route Start Last Admin Trade Name Freq PRN Reason Stop Dose Admin Sodium Chloride 1,000 mls @ 999 mls/hr 08/03/23 23:40 08/04/23 00:04 Ns IV 08/04/23 00:40 999 mls/hr .Q1H1M ONE Administration Sodium Chloride 1,000 mls @ 999 mls/hr 08/04/23 00:32 08/04/23 00:51 Ns IV 08/04/23 01:32 999 mls/hr .Q1H1M ONE Administration Piperacillin Sod/Tazobactam 50 mls @ 100 mls/hr 08/04/23 00:32 08/04/23 01:36 Sod 3.375 gm/ Sodium Chloride IV 08/04/23 01:01 Infused ONCE ONE Infusion Iohexol 85 ml 08/04/23 00:44 08/04/23 00:45 Iohexol 350 Mg/Ml 100 Ml Infus..Btl IV 08/04/23 00:45 85 ml ONCE ONE Administration Morphine Sulfate 4 mg 08/03/23 23:58 08/04/23 00:04 Morphine Sulfate 4 Mg/Ml Cartridge IVPUSH 08/03/23 23:59 4 mg ONCE ONE Administration Protocol Ondansetron HCl 4 mg 08/03/23 23:58 08/04/23 00:04 Ondansetron Hcl 4 Mg/2 Ml Vial IVPUSH 08/03/23 23:59 4 mg ONCE ONE Administration Discharge Plan Discharge Clinical Impression: Acute diverticulitis, Acidosis, lactic Patient Disposition: Admitted As Inpatient Print Language: Citizen Of [place]
[2023-08-04] VITALS (10 sets, daily range): BP systolic 114–151; BP diastolic 56–76; PULSE 65–78; RESP 12–20; TEMP 36–36.7; O2SAT 95–99; BMI 36.9
[2023-08-04] MEDS: ondansetron HCL 4 MG/2 ML VIAL IVPUSH (00:04)
[2023-08-04] MEDS: Morphine Sulfate 4 MG/ML CARTRIDGE IVPUSH (00:04)
[2023-08-04] MEDS: 0.9 % Sodium Chloride 1,000 ML 999 ML IV ×2 (00:04→00:51)
[2023-08-04 00:06] LABS: MANUAL DIFF FLAG NO
[2023-08-04 00:16] LABS: Basophils Percent Auto 0.2 % (0-2); Eosinophils Absolute Auto 0.1 X10*3/uL (0.0-0.4); Eosinophils Percent Auto 0.4 % (0-4); Hematocrit 46.1 % (42.0-52.0); Hemoglobin 15.2 g/dl (14.0-18.0); Imm Gran Abs Auto 0.07 X10*3/uL (0.00-0.03); Imm Gran Pct Auto 0.4 % (0.0-0.4); Lymphocytes Absolute Auto 3.2 X10*3/uL (1.2-4.9); Lymphocytes Percent Auto 18.9 % (20-40); Mean Corpuscular Hemoglobin 27.5 pg (27.0-33.0); Mean Corpuscular Volume 83.5 fL (80.0-98.0); Mean Platelet Volume 10.1 fL (9.4-12.4); Monocytes Absolute Auto 1.4 X10*3/uL (0.1-1.2); Neutrophils Absolute Auto 12.3 x10*3/uL (2.0-8.3); Neutrophils Percent Auto 72.1 % (45-73); Platelet Count 295 X10*3/uL (160-400); Red Blood Count 5.52 X10*6/uL (4.60-5.80); Red Cell Distribution Width 14.4 % (11.0-16.0); White Blood Count 17.1 X10*3/uL (4.8-10.8)
[2023-08-04 00:22] LABS: Lactic Acid 4.1 mmol/L (0.5-2.0)
[2023-08-04 00:23] LABS: Alanine Aminotransferase 32 U/L (0-40); Albumin Level 4.1 g/dL (3.5-5.0); Alkaline Phosphatase 39 U/L (39-117); Anion Gap 16 (12-20); Aspartate Amino Transferase 20 U/L (5-37); Bilirubin Total 0.4 mg/dL (0.0-1.0); Blood Urea Nitrogen 9 mg/dL (9-16); Calcium 9.6 mg/dL (8.4-10.2); Carbon Dioxide 23 mmol/L (22-29); Chloride 108 mmol/L (96-108); Creatinine Clr Calc Pharmacy 88.8; Estimated Glomerular Filt Rate > 60; Glucose Random 119 mg/dL (60-115); Potassium 3.7 mmol/L (3.3-5.1); Sodium 143 mmol/L (135-145); Total Protein 7.5 g/dL (6.5-8.0)
--- NOTE | 2023-08-04 00:34 | PC.NURSE ---
pt in ct scan at this time.
[2023-08-04] MEDS: iohexoL 350 MG/ML 100 ML INFUS..BTL 85 ML IV (00:45)
[2023-08-04] MEDS: Piperacillin Sodium/Tazobactam 3.375 GM in 0.9 % Sodium Chloride 50 ML IV ×4 (00:51→17:00)
[2023-08-04 02:02] LABS: Reflex Lactate? Lactic Acid Added
[2023-08-04 03:04] LABS: ~Lactic Acid-LAB USE ONLY 2.5 mmol/L (0.5-2.0)
[2023-08-04 03:20] LABS: Cancel Lactic Acid Canceled
--- NOTE | 2023-08-04 03:20 | PM.IMHP ---
History of Present Illness Date of Service: 08/04/23 Attending physician on admission: Thiago Cline Chief Complaint: Abdominal pain Gustavo Thompson is a 52 years old man with past medical history significant for diverticulitis s/p right colon and sigmoid colectomy ([facility]), s/p cholecystectomy and hypothyroidism is presents to the emergency department complaining of 3 weeks' history of worsening left lower quadrant pain associated with nausea vomiting and soft stools (no diarrhea). He denied fever, chills, headache, palpitations or dizziness. He did not report any acute cardiopulmonary or genitourinary symptoms. Did not report alcohol abuse, tobacco smoking or illicit drug use. In the ED, he was found to have normal vital signs. Blood workup is remarkable for leukocytosis, 17.1. Hemoglobin and platelets are normal. There are no electrolyte imbalances. Renal function and LFTs are normal. Initial lactic acid is 4.1 --> then 2.5. Abdominal pelvis CT scan showed diverticulitis of the distal descending colon. ED tx: NS 2 L bolus, morphine 4 mg IV, Zofran 4 mg IV, IV contrast. Review of Systems Review of Systems: All 12 systems were reviewed and normal except as noted in HPI. 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) Unable to assess alcohol history related to: Unknown Alcohol intake: current Alcohol intake frequency: a few times a week Patient Tobacco Use Status: Current everyday Tobacco user Tobacco use type: Cigarette Cigarette Packs Per Day: 0.33 Cigarettes Per Day: 6.6 Smoked in Last 30 Days: No e-Cigarette/Vaping Use: Never Used Second Hand Smoke Exposure: No Use of substances other than those prescribed or required for medical reasons: No Substance Use Type: Marijuana Advance Directives: No Advance Directives Information Provided: No service: No Current occupational status: disabled Current occupational exposures/hazards: No Cognitive needs: No Hearing needs: No Vision needs: Yes Meds Allergies Allergy/AdvReac Type Severity Reaction Status Date / Time No Known Allergies Allergy Verified 08/03/23 22:37 Active Medications: Current Medications Acetaminophen (Acetaminophen 325 Mg Tablet) 975 mg PO Q6H PRN PRN Reason: Pain, Mild (Pain Scale 1-3), fever or headache Calcium Carbonate (Calcium Carbonate 750 Mg Tab.Chew) 750 mg PO Q4H PRN PRN Reason: Heartburn Docusate Sodium (Docusate Sodium 100 Mg Capsule) 100 mg PO DAILY [facility] Enoxaparin Sodium (Enoxaparin Sodium 40 Mg/0.4 Ml Syringe) 40 mg SUBCUT Q24H [facility] Lactated Ringer's (Lr) 1,000 mls @ 125 mls/hr IVCONT .Q8H [facility] Stop: 08/04/23 15:29 Ketorolac Tromethamine (Ketorolac Tromethamine 15 Mg/Ml Vial) 15 mg IVPUSH Q6H [facility] Stop: 08/04/23 16:01 Levothyroxine Sodium (Levothyroxine Sodium 25 Mcg Tablet) 25 mcg PO DAILY [facility] Magnesium Hydroxide (Milk Of Magnesia 30 Ml Oral.Susp) 30 ml PO DAILY PRN PRN Reason: Constipation Melatonin (Melatonin 3 Mg Tablet) 6 mg PO BEDTIME PRN PRN Reason: Insomnia Sodium Chloride (0.9 % Sodium Chloride Flush 3 Ml Syringe) 3 ml IVFLUSH QSHIFT [facility] Home Medications ?Medication ?Instructions ?Recorded ?Confirmed ?Last Taken ?Type docusate sodium 100 mg capsule 200 - 300 mg PO DAILY PRN 04/12/23 04/12/23 Unknown History Constipation Physical Exam Vital Signs and Narrative: Vital Signs: Last Vital Signs Temp 98.0 F 08/04/23 01:29 Pulse 73 08/04/23 01:29 Resp 16 08/04/23 01:29 BP 128/56 L 08/04/23 01:29 Pulse Ox 96 08/04/23 01:29 O2 Del Method Room Air 08/04/23 01:29 BMI result Body Mass Index 36.9 Constitutional - Awake and Alert, No apparent distress. Obese. Afebrile. HEENT - PERRL, EOMI. Normal sclerae. Dry oral mucosa. Heart - RRR, No murmurs. Lungs - Normal lung expansion, Normal respiratory effort, No respiratory distress, CTA bilaterally Abdomen - Nondistended, increased bowel sounds, left lower quadrant tenderness with guarding. No rebound. - No CVA tenderness Extremities - no calf tenderness bilaterally, no swelling Musculoskeletal - Normal inspection, normal ROM Skin - Warm/Dry Neurological - Alert & oriented x3. No focal weakness grossly noted. Normal speech. Psychological - Appropriate affect Results Labs 08/03/23 23:55 08/03/23 23:55 Labs: Laboratory Results - last 24 hr 08/03/23 08/04/23 23:55 02:42 MCV 83.5 MCH 27.5 MCHC 33.0 RDW 14.4 Plt Count 295 MPV 10.1 Immature Gran % (Auto) 0.4 Neut % (Auto) 72.1 Lymph % (Auto) 18.9 L [place] % (Auto) 8.0 Eos % (Auto) 0.4 Baso % (Auto) 0.2 Lymph # (Auto) 3.2 [place] # (Auto) 1.4 H Eos # (Auto) 0.1 Baso # (Auto) 0.0 Abs Immat Gran (auto) 0.07 H Absolute Neuts (auto) 12.3 H Absolute Nucleated RBC 0.000 Nucleated RBC % (auto) 0.0 Anion Gap 16 Estim Creat Clear Calc 88.8 Estimated GFR > 60 Random Glucose 119 H Lactic Acid 4.1 H* Lactic Acid F/U @ 2Hr 2.5 H* Calcium 9.6 D Total Bilirubin 0.4 AST 20 ALT 32 Alkaline Phosphatase 39 Total Protein 7.5 Albumin 4.1 Imaging Radiologist's Impressions: Impressions Abdomen/Pelvis CT 08/04/23 00:45 IMPRESSION: Diverticulitis of the distal descending colon. Fleischner guidelines were followed. Assessment and Plan (1) Acidosis, lactic: Status: Acute (2) Acute diverticulitis: Status: Acute (3) Hypothyroidism: Qualifiers: Hypothyroidism type: unspecified Qualified Code(s): E03.9 - Hypothyroidism, unspecified Status: Acute Plan Gustavo Thompson is a 52 years old man with past medical history significant for diverticulitis s/p right colon and sigmoid colectomy ([facility]) and cholecystectomy admitted with: Acute diverticulitis. Admit to hospitalist service. Continue IV antibiotic therapy with Zosyn and IV fluids. Pain control with Toradol. Full liquid diet. Leukocytosis and lactic acidosis. However, no serous criteria. No sepsis suspected. Blood culture obtained - will follow results. Continue to monitor WBC count. Hypothyroidism. Continue levothyroxine. Obese. BMI 36.9 kg/m2. Weight loss. DVT prophylaxis: Lovenox Code status: Full Patient will need hospitalization for at least 2 midnights for acute diverticulitis treatment with IV fluids, pain control and empiric IV antibiotic therapy. Quality Stroke Does the patient have a stroke diagnosis?: No VTE Prior VTE?: No VTE Risk Level:: Medical - moderate - high VTE Device Contraindication: Treatment Not Indicated VTE Drug Contraindication: N/A - Med Ordered
[2023-08-04] MEDS: Lactated Ringers 1,000 ML 125 ML IVCONT ×2 (03:56→13:20)
[2023-08-04] MEDS: Ketorolac Tromethamine 15 MG/ML VIAL IVPUSH ×3 (03:56→17:01)
[2023-08-04 04:51] LABS: Basophils Percent Auto 0.2 % (0-2); Eosinophils Absolute Auto 0.1 X10*3/uL (0.0-0.4); Eosinophils Percent Auto 0.5 % (0-4); Hematocrit 43.3 % (42.0-52.0); Hemoglobin 14.2 g/dl (14.0-18.0); Imm Gran Abs Auto 0.05 X10*3/uL (0.00-0.03); Imm Gran Pct Auto 0.4 % (0.0-0.4); Lymphocytes Absolute Auto 3.2 X10*3/uL (1.2-4.9); Lymphocytes Percent Auto 24.3 % (20-40); Mean Corpuscular HGB Conc 32.8 g/dl (31.0-36.0); Mean Corpuscular Hemoglobin 27.5 pg (27.0-33.0); Mean Corpuscular Volume 83.8 fL (80.0-98.0); Mean Platelet Volume 10.5 fL (9.4-12.4); Monocytes Absolute Auto 1.1 X10*3/uL (0.1-1.2); Monocytes Percent Auto 8.1 % (2-11); Neutrophils Absolute Auto 8.7 x10*3/uL (2.0-8.3); Neutrophils Percent Auto 66.5 % (45-73); PLT CLUMP 1; Red Blood Count 5.17 X10*6/uL (4.60-5.80); Red Cell Distribution Width 14.4 % (11.0-16.0); SCAN SMEAR FLAG 1
[2023-08-04 04:52] LABS: MANUAL DIFF FLAG NO; White Blood Count 13.1 X10*3/uL (4.8-10.8)
[2023-08-04 05:04] LABS: Anion Gap 18 (12-20); Blood Urea Nitrogen 7 mg/dL (9-16); Calcium 8.4 mg/dL (8.4-10.2); Carbon Dioxide 20 mmol/L (22-29); Chloride 108 mmol/L (96-108); Estimated Glomerular Filt Rate > 60; Glucose Random 106 mg/dL (60-115); Potassium 4.1 mmol/L (3.3-5.1); Sodium 142 mmol/L (135-145)
[2023-08-04 05:07] LABS: Platelet Count 233 X10*3/uL (160-400)
[2023-08-04] MEDS: Levothyroxine Sodium 25 MCG TABLET PO ×2 (06:35→10:49)
--- NOTE | 2023-08-04 06:35 | PC.NURSE ---
ivf paused for abx infusion as pt only has 1 iv. pt medicated per apr. pt resting comfortably in stretcher, denies pain at this time. denies n/v/d at this time. nsr on monitor. call simon within reach.
--- NOTE | 2023-08-04 07:59 | PC.NURSE ---
assumed care of pt at 0700, pt a&ox4, resting quietly in bed, reporting tolerating 4/10 discomfort - improved from yesterday. LR restarted at 125ml/hr. denies any needs at this time. pt pending bed assignment.
--- NOTE | 2023-08-04 08:36 | PHA.MEDREC ---
Pharmacy Consult ? Medication Reconciliation Pharmacy has completed the medication reconciliation. Spoke to patient to confirm med list. Patient states he takes Docusate 100 mg bid as needed, however he has been needing it everyday. patient also confirmed he takes Tramadol 50 mg q 8 h prn only as needed. His last dose was on 07-26-23.
[2023-08-04] MEDS: Docusate Sodium 100 MG CAPSULE PO (08:41)
[2023-08-04] MEDS: Enoxaparin Sodium 40 MG/0.4 ML SYRINGE SUBCUT (08:41)
--- NOTE | 2023-08-04 09:38 | P.EN_ITS ---
Event Note Date of Service: 08/05/23 Event Note: Seen/examined, admitted this morning for acute diverticultisis, doing better 52 years old man with past medical history significant for diverticulitis s/p right colon and sigmoid colectomy ([facility]) and cholecystectomy admitted with: Acute diverticulitis--without complications -IV Zosyn, IVF, liquid diet. GI consult if not improving Leukocytosis and lactic acidosis. However, no serous criteria. No sepsis suspected. Blood culture obtained - will follow results. Continue to monitor WBC count. Hypothyroidism. Continue levothyroxine. Obese. BMI 36.9 kg/m2. Weight loss. DVT Prophylaxis lovenoox Time Spent With Patient Time: Total time managing care of this patient today ____ minutes.
--- NOTE | 2023-08-04 11:23 | P.CDIM_ITS ---
PROVIDER RESPONSE TEXT: To clarify, the appropriate diagnosis supported by the clinical indicators: Acute QUERY TEXT: PHYSICIAN'S DOCUMENTATION REQUEST Date of Query: 08/04/2023 10:43 AM EDT Patient Name: Gustavo Thompson Admit Date: 08/04/2023 Dear Haris Garcia, A review of the medical record indicates additional documentation may be needed. Please review below and update the documentation accordingly. Clinical Indicators: LA 4.1 Per Hospitalist Progress Note : Lactic acidosis Clarify which of the following accurately represents the acuity of the Lactic acidosis. Possible options might include: Acute Acute on chronic Compensated Chronic stable condition Remission Other (explain) Clinically unable to determine (explain) Thank you, Nora Mcleod RN Use of terms such as suspected, likely, concern for, or probable (associated with a specific diagnosi s that is being evaluated, monitored, or treated as if it exists) are acceptable and can be coded in the inpatient se tting, when documented at the time of discharge. Please use your independent medical judgment in providing your response. THIS QUERY IS PART OF THE PERMANENT MEDICAL RECORD
[2023-08-04] MEDS: 0.9 % Sodium Chloride Flush 3 ML SYRINGE IVFLUSH ×2 (17:01→21:48)
[2023-08-04] MEDS: Acetaminophen 325 MG TABLET 975 MG PO (19:32)
[2023-08-04] MEDS: Melatonin 3 MG TABLET 6 MG PO (21:44)
[2023-08-05] MEDS: Piperacillin Sodium/Tazobactam 3.375 GM in 0.9 % Sodium Chloride 50 ML IV ×2 (00:32→06:21)
[2023-08-05 03:21] VITALS: BP 110/62; PULSE 65; RESP 19; TEMP 36.3; O2SAT 97
[2023-08-05] MEDS: Levothyroxine Sodium 25 MCG TABLET PO (06:22)
[2023-08-05 07:35] VITALS: BP 143/73; PULSE 65; RESP 20; TEMP 36.2; O2SAT 99
[2023-08-05] MEDS: Enoxaparin Sodium 40 MG/0.4 ML SYRINGE SUBCUT (08:23)
[2023-08-05] MEDS: Docusate Sodium 100 MG CAPSULE PO (08:23)
--- NOTE | 2023-08-05 09:36 | P.DS_ITS ---
DS: Providers Provider Date of Service: 08/05/23 Date of admission: 08/04/23 03:13 Primary care physician: ROGELIO Mckeon DS: Diagnosis Discharge Diagnosis (1) Acidosis, lactic: Status: Acute (2) Acute diverticulitis: Status: Acute (3) Hypothyroidism: Status: Acute DS: Summary Hospital Course Hospital Course: Chief Complaint: Abdominal pain Gustavo Thompson is a 52 years old man with past medical history significant for diverticulitis s/p right colon and sigmoid colectomy ([facility]), s/p cholecystectomy and hypothyroidism is presents to the emergency department complaining of 3 weeks' history of worsening left lower quadrant pain associated with nausea vomiting and soft stools (no diarrhea). He denied fever, chills, headache, palpitations or dizziness. He did not report any acute cardiopulmonary or genitourinary symptoms. Did not report alcohol abuse, tobacco smoking or illicit drug use. In the ED, he was found to have normal vital signs. Blood workup is remarkable for leukocytosis, 17.1. Hemoglobin and platelets are normal. There are no electrolyte imbalances. Renal function and LFTs are normal. Initial lactic acid is 4.1 --> then 2.5. Abdominal pelvis CT scan showed diverticulitis of the distal descending colon. ED tx: NS 2 L bolus, morphine 4 mg IV, Zofran 4 mg IV, IV contrast. Hospital course: He presented with abdominal pain and was diagnosed with uncomplicated acute diverticulitis. He was treated with IV Zosyn and responded well; his pain is now negligible and his WBC count is normal. He is tolerating a regular diet, so his antibiotics will be switched to Augmentin XR 1000 mg twice daily for a total of 10 days. He will follow up with GI (Dr. Hancock) on an outpatient basis for a screening colonoscopy. Time Attestation Discharge Coordination Time (in mins): 45 Quality: Safe Use of Opioids Does Pt have an Active Cancer Diagnosis on the Problem List?: No Quality: Stroke Does the patient have a stroke diagnosis?: No Physical Exam Vital Signs: Vital Signs: Last Vital Signs Temp 97.1 F 08/05/23 07:35 Pulse 65 08/05/23 07:35 Resp 20 08/05/23 07:35 BP 143/73 H 08/05/23 07:35 Pulse Ox 99 08/05/23 07:35 O2 Del Method Room Air 08/05/23 07:35 BMI result Body Mass Index 36.9 General: AO X 3, no acute distress Resp: CTA bilateral CVS: S1,S2,RRR GI: +BS, NT, no distention Skin: No rash Neuro: motor grossly intact Psych: appropriate affect DS: Data Data Completed and Pending Labs on day of discharge: Preliminary micro results at discharge 08/04/23 00:22 Blood Culture - Preliminary Blood - Arterial No growth after 24 hours. 08/03/23 23:55 Blood Culture - Preliminary Blood - Arterial No growth after 24 hours. Discharge Plan Discharge Anticipated Discharge Date/Time: 08/05/23 10:10 Patient Disposition: Home, Self-Care Discharge Diagnosis: Acute colonic diverticulitis Referrals: Carlos Mcdonald FNP-BC [Primary Care Provider] - 1 Week Discharge Medications: New amoxicillin-pot clavulanate [Augmentin XR] 1,000-62.5 mg tablet extended release 12 hr 1 tab PO BID Qty: 17 0RF Continued tramadol 50 mg tablet 50 mg PO Q8H PRN (Reason: pain) Qty: 60 0RF levothyroxine 25 mcg tablet 25 mcg PO DAILY@0600 docusate sodium 100 mg capsule 100 mg PO BID PRN (Reason: Constipation) Discharge Orders: Discharge Order (Routine); Ordered 08/05/23 Ordered By: Haris Garcia Diet: Advance to usual diet Activity on Discharge: As tolerated Stand Alone Forms: Patient Portal Discharge page Print Language: Afghan Care Plan Goals: resolution of diverticulitis Health Concerns: diverticulitis Plan of Treatment: Take Augmentin as recommended and follow up with Dr. Hancock ([employer]) as previously schedule, you may call the office for earlier appointment Assessment: see above Discharge Date/Time: 08/05/23 15:26
[2023-08-05 10:37] LABS: Hematocrit 40.1 % (42.0-52.0); Mean Corpuscular HGB Conc 32.4 g/dl (31.0-36.0); Mean Corpuscular Hemoglobin 27.4 pg (27.0-33.0); Mean Corpuscular Volume 84.4 fL (80.0-98.0); Mean Platelet Volume 10.1 fL (9.4-12.4); Platelet Count 235 X10*3/uL (160-400); Red Blood Count 4.75 X10*6/uL (4.60-5.80); White Blood Count 6.6 X10*3/uL (4.8-10.8)
[2023-08-05] MEDS: Amoxicillin/Potassium Clav 875 MG TABLET PO (11:00)
[2023-08-05 11:13] VITALS: BP 128/68; PULSE 71; RESP 20; TEMP 36.6; O2SAT 99
--- NOTE | 2023-08-05 12:20 | MHC.CM.PN ---
IMM 08/05/23 Male lives alone with assist from Private duty [employer]FA[employer]URING HEL[employer]. He uses a cane. DP home resume [employer]FA[employer]ING [employer]. private transport.
== END 2023-08-05 15:26 | disposition home or self-care (01) | DRG 392 ==
LOC: HO.ED 08-04 01:48 → HO.EDOVER 08-04 03:19 → HO.IMC 08-04 14:43
PROVIDERS: Admitting Provider Internal Medicine; Emergency Provider Internal Medicine; PCP Nurse Practitioner Family; Visit Provider Internal Medicine
DX: K57.32 Diverticulitis of large intestine without perforation or abscess without bleeding (principal); E87.21 Acute metabolic acidosis; E03.9 Hypothyroidism, unspecified; E66.9 Obesity, unspecified; Z68.36 Body mass index [BMI] 36.0-36.9, adult; F17.210 Nicotine dependence, cigarettes, uncomplicated; Z71.6 Tobacco abuse counseling; Z79.890 Hormone replacement therapy; Z79.899 Other long term (current) drug therapy
CPT/HCPCS: 36415; 74177; 80048; 80053; 83605; 85025; 85027; 87040; 99285; J1650; J1885; J2270; J2405; J2543; J7120; Q9967

== ENCOUNTER → 2023-08-04 03:13 | Outpatient (BNV) | payer OTHER, SELFPAY | PROVIDERS: Admitting Provider Internal Medicine; Emergency Provider Internal Medicine; PCP Nurse Practitioner Family; Visit Provider Internal Medicine | DX: E87.20 Acidosis, unspecified (principal); K57.92 Diverticulitis of intestine, part unspecified, without perforation or abscess without bleeding; E03.9 Hypothyroidism, unspecified | CPT/HCPCS: 99223; 99239; 99499 ==

== ENCOUNTER 2023-08-19 13:11 | Emergency (ER) | payer OTHER, SELFPAY ==
[2023-08-19 14:27] VITALS: BP 143/83; PULSE 64; RESP 16; TEMP 36.8; O2SAT 97; BMI 36.5
--- NOTE | 2023-08-19 14:28 | ED.GENADULT ---
HPI - General Adult General Chief complaint: Abdominal Pain Stated complaint: diverticulitis flare up Time Seen by Provider: 08/19/23 19:26 Source: patient, RN notes reviewed and old records reviewed Mode of arrival: ambulatory Limitations: no limitations History of Present Illness ED Provider: Socorro LANGE narrative: 52-year-old male presents for evaluation of left lower abdominal pain that started 2 days ago. He was admitted on 08/04/23 for diverticulitis with an elevated lactic acidosis. He was treated with IV Zofran ultimately discharged home on Augmentin. He completed the course in his symptoms resolved. After complaining of antibiotic about a week later his symptoms returned with mild left lower abdominal pain. He states that he does not have any fevers, chills, lightheadedness, nausea, vomiting on this occasion that he had a few weeks ago He does have 2 previous partial colectomy due to diverticulitis Related Data Home Medications ?Medication ?Instructions ?Recorded ?Confirmed docusate sodium 100 mg capsule 100 mg PO BID PRN Constipation 04/12/23 08/04/23 levothyroxine 25 mcg tablet 25 mcg PO DAILY@0600 08/04/23 08/04/23 Previous Rx's ?Medication ?Instructions ?Recorded amoxicillin-potassium clavulanate 1 tab PO BID #17 tabs 08/05/23 1,000 mg-62.5 mg tablet,ext.rel 12hr (Augmentin XR) tramadol 50 mg tablet 50 mg PO Q8H PRN pain #60 tabs 08/11/23 ciprofloxacin HCl 500 mg tablet 500 mg PO Q12H #20 tabs 08/19/23 metronidazole 500 mg tablet 500 mg PO Q12H #20 tabs 08/19/23 Allergies Allergy/AdvReac Type Severity Reaction Status Date / Time No Known Allergies Allergy Verified 08/19/23 14:30 Review of Systems Constitutional: Constitutional: Denies body ache(s), Denies chills and Denies fever(s) Eyes: Eyes: Denies blurry vision ENT: Denies vertigo Cardiovascular: Cardiovascular: Denies chest pain and Denies dyspnea Respiratory: Respiratory: Denies cough and Denies dyspnea Gastrointestinal: Gastrointestinal: Reports abdominal pain, Denies hematochezia, Denies diarrhea, Denies loose stools, Denies nausea and Denies vomiting Musculoskeletal: Musculoskeletal: Denies back pain Integumentary/Breasts: Skin/Breast: Denies rash Neurologic: Denies vertigo [facility] Past Medical History Medical History Dislocated shoulder Pyelonephritis Morbid obesity Cholecystectomy planned Chronic back pain History of prediabetes Diverticulitis Surgical History S/P cholecystectomy History of partial colectomy History of hip surgery Social History Social History Household Members: None Housing: Apartment Housing Other:: one flight of stairs Do you presently have visiting nurse or other home services: Yes ([employer]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) Unable to assess alcohol history related to: Unknown Alcohol intake: current Alcohol intake frequency: a few times a week Patient Tobacco Use Status: Current everyday Tobacco user Tobacco use type: Cigarette Cigarette Packs Per Day: 0.33 Cigarettes Per Day: 6.6 e-Cigarette/Vaping Use: Never Used Second Hand Smoke Exposure: No Substance Use Type: Marijuana Advance Directives: No Advance Directives Information Provided: No service: No Current occupational status: disabled Current occupational exposures/hazards: No Cognitive needs: No Hearing needs: No Vision needs: Yes Physical Exam ED Vital Signs: Vital Signs - 24 hr 08/19/23 14:27 08/19/23 19:23 08/19/23 19:39 Temperature 98.2 F 98.3 F 98.3 F Pulse Rate 64 60 60 Respiratory Rate 16 18 18 Blood Pressure 143/83 H 149/92 H 142/98 H Pulse Oximetry 97 98 98 Oxygen Delivery Method Room Air Room Air Room Air BMI result Body Mass Index 36.5 Const General: healthy appearing, comfortable, no acute distress, alert and awake Nutritional Appearance: well nourished Orientation/consciousness: patient oriented x3 HENMT Head: Yes normocephalic and Yes atraumatic Eyes Eyelids: Yes eyelids normal Conjunctivae: conjunctivae normal Sclerae: sclerae normal Corneas: corneas normal Pupils: Equal, round and reactive pupils present EOM: EOMs intact bilaterally Neck Neck: Yes full ROM Resp Effort & Inspection: normal respiratory effort, able to speak in complete sentences and not labored Cardio Rate: regular rate Rhythm: regular rhythm GI Inspection: No distended Palpation (GI): Soft to palpation, not firm, Tenderness to palpation present (GI) in the LLQ, no guarding and not rigid Auscultation: normoactive bowel sounds Skin General skin exam: elasticity normal Neuro General: patient oriented x3 Cranial nerves: Yes Equal, round and reactive pupils present and Yes Bilaterally intact EOM present Cognition (Neuro): normal cognition Extrem Other: Moving all extremities well without any obvious deformities Course Course Course Narrative: RME, this is a rapid medical exam performed by Dariel Quintanilla please refer to primary provider for complete H&P- 52-year-old male presents for evaluation of mild left lower abdominal pain. He was admitted here on 08/04/2023 with an acute diverticulitis flare. He was discharged with Augmentin. Patient reports feeling better but his pain started to return yesterday. He does not feel sick he has not had any vomiting. He denies any fevers. Plan for repeat labs Medical Decision Making Medical Decision Making MDM Narrative: 52-year-old male with past medical history as documented above presents for evaluation of abdominal pain. He does have a lengthy history of diverticulitis with complications into previous surgical resection related to diverticulitis. His physical exam is reassuring, he has tenderness without distention or guarding, no rebound tenderness either. His vital signs are stable, he has no leukocytosis. Given that he appears well with a reassuring exam, reassuring labs and vital signs, I do not feel it is appropriate to repeat a CT scan this time. I will prescribe ciprofloxacin and metronidazole given his lengthy history of diverticulitis with complications but given that he is not septic and I have a low suspicion for complicated diverticulitis at this time we will defer imaging. He was given return precautions Differential Diagnosis Differential Diagnoses: The differential diagnosis associated with the presentation includes Abdominal pain Constipation Diverticulitis Colitis Bowel perforation less likely Lab Data MDM Lab Attestation statement: I reviewed the patient's lab results. No leukocytosis or anemia. No left shift. Normal platelet count. No electrolyte abnormalities. 08/19/23 14:38 08/19/23 14:38 Labs: Lab Results 08/19/23 Range/Units 14:38 WBC 8.9 (4.8-10.8) X10*3/uL RBC 5.57 (4.60-5.80) X10*6/uL Hgb 15.4 (14.0-18.0) g/dl Hct 47.7 (42.0-52.0) % MCV 85.6 (80.0-98.0) fL MCH 27.6 (27.0-33.0) pg MCHC 32.3 (31.0-36.0) g/dl RDW 14.5 (11.0-16.0) % Plt Count 292 (160-400) X10*3/uL MPV 9.5 (9.4-12.4) fL Immature Gran % (Auto) 0.2 (0.0-0.4) % Neut % (Auto) 53.4 (45-73) % Lymph % (Auto) 36.2 (20-40) % [place] % (Auto) 8.7 (2-11) % Eos % (Auto) 1.0 (0-4) % Baso % (Auto) 0.5 (0-2) % Lymph # (Auto) 3.2 (1.2-4.9) X10*3/uL [place] # (Auto) 0.8 (0.1-1.2) X10*3/uL Eos # (Auto) 0.1 (0.0-0.4) X10*3/uL Baso # (Auto) 0.0 (0.0-0.2) X10*3/uL Abs Immat Gran (auto) 0.02 (0.00-0.03) X10*3/uL Absolute Neuts (auto) 4.7 (2.0-8.3) x10*3/uL Absolute Nucleated RBC 0.000 (0.0-0.012) X10*3/uL Nucleated RBC % (auto) 0.0 (0.0-0.2) /100WBC Sodium 142 (135-145) mmol/L Potassium 4.8 (3.3-5.1) mmol/L Chloride 106 (96-108) mmol/L Carbon Dioxide 28 (22-29) mmol/L Anion Gap 13 (12-20) BUN 8 L (9-16) mg/dL Creatinine 1.17 (0.5-1.4) mg/dL Estim Creat Clear Calc 89.0 Estimated GFR > 60 Random Glucose 99 (60-115) mg/dL Calcium 10.0 D (8.4-10.2) mg/dL Total Bilirubin 0.2 (0.0-1.0) mg/dL AST 21 (5-37) U/L ALT 34 (0-40) U/L Alkaline Phosphatase 33 L (39-117) U/L Total Protein 7.2 (6.5-8.0) g/dL Albumin 4.2 (3.5-5.0) g/dL Lipase 35 (8-78) U/L Urine Color Yellow Urine Appearance Clear Urine pH 5.5 (5.0-9.0) Ur Specific [place] 1.025 (1.005-1.025) Urine Protein Negative (Neg-Trace) mg/dL Urine Glucose (UA) Negative (Negative) mg/dL Urine Ketones Trace (Negative) mg/dL Urine Blood Negative (Negative) Urine Nitrite Negative (Negative) Ur Leukocyte Esterase Trace H (Negative) Urine RBC 0-2 (0-2) /HPF Urine WBC 0-5 (0-5) /HPF Ur Squamous Epith Cells 0-2 (0-2) /HPF Urine Bacteria None Seen (None Seen) Hyaline Casts 0-2 (0-2) /LPF Discharge Plan Discharge Clinical Impression: Abdominal pain Patient Disposition: Home, Self-Care Instructions: Diverticulitis (ED) Additional Instructions: Your workup in the ER today was reassuring. Your white blood cell count was not elevated. Your vital signs were reassuring It is possible that you are beginning to have another diverticulitis flare I recommend taking ciprofloxacin and metronidazole as prescribed for 10 days Do not drink alcohol while taking these medications You should not be overly active while taking ciprofloxacin as it can cause tendon injury Return for new or worsening symptoms, especially fever or severe abdominal pain Prescriptions: New ciprofloxacin HCl 500 mg tablet 500 mg PO Q12H Qty: 20 0RF metronidazole 500 mg tablet 500 mg PO Q12H Qty: 20 0RF No Action tramadol 50 mg tablet 50 mg PO Q8H PRN (Reason: pain) Qty: 60 0RF levothyroxine 25 mcg tablet 25 mcg PO DAILY@0600 amoxicillin-pot clavulanate [Augmentin XR] 1,000-62.5 mg tablet extended release 12 hr 1 tab PO BID Qty: 17 0RF docusate sodium 100 mg capsule 100 mg PO BID PRN (Reason: Constipation) Interventions: ED Discharge Assessment Last Done: 08/19/23 19:39 Discharge Date/Time: 08/19/23 19:42 Print Language: [place]
[2023-08-19 14:48] LABS: MANUAL DIFF FLAG NO
[2023-08-19 14:49] LABS: Basophils Percent Auto 0.5 % (0-2); Eosinophils Absolute Auto 0.1 X10*3/uL (0.0-0.4); Hematocrit 47.7 % (42.0-52.0); Hemoglobin 15.4 g/dl (14.0-18.0); Imm Gran Abs Auto 0.02 X10*3/uL (0.00-0.03); Imm Gran Pct Auto 0.2 % (0.0-0.4); Lymphocytes Absolute Auto 3.2 X10*3/uL (1.2-4.9); Lymphocytes Percent Auto 36.2 % (20-40); Mean Corpuscular HGB Conc 32.3 g/dl (31.0-36.0); Mean Corpuscular Hemoglobin 27.6 pg (27.0-33.0); Mean Corpuscular Volume 85.6 fL (80.0-98.0); Mean Platelet Volume 9.5 fL (9.4-12.4); Monocytes Absolute Auto 0.8 X10*3/uL (0.1-1.2); Monocytes Percent Auto 8.7 % (2-11); Neutrophils Absolute Auto 4.7 x10*3/uL (2.0-8.3); Neutrophils Percent Auto 53.4 % (45-73); Platelet Count 292 X10*3/uL (160-400); Red Blood Count 5.57 X10*6/uL (4.60-5.80); Red Cell Distribution Width 14.5 % (11.0-16.0); White Blood Count 8.9 X10*3/uL (4.8-10.8)
[2023-08-19 14:51] LABS: Appearance Urine Clear; Color Urine Yellow; Glucose Urine UA Negative (Negative); Leukocyte Esterase Urine Trace (Negative); Nitrite Urine Negative (Negative); PH 5.5 (5.0-9.0); Specific Gravity - Urine 1.025 (1.005-1.025); UMIC TRIGGER UACC YES; Urine Blood Negative (Negative); Urine Ketones Trace mg/dL (Negative); Urine Protein Negative (Neg-Trace)
[2023-08-19 14:54] LABS: Bacteria Urine None Seen (None Seen); Hyaline Casts Urine 0-2 /LPF (0-2); RBC Urine 0-2 /HPF (0-2); Squamous Epithelial Cell Urine 0-2 /HPF (0-2); WBC Urine 0-5 /HPF (0-5)
[2023-08-19 15:12] LABS: Alanine Aminotransferase 34 U/L (0-40); Albumin Level 4.2 g/dL (3.5-5.0); Alkaline Phosphatase 33 U/L (39-117); Anion Gap 13 (12-20); Aspartate Amino Transferase 21 U/L (5-37); Bilirubin Total 0.2 mg/dL (0.0-1.0); Blood Urea Nitrogen 8 mg/dL (9-16); Carbon Dioxide 28 mmol/L (22-29); Chloride 106 mmol/L (96-108); Estimated Glomerular Filt Rate > 60; Glucose Random 99 mg/dL (60-115); Lipase 35 U/L (8-78); Potassium 4.8 mmol/L (3.3-5.1); Sodium 142 mmol/L (135-145); Total Protein 7.2 g/dL (6.5-8.0)
[2023-08-19 19:23] VITALS: BP 149/92; PULSE 60; RESP 18; TEMP 36.8; O2SAT 98
[2023-08-19 19:39] VITALS: BP 142/98; PULSE 60; RESP 18; TEMP 36.8; O2SAT 98
== END 2023-08-19 19:42 | disposition home or self-care (01) ==
PROVIDERS: Physician Assistant; Emergency Provider Emergency Medicine; PCP Nurse Practitioner Family
DX: R10.32 Left lower quadrant pain (principal); Z87.19 Personal history of other diseases of the digestive system; Z79.899 Other long term (current) drug therapy; Z90.49 Acquired absence of other specified parts of digestive tract
CPT/HCPCS: 36415; 80053; 81001; 83690; 85025; 99282; 99283

== ENCOUNTER 2023-08-30 06:33 | Outpatient (REF) | payer OTHER, SELFPAY ==
[2023-08-30 11:58] LABS: Alanine Aminotransferase 59 U/L (0-40); Alkaline Phosphatase 32 U/L (39-117); Anion Gap 15 (12-20); Aspartate Amino Transferase 34 U/L (5-37); Bilirubin Total 0.3 mg/dL (0.0-1.0); Blood Urea Nitrogen 9 mg/dL (9-16); Calcium 9.3 mg/dL (8.4-10.2); Carbon Dioxide 21 mmol/L (22-29); Chloride 110 mmol/L (96-108); Estimated Glomerular Filt Rate > 60; Glucose Random 110 mg/dL (60-115); Potassium 4.2 mmol/L (3.3-5.1); Sodium 142 mmol/L (135-145); Total Protein 6.9 g/dL (6.5-8.0)
== END 2023-08-30 06:34 | disposition home or self-care (01) ==
LOC: HO.HMGCLDS 06:33
PROVIDERS: PCP Nurse Practitioner Family; Visit Provider Nurse Practitioner Family
DX: R79.89 Other specified abnormal findings of blood chemistry (principal)
CPT/HCPCS: 36415; 80053; 84443

== ENCOUNTER 2023-09-01 10:15 | Outpatient (AMB) | payer OTHER, SELFPAY ==
--- NOTE | 2023-09-01 10:18 | MHC.PC.OV ---
Vital Signs 09/01/23 10:19 Height 5 ft 9 in Weight 241 lb 6 oz BMI 35.6 BP 142/96 H Blood Pressure Location Lt brachial Position Sitting Pulse 82 Pulse Source Pulse Oximeter Pulse Oximetry (%) 97 Oxygen Delivery Method Room Air Intake Visit Reasons: Annual PE Intake Note: Pt is here today for his Annual physical Allergies No Known Allergies Allergy (Verified 09/01/23 11:03) Medication List - Last Reconciled 09/01/23 by LACI JuarezP- docusate sodium 100 mg PO BID PRN levothyroxine 25 mcg PO DAILY@0600 losartan 25 mg PO DAILY 30 days tramadol 50 mg PO Q8H PRN Tobacco use date assessed: 09/01/23 Dental Screening Dental Screen Date: 09/01/23 Did you have a dental visit in the last 12 months?: No Did you have a dental problem in the last 6 months where you did not have access to dental care?: No Was dental information given to patient?: Patient has dentist HPI Annual PE HPI Details Pt is here for a PE. Labs were already performed. PSA is up to date, follows up with urology. Colon screen is scheduled. Pt's blood pressure is elevated today. Will start losartan 25mg. Will have pt follow up with nurse navigator for BP check. Denies chest pain, shortness of breath, headache, dizziness, and blurred vision. Pt has been a PPD smoker since age 14. Will refer for low-dose CT. Pt recently got over a diverticular attack. He just finished his antibiotics. Pt reports feeling better. He feels his food moving throughout his intestines. Denies fever, chills, and blood in stool. 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 1. Little interest or pleasure in doing things: more than half the days 2. Feeling down, depressed, or hopeless: several days 3. Trouble falling or staying asleep, or sleeping too much: several days 4. Feeling tired or having little energy: several days 5. Poor appetite or overeating: not at all 6. Feeling bad about yourself - or that you are a failure or have let yourself or your family down: not at all 7. Trouble concentrating on things, such as reading the newspaper or watching television: not at all 8. Moving or speaking so slowly that other people could have noticed. Or the opposite - being so fidgety or restless that you have been moving around a lot more than usual: not at all 9. Thoughts that you would be better off or of hurting yourself in some way: not at all Total score: 5 Depression Screening Interpretation: Negative Depression Screening Done: Yes 36869 - PHQ-9 Billing: Yes Source: Developed by Drs. Derek Bradford, Rhoda Rizo, Chester Childress and colleagues, with an educational buck from [employer]. Thrive Questionnaire Date Thrive assessed: 09/01/23 I am a: Patient What is your living situation today?: I have a steady place to live Within the past 12 months, did the food you bought not last and you didn't have the money to get more?: Often true Within the past 12 months, did you worry whether your food would run out before you got money to buy more?: Often true Do you have trouble paying for medicines?: No Do you have trouble getting transportation to medical appointments?: No Do you have trouble paying your heating and electricity bill?: No Do you have trouble taking care of your child, family member or friend?: No Do you have trouble with day-to-day activities such as bathing, preparing meals, shopping, managing finances, etc.?: Yes Are you currently unemployed and looking for a job?: No Are you interested in more education?: No Please select the resources that you would like help with: Housing/Penitentiary and Food Currently or been in a relationship where the following occur: I choose not to answer THRIVE Score: 2 AUDIT C Alcohol Use Questionnaire (AUDIT-C) 1. How often do you have a drink containing alcohol?: Monthly or less 2. How many drinks containing alcohol do you have on a typical day when you are drinking?: 1 or 2 3. How often do you have six or more drinks on one occasion?: Never Total Score: 1 Score Reviewed/Action Taken: Yes VINCENT-7 AMB Questionnaire VINCENT-7 Date VINCENT - 7 assessed: 09/01/23 Feeling nervous, anxious, or on edge: 0 = Not at all Not being able to stop or control worryin = Not at all Worrying too much about different things: 0 = Not at all Trouble relaxin = Several days Being so restless that it is hard to sit still: 0 = Not at all Becoming easily annoyed or irritable: 0 = Not at all Feeling afraid as if something awful might happen: 0 = Not at all Total VINCENT-7 score (0-4 normal; 5-9 mild; 10-14 moderate; 15-21 severe): 1 Source: Developed by Drs. Derek Bradford, Rhoda Rizo, Chester Childress and colleagues, with an educational buck from [employer]. VINCENT-7 Assessment Billing VINCENT-7 Assessment Tool: VINCENT-7 Assessment 06362 Review of Systems Const Denies chills and Denies fever(s) Eyes Denies blurry vision ENT Denies vertigo, Denies dizziness and Denies sore throat Card Denies chest pain at rest, Denies chest pain with activity, Denies diaphoresis, Denies dyspnea and Denies dyspnea on exertion Resp Denies cough, Denies dyspnea, Denies dyspnea on exertion and Denies wheezing GI Denies abdominal pain, Denies melena, Denies hematochezia, Denies constipation, Denies diarrhea and Denies loose stools Denies hematuria Musc Denies numbness and Denies tingling Skin/Breast Denies lesions Neuro Denies vertigo, Denies dizziness, Denies numbness and Denies tingling Psych Denies anxiety, Denies depression, Denies homicidal ideation, Denies suicidal ideation and Denies other (substance abuse) Aller/Immun Denies wheezing Physical exam (Primary Care) Vital Signs: Last Vital Signs Pulse 82 09/01/23 10:19 BP 142/96 H 09/01/23 10:19 Pulse Ox 97 09/01/23 10:19 Oxygen Delivery Method Room Air 09/01/23 10:19 BMI result Body Mass Index 35.6 Tobacco/Smoking Status: Tobacco use Status Tobacco use date assessed 09/01/23 09/01/23 10:23 Patient Tobacco Use Status 09/01/23 10:23 Tobacco use type Cigarette 09/01/23 10:23 e-Cigarette/Vaping Use Never Used 09/01/23 10:23 PHQ-9: PHQ-9 Score PHQ-9: Total score 5 09/01/23 10:23 Depression Screening Interpretation: Negative Thrive Assessment: Date of Thrive Assessment Date Thrive assessed 09/01/23 09/01/23 10:23 Currently or been in a relationship where the following occur: I choose not to answer Const General: cooperative Nutritional Appearance: well nourished Orientation/consciousness: patient oriented x3 HENMT Head: Yes normal to inspection, Yes normocephalic and Yes atraumatic Ears: TM's normal bilaterally Eyes General: appearance normal, both eyes and all related structures Alignment and Position: alignment normal and position normal Neck Neck: Yes normal visual inspection and Yes no lymphadenopathy Thyroid: Thyroid normal Resp Effort & Inspection: normal respiratory effort Auscultation: clear to auscultation bilaterally Cardio Rate: regular rate Rhythm: regular rhythm Heart sounds: S1 normal heart sound present, S2 normal heart sound present and no murmurs GI Palpation (GI): Soft to palpation and nontender Auscultation: normal bowel sounds Male General Exam: Yes normal external exam Penis: normal penis Scrotum: scrotum normal, testes descended bilaterally and no inguinal hernias Testes: no testicular mass Skin Rashes: no rashes Neuro General: patient oriented x3, moves all extremities, no focal motor deficits and deep tendon reflexes 2+ bilaterally Romberg Test: Negative Psych Appearance: grossly normal Mental Status: mental status grossly normal Speech and movement: Normal speech and movement present Affect: normal affect Attitude: cooperative Thought process: Normal thought process present Thought content: Normal thought content present Insight: Good insight present (Psych) Judgement: Good judgement present (Psych) Assessment and Plan Assessment & Plan (1) Smoker: Code(s): F17.200 - Nicotine dependence, unspecified, uncomplicated Plan: Referred for low-dose CT, we discussed chantix, which we may start after next appt. (2) Acute diverticulitis: Code(s): K57.92 - Diverticulitis of intestine, part unspecified, without perforation or abscess without bleeding Plan: Following up with GI (3) HTN (hypertension): Code(s): I10 - Essential (primary) hypertension Plan: Starting losartan, follow up with nurse navigator for BP check, repeat CMP in approx 3 weeks (4) Elevated liver enzymes: Code(s): R74.8 - Abnormal levels of other serum enzymes Plan: repeat liver enzymes in approx 3 weeks Plan The patient agreed to the use of a medical interpreter for this encounter. Scribed for Carlos Mcdonald, MARQUIS-BC by Diamond Baumann medical interpreter, on 09/01/2023 at 10:35 EST. Orders: Orders Comprehensive [place]. Panel Fast Today K76.9 - Liver disease, unspecified Referrals Pulmonology Referral F17.200 - Nicotine dependence, unspecified, uncomplicated Medications: New losartan 25 mg PO DAILY 30 days 30 tabs 2RF Coding Level of Care Code Est Pt Level 3 (28645) Est Pt Prev Care 40-64y(54670) Diagnoses Smoker F17.200 Acute diverticulitis K57.92 HTN (hypertension) I10 Elevated liver enzymes R74.8 Additional Codes VINCENT-7 Assessment Billing - VINCENT-7 Assessment Tool: VINCENT-7 Assessment 22542 ([id number])
[2023-09-01 10:19] VITALS: BP 142/96; PULSE 82; O2SAT 97; BMI 35.6
== END 2023-09-01 10:55 | disposition home or self-care (01) ==
PROVIDERS: PCP Nurse Practitioner Family; Visit Provider Nurse Practitioner Family
DX: F17.200 Nicotine dependence, unspecified, uncomplicated (principal); K57.92 Diverticulitis of intestine, part unspecified, without perforation or abscess without bleeding; I10 Essential (primary) hypertension; R74.8 Abnormal levels of other serum enzymes; Z00.00 Encounter for general adult medical examination without abnormal findings
CPT/HCPCS: 99213; 99396

== ENCOUNTER 2023-09-16 06:02 | Outpatient (REF) | payer OTHER, SELFPAY ==
[2023-09-16 11:26] LABS: Alanine Aminotransferase 26 U/L (0-40); Alkaline Phosphatase 30 U/L (39-117); Anion Gap 15 (12-20); Aspartate Amino Transferase 16 U/L (5-37); Bilirubin Total 0.4 mg/dL (0.0-1.0); Blood Urea Nitrogen 11 mg/dL (9-16); Calcium 9.1 mg/dL (8.4-10.2); Carbon Dioxide 26 mmol/L (22-29); Chloride 105 mmol/L (96-108); Estimated Glomerular Filt Rate > 60; Glucose Fasting 93 mg/dL (60-99); Potassium 3.8 mmol/L (3.3-5.1); Sodium 142 mmol/L (135-145); Total Protein 6.9 g/dL (6.5-8.0)
== END 2023-09-16 06:03 | disposition home or self-care (01) ==
LOC: HO.HMGCLDS 06:02
PROVIDERS: PCP Nurse Practitioner Family; Visit Provider Nurse Practitioner Family
DX: K76.9 Liver disease, unspecified (principal)
CPT/HCPCS: 36415; 80053

== ENCOUNTER 2023-10-07 06:05 | Outpatient (REF) | payer OTHER, SELFPAY ==
[2023-10-07 11:08] LABS: TSH reflex Free T4 3.54 uIU/mL (0.32-4.0)
[2023-10-07 11:09] LABS: Prostate Specific Antigen 2.01 ng/mL (<0.05-4.0)
== END 2023-10-07 06:06 | disposition home or self-care (01) ==
LOC: HO.HMGCLDS 06:05
PROVIDERS: Family Medicine; PCP Nurse Practitioner Family; Visit Provider Nurse Practitioner Family
DX: R97.20 Elevated prostate specific antigen [PSA] (principal); R79.89 Other specified abnormal findings of blood chemistry; Z12.5 Encounter for screening for malignant neoplasm of prostate
CPT/HCPCS: 36415; 84153; 84443

== ENCOUNTER 2023-10-17 11:54 | Outpatient (AMB) | payer OTHER, SELFPAY ==
--- NOTE | 2023-10-17 11:55 | MHC.OFFVIS ---
Intake Visit Reasons: 4m/F/U/PSA Intake Note: Patient presents today for a tele visit follow-up on: PSA labs PSA: 2.01 Meds: None Allergies to Antibiotic: No Known Allergies Blood Thinner: None Soil Science Professor Required: No Allergies No Known Allergies Allergy (Verified 10/17/23 12:05) Medication List - Last Reconciled 10/17/23 by REN Boyd docusate sodium 100 mg PO BID PRN emollient combination no.119 (Eucerin Advanced Repair topical cream) 1 appl topical DAILY 30 days levothyroxine 25 mcg PO DAILY losartan 25 mg PO DAILY 30 days tramadol 50 mg PO Q8H PRN HPI Comments Details: Gustavo is a very pleasant 53-year-old male patient of Dr. Mcdonald. He has a past medical history of pyelonephritis, morbid obesity, chronic back pain, pre diabetes, and diverticulitis. He is being followed up on today via telehealth for his elevated PSA. In discussion with the patient today he reports to be doing and feeling well. Recent PSA results reviewed with the patient today as noted and trended below. Previous workup has included a retroperitoneal ultrasound noting bilateral kidneys with no calculi or hydronephrosis. Right kidney with a benign 1.8 cm Bosniak class 2 cyst with a single septation which requires no additional follow-up per radiology report. The bladder is partially distended, limiting evaluation. Bilateral ureteral jets are demonstrated. Pre void bladder volume is approximately 130 mL. Postvoid bladder volume is approximately 10 mL. Prostate volume was measured at approximately 20 mL. PSAs are as follows: 09/01 2.9, 02/01 2.1, 07/03 2.6, 10/03 2.0 Discussed at length potential causes of elevated PSA. When asked he continues to deny any bothersome urinary issues or concerns at this time. He does have a family history of prostate cancer. He reports paternal uncle and maternal great uncle with a history of prostate cancer. When asked he otherwise denies urinary urgency, urinary frequency, incontinence, nocturia, hematuria, dysuria, foul smelling urine, changes to urinary stream, flank pain, fever, and or chills. He is happy with his current voiding parameters. 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) Unable to assess alcohol history related to: Unknown Alcohol intake: current Alcohol intake frequency: a few times a week Tobacco use type: Cigarette Cigarette Packs Per Day: 0.33 Cigarettes Per Day: 6.6 e-Cigarette/Vaping Use: Never Used Second Hand Smoke Exposure: No Substance Use Type: Marijuana service: No Current occupational status: disabled Current occupational exposures/hazards: No Cognitive needs: No Hearing needs: No Vision needs: Yes Review of Systems Const All systems reviewed & are unremarkable except as noted in HPI and below Eyes Reports no additional complaints ENT Reports no additional complaints Card Reports no additional complaints Resp Reports no additional complaints GI Reports no additional complaints Reports as per HPI Musc Reports no additional complaints Neuro Reports no additional complaints Psych Reports no additional complaints Endo Reports as per HPI Caesar/Lymph Reports no additional complaints Aller/Immun Reports no additional complaints Physical Exam Const General: cooperative Resp Effort & Inspection: able to speak in complete sentences Psych Speech and movement: Clear speech present Attitude: cooperative Thought content: Normal thought content present Insight: Fair insight present (Psych) Judgement: Fair judgement present (Psych) Telehealth Telehealth Telehealth Platform: Telephone Location of provider rendering services: practice address Location of patient: address on file Patient Identification confirmed using: Name, : Yes Telehealth method: voice only Patient verbally consented to treatment: Yes Patient verbally consented to billing insurance company: Yes Patient informed of any privacy concerns related to visit: Yes Minutes spent on Phone/Video with Pt.: 15 Assessment & Plan Assessment & Plan (1) Elevated PSA: Code(s): R97.20 - Elevated prostate specific antigen [PSA] Category: Medical (2) Renal cyst: Code(s): N28.1 - Cyst of kidney, acquired Category: Medical Plan Recent PSA results reviewed with the patient today; as noted above. Discussed at length potential causes for borderline elevated PSA. Patient currently denies any bothersome urinary issues or concerns. He is happy with his current voiding parameters. Will obtain PSA in 4 month; for surveillance monitoring; discussed importance of limiting caffeine morning of lab draw, no sex the night before, no heavy lifting 1-2 days prior to lab draw. Follow-up in 4 months with lab to be completed prior; or sooner with any issues, concerns, and or questions. Orders: Orders Prostate Specific Antigen 4 Months R97.20 - Elevated prostate specific antigen [PSA] Patient Instructions: The patient had an opportunity to ask questions regarding the treatment plan. All questions were answered. Physical exam, labs, and imaging were discussed and reviewed in detail. As well as risks, benefits, and discussion of treatment choices. No major barriers to understanding were identified. The patient expressed understanding and agreement with the above treatment plan. The patient was made aware they should contact our office by phone for worsening of their current condition, the appearance of new symptoms, or with any questions or concerns. Compliance is encouraged with any medications and follow up testing that is ordered. It is a privilege to be allowed the opportunity to participate in? your urological care.? Again, if you have any questions or concerns If you have any questions or concerns please do not hesitate to contact me. The office is [phone]. This note is constructed using voice recognition software. While every effort has been made to ensure accuracy big 6 dealer errors may have been included. Yours sincerely, REN Boyd Coding Level of Care Code Tele Est Pt Level 3 (58009) Diagnoses Elevated PSA R97.20 Renal cyst N28.1
== END 2023-10-17 12:24 | disposition home or self-care (01) ==
LOC: HO.HUSH 11:54
PROVIDERS: PCP Nurse Practitioner Family; Visit Provider Nurse Practitioner Family
DX: R97.20 Elevated prostate specific antigen [PSA] (principal); N28.1 Cyst of kidney, acquired
CPT/HCPCS: 99442

== ENCOUNTER → 2023-10-17 11:54 | Outpatient (BNVA) | payer OTHER, SELFPAY | PROVIDERS: PCP Nurse Practitioner Family; Visit Provider Nurse Practitioner Family ==

== ENCOUNTER 2023-10-22 09:10 | Outpatient (REF) | payer OTHER, SELFPAY ==
--- NOTE | ~2023-10-22 | MR_ITS ---
EXAMINATION: MR ABDOMEN WITHOUT AND WITH CONTRAST CLINICAL INFORMATION: Prior abnormal imaging. COMPARISON: CT abdomen/pelvis August 04, 2023 CT abdomen/pelvis April 10, 2016 TECHNIQUE: MR abdomen was performed without and with use of 10 mL intravenous Gadavist gadolinium contrast. Postcontrast images are performed in multiphase dynamic sequences. Imaging was performed in 3 planes. FINDINGS: LUNG BASES: The visualized lung bases are unremarkable. LIVER, GALLBLADDER, AND BILIARY TREE: Loss of signal on opposed phase imaging compatible with hepatic steatosis. Scattered T2 hyperintense benign-appearing hepatic cysts, no imaging follow-up recommended. There are multiple mildly T2 hyperintense T1 hypointense lesions of varying size that exhibit progressive peripheral discontinuous nodular enhancement most likely representing hepatic hemangiomas. No intra or extrahepatic biliary duct dilatation. The gallbladder is surgically absent. PANCREAS: No ductal dilatation. SPLEEN: Not enlarged. ADRENAL GLANDS: No adrenal mass. KIDNEYS AND URETERS: Benign-appearing T2 hyperintense bilateral renal cysts, no imaging follow-up recommended. GASTROINTESTINAL TRACT: No bowel obstruction. Status post right hemicolectomy. Diverticular disease of the colon. No ascites or fluid collection. LYMPH NODES: No bulky lymphadenopathy. VASCULAR: Normal caliber abdominal aorta. MR/MR abdomen wo/w con IMPRESSION: Multiple hepatic cysts and hepatic hemangiomas. These have been present and are grossly unchanged relative to April 10, 2016. Electronically signed by: Edis Ann MD 11/07/2023 12:13 PM EDT
[2023-10-22] MEDS: gadobutroL 10 ML VIAL IVPUSH (10:08)
== END 2023-10-22 09:11 | disposition home or self-care (01) ==
LOC: HO.MRI 09:10
PROVIDERS: PCP Nurse Practitioner Family; Visit Provider Nurse Practitioner Family
DX: K76.89 Other specified diseases of liver (principal); K76.9 Liver disease, unspecified
CPT/HCPCS: 74183; A9585

== ENCOUNTER 2024-01-14 06:04 | Outpatient (REF) | payer OTHER, SELFPAY ==
[2024-01-14 10:19] LABS: MANUAL DIFF FLAG NO
[2024-01-14 10:25] LABS: Basophils Percent Auto 0.3 % (0-2); Eosinophils Absolute Auto 0.2 X10*3/uL (0.0-0.4); Eosinophils Percent Auto 1.7 % (0-4); Hematocrit 48.9 % (42.0-52.0); Hemoglobin 15.3 g/dl (14.0-18.0); Imm Gran Abs Auto 0.03 X10*3/uL (0.00-0.03); Imm Gran Pct Auto 0.3 % (0.0-0.4); Lymphocytes Percent Auto 39.4 % (20-40); Mean Corpuscular HGB Conc 31.3 g/dl (31.0-36.0); Mean Corpuscular Volume 86.4 fL (80.0-98.0); Mean Platelet Volume 10.6 fL (9.4-12.4); Monocytes Absolute Auto 0.9 X10*3/uL (0.1-1.2); Monocytes Percent Auto 8.7 % (2-11); Neutrophils Percent Auto 49.6 % (45-73); Platelet Count 293 X10*3/uL (160-400); Red Blood Count 5.66 X10*6/uL (4.60-5.80); Red Cell Distribution Width 14.6 % (11.0-16.0); White Blood Count 10.1 X10*3/uL (4.8-10.8)
[2024-01-14 10:49] LABS: Alanine Aminotransferase 35 U/L (0-40); Albumin Level 3.9 g/dL (3.5-5.0); Alkaline Phosphatase 36 U/L (39-117); Anion Gap 12 (12-20); Aspartate Amino Transferase 23 U/L (5-37); Bilirubin Total 0.2 mg/dL (0.0-1.0); Blood Urea Nitrogen 11 mg/dL (9-16); Calcium 9.2 mg/dL (8.4-10.2); Carbon Dioxide 27 mmol/L (22-29); Chloride 108 mmol/L (96-108); Cholesterol 213 mg/dL (<200); Estimated Glomerular Filt Rate > 60; Glucose Fasting 108 mg/dL (60-99); HDL Cholesterol 64 mg/dL (>40); LDL Cholesterol Calculated 124 mg/dL (<100); Potassium 4.1 mmol/L (3.3-5.1); Sodium 143 mmol/L (135-145); Triglycerides 125 mg/dL (<150)
[2024-01-14 11:07] LABS: Appearance Urine Turbid; Color Urine Yellow; Glucose Urine UA Negative (Negative); Leukocyte Esterase Urine Negative (Negative); Nitrite Urine Negative (Negative); PH 5.5 (5.0-9.0); Specific Gravity - Urine 1.025 (1.005-1.025); Urine Blood Negative (Negative); Urine Ketones Negative (Negative); Urine Protein Negative (Neg-Trace)
[2024-01-14 11:08] LABS: TSH reflex Free T4 4.05 uIU/mL (0.32-4.0)
[2024-01-14 12:38] LABS: Free T4 (Free Thyroxine) 0.99 ng/dL (0.71-1.85)
--- OUTSIDE RECORDS SUMMARY | 2024-01-20 16:09 | XMS_ITS | Patient Health Record ---
Author Organization [facility] Address [address], [place] [id number] Support Name Relationship Address Phone Birgit Sharma Emergency Contact Unknown 4 [phone] Gustavo Thompson Guarantor Unknown [phone] Reason For Referral No Information Social History Tobacco Use: Social History Observation Description Date Details (start date - stop date) Current Smoker NA - NA Tobacco Use Assessment MU Question Answer Notes What is your current smoking status? current smo ker How often do you smoke? every day How many cigarettes a day do you smoke? 11-20 How soon after you wake up d o you smoke your first cigarette? Within 5 minutes Are you interested in quitting? thinking about q uitting Patient counseled on the robin akers of tobacco use and advised to quit: 04/09/2013 Problems Problem Type SNOMED Code ICD Code Onset Dates Problem Status W/U Status Risk Notes Problem Depressive disorder (60935596) Depressive Disorder NOS (311) Active confirmed Plan Of Treatment No Information Insurance Providers Payer Name Payer Address Payer Phone Subscriber Number Group Number Insured Name Patient Relationship to Insured Coverage Start Date Coverage End Date [place] Medicaid Standard [address] [place] [address] [id number] Gustavo Thompson Self - patient is the insured [place] Medicare Part A [employer] [address] [place] [address] [id number] Gustavo Thompson Self - patient is the insured Medical (General) History Medical History History ICD Code pt reports arthritis/dislocation R shoul nicolasa/R hip plate Surgical History Surgery Date(Month/Year) Hx Diverticulitis, abd surge ry, removed portion of bowel [facility] Aguila 04/2012 R hip surgery leg length discrepancy chi ldhood Hospitalization History Reason Date(Month/Year) [facility] 04/22 [facility] childhood
--- OUTSIDE RECORDS SUMMARY | 2024-01-20 16:09 | XMS_ITS | Patient Health Record ---
Author Organization [facility] Address [address] [facility] [address] [place] [address] Care Team Providers Care Residue Furnace Operator Name Role Phone Roma Yousif Primary Care Provider Thierry labfrancie ALLERGIES Allergen (clinical drug ingredient) Drug/Non Drug Allergy documented on EMR Reaction Allergy Type Onset Date Status acetaminophen Tylenol Unknown Drug Allergy Act margaret REASON FOR REFERRAL No Information MEDICATIONS Medication SIG (Take, Route, Fr equency, Duration) Notes Start Date End Date Status Diclofenac Sodium 1 % as directed Transd ermal 4 times a day Active PLAN OF TREATMENT No Information Insurance Providers Payer Name Payer Address Payer Phone Subscriber Number Group Number Insured Name Patient Relationship to Insured Coverage Start Date Coverage End Date Medicare of [place] [address] [place] [phone] [id number] Gustavo Thompson Self - patient is the insured MEDICAL (GENERAL) HISTORY Medical History History ICD Code Diabetes mellitus type 2 in obese Diverticulitis Obesity Osteoarthritis of right hip Pyelonephritis Renal insufficiency Right hip pain Shoulder dislocation Tobacco use disorder Surgical History Surgery Date(Month/Year) Osteotomy R hip 1982 Diverticulectomy of large intestine
--- OUTSIDE RECORDS SUMMARY | 2024-01-20 16:09 | XMS_ITS | Data Portability ---
Author Organization [employer], [place] in - [employer] Address [address] [place] [id number] Care Team Providers Care Director Oncology Name Role Phone BRAYAN ADDISON Primary Care Provider HIM MARTHA OTHER Assessment Encounter Date Assessment Date Assessment LastModified by Organization Details LastModified Time 03/26/2022 03/26/2022 As noted, judit johnston called to see this patient regarding concerns of diverticulitis. Evaluation in the field was performed by my practice director colleague, as noted above, I provided real-time direction and supervision for this visit. The evaluation revealed abdomen that is soft without mild LLQ tenderness. No rebound.. Impression: 51 YOM with PMH sig for diverticulitis in the past with similar symptoms to current symptoms of nausea, abdominal pain and loose stool. Pt currently without distress abdomen is mildly tender without guarding. . Plan: IVF, zofran for nausea, ketorolac for pain control, and initiation of treatment for presumed diverticulitis with Augmentin. Primary care, consider close follow up to ensure symptoms are resolving Disposition: We discussed the diagnostic uncertainty of home visits and the risk associated with this. In this case, the patient and I felt this to be an acceptable and reasonable amount of risk given the benefit of avoiding an ED visit. We discussed the need to seek care urgently/emergentl y in the setting of any new or worsening serious symptoms, particularly worsening abdominal pain, fevers, chills. Ketorolac [email or web address] Not available 03/26/2022 11:28:10 07/09/2023 07/09/2023 As noted, judit johnston called to see this patient regarding concerns of abdominal pain 52 yo M with h/o diverticulitis, s/p laparotomy p/w LLQ pain since this morning and nausea and emesis x 1 today. Reports eating polish food last night. Decreased PO. Drinking POs. Having smaller caliber bowel movement this morning. Passing flatus. No f/c. No urinary sxs. Reports that these sxs are similar to prior episodes of diverticulitis. Evaluation in the field was performed by my practice director colleague, as noted above, I provided real-time direction and supervision for this visit. Vitals reviewed. Exam revealed: in nad; sclerae anicteric; mmm; abd +nabs, soft, nd, mild LLQ tenderness w/o rebound or guarding; no cva tenderness Impression & Plan: LLQ abdominal pain N/V History of diverticulitis. DDx includes acute diverticulitis, gastroenteritis (though no diarrhea), also partial SBO (lower clinical suspicion), appendicitis (lower clinical suspicion) Plan for screening labs, IVFs, toradol and zofran, assess PO trial Update--screening labs reviewed. lactate slightly elevated; he is feeling better and tolerating POs. He is requesting antibiotics given presumed acute diverticulitis. Given dose of augmentin by medic and Rx sent to his pharmacy. OTC analgesics. Dietary modifications. Red flag s/s reviewed for immediate escalation for a re-evaluation and possible imaging Primary care, consider a re-evaluation of the patient's abdominal pain Disposition: We discussed the diagnostic uncertainty of home visits and the risk associated with this. In this case, the patient and I felt this to be an acceptable and reasonable amount of risk given the benefit of avoiding an ED visit. We discussed the need to seek care urgently/emergentl y in the setting of any new or worsening serious symptoms, particularly fevers, chills, worsening pain, not passing gas, vomiting, other acute concerns [email or web address] Not available 07/09/2023 15:20:09 Plan of Treatment Reminders Order Date Submit Date Provider Last Modified By Organization Details Last Modified Time Details Appointments None recorded. Lab BMP, serum or plasma 2023 024 [facility], [address] [place] [address], [id number], 4 17:55:51 urinalysis, dipstick 2023 024 [facility], [address] [place] [address], [id number], 4 08:26:36 hemoglobin + hematocrit, blood 2023 024 [facility], [address] [place] [address], [id number], 4 08:27:25 Referral None recorded. Procedures None recorded. Surgeries None recorded. Imaging None recorded. Medication Orders Zofran 4 mg tablet [address] [id number] [address] [facility] [place], [address], 3 12:51:43 Augmentin 875 mg-125 mg tablet [address] [id number], [facility] [facility] [place], [address], 3 11:02:07 ondansetron 4 mg disintegrat ing tablet [address] [id number], [facility] [place], [address], 3 11:03:03 lactated Ringers intravenous solution 2023 [address]24 [id number] [place], [address], 4 13:50:19 ondansetron HCl (PF) 4 mg/2 mL injection solution 2023 024 [id number] [facility] [place], [address], 4 13:50:18 ketorolac 30 mg/mL injection solution 2023 [address]24 [id number], [address] [place], [address], 4 13:50:18 Augmentin 875 mg-125 mg tablet [address] [id number], [address] [place], [address], 4 14:22:25 Augmentin 875 mg-125 mg tablet 2023 024 [email or web address] [facility]acy #[id number], [address] [facility] [place], [address], 4 14:22:50 Patient TargetsNo targets recorded. Patient InstructionsNo instructions recorded. Reason for Referral None Reported. Results Created Date Observation Date Name Description Value Unit Range Abnormal Flag Note LastModifiedBy Organization Detail LastModifiedTime Result Notes None recorded. Medical Equipment None Reported. Medications Name Sig Start Date Stop Date Status Note LastModified by Organization Details LastModified Time cyclobenzapr ine 10 mg tablet TAKE 1 TABLET BY MOUTH EVERY DAY AT BEDTIME active Not Available Not Available No t Available atorvastatin 40 mg tablet TAKE 1 TABLET BY MOUTH EVERY DAY active Not Available Not Available No t Available nicotine 14 mg/24 hr daily transdermal patch APPLY 1 PATCH TOPICALLY DAILY active Not Available Not Available No t Available tizanidine 2 mg tablet TAKE 1 TABLET ORALLY 2 TIMES A DAY NEEDED FOR FOR MUSCLE SPASM active Not Available Not Available No t Available ondansetron HCl 4 mg tablet Take 1 tablet twice a day by oral route. active Not Available Not Available No t Available metronidazol e 250 mg tablet TAKE 1 TAB ORALLY 2 TIMES A DAY active Not Available Not Available Not Available lactated Ringers intravenous solution Inject 1000 mL by intravenous route. 2023 active Not Available Not Available Not Avai lable metronidazol e 500 mg tablet TAKE 1 TABLET BY MOUTH EVERY 8 HOURS active Not Available Not Available No t Available ciprofloxaci n 500 mg tablet TAKE 1 TAB ORALLY 2 TIMES A DAY active Not Available Not Available Not Available tramadol 50 mg tablet TAKE 1 TABLET BY MOUTH EVERY 8 HOURS NEEDED FOR PAIN active Not Available Not Available No t Available sildenafil 100 mg tablet TAKE 1/2 TO 1 TABLET BY MOUTH DAILY 1 HOUR BEFORE SEXUAL ACTIVITY active Not Available Not Available No t Available levothyroxin e 25 mcg tablet TAKE 1 TABLET BY MOUTH EVERY DAY active Not Available Not Available No t Available oxycodone-ac etaminophen 5 mg-325 mg tablet TAKE 1 TABLET BY MOUTH EVERY 6 HOURS FOR 3 DAYS NEEDED FOR SEVERE PAIN active Not Available Not Available Not Available triamcinolon e acetonide 0.1 % topical ointment APPLY TOPICALLY TWICE DAILY FOR 14 DAYS APPLY TO BOTH ELBOWS active Not Available Not Available Not Available Gas Relief Extra Strength 125 mg capsule PLEASE SEE ATTACHED FOR DETAILED DIRECTIONS active Not Available Not Available N ot Available betamethason e dipropionate 0.05 % topical cream APPLY TOPICALLY TO THE AFFECTED DAILY NEEDED FOR SKIN IRRITATION FOR 2 WEEKS. active Not Available Not Available No t Available docusate sodium 100 mg capsule TAKE 1 CAPSULE BY MOUTH TWICE A DAY active Not Available Not Available No t Available levofloxacin 750 mg tablet TAKE 1 TABLET BY MOUTH EVERY DAY active Not Available Not Available No t Available ketoconazole 2 % topical cream APPLY TO AFFECTED AREA TOPICALLY 2 TIMES A DAY active Not Available Not Available Not Available ondansetron 4 mg disintegrati ng tablet PLACE 1 TABLET BY TRANSLINGUA L ROUTE TWICE A DAY active Not Available Not Available Not Available amoxicillin 875 mg-potassium clavulanate 125 mg tablet TAKE 1 TABLET BY MOUTH TWICE A DAY FOR 7 DAYS active Not Available Not Available No t Available Laxative (bisacodyl) 5 mg tablet,delay ed release TAKE 4 TABLETS BY MOUTH ONCE FOR 1 DAY TAKE AT NOON THE DAY BEFORE COLONOSCOPY active Not Available Not Available Not Available ondansetron HCl (PF) 4 mg/2 mL injection solution Take 4 mg by injection route. 2023 active Not Available Not Available Not Trinidad farias GaviLyte-G 236 gram-22.74 gram-6.74 gram-5.86 gram oral solution PLEASE SEE ATTACHED FOR DETAILED DIRECTIONS active Not Available Not Available N ot Available ketorolac 30 mg/mL injection solution Inject 15 mg. 2023 active Not Available Not Available Not Trinidad farias Vitals Date Recorded Body weight Respiratory rate Heart rate Body temperature Oxygen saturation Oxygen saturation in Arterial blood by Pulse oximetry Systolic blood pressure Diastolic blood pressure Provider Name and Address Organization Details Last Updated DateTime 4 103622. 04 g 16 /min 64 /min 98.2 [degF] 98 % 98 % 160 mm[Hg] 98 mm[Hg] Not Available [facility] - production 4 13:29:16 Date Recorded Heart rate Oxygen saturation Oxygen saturation in Arterial blood by Pulse oximetry Respiratory rate Body temperature Systolic blood pressure Diastolic blood pressure Provider Name and Address Organization Details Last Updated DateTime 3 83 /min 100 % 100 % 18 /min 98.2 [degF] 119 mm[Hg] 84 mm[Hg] Not Available [facility] - production 3 12:48:34 Date Recorded Heart rate Body temperature Oxygen saturation Oxygen saturation in Arterial blood by Pulse oximetry Respiratory rate Body weight Systolic blood pressure Diastolic blood pressure Provider Name and Address Organization Details Last Updated DateTime 3 72 /min 98 [degF] 97 % 97 % 18 /min 803129. 96 g 160 mm[Hg] 105 mm[Hg] Not Available [facility] - production 3 11:00:12 Social History None recorded. Functional Status None recorded. Mental Status None recorded. Family History Nothing Reported. Medical History No medical history recorded. Past Encounters Encounter ID Performer Location Encounter Start Date Encounter Closed Date Diagnosis/Indication Diagnosis SNOMED-CT Code Diagnosis ICD10 Code [id number] Merry Cunha MD [facility] [address] [place] [phone] 02/23/2022 12:48:33 02/26/2022 12:19:53 Nausea and vomiting 13574682 R11.2 [id number] Quang Jacobs MD [facility] [address] [place] [phone] 03/26/2022 11:00:01 03/28/2022 13:08:23 Diverticulitis 616813647 K57.92 [id number] MURIEL WILLINGHAM MD [facility] [address] [place] [phone] 07/09/2023 13:29:14 07/10/2023 10:32:30 Abdominal pain 34437372 R10.9 Nausea and vomiting 1692 1999 R11.2 Health Concerns Section Related Observation LastModified by Organization Detai ls LastModified Time None Recorded Concern Status LastModified by Organization Details LastModified Time None Recorded Advance Directives Directive None Recorded Payers Encounter Date Sequence Insurance Name Policy Number Policy Talbert Covered Member ID Talbert Member ID Guarantor Name 02/23/2022 1 [facility] - DOS PRIOR TO 2022 - DUAL ELIGIBLE (MEDICARE REPLACEMENT/ADV ANTAGE - HMO) Gustavo Thompson [id number] Gustavo Thompson 03/26/2022 1 [facility] [employer] - DOS PRIOR TO 2022 - DUAL ELIGIBLE (MEDICARE REPLACEMENT/ADV ANTAGE - HMO) Gustavo Thompson [id number] Gustavo Duran Donna 07/09/2023 1 [facility] - DOS ON OR AFTER 2022 - DUAL ELIGIBLE - [employer] OPTIONS AND ONE CARE (MEDICARE REPLACEMENT/ADV ANTAGE - HMO) Gustavo Thompson [id number] Gustavo Duran Donna Notes Date Note Type Note Provider Name and Address Organization Details Recorded Time 02/23/2022 text/html [facility] Nursing Assessment: Reason For Request: abd pain Patient Reports: Vague abdominal pain greater than 24 hours; Nausea with or without vomiting; Inability to tolerate foods, fluids or daily medications Denies: Constipation Diarrhea ? no blood in stool Chief Complaints: Abdominal Pain, Nausea/Vomiting PMH: Other Allergies: Unknown Comments: Member has a h/o diverticulitis , has had sx no colostomy bag. Member had a episode of N/v, had a small BM today, no loose stool. Member is unable to eat or drink. Member denies fever/ chill. Member is unsure if he is in a flare up but abd is swollen and tender to the touch Verified identity with .................... .................... .................... .................... .................... .................... .................... . Leak Patcher Note: Community Leak Patcher Crystal Carty SC6 dispatched to a [facility] for a 51 yom C/O N/V/D. Upon arrival, the pt was awake and alert, ambulatory, VANCE X4, in no apparent distress. He stated that he had a hx of diverticulitis, for which he had been hospitalized with at least 2 emergency surgeries. He stated his last flare up was in Oct, and that he had never experienced a flare up that got better. He decided to not seek rx in the ED at that time, and was seeking reassurance of his decision. He stated he had 1 episode of N/V the night prior, w/ 1 episode of loose stools that morning. He denied any abd pain at rest, but stated tenderness to his left lateral abd (not LUQ or LLQ) on palpation-no rebound tenderness, pulsing, or masses felt. He denied N/V at that time. He stated he was able to tolerate small amounts of food/fluids that morning, and ate and drank prior to arrival. Lung sounds clear, abdomen soft and non distended. Pt denied headache, dizziness, cough, sore throat, fever, CP, SOB, urinary S/S, negative for edema. [facility] was consulted; pt was advised to continue ingesting small and intermittent amounts of food and fluids, and to monitor his S/S. He was informed that if his S/S got worse, to seek medical attention NOELLE ([facility], walk in clinic, PCP/GI, or ED). He was prescribed ondansetron as well. Red flags discussed. .................... .................... .................... .................... .................... .................... .................... . Disposition: Fulfilled Merry Cunha MD [address] [place] [address],[address], [place], [phone], Owned it - [employer] 02/23/2022 13:03:01 03/26/2022 text/html [facility] Nursing Assessment: Reason For Request: abd pain Patient Reports: Vague abdominal pain greater than 24 hours; Constipation; Diarrhea ? no blood in stool; Nausea with or without vomiting; Inability to tolerate foods, fluids or daily medications Chief Complaints: Abdominal Pain PMH: Other Allergies: Unknown Comments: Member has a h/o diverticulitis Woke up this am and had loose stool and a normal stool, had multiple episodes of vomiting with fever. Member c/o firm abd, which is a common sign for his history , does not currently have pain. Member drank some fluid but did not tolerate it and vomited the liquid up Member is normally treated with fluids and antibiotic. Member had 2 sx for diverticulitis Verified identity Quang Jacobs MD [address] [facility],[address], [place], [phone], [employer] 03/26/2022 11:29:03 07/09/2023 text/html [facility] Nurse Triage Notes (Mia Fulton): Reason For Request: Pt reporting a diverticulitis flare>slight vomit today, stomach is firm>typical signs of a flare up>slight bowel movement today Chief Complaints: Nausea/Vomiting PMH: Other Allergies: Unknown Comments: Shake Maker verified the member's name//address and phone number. Member is a a/o3 52 yr old male. PMH > diverticulitis >borderline DM Member had Iranian food yesterday, woke up not feeling well, had a BM and episode of vomiting. Member and is firm with bile, which is a sign of diverticulitis. Member does not have a fever/ but tool tramadol last night with a mild sweat overnight Education provided on the response time and the member was advised to monitor reported s/s and seek emergency treatment if needed Leak Patcher POC Test Results from [facility] epoc (1) [13:59] pH: 7.336 pH units pCO2: 52.2 mmHg pO2: 26.6 mmHg Na: 140 mmol/L K: 4.3 mmol/L iCa: 1.14 mmol/L Cl: 104 mmol/L TCO2: 27.5 mEq/L Hct: 54 % Hb: 18.6 g/dL Glu: 112 mg/dL Lac: 2.09 mmol/L Cr: 0.99 mg/dL BUN: 6 mg/dL A Leak Patcher POC Test Results from [facility] Urine Dipstick (1) [14:15] Urine leukocytes: NR Urine nitrites: NR Urine urobilinogen: 0.2 URO Urine protein: NR Urine pH: 5.0 pH Urine blood: NR Urine specific gravity: 1.02 SG Urine ketones: NR Urine bilirubin: NR Urine glucose: NR .................... .................... .................... .................... .................... .................... .................... . Leak Patcher Note From [facility]: Pt co lower left abdominal pain, passing gas, and very small bowel movement this morning. 1 episode of vomiting. Pt sts ate Iranian food last night and symptoms started this morning. Denies diarrhea, fever ,cp , sob, urinary pain. Baseline vitals assessed. Firm lower left abdomen. Slightly tender. Afebrile. C contacted and POc bloodwork lactate elevated, otherwise unremarkable. Urine dip benign. 1l LR given IV with 20g. Augmetin give po 875/125. 4mg zofran IV, 15mg toradol IV. RX for augmentin called in. Pt advise to drink lots of water. Pt education on signs indicating the ER. .................... .................... .................... .................... .................... .................... .................... . Disposition: Fulfilled MURIEL WILLINGHAM MD [address] [facility],[address], [place], [phone], SANJAY SALAS 07/09/2023 15:20:54
== END 2024-01-14 06:05 | disposition home or self-care (01) ==
LOC: HO.HMGCLDS 06:04
PROVIDERS: PCP Nurse Practitioner Family; Visit Provider Nurse Practitioner Family
DX: I10 Essential (primary) hypertension (principal)
CPT/HCPCS: 36415; 80053; 80061; 81003; 84439; 84443; 85025

== ENCOUNTER 2024-01-29 09:20 | Outpatient (AMB) | payer OTHER, SELFPAY ==
--- OUTSIDE RECORDS SUMMARY | 2024-01-29 09:26 | XMS_ITS | Data Portability ---
Author Organization [employer] Address [address] [place] [id number] Care Team Providers Care Post Anesthesia Room Nurse Name Role Phone BRAYAN ADDISON Primary Care Provider HIM MARTHA OTHER Assessment Encounter Date Assessment Date Assessment LastModified by Organization Details LastModified Time 03/26/2022 03/26/2022 As noted, judit johnston called to see this patient regarding concerns of diverticulitis. Evaluation in the field was performed by my ruby engineer colleague, as noted above, I provided real-time [...] and emesis x 1 today. Reports eating egyptian food last night. Decreased PO. Drinking POs. Having smaller caliber bowel movement this morning. Passing flatus. No f/c. No urinary sxs. Reports that these sxs are similar to prior episodes of diverticulitis. Evaluation in the field was performed by my ruby engineer colleague, as noted above, I provided real-time [...] Lab BMP, serum or plasma 2023 024 [facility], [address] [place] [address], [id number], 4 17:55:51 urinalysis, dipstick 2023 024 [facility], [address] [place] [address], [phone], 4 08:26:36 hemoglobin + hematocrit, blood 2023 024 [facility], [address] [place] [address], [id number], 4 08:27:25 Referral None recorded. Procedures None recorded. Surgeries None recorded. Imaging None recorded. Medication Orders Zofran 4 mg tablet 2022 023 [id number] [address] [facility] [place], [address], 3 12:51:43 Augmentin 875 mg-125 mg tablet 2022 023 [id number], [facility] [facility] [place], [address], 3 11:02:07 ondansetron 4 mg disintegrat ing tablet 2022 023 [id number], [facility] [place], [address], 3 11:03:03 lactated Ringers intravenous solution 2023 024 [address] [id number] [address] [place], [address], 4 13:50:19 ondansetron HCl (PF) 4 mg/2 mL injection solution 2023 024 [id number] [address] [facility] [place], [address], 4 13:50:18 ketorolac 30 mg/mL injection solution 2023 024 [id number], [address] [place], [address], 4 13:50:18 Augmentin 875 mg-125 mg tablet 2023 024 [id number] [address] [place], [address], 4 14:22:25 Augmentin 875 mg-125 mg tablet 2023 024 [id number], [address] [facility] [place], [address], 4 14:22:50 Patient TargetsNo targets recorded. Patient [...] Address Organization Details Last Updated DateTime 4 509924. 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 96 g 160 mm[Hg] 105 mm[Hg] Not Available [employer] [facility] 3 11:00:12 Social History None recorded. Functional Status None recorded. Mental Status None recorded. Family History Nothing Reported. Medical History No medical history recorded. Past Encounters Encounter ID Performer Location Encounter Start Date Encounter Closed Date Diagnosis/Indication Diagnosis SNOMED-CT Code Diagnosis ICD10 Code [id number] Merry Cunha MD [facility] [address] [place] [phone] 02/23/2022 12:48:33 02/26/2022 12:19:53 Nausea and vomiting 19493274 R11.2 [id number] Quang Jacobs MD [facility] [address] [place] [id number] 03/26/2022 11:00:01 03/28/2022 13:08:23 Diverticulitis [id number] K57.92 [id number] MURIEL WILLINGHAM MD [facility] [address] [place] [id number] 07/09/2023 13:29:14 07/10/2023 10:32:30 Abdominal pain 68445543 R10.9 Nausea and vomiting 1692 1999 R11.2 Health Concerns Section Related Observation LastModified by Organization Detai ls LastModified Time None Recorded Concern Status LastModified by Organization Details LastModified Time None Recorded Advance Directives Directive None Recorded Payers Encounter Date Sequence Insurance Name Policy Number Policy Talbert Covered Member ID Talbert Member ID Guarantor Name 02/23/2022 1 [facility] - DOS PRIOR TO 2022 - DUAL ELIGIBLE (MEDICARE REPLACEMENT/ADV ANTAGE - HMO) Gustavo Thompson [id number] Gustavo Thompson 03/26/[address] [facility] [employer] - DOS PRIOR TO 2022 - DUAL ELIGIBLE (MEDICARE REPLACEMENT/ADV ANTAGE - HMO) Gustavo Thompson [id number] Gustavo Duran Donna 07/09/2023 1 [facility] - DOS ON OR AFTER 2022 - DUAL ELIGIBLE - USP OPTIONS AND ONE CARE (MEDICARE REPLACEMENT/ADV ANTAGE - HMO) Gustavo Thompson [id number] Gustavo Duran Donna Notes Date Note Type [...] .................... .................... .................... .................... .................... .................... . Extractor Machine Operator Note: Community Extractor Machine Operator Crystal Carty SC6 dispatched to a [facility] for a 51 yom C/O [...] CP, SOB, urinary S/S, negative for edema. [facility] was consulted; pt was advised to continue [...] .................... . Disposition: Fulfilled Merry Cunha MD [address] [place] [address],[address], [place], [phone], [employer] 02/23/2022 13:03:01 03/26/2022 text/html CRC Nursing Assessment: [...] diverticulitis Verified identity Quang Jacobs MD [address] [facility],[address], [place], [phone], [employer] 03/26/2022 11:29:03 07/09/2023 text/html CRC Nurse Triage Notes (Mia Fulton): Reason For Request: Pt reporting a diverticulitis flare>slight vomit today, stomach is firm>typical signs of a flare up>slight bowel movement today Chief Complaints: Nausea/Vomiting PMH: Other Allergies: Unknown Comments: Cephalometric Tracer verified the member's name//address and phone number. Member is a a/o3 52 yr old male. PMH > diverticulitis >borderline DM Member had Singaporean food yesterday, woke up not feeling well, had a BM and episode of vomiting. Member and is firm with bile, which is a sign of diverticulitis. Member does not have a fever/ but tool tramadol last night with a mild sweat overnight Education provided on the response time and the member was advised to monitor reported s/s and seek emergency treatment if needed Extractor Machine Operator POC Test Results from Carlos Whiteside epoc (1) [13:59] pH: 7.336 pH units pCO2: 52.2 mmHg pO2: 26.6 mmHg Na: 140 mmol/L K: 4.3 mmol/L iCa: 1.14 mmol/L Cl: 104 mmol/L TCO2: 27.5 mEq/L Hct: 54 % Hb: 18.6 g/dL Glu: 112 mg/dL Lac: 2.09 mmol/L Cr: 0.99 mg/dL BUN: 6 mg/dL A Extractor Machine Operator POC Test Results from Carlos Whiteside Urine Dipstick (1) [14:15] Urine leukocytes: NR Urine nitrites: NR Urine urobilinogen: 0.2 URO Urine protein: NR Urine pH: 5.0 pH Urine blood: NR Urine specific gravity: 1.02 SG Urine ketones: NR Urine bilirubin: NR Urine glucose: NR .................... .................... .................... .................... .................... .................... .................... . Extractor Machine Operator Note From Carlos Whiteside: Pt co lower left abdominal pain, passing gas, and very small bowel movement this morning. 1 episode of vomiting. Pt sts ate Singaporean food last night and symptoms started this [...] . Disposition: Fulfilled MURIEL WILLINGHAM MD [address] [facility],[address], [place], [phone], SANJAY SALAS 07/09/2023 15:20:54
--- OUTSIDE RECORDS SUMMARY | 2024-01-29 09:26 | XMS_ITS | Patient Health Record ---
Author Organization [employer] Address [address] [facility] [address] [place] [address] Care Team Providers Care Professor Of Special Education Name Role Phone Roma Yousif Primary Care [...] of [place] [address] [place] [phone] [id number] Gustavo Thompson Self - patient is the insured MEDICAL (GENERAL) HISTORY Medical History History ICD Code Diabetes mellitus type 2 in obese Diverticulitis Obesity Osteoarthritis of right hip Pyelonephritis Renal insufficiency Right hip pain Shoulder dislocation Tobacco use disorder Surgical History Surgery Date(Month/Year) Osteotomy R hip 1982 Diverticulectomy of large intestine
--- OUTSIDE RECORDS SUMMARY | 2024-01-29 09:26 | XMS_ITS | Patient Health Record ---
Author Organization [facility] Address [address] [place], [place] [id number] Support Name Relationship Address Phone Birgit Sharma Emergency Contact Unknown Gustavo Thompson Guarantor Unknown [phone] Reason For Referral No Information Social History [...] W/U Status Risk Notes Problem Depressive disorder (30405644) Depressive Disorder NOS (311) Active confirmed Plan Of Treatment No Information Insurance Providers Payer Name Payer Address Payer Phone Subscriber Number Group Number Insured Name Patient Relationship to Insured Coverage Start Date Coverage End Date ID Medicaid Standard [address] [place] [address] [id number] Gustavo Thompson Self - patient is the insured ID Medicare Part A [employer] [address] [place] [address] [id number] Gustavo Thompson Self - patient is the insured Medical (General) History Medical History History ICD Code pt reports arthritis/dislocation R shoul nicolasa/R hip plate Surgical History Surgery Date(Month/Year) Hx Diverticulitis, abd surge ry, removed portion of bowel [facility] Agu[facility] 04/2012 R hip surgery leg length discrepancy chi ldhood Hospitalization History Reason Date(Month/Year) [facility] 04/22 [facility] childhood
--- NOTE | 2024-01-29 09:34 | A.OFFPC_ITS ---
Vital Signs 01/29/24 09:35 Height 5 ft 9 in Weight 250 lb BMI 36.9 BP 130/80 Blood Pressure Location Rt brachial Position Sitting Pulse 76 Pulse Source Pulse Oximeter Pulse Oximetry (%) 98 Intake Visit Reasons: 4 month follow up - BP Exit Booth Agent Required: No Allergies No Known Allergies Allergy (Verified 01/29/24 09:36) Medication List - Last Reconciled 01/29/24 by MARQUIS Juarez- atorvastatin 10 mg PO BEDTIME 90 days bisacodyl (Dulcolax (bisacodyl)) 20 mg (4 x 5 mg) PO ONCE 1 day docusate sodium 100 mg PO BID PRN emollient combination no.119 (Eucerin Advanced Repair topical cream) 1 appl topical DAILY 30 days levothyroxine 50 mcg PO DAILY losartan 25 mg PO DAILY tramadol 50 mg PO Q8H PRN Tobacco use date assessed: 09/01/23 Dental Screening Dental Screen Date: 09/01/23 HPI 4 month follow up - BP HPI Details Chief Complaint Follow-up for blood pressure and thyroid medication adjustment History of Present Illness The patient is a 53-year-old male presenting with concerns regarding blood pressure management and thyroid dysfunction. His last laboratory results indicated elevated fasting blood glucose levels, prompting dietary caution re garding carbohydrates and sugars, as he is not currently diagnosed with diabetes but is at risk as he ages. The patient's thyroid function is slightly abnormal (increased), for which he is on medication and adheres to it faithfully. He reports a history of gastrointestinal distress coinciding with meals and notes prior interactions with a drying room attendant. Will place a note to the gastro team for a follow up. Social History - Employment: Not specified - Substance Use: Active smoker with disc ussions about quitting - Activity Level: Limited due to hip kike n - Nutrition: Advised to monitor carbohyd rate and sugar intake Health Maintenance - Discussed diabetes prevention through dietary modifications - Screening labs to be repeated in two [facility] including thyroid and cholesterol levels - Upcoming follow-up with a gastroentero logist for potential colonoscopy - Smoking cessation encouraged with ment ion of yearly low-dose CT scans Review of Systems - Cardiovascular: Denies any si or hi - Gastrointestinal: Reports discomfort s eemingly right after eating and occasional constipation. denies any fevers, chills, blood in stool - Musculoskeletal: Reports persistent hi p pain, especially during cold weather (seeing ortho) - Endocrine: Reports adherence and respo nse to thyroid medication adjustments Physical Exam General: Cooperative, healthy appearing, comfortable, no acute distress and well developed Orientation: Patient oriented x3 Limitations: No limitations Head: Normal to inspection Ears: Hearing grossly normal bilaterally Nose: Normal external nose present Face and sinus: Normal facial exam Eyes: Appearance normal, both eyes and all related structures Neck: Normal visual inspection and Yes full ROM Respiratory: Normal respiratory effort and able to speak in complete sentences. Clear/dimto auscultation bilaterally Cardiovascular: Regular rate and rhythm. Normal S1 and S2 GI: Normal to inspection. Soft to palpation and nontender with palpation Skin: No rashes or lesions noted Neuro: Patient oriented x3 Extremities: Normal to inspection Results - Labs: Previously noted elevated fastin g blood glucose and thyroid irregularities Plan - Continue current antihypertensive ther apy and monitor blood pressure regularly. - Monitor dietary intake to manage eleva erica blood glucose levels; re-evaluate fasting labs in two months. - Increase thyroid medication to 50 mcg as prescribed; reassess thyroid function at the next appointment. - Refer to a drying room attendant for a co lonoscopy; ensure follow-up for gastrointestinal issues. - Address hip pain by coordinating with orthopedic specialists; discuss potential interventions for mobility improvement. - Discuss detailed smoking cessation opt ions and the scheduling of a low-dose CT scan. Patient was informed and verbally consented to the use of an ambient scribe for clinic note documentation during this visit. Discussion Notes During this visit, I discussed the patient's necessity to adjust thyroid medication to a higher dose due to its suboptimal control and the anticipated improvement in his energy levels. I advised on the importance of dietary modifications to address borderline blood glucose levels comprehensively and encouraged ongoing vigilance of blood pressure. For the hip pain exacerbated by cold weather, I reiterated the need to follow up with orthopedic specialists to address any mechanical issues with a screw in the joint, and potential treatments were discussed for his consideration. I recommended the continuation of constipation management and noted the importance of scheduling a colonoscopy, use of miralax, fiber, stool softeners. Smoking cessation was emphasized due to his ongoing usage; I mentioned low-dose CT scans as part of the preventive strategies against adverse health outcomes. Patient Instructions - Take two thyroid pills daily until the new prescription is picked up, then continue with the new dosage, repeat TSH in 2 months. - Monitor carbohydrate and sugar intake to manage blood glucose levels proactively. - Follow up with a drying room attendant fo r a colonoscopy; make an appointment as soon as possible. - Explore smoking cessation programs or resources; consider low-dose CT scan for lung health monitoring. - Schedule repeat labs in two months for thyroid function and cholesterol levels; ensure fasting before tests. - Visit an clinical field specialist to disc s hip pain management options. - Adhere to constipation management with current medication; report any changes in symptoms. [facility] Medical History HTN (hypertension) Hypothyroidism History of prediabetes Nicotine dependence, cigarettes, uncomplicated Diverticulitis Pyelonephritis Obesity Chronic back pain Dislocated shoulder Surgical History History of cholecystectomy History of partial colectomy History of hip surgery Social History Household Members: None Housing: Apartment Housing Other:: one flight of stairs Do you presently have visiting nurse or other home services: Yes ([employer] and occasional VNA) Unable to assess alcohol history related to: Unknown Alcohol intake: current Alcohol intake frequency: a few times a week Tobacco use type: Cigarette Cigarette Packs Per Day: 0.33 Cigarettes Per Day: 6.6 e-Cigarette/Vaping Use: Never Used Second Hand Smoke Exposure: No Substance Use Type: Marijuana service: No Current occupational status: disabled Current occupational exposures/hazards: No Cognitive needs: No Hearing needs: No Vision needs: Yes Questionnaire Thrive Questionnaire Date Thrive assessed: 09/01/23 I am a: Patient What is your living situation today?: I have a steady place to live Within the past 12 months, did the food you bought not last and you didn't have the money to get more?: Often true Within the past 12 months, did you worry whether your food would run out before you got money to buy more?: Often true Do you have trouble paying for medicines?: No Do you have trouble getting transportation to medical appointments?: No Do you have trouble paying your heating and electricity bill?: No Do you have trouble taking care of your child, family member or friend?: No Do you have trouble with day-to-day activities such as bathing, preparing meals, shopping, managing finances, etc.?: Yes Are you currently unemployed and looking for a job?: No Are you interested in more education?: No Currently or been in a relationship where the following occur: I choose not to answer THRIVE Score: 2 VINCENT-7 AMB Questionnaire VINCENT-7 Date VINCENT - 7 assessed: 09/01/23 Source: Developed by Drs. Derek Bradford, Rhoda Rizo, Chester Childress and colleagues, with an educational buck from [employer] Physical exam (Primary Care) Vital Signs: Last Vital Signs Pulse 76 01/29/24 09:35 BP 130/80 01/29/24 09:35 Pulse Ox 98 01/29/24 09:35 BMI result Body Mass Index 36.9 Tobacco/Smoking Status: Tobacco use Status Tobacco use date assessed 09/01/23 01/29/24 09:34 Tobacco use type Cigarette 01/29/24 09:34 e-Cigarette/Vaping Use Never Used 01/29/24 09:34 Thrive Assessment: Date of Thrive Assessment Date Thrive assessed 09/01/23 01/29/24 09:34 Currently or been in a relationship where the following occur: I choose not to answer Coding Level of Care Code Est Pt Level 3 (01947) Diagnoses Hypothyroidism, unspecified type E03.9 Hypothyroidism type: unspecified HTN (hypertension) I10 Elevated fasting blood sugar R73.01 LLQ pain R10.32 Dyslipidemia E78.5 Assessment & Plan Assessment & Plan (1) Hypothyroidism: Code(s): E03.9 - Hypothyroidism, unspecified Category: Medical Qualifiers: Hypothyroidism type: unspecified Qualified Code(s): E03.9 - Hypothyroidism, unspecified (2) HTN (hypertension): Code(s): I10 - Essential (primary) hypertension Category: Medical (3) Elevated fasting blood sugar: Code(s): R73.01 - Impaired fasting glucose Category: Medical (4) LLQ pain: Code(s): R10.32 - Left lower quadrant pain Category: Medical (5) Dyslipidemia: Code(s): E78.5 - Hyperlipidemia, unspecified Category: Medical Plan . Orders: Orders Complete Blood Count Auto Diff Today E03.9 - Hypothyroidism, unspecified, E78.5 - Hyperlipidemia, unspecified, I10 - Essential (primary) hypertension TSH reflex Free T4 Today E03.9 - Hypothyroidism, unspecified, E78.5 - Hyperlipidemia, unspecified, I10 - Essential (primary) hypertension Comprehensive [place]. Panel Fast Today E03.9 - Hypothyroidism, unspecified, E78.5 - Hyperlipidemia, unspecified, I10 - Essential (primary) hypertension Lipid Panel Today E03.9 - Hypothyroidism, unspecified, E78.5 - Hyperlipidemia, unspecified, I10 - Essential (primary) hypertension Medications: New atorvastatin 10 mg PO BEDTIME 90 days 90 tabs 0RF Changed From levothyroxine 25 mcg PO DAILY 90 tabs 1RF To levothyroxine 50 mcg PO DAILY 90 tabs 1RF
[2024-01-29 09:35] VITALS: BP 130/80; PULSE 76; O2SAT 98; BMI 36.9
== END 2024-01-29 10:11 | disposition home or self-care (01) ==
PROVIDERS: PCP Nurse Practitioner Family; Visit Provider Nurse Practitioner Family
DX: E03.9 Hypothyroidism, unspecified (principal); I10 Essential (primary) hypertension; R73.01 Impaired fasting glucose; R10.32 Left lower quadrant pain; E78.5 Hyperlipidemia, unspecified

== ENCOUNTER → 2024-01-29 09:20 | Outpatient (BNVA) | payer OTHER, SELFPAY | PROVIDERS: PCP Nurse Practitioner Family; Visit Provider Nurse Practitioner Family | DX: E03.9 Hypothyroidism, unspecified (principal); I10 Essential (primary) hypertension; R73.01 Impaired fasting glucose; R10.32 Left lower quadrant pain; E78.5 Hyperlipidemia, unspecified | CPT/HCPCS: 99212 ==

== ENCOUNTER 2024-02-09 06:23 | Outpatient (REF) | payer OTHER, SELFPAY ==
[2024-02-09 10:36] LABS: Prostate Specific Antigen 2.21 ng/mL (<0.05-4.0)
== END 2024-02-09 06:24 | disposition home or self-care (01) ==
LOC: HO.HMGCLDS 06:23
PROVIDERS: PCP Nurse Practitioner Family; Visit Provider Nurse Practitioner Family
DX: R97.20 Elevated prostate specific antigen [PSA] (principal); Z12.5 Encounter for screening for malignant neoplasm of prostate
CPT/HCPCS: 36415; 84153

== ENCOUNTER 2024-02-16 12:09 | Outpatient (AMB) | payer OTHER, SELFPAY ==
--- NOTE | 2024-02-16 12:09 | A.OFFVIS_ITS ---
Intake Visit Reasons: 4m/PSA(set) Intake Note: Patient presents today for a tele visit follow-up on: PSA lab results Meds: None Allergies to Antibiotic: No Known Allergies Blood Thinner: None * PSA: 2.21 Survey Analyst Required: No Accompanied by: Self / Same As Patient Allergies No Known Allergies Allergy (Verified 02/16/24 13:17) Medication List - Last Reconciled 02/16/24 by REN Boyd atorvastatin 10 mg PO BEDTIME 90 days bisacodyl (Dulcolax (bisacodyl)) 20 mg (4 x 5 mg) PO ONCE 1 day docusate sodium 100 mg PO BID PRN emollient combination no.119 (Eucerin Advanced Repair topical cream) 1 appl topical DAILY 30 days levothyroxine 50 mcg PO DAILY losartan 25 mg PO DAILY tramadol 50 mg PO Q8H PRN HPI Comments Details: Gustavo is a very pleasant 53-year-old male patient of Dr. Mcdonald. He has a past medical history of pyelonephritis, morbid obesity, chronic back pain, pre diabetes, and diverticulitis. He is being followed up on today via telehealth for his elevated PSA. In discussion with the patient today he reports to be doing and feeling well. Recent PSA results reviewed with the patient today as noted and trended below. Previous workup has included a retroperitoneal ultrasound 03/05 noting bilateral kidneys with no calculi or hydronephrosis. Right kidney with a benign 1.8 cm Bosniak class 2 cyst with a single septation which requires no additional follow-up per radiology report. The bladder is partially distended, limiting evaluation. Bilateral ureteral jets are demonstrated. Pre void bladder volume is approximately 130 mL. Postvoid bladder volume is approximately 10 mL. Prostate volume was measured at approximately 20 mL. PSAs are as follows: 09/01 2.9, 02/01 2.1, 07/03 2.6, 10/03 2.0, 02/02 2.2 Discussed at length potential causes of elevated PSA. When asked he continues to deny any bothersome urinary issues or concerns at this time. He does have a family history of prostate cancer. He reports paternal uncle and maternal great uncle with a history of prostate cancer. When asked he otherwise denies urinary urgency, urinary frequency, incontinence, nocturia, hematuria, dysuria, foul smelling urine, changes to urinary stream, flank pain, fever, and or chills. He is happy with his current voiding parameters. We discussed slight bump in PSA when compared to most recent PSA however not as elevated as it has been in the past. We discussed continuation of surveillance monitoring verses obtaining MRI of the prostate. Will continue with surveillance monitoring at this time he otherwise offers no other issues or concerns at this time. [facility] Medical History HTN (hypertension) Hypothyroidism History of prediabetes Nicotine dependence, cigarettes, uncomplicated Diverticulitis Pyelonephritis Obesity Chronic back pain Dislocated shoulder Surgical History History of cholecystectomy History of partial colectomy History of hip surgery Social History Household Members: None Housing: Apartment Housing Other:: one flight of stairs Do you presently have visiting nurse or other home services: Yes ([employer] and occasional VNA) Unable to assess alcohol history related to: Unknown Alcohol intake: current Alcohol intake frequency: a few times a week Tobacco use type: Cigarette Cigarette Packs Per Day: 0.33 Cigarettes Per Day: 6.6 e-Cigarette/Vaping Use: Never Used Second Hand Smoke Exposure: No Substance Use Type: Marijuana service: No Current occupational status: disabled Current occupational exposures/hazards: No Cognitive needs: No Hearing needs: No Vision needs: Yes Review of Systems Const All systems reviewed & are unremarkable except as noted in HPI and below Eyes Reports no additional complaints ENT Reports no additional complaints Card Reports no additional complaints Resp Reports no additional complaints GI Reports no additional complaints Reports as per HPI Musc Reports no additional complaints Neuro Reports no additional complaints Psych Reports no additional complaints Endo Reports as per HPI Caesar/Lymph Reports no additional complaints Aller/Immun Reports no additional complaints Physical Exam Const General: cooperative Resp Effort & Inspection: able to speak in complete sentences Psych Speech and movement: Clear speech present Attitude: cooperative Thought content: Normal thought content present Insight: Fair insight present (Psych) Judgement: Fair judgement present (Psych) Telehealth Telehealth Telehealth Platform: Telephone Location of provider rendering services: practice address Location of patient: address on file Patient Identification confirmed using: Name, : Yes Telehealth method: voice only Patient verbally consented to treatment: Yes Patient verbally consented to billing insurance company: Yes Patient informed of any privacy concerns related to visit: Yes Minutes spent on Phone/Video with Pt.: 15 Assessment & Plan Assessment & Plan (1) Elevated PSA: Code(s): R97.20 - Elevated prostate specific antigen [PSA] Category: Medical (2) Renal cyst: Code(s): N28.1 - Cyst of kidney, acquired Category: Medical Plan Recent PSA results reviewed with the patient today; as noted above. Discussed at length potential causes for borderline elevated PSA. Patient currently denies any bothersome urinary issues or concerns. He is happy with his current voiding parameters. Will obtain PSA in 6 months; for surveillance monitoring; discussed importance of limiting caffeine morning of lab draw, no sex the night before, no heavy lifting 1-2 days prior to lab draw. Follow-up in 6 months with lab to be completed prior; or sooner with any issues, concerns, and or questions. Orders: Orders Prostate Specific Antigen 6 Months R97.20 - Elevated prostate specific antigen [PSA] Patient Instructions: The patient had an opportunity to ask questions regarding the treatment plan. All questions were answered. Physical exam, labs, and imaging were discussed and reviewed in detail. As well as risks, benefits, and discussion of treatment choices. No major barriers to understanding were identified. The patient expressed understanding and agreement with the above treatment plan. The patient was made aware they should contact our office by phone for worsening of their current condition, the appearance of new symptoms, or with any questions or concerns. Compliance is encouraged with any medications and follow up testing that is ordered. It is a privilege to be allowed the opportunity to participate in? your urological care.? Again, if you have any questions or concerns If you have any questions or concerns please do not hesitate to contact me. The office is [phone]. This note is constructed using voice recognition software. While every effort has been made to ensure accuracy health information management director errors may have been included. Yours sincerely, MARQUIS Boyd-BC Coding Level of Care Code Tele Est Pt Level 3 (20876) Diagnoses Elevated PSA R97.20 Renal cyst N28.1
--- OUTSIDE RECORDS SUMMARY | 2024-02-16 14:02 | XMS_ITS | Data Portability ---
Author Organization [employer] Address [address] [place] [id number] Care Team Providers Care Retread Builder Name Role Phone BRAYAN ADDISON Primary Care Provider HIM MARTHA OTHER Assessment Encounter Date Assessment Date Assessment LastModified by Organization Details LastModified Time 03/26/2022 03/26/2022 As noted, judit johnston called to see this patient regarding concerns of diverticulitis. Evaluation in the field was performed by my rug shampooer colleague, as noted above, I provided real-time [...] and emesis x 1 today. Reports eating greek food last night. Decreased PO. Drinking POs. Having smaller caliber bowel movement this morning. Passing flatus. No f/c. No urinary sxs. Reports that these sxs are similar to prior episodes of diverticulitis. Evaluation in the field was performed by my rug shampooer colleague, as noted above, I provided real-time [...] Lab BMP, serum or plasma 2023 [facility]24 [facility] [address] [place] [address], [id number], 4 17:55:51 urinalysis, dipstick 2023 024 [facility] [address] [place] [address], [id number], 4 08:26:36 hemoglobin + hematocrit, blood 2023 024 [facility] [address] [place] [address], [phone], 4 08:27:25 Referral None recorded. Procedures None recorded. Surgeries None recorded. Imaging None recorded. Medication Orders Zo[facility]an 4 mg tablet 2022 023 [id number] [address] [facility] [place], [address], 3 12:51:43 Augmentin 875 mg-125 mg tablet 2022 023 [id number], [facility] [facility] [place], [address], 3 11:02:07 ondansetron 4 mg disintegrat ing tablet 2022 023 [id number] [place], [address], 3 11:03:03 lactated Ringers intravenous solution 2023 024 [address] [facility] [id number] [place], [address], 4 13:50:19 ondansetron HCl (PF) 4 mg/2 mL injection solution 2023 024 [id number] [facility] [place], [address], 4 13:50:18 ketorolac 30 mg/mL injection solution 2023 024 [id number] [place], [address], 4 13:50:18 Augmentin 875 mg-125 mg tablet 2023 024 [id number] [address] [place], [address], 4 14:22:25 Augmentin 875 mg-125 mg tablet 2023 024 [id number], [address] [facility] [place], [address], 4 14:22:50 Patient TargetsNo targets recorded. Patient [...] Address Organization Details Last Updated DateTime 4 932947. 04 g 16 /min 64 /min 98.2 [...] [degF] 119 mm[Hg] 84 mm[Hg] Not Available Schedule [facility] [employer] - production 3 12:48:34 Date Recorded Heart rate Body temperature Oxygen saturation Oxygen saturation in Arterial blood by Pulse oximetry Respiratory rate Body weight Systolic blood pressure Diastolic blood pressure Provider Name and Address Organization Details Last Updated DateTime 3 72 /min 98 [degF] 97 % 97 % 18 /min 189591. 96 g 160 mm[Hg] 105 mm[Hg] Not Available Schedule [facility] [employer] - production 3 11:00:12 Social History None recorded. Functional Status None recorded. Mental Status None recorded. Family History Nothing Reported. Medical History No medical history recorded. Past Encounters Encounter ID Performer Location Encounter Start Date Encounter Closed Date Diagnosis/Indication Diagnosis SNOMED-CT Code Diagnosis ICD10 Code Diagnosis Note [id number] Merry Cunha MD [facility] [address] [place] [phone] 02/23/2022 12:48:33 02/26/2022 12:19:53 Nausea and vomiting 61060107 R11.2 51 year old male, being evaluated for one day of nausea/vom iting and diarrhea, now resolving. Patient reports some abdominal pain in the L side of his abdomen. Patient with reduced PO intake, but able to tolerate small sips of liquid. Review of systems otherwise negative. Exam notable for normal vital signs, and soft abdomen with mild tenderness on lateral left side, no rebound or guarding. Presentati on consistent with gastroente ritis, now appears to be improving. No evidence of dehydratio n today, but will send a script for zofran to encourage continued PO intake. [id number] Quang Jacobs MD [facility] [address] [place] [id number] 03/26/2022 11:00:01 03/28/2022 13:08:23 Diverticulitis 768801614 K57.92 [id number] MURIEL WILLINGHAM MD [facility] [address] [place] [phone] 07/09/2023 13:29:14 07/10/2023 10:32:30 Abdominal pain 79243613 R10.9 Nausea and vomiting 1692 1999 R11.2 Health Concerns Section Related Observation LastModified by Organization Detai ls LastModified Time None Recorded Concern Status LastModified by Organization Details LastModified Time None Recorded Advance Directives Directive None Recorded Payers Encounter Date Sequence Insurance Name Policy Number Policy Talbert Covered Member ID Talbert Member ID Guarantor Name 02/23/2022 1 [facility] - DOS PRIOR TO 2022 - DUAL ELIGIBLE (MEDICARE REPLACEMENT/ADV ANTAGE - HMO) Gustavo Thompson [id number] Gustavo Thompson 03/26/2022 1 [facility] - DOS PRIOR TO 2022 - DUAL ELIGIBLE (MEDICARE REPLACEMENT/ADV ANTAGE - HMO) Gustavo Thompson [id number] Gustavo Thompson 07/09/2023 1 [facility] - DOS ON OR AFTER 2022 - DUAL ELIGIBLE - GROUP HOME OPTIONS AND ONE CARE (MEDICARE REPLACEMENT/ADV ANTAGE - HMO) Gustavo Thompson [id number] Gustavo Thompson Notes Date Note Type Note Provider Name [...] .................... .................... .................... .................... .................... .................... . Beauty Counselor Note: Community Beauty Counselor Crystal Carty SC6 dispatched to a the neuromedical center for a 51 yom C/O N/V/D. [...] CP, SOB, urinary S/S, negative for edema. [facility] [place]; pt was advised to continue ingesting small and intermittent amounts of food and fluids, and to monitor his S/S. He was informed that if his S/S got worse, to seek medical attention NOELLE ([facility], walk in clinic, PCP/GI, or ED). He was prescribed ondansetron as well. Red flags discussed. .................... .................... .................... .................... .................... .................... .................... . Disposition: Sully Cunha MD [address] [facility],[address], [place], [phone], [employer] 02/23/2022 13:03:01 03/26/2022 text/html [facility] Nursing Assessment: Reason For Request: abd pain [...] for diverticulitis Verified identity Quang Jacobs MD [address] [place] [address],[address] [facility], [place], [phone], [employer] 03/26/2022 11:29:03 07/09/2023 text/html [facility] Nurse Triage Notes (Mia Fulton): Reason For Request: Pt reporting a diverticulitis flare>slight vomit today, stomach is firm>typical signs of a flare up>slight bowel movement today Chief Complaints: Nausea/Vomiting PMH: Other Allergies: Unknown Comments: Costume Director verified the member's name//address and phone number. Member is a a/o3 52 yr old male. PMH > diverticulitis >borderline DM Member had [place] food yesterday, woke up not feeling well, had a BM and episode of vomiting. Member and is firm with bile, which is a sign of diverticulitis. Member does not have a fever/ but tool tramadol last night with a mild sweat overnight Education provided on the response time and the member was advised to monitor reported s/s and seek emergency treatment if needed Beauty Counselor POC Test Results from [facility] epo (1) [13:59] pH: 7.336 pH units pCO2: 52.2 mmHg pO2: 26.6 mmHg Na: 140 mmol/L K: 4.3 mmol/L iCa: 1.14 mmol/L Cl: 104 mmol/L TCO2: 27.5 mEq/L Hct: 54 % Hb: 18.6 g/dL Glu: 112 mg/dL Lac: 2.09 mmol/L Cr: 0.99 mg/dL BUN: 6 mg/dL A Beauty Counselor POC Test Results from [facility] - [facility] Urine Dipstick (1) [14:15] Urine leukocytes: NR Urine nitrites: NR Urine urobilinogen: 0.2 URO Urine protein: NR Urine pH: 5.0 pH Urine blood: NR Urine specific gravity: 1.02 SG Urine ketones: NR Urine bilirubin: NR Urine glucose: NR .................... .................... .................... .................... .................... .................... .................... . Beauty Counselor Note From [facility]: Pt co lower left abdominal pain, passing gas, and very small bowel movement this morning. 1 episode of vomiting. Pt sts ate [place] food last night and symptoms started this [...] .................... . Disposition: Fulfilled MURIEL WILLINGHAM MD [address] [place] [address],[address], [place], [phone], SANJAY SALAS 07/09/2023 15:20:54
--- OUTSIDE RECORDS SUMMARY | 2024-02-16 14:02 | XMS_ITS | Patient Health Record ---
Author Organization [facility] Address [address] [place] [address], [place] [id number] Support Name Relationship Address Phone Birgit Sharma Emergency Contact Unknown Gustavo Thompson Guarantor Unknown [phone] Reason For Referral No Information Social History [...] W/U Status Risk Notes Problem Depressive disorder ([id number]) Depressive Disorder NOS (311) Active confirmed Plan Of Treatment No Information Insurance Providers Payer Name Payer Address Payer Phone Subscriber Number Group Number Insured Name Patient Relationship to Insured Coverage Start Date Coverage End Date [place] [address] [place] [address] [id number] Gustavo Thompson Self - patient is the insured [place] [employer] 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
== END 2024-02-16 12:53 | disposition home or self-care (01) ==
PROVIDERS: PCP Nurse Practitioner Family; Visit Provider Nurse Practitioner Family
DX: R97.20 Elevated prostate specific antigen [PSA] (principal); N28.1 Cyst of kidney, acquired
CPT/HCPCS: 98013

== ENCOUNTER 2024-03-24 08:14 | Outpatient (REF) | payer OTHER, SELFPAY ==
[2024-03-24 16:13] LABS: Influenza A PCR NEGATIVE (Negative); Influenza B PCR NEGATIVE (Negative); Resp Syncy Virus RNA Qual PCR NEGATIVE (Negative); SARS COV2 PCR INHOUSE NEGATIVE (Negative)
== END 2024-03-24 08:15 | disposition home or self-care (01) ==
LOC: HO.LAB 08:14
PROVIDERS: PCP Nurse Practitioner Family; Visit Provider Physician Assistant
DX: J06.9 Acute upper respiratory infection, unspecified (principal); R09.89 Other specified symptoms and signs involving the circulatory and respiratory systems
CPT/HCPCS: 0241U; 99212

== ENCOUNTER 2024-03-24 08:14 | Outpatient (AMB) | payer OTHER, SELFPAY ==
--- OUTSIDE RECORDS SUMMARY | 2024-03-24 08:43 | XMS_ITS | Data Portability ---
Author Organization [facility] Address [address] [place] [phone] Care Team Providers Care Aviation Medicine Specialist Name Role Phone BRAYAN ADDISON Primary Care Provider [phone] HIM MARTHA OTHER Assessment Encounter Date Assessment Date Assessment LastModified by Organization Details LastModified Time 03/26/2022 03/26/2022 As noted, judit johnston called to see this patient regarding concerns of diverticulitis. Evaluation in the field was performed by my substance abuse nurse colleague, as noted above, I provided real-time [...] and emesis x 1 today. Reports eating monegasque food last night. Decreased PO. Drinking POs. Having smaller caliber bowel movement this morning. Passing flatus. No f/c. No urinary sxs. Reports that these sxs are similar to prior episodes of diverticulitis. Evaluation in the field was performed by my substance abuse nurse colleague, as noted above, I provided real-time [...] Lab BMP, serum or plasma 2023 024 [facility], [address] [place] [address], [phone], 4 17:55:51 urinalysis, dipstick 2023 024 [facility], [address] [place] [address], [phone], 4 08:26:36 hemoglobin + hematocrit, blood 2023 024 [facility], [address] [place] [address], [phone], 4 08:27:25 Referral None recorded. Procedures None recorded. Surgeries None recorded. Imaging None recorded. Medication Orders Zofran [address] [id number] [address] [facility] [place], [address], 3 12:51:43 Augmentin 875 mg-[address] [id number], [facility] [facility] [place], [address], 3 11:02:07 ondansetron 4 mg disintegrat ing tablet [address] [id number] [place], [address], 3 11:03:03 lactated Ringers intravenous solution 2023 024 [address] [facility] [id number] [address] [place], [address], 4 13:50:19 ondansetron HCl (PF) 4 mg/2 mL injection solution 2023 024 [id number] [address] [facility] [place], [address], 4 13:50:18 ketorolac 30 mg/mL injection solution 2023 024 [address] [id number] [address] [place], [address], 4 13:50:18 Augmentin 875 mg-[address] [id number] [address] [place], [address], 4 14:22:25 Augmentin 875 mg-125 mg tablet 2023 024 [id number], [address] [facility] [place], [address], 4 14:22:50 Patient TargetsNo targets recorded. Patient [...] Address Organization Details Last Updated DateTime 4 464401. 04 g 16 /min 64 /min 98.2 [...] [degF] 119 mm[Hg] 84 mm[Hg] Not Available [employer] [facility] 3 12:48:34 Date Recorded Heart rate Body temperature Oxygen saturation Oxygen saturation in Arterial blood by Pulse oximetry Respiratory rate Body weight Systolic blood pressure Diastolic blood pressure Provider Name and Address Organization Details Last Updated DateTime 3 72 /min 98 [degF] 97 % 97 % 18 /min 489649. 96 g 160 mm[Hg] 105 mm[Hg] Not Available [employer] [facility] 3 11:00:12 Social History None recorded. Functional Status None recorded. Mental Status None recorded. Family History Nothing Reported. Medical History No medical history recorded. Past Encounters Encounter ID Performer Location Encounter Start Date Encounter Closed Date Diagnosis/Indication Diagnosis SNOMED-CT Code Diagnosis ICD10 Code Diagnosis Note [id number] Merry Cunha MD [facility] [address] [place] [phone] 02/23/2022 12:48:33 02/26/2022 12:19:53 Nausea and vomiting 63991434 R11.2 51 year old male, being evaluated [...] [id number] Quang Jacobs MD [facility] [address] [place] [phone] 03/26/2022 11:00:01 03/28/2022 13:08:23 Diverticulitis 939960613 K57.92 [id number] MURIEL WILLINGHAM MD [facility] [address] [place] [phone] 07/09/2023 13:29:14 07/10/2023 10:32:30 Abdominal pain 25253535 R10.9 Nausea and vomiting 1692 1999 R11.2 Health Concerns Section Related Observation LastModified by Organization Detai ls LastModified Time None Recorded Concern Status LastModified by Organization Details LastModified Time None Recorded Advance Directives Directive None Recorded Payers Encounter Date Sequence Insurance Name Policy Number Policy Talbert Covered Member ID Talbert Member ID Guarantor Name 02/23/2022 1 [facility] - DOS PRIOR TO 2022 - DUAL ELIGIBLE (MEDICARE REPLACEMENT/ADV ANTAGE - HMO) Gustavo Thompson [id number] Gustavo Thompson 03/26/2022 1 [facility] - DOS PRIOR TO 2022 - DUAL ELIGIBLE (MEDICARE REPLACEMENT/ADV ANTAGE - HMO) Gustavo Thompson [id number] Gustavo Thompson 07/09/2023 1 [facility] - DOS ON OR AFTER 2022 - DUAL ELIGIBLE - ASSISTED OPTIONS AND ONE CARE (MEDICARE REPLACEMENT/ADV ANTAGE - HMO) Gustavo Thompson [id number] Gustavo Thompson Notes Date Note Type Note [...] .................... .................... .................... .................... .................... .................... . Director Of Career Resources Note: Community Director Of Career Resources Crystal Carty SC6 dispatched to a [facility] for a 51 yom C/O [...] .................... . Disposition: Sully Cunha MD [address] [facility],[address], [place], [address], [facility] 02/23/2022 13:03:01 03/26/2022 text/html CRC Nursing Assessment: [...] for diverticulitis Verified identity Quang Jacobs MD [address] [place] [address],[address], [place], [phone], [employer] 03/26/2022 11:29:03 07/09/2023 text/html [facility] Nurse Triage Notes (Mia Fulton): Reason For Request: Pt reporting a diverticulitis flare>slight vomit today, stomach is firm>typical signs of a flare up>slight bowel movement today Chief Complaints: Nausea/Vomiting PMH: Other Allergies: Unknown Comments: Mechanical Sound Technician verified the member's name//address and phone number. Member is a a/o3 52 yr old male. PMH > diverticulitis >borderline DM Member had Italian food yesterday, woke up not feeling well, had a BM and episode of vomiting. Member and is firm with bile, which is a sign of diverticulitis. Member does not have a fever/ but tool tramadol last night with a mild sweat overnight Education provided on the response time and the member was advised to monitor reported s/s and seek emergency treatment if needed Director Of Career Resources POC Test Results from Carlos Hays [facility] (1) [13:59] pH: 7.336 pH units pCO2: 52.2 mmHg pO2: 26.6 mmHg Na: 140 mmol/L K: 4.3 mmol/L iCa: 1.14 mmol/L Cl: 104 mmol/L TCO2: 27.5 mEq/L Hct: 54 % Hb: 18.6 g/dL Glu: 112 mg/dL Lac: 2.09 mmol/L Cr: 0.99 mg/dL BUN: 6 mg/dL A Director Of Career Resources POC Test Results from Carlos Hays - [facility] Urine Dipstick (1) [14:15] Urine leukocytes: NR Urine nitrites: NR Urine urobilinogen: 0.2 URO Urine protein: NR Urine pH: 5.0 pH Urine blood: NR Urine specific gravity: 1.02 SG Urine ketones: NR Urine bilirubin: NR Urine glucose: NR .................... .................... .................... .................... .................... .................... .................... . Director Of Career Resources Note From Carlos Hays: Pt co lower left abdominal pain, passing gas, and very small bowel movement this morning. 1 episode of vomiting. Pt sts ate Italian food last night and symptoms started this [...] .................... . Disposition: Fulfilled MURIEL WILLINGHAM MD [address] [place] [address],[address], [place], [phone], JULY - SANJAY BIRD 07/09/2023 15:20:54
--- OUTSIDE RECORDS SUMMARY | 2024-03-24 08:44 | XMS_ITS | Patient Health Record ---
Author Organization [facility] Address [address] [facility] [address] [place] [address] Care Team Providers Care Agent Broker Name Role Phone Roma Yousif Primary Care Provider Thierry labfrancie Allergies Allergen (clinical drug ingredient) Drug/Non Drug Allergy documented on EMR Reaction Allergy Type Onset Date Status acetaminophen Tylenol Unknown Drug Allergy Act margaret Reason For Referral No Information Medications Medication SIG (Take, Route, Fr equency, Duration) Notes Start Date End Date Status Diclofenac Sodium 1 % as directed Transd ermal 4 times a day Active Plan Of Treatment No Information Insurance Providers Payer Name Payer Address Payer Phone Subscriber Number Group Number Insured Name Patient Relationship to Insured Coverage Start Date Coverage End Date Medicare of [place] [address] [place] [phone] [id number] Gustavo Thompson Self - patient is the insured Medical (General) History Medical History History ICD Code Diabetes mellitus type 2 in obese Diverticulitis Obesity Osteoarthritis of right hip Pyelonephritis Renal insufficiency Right hip pain Shoulder dislocation Tobacco use disorder Surgical History Surgery Date(Month/Year) Osteotomy R hip 1982 Diverticulectomy of large intestine
--- OUTSIDE RECORDS SUMMARY | 2024-03-24 08:44 | XMS_ITS | Clinical Summary ---
Author Organization [facility] Address [address] [place] [address] Care Team Providers Care Field Inspector Name Role Phone Yaya Egan MD Primary Care Provider Surgical History Surgery Date Site/Laterality Comments OTHER SURGICAL HISTORY PROCEDURE: ID UNLISTED PROCEDURE SMALL INTESTINE; COMMENT: for diverticulitis OTHER SURGICAL HISTORY Right PROCEDURE: ID OPTX ACTBLR FX INVG ANT/PST 1 COLUMN/FX W/INT Medical History Medical History Date Comments Diverticulitis DX:Diverticuliti s Hyperlipidemia DX:Hyperlipidemi a Family History Medical History Relation Name Comments No Known Problems Father No Known Problems Mother Relation Name Status Comments Father Mother Social History Tobacco Use Types Packs/Day Years Used Date Smoking Tobacco: Every Day Cigarettes Sex and Gender Information Value Date Recorded Sex Assigned at Not on file Legal Sex Male 1:18 AM EST Gender Identity Not on file Sexual Orientation Not on file Obstetrics History Plan of Treatment Health Maintenance Due Date Last Done Comments DTaP,Tdap,and Td Vaccines (1 - Tdap) 09/13/1987 Hepatitis B Vaccines (1 of 3 - 19+ 3-dose series) 09/13/1987 Zoster Vaccines (1 of 2) 2018 COVID-19 Vaccine (2023-2 5 season) 2023 Influenza Vaccine (#1) 2023 HIB Vaccines Aged Out No longer eligi ble based on patient's age to complete this topic HPV Vaccines Aged Out No longer eligi ble based on patient's age to complete this topic Hepatitis A Vaccines Aged Out No long er eligible based on patient's age to complete this topic IPV Vaccines Aged Out No longer eligi ble based on patient's age to complete this topic MMR Vaccines Aged Out No longer eligi ble based on patient's age to complete this topic Meningococcal ACWY Vaccine Aged Out N o longer eligible based on patient's age to complete this topic Pneumococcal Vaccine: Pediat rics (0 to 5 Years) and At-Risk Patients (6 to 64 Years) Aged Out No longer eligible b ased on patient's age to complete this topic RSV Immunization Patients Un nicolasa 20 months Aged Out No longer eligible b ased on patient's age to complete this topic Varicella Vaccines Aged Out No longer eligible based on patient's age to complete this topic Care Teams Field Inspector Relationship Specialty Start Date End Date Yaya Egan MD [address] [place] [address] PCP - General Internal Medicine 05/26/17
[2024-03-24 09:22] VITALS: BP 118/76; PULSE 80; RESP 18; TEMP 36.7; O2SAT 98; BMI 36.8
--- NOTE | 2024-03-24 09:22 | AM.OFFWIN_ITS ---
Intake Vital Signs 03/24/24 09:22 Height 5 ft 9 in Weight 249 lb BMI 36.8 BP 118/76 Blood Pressure Location Lt brachial Position Sitting Respiration 18 Pulse 80 Pulse Source Pulse Oximeter Temp 98.1 F Temp Source Oral Pulse Oximetry (%) 98 Oxygen Delivery Method Room Air Intake Visit Reasons: EP cough, phlegm Intake Note: Pt is here today for a walk in visit. Pt c/o cough and a lot of phlegm. Allergies No Known Allergies Allergy (Verified 03/24/24 09:26) HPI HPI Comments History of Present Illness Details History - The patient is a 53-year-old male pres enting with over a week ago with cough and congestion. - Used a bottle of Mucinex, then the pat ient switched to flu medications, which he completed last night, and while some symptoms remain, there's a general improvement in his condition. - The patient is particularly concerned about the risk of developing pneumonia. - Tobacco use is significant, presenting with mild wheezing at times. - He reports lingering morning phlegm bu t denies fever, significant shortness of breath, and ear or sinus pain. - Symptom management has been self-direc erica with hjbn-vbu-lodcthn medications as needed, and symptoms are improving. Physical Exam General: Cooperative, healthy appearing, comfortable and no acute distress Orientation/consciousness: Patient oriented x3 Limitations: No limitations Head: Normal to inspection Ears: Hearing grossly normal bilaterally, external ears normal, TMs wiht some fluid bilaterally Nose: Normal external nose present, Normal nares present and No nasal discharge present Face and sinus: Normal facial exam and Yes sinuses nontender Mouth: Normal oral and palatal mucosa present and moist mucous membranes Throat: Yes tonsils normal, Yes uvula midline. Posterior oropharynx erythema Eyes: Appearance normal, both eyes and all related structures Neck: Normal visual inspection Respiratory: Clear to auscultation bilaterally. Normal respiratory effort, able to speak in complete sentences, no respiratory distress, not tachypneic, no tripod positioning and no use of accessory muscles Cardiovascular: Regular rate and rhythm. Normal S1 and S2 Skin: No rashes or lesions noted Neuro: Patient oriented x3 Extremities: Normal to inspection and Yes no clubbing, cyanosis or edema [facility] Medical History HTN (hypertension) Hypothyroidism History of prediabetes Nicotine dependence, cigarettes, uncomplicated Diverticulitis Pyelonephritis Obesity Chronic back pain Dislocated shoulder Surgical History History of cholecystectomy History of partial colectomy History of hip surgery Social History Household Members: None Housing: Apartment Housing Other:: one flight of stairs Do you presently have visiting nurse or other home services: Yes (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1 F 03/24/24 09:22 Pulse 80 03/24/24 09:22 Resp 18 03/24/24 09:22 BP 118/76 03/24/24 09:22 Pulse Ox 98 03/24/24 09:22 Oxygen Delivery Method Room Air 03/24/24 09:22 BMI result Body Mass Index 36.8 Assessment & Plan Assessment & Plan (1) URI, acute: Code(s): J06.9 - Acute upper respiratory infection, unspecified Plan: The patient's upper respiratory infection is showing signs of improvement, and supportive care is recommended to aid recovery. As there are no indications of pneumonia, imaging is not required. Continued use of symptomatic treatments and smoking cessation are advised to enhance respiratory health. A limited use of medications like Mucinex and Robitussin may continue if necessary. Diagnostic testing for viral infections is underway to confirm the presence of influenza, COVID-19, or RSV. Overall, recovery appears satisfactory without significant respiratory distress. Patient declined a work note. Patient was informed and verbally consented to the use of an ambient scribe for clinic note documentation during this visit Orders: Orders SARS-CoV2/FLU/RSV Today R09.89 - Other specified symptoms and signs involving the circulatory and respiratory systems Coding Level of Care Code Est Pt Level 3 (69552) Diagnoses URI, acute J06.9
== END 2024-03-24 09:47 | disposition home or self-care (01) ==
PROVIDERS: PCP Nurse Practitioner Family; Visit Provider Physician Assistant
DX: J06.9 Acute upper respiratory infection, unspecified (principal)

== ENCOUNTER 2024-04-12 07:06 | Outpatient (REF) | payer OTHER, SELFPAY ==
--- OUTSIDE RECORDS SUMMARY | 2024-04-12 07:08 | XMS_ITS | Data Portability ---
Author Organization [employer] Address [address] [place] [address] Care Team Providers Care Rotor Casting Machine Setup Operator Name Role Phone BRAYAN ADDISON Primary Care Provider [phone] HIM MARTHA OTHER Assessment Encounter Date Assessment Date Assessment LastModified by Organization Details LastModified Time 03/26/2022 03/26/2022 As noted, judit johnston called to see this patient regarding concerns of diverticulitis. Evaluation in the field was performed by my tubular products fabricator colleague, as noted above, I provided real-time [...] and emesis x 1 today. Reports eating pashto food last night. Decreased PO. Drinking POs. Having smaller caliber bowel movement this morning. Passing flatus. No f/c. No urinary sxs. Reports that these sxs are similar to prior episodes of diverticulitis. Evaluation in the field was performed by my tubular products fabricator colleague, as noted above, I provided real-time [...] Lab BMP, serum or plasma 2023 024 [facility], [address] [place] [address], [phone], 4 17:55:51 urinalysis, dipstick 2023 024 [facility], [address] [place] [address], [phone], 4 08:26:36 hemoglobin + hematocrit, blood 2023 024 [facility], [address] [place] [address], [phone], 4 08:27:25 Referral None recorded. Procedures None recorded. Surgeries None recorded. Imaging None recorded. Medication Orders lactated Ringers intravenous solution [address]/Pharmacy #0693, [address] [facility], [address], 4 13:50:19 ondansetron HCl (PF) 4 mg/2 mL injection solution 2023 [address]24 [address], [facility] [place], [address], 4 13:50:18 ketorolac 30 mg/mL injection solution 2023 [address]24 [address], [facility] [place], [address], 4 13:50:18 Augmentin 875 mg-125 mg tablet 2023 024 [facility] [place], [address], 4 14:22:25 Augmentin 875 mg-125 mg tablet 2023 [address]24 [address], [facility] [place], [address], 4 14:22:50 Augmentin 875 mg-125 mg tablet 2022 023 [facility] [place], [address], 3 11:02:07 ondansetron 4 mg disintegrat ing tablet 2022 023 [facility] [place], [address], 3 11:03:03 Zofran 4 mg tablet 2022 023 [facility]/Pharmacy #0635, [address] [place], [address], 3 12:51:43 Patient TargetsNo targets recorded. Patient InstructionsNo instructions [...] Address Organization Details Last Updated DateTime 4 051724. 04 g 16 /min 64 /min 98.2 [...] [degF] 119 mm[Hg] 84 mm[Hg] Not Available [employer] - production 3 12:48:34 Date Recorded Heart rate Body temperature Oxygen saturation Oxygen saturation in Arterial blood by Pulse oximetry Respiratory rate Body weight Systolic blood pressure Diastolic blood pressure Provider Name and Address Organization Details Last Updated DateTime 3 72 /min 98 [degF] 97 % 97 % 18 /min 612956. 96 g 160 mm[Hg] 105 mm[Hg] Not Available [employer] - production 3 11:00:12 Social History None recorded. Functional Status None recorded. Mental Status None recorded. Family History Nothing Reported. Medical History No medical history recorded. Past Encounters Encounter ID Performer Location Encounter Start Date Encounter Closed Date Diagnosis/Indication Diagnosis SNOMED-CT Code Diagnosis ICD10 Code Diagnosis Note [id number] Merry Cunha MD Main - [facility] [address] [place] [id number] 02/23/2022 12:48:33 02/26/2022 12:19:53 Nausea and vomiting 84739235 R11.2 51 year old male, being evaluated [...] [id number] Quang Jacobs MD Main - [facility] [address] [place] [id number] 03/26/2022 11:00:01 03/28/2022 13:08:23 Diverticulitis 226532517 K57.92 [id number] MURIEL WILLINGHAM MD Main - [facility] [address] [place] [id number] 07/09/2023 13:29:14 07/10/2023 10:32:30 Abdominal pain 75535710 R10.9 Nausea and vomiting 1692 1999 R11.2 Health Concerns Section Related Observation LastModified by Organization Detai ls LastModified Time None Recorded Concern Status LastModified by Organization Details LastModified Time None Recorded Advance Directives Directive None Recorded Payers Encounter Date Sequence Insurance Name Policy Number Policy Talbert Covered Member ID Talbert Member ID Guarantor Name 02/23/2022 1 [facility] - DOS PRIOR TO 2022 - DUAL ELIGIBLE (MEDICARE REPLACEMENT/ADV ANTAGE - HMO) Gustavo Thompson [id number] Gustavo Thompson 03/26/2022 1 [facility] - DOS PRIOR TO 2022 - DUAL ELIGIBLE (MEDICARE REPLACEMENT/ADV ANTAGE - HMO) Gustavo Thompson [id number] Gustavo Thompson 07/09/2023 1 [facility] - DOS ON OR AFTER 2022 - DUAL ELIGIBLE - JAIL OPTIONS AND ONE CARE (MEDICARE REPLACEMENT/ADV ANTAGE - HMO) Gustavo Thompson [id number] Gustavo Thompson Notes Date Note Type Note [...] .................... .................... .................... .................... .................... .................... . Sap Crm Developer Note: Community Sap Crm Developer Crystal Carty SC6 dispatched to a [facility] for a 51 yom C/O N/V/D. Upon [...] CP, SOB, urinary S/S, negative for edema. [facility]; pt was advised to continue [...] .................... . Disposition: Sully Cunha MD [address] [facility],[address], [place], [address], [employer] 02/23/2022 13:03:01 03/26/2022 text/html CRC Nursing Assessment: [...] for diverticulitis Verified identity Quang Jacobs MD [address] [place] [address],[address], [place], [address], [employer] 03/26/2022 11:29:03 07/09/2023 text/html [facility] Nurse Triage Notes (Mia Fulton): Reason For Request: Pt reporting a diverticulitis flare>slight vomit today, stomach is firm>typical signs of a flare up>slight bowel movement today Chief Complaints: Nausea/Vomiting PMH: Other Allergies: Unknown Comments: Tile Setter verified the member's name//address and phone number. Member is a a/o3 52 yr old male. PMH > diverticulitis >borderline DM Member had Gibraltarian food yesterday, woke up not feeling well, had a BM and episode of vomiting. Member and is firm with bile, which is a sign of diverticulitis. Member does not have a fever/ but tool tramadol last night with a mild sweat overnight Education provided on the response time and the member was advised to monitor reported s/s and seek emergency treatment if needed Sap Crm Developer POC Test Results from Carlos Whiteside [facility] (1) [13:59] pH: 7.336 pH units pCO2: 52.2 mmHg pO2: 26.6 mmHg Na: 140 mmol/L K: 4.3 mmol/L iCa: 1.14 mmol/L Cl: 104 mmol/L TCO2: 27.5 mEq/L Hct: 54 % Hb: 18.6 g/dL Glu: 112 mg/dL Lac: 2.09 mmol/L Cr: 0.99 mg/dL BUN: 6 mg/dL A Sap Crm Developer POC Test Results from Carlos Whiteside - [facility] Urine Dipstick (1) [14:15] Urine leukocytes: NR Urine nitrites: NR Urine urobilinogen: 0.2 URO Urine protein: NR Urine pH: 5.0 pH Urine blood: NR Urine specific gravity: 1.02 SG Urine ketones: NR Urine bilirubin: NR Urine glucose: NR .................... .................... .................... .................... .................... .................... .................... . Sap Crm Developer Note From [facility]: Pt co lower left abdominal pain, passing gas, and very small bowel movement this morning. 1 episode of vomiting. Pt sts ate Gibraltarian food last night and symptoms started this [...] .................... . Disposition: Fulfilled MURIEL WILLINGHAM MD [address] [place] [address],[address], [place], [address], JULY - SANJAY BIRD 07/09/2023 15:20:54
--- OUTSIDE RECORDS SUMMARY | 2024-04-12 07:08 | XMS_ITS | Patient Health Record ---
Author Organization [facility] Address [address] [facility] [address] [place] [address] Care Team Providers Care [facility] Shift Lead Name Role Phone Roma Yousif Primary Care [...] Medicare of [place] [address] [place] [phone] [id number] Gustavo Thompson Self - patient is the insured Medical (General) History Medical History History ICD Code Diabetes mellitus type 2 in obese Diverticulitis Obesity Osteoarthritis of right hip Pyelonephritis Renal insufficiency Right hip pain Shoulder dislocation Tobacco use disorder Surgical History Surgery Date(Month/Year) Osteotomy R hip 1982 Diverticulectomy of large intestine
--- OUTSIDE RECORDS SUMMARY | 2024-04-12 07:08 | XMS_ITS | Clinical Summary ---
Author Organization [facility] Address [address] [place] [address] Care Team Providers Care Seat Installer Name Role Phone Yaya Egan MD Primary Care Provider Surgical History Surgery Date Site/Laterality Comments OTHER SURGICAL HISTORY PROCEDURE: UT UNLISTED PROCEDURE SMALL INTESTINE; COMMENT: for diverticulitis OTHER SURGICAL HISTORY Right PROCEDURE: UT OPTX ACTBLR FX INVG ANT/PST 1 COLUMN/FX [...] of 3 - 19+ 3-dose series) 09/13/1987 Pneumococcal Vaccine: 50+ Ye ars (1 of 1 - PCV) 2018 Zoster Vaccines (1 of 2) 2018 COVID-19 [...] patient's age to complete this topic Meningococcal B Vacine Aged Out No lo nger eligible based on patient's age to complete [...] age to complete this topic Care Teams Seat Installer Relationship Specialty Start Date End Date Yaya Egan MD [address] [place] [address] PCP - General Internal Medicine 05/26/17
[2024-04-12 10:22] LABS: MANUAL DIFF FLAG NO
[2024-04-12 10:35] LABS: Basophils Percent Auto 0.2 % (0-2); Eosinophils Absolute Auto 0.1 X10*3/uL (0.0-0.4); Eosinophils Percent Auto 0.9 % (0-4); Hematocrit 45.1 % (42.0-52.0); Hemoglobin 14.5 g/dl (14.0-18.0); Imm Gran Abs Auto 0.03 X10*3/uL (0.00-0.03); Imm Gran Pct Auto 0.3 % (0.0-0.4); Lymphocytes Absolute Auto 4.4 X10*3/uL (1.2-4.9); Lymphocytes Percent Auto 41.6 % (20-40); Mean Corpuscular HGB Conc 32.2 g/dl (31.0-36.0); Mean Corpuscular Hemoglobin 27.6 pg (27.0-33.0); Mean Corpuscular Volume 85.9 fL (80.0-98.0); Monocytes Absolute Auto 0.8 X10*3/uL (0.1-1.2); Monocytes Percent Auto 7.9 % (2-11); Neutrophils Absolute Auto 5.2 x10*3/uL (2.0-8.3); Neutrophils Percent Auto 49.1 % (45-73); Platelet Count 275 X10*3/uL (160-400); Red Blood Count 5.25 X10*6/uL (4.60-5.80); Red Cell Distribution Width 14.1 % (11.0-16.0); White Blood Count 10.7 X10*3/uL (4.8-10.8)
[2024-04-12 11:05] LABS: Alanine Aminotransferase 39 U/L (0-40); Albumin Level 3.9 g/dL (3.5-5.0); Alkaline Phosphatase 37 U/L (39-117); Anion Gap 13 (12-20); Aspartate Amino Transferase 24 U/L (5-37); Bilirubin Total 0.2 mg/dL (0.0-1.0); Blood Urea Nitrogen 13 mg/dL (9-16); Calcium 9.2 mg/dL (8.4-10.2); Carbon Dioxide 24 mmol/L (22-29); Chloride 113 mmol/L (96-108); Cholesterol 159 mg/dL (<200); Estimated Glomerular Filt Rate > 60; Glucose Fasting 120 mg/dL (60-99); HDL Cholesterol 66 mg/dL (>40); LDL Cholesterol Calculated 74 mg/dL (<100); Potassium 4.7 mmol/L (3.3-5.1); Sodium 145 mmol/L (135-145); Total Protein 7.2 g/dL (6.5-8.0); Triglycerides 97 mg/dL (<150)
[2024-04-12 11:22] LABS: TSH reflex Free T4 4.34 uIU/mL (0.32-4.0)
== END 2024-04-12 07:07 | disposition home or self-care (01) ==
LOC: HO.HMGCLDS 07:06
PROVIDERS: PCP Nurse Practitioner Family; Visit Provider Nurse Practitioner Family
DX: I10 Essential (primary) hypertension (principal); E03.9 Hypothyroidism, unspecified; E78.5 Hyperlipidemia, unspecified
CPT/HCPCS: 36415; 80053; 80061; 84439; 84443; 85025

== ENCOUNTER 2024-06-14 06:06 | Outpatient (REF) | payer OTHER, SELFPAY ==
--- OUTSIDE RECORDS SUMMARY | 2024-06-14 06:08 | XMS_ITS | Clinical Summary ---
Author Organization [facility] Address [address] [place] [address] Care Team Providers Care Chalker Soles Name Role Phone Yaya Egan MD Primary Care Provider Surgical History Surgery Date Site/Laterality Comments OTHER SURGICAL HISTORY PROCEDURE: [place] UNLISTED PROCEDURE SMALL INTESTINE; COMMENT: for diverticulitis OTHER SURGICAL HISTORY Right PROCEDURE: AL OPTX ACTBLR FX INVG ANT/PST 1 COLUMN/FX [...] Vaccines (1 of 2) 2018 COVID-19 Vaccine ( - 2023-2 5 season) 2023 Influenza Vaccine (Season Ended) 2024 HIB Vaccines Aged Out No longer eligi [...] age to complete this topic Meningococcal B Vaccine Aged Out No l onger eligible based on patient's age to complete [...] age to complete this topic Care Teams Chalker Soles Relationship Specialty Start Date End Date Yaya Egan MD [address] [place] [id number] PCP - General Internal Medicine 05/26/17
--- OUTSIDE RECORDS SUMMARY | 2024-06-14 06:08 | XMS_ITS | Patient Health Record ---
Author Organization [facility] Address [address] [facility] [address] [place] [address] Care Team Providers Care Audio Specialist Name Role Phone Roma Yousif Primary Care [...] of [place] [address] [place] [phone] [id number] Gustavo Thompson Self - patient is the insured Medical (General) History Medical History History ICD Code Diabetes mellitus type 2 in obese Diverticulitis Obesity Osteoarthritis of right hip Pyelonephritis Renal insufficiency Right hip pain Shoulder dislocation Tobacco use disorder Surgical History Surgery Date(Month/Year) Osteotomy R hip 1982 Diverticulectomy of large intestine
--- OUTSIDE RECORDS SUMMARY | 2024-06-14 06:08 | XMS_ITS | Data Portability ---
Author Organization [employer] [facility] Address [address] [place] [address] Care Team Providers Care Pharmacy Affairs Assistant Name Role Phone BRAYAN ADDISON Primary Care Provider HIM MARTHA OTHER Assessment Encounter Date Assessment Date Assessment LastModified by Organization Details LastModified Time 03/26/2022 03/26/2022 As noted, judit johnston called to see this patient regarding concerns of diverticulitis. Evaluation in the field was performed by my hyperion essbase developer colleague, as noted above, I provided real-time [...] and emesis x 1 today. Reports eating guatemalan food last night. Decreased PO. Drinking POs. Having smaller caliber bowel movement this morning. Passing flatus. No f/c. No urinary sxs. Reports that these sxs are similar to prior episodes of diverticulitis. Evaluation in the field was performed by my hyperion essbase developer colleague, as noted above, I provided real-time [...] recorded. Lab BMP, serum or plasma 2023 [facility], [address] [place] [address], [address] 4 17:55:51 urinalysis, dipstick [address], [address] 4 08:26:36 hemoglobin + hematocrit, blood 2023 [facility], [address] [place] [address], [address] 4 08:27:25 Referral None recorded. Procedures None recorded. Surgeries None recorded. Imaging None recorded. Medication Orders lactated Ringers intravenous solution 2023 [address]24 [address] [facility] [place], [address], 4 13:50:19 ondansetron HCl (PF) 4 mg/2 mL injection solution 2023 024 [address], [address] [facility] [place], [address], 4 13:50:18 ketorolac 30 mg/mL injection solution 2023 [address], [address] [place], [address], 4 13:50:18 Augmentin 875 mg-125 mg tablet 2023 024 [facility] [address] [place], [address], 4 14:22:25 Augmentin 875 mg-125 mg tablet 2023 [address], [address] [place], [address], 4 14:22:50 Augmentin 875 mg-125 mg tablet 2022 023 [facility] [address] [place], [address], 3 11:02:07 ondansetron 4 mg disintegrat ing tablet 2022 023 [facility] [address] [place], [address], 3 11:03:03 Zofran 4 mg tablet 2022 023 [facility]/Pharmacy #6337, [address] [facility] , [place], [address], 3 12:51:43 Patient TargetsNo targets recorded. Patient [...] Not Available Not Available Not Avai lable GaviLyte-G 236 gram-22.74 gram-6.74 gram-5.86 gram oral solution PLEASE SEE ATTACHED FOR DETAILED DIRECTIONS active Not Available Not Available N ot Available ketorolac 30 mg/mL injection solution Inject 15 mg. 2023 active Not Available Not Available Not Avai lable Vitals Date Recorded Body weight Respiratory rate Heart rate Body temperature Oxygen saturation Oxygen saturation in Arterial blood by Pulse oximetry Systolic blood pressure Diastolic blood pressure Provider Name and Address Organization Details Last Updated DateTime 4 474161. 04 g 16 /min 64 /min 98.2 [degF] 98 % 98 % 160 mm[Hg] 98 mm[Hg] Not Available [facility] 4 13:29:16 Date Recorded Heart rate Oxygen saturation Oxygen saturation in Arterial blood by Pulse oximetry Respiratory rate Body temperature Systolic blood pressure Diastolic blood pressure Provider Name and Address Organization Details Last Updated DateTime 3 83 /min 100 % 100 % 18 /min 98.2 [degF] 119 mm[Hg] 84 mm[Hg] Not Available [employer] - production 3 12:48:34 Date Recorded Heart rate Body temperature Oxygen saturation Oxygen saturation in Arterial blood by Pulse oximetry Respiratory rate Body weight Systolic blood pressure Diastolic blood pressure Provider Name and Address Organization Details Last Updated DateTime 3 72 /min 98 [degF] 97 % 97 % 18 /min 086227. 96 g 160 mm[Hg] 105 mm[Hg] Not Available [employer] - production 3 11:00:12 Social History None recorded. Functional Status None recorded. Mental Status None recorded. Family History Nothing Reported. Medical History No medical history recorded. Past Encounters Encounter ID Performer Location Encounter Start Date Encounter Closed Date Diagnosis/Indication Diagnosis SNOMED-CT Code Diagnosis ICD10 Code Diagnosis Note [id number] Merry Cunha MD Main - [facility] [address] [place] [phone] 02/23/2022 12:48:33 02/26/2022 12:19:53 Nausea and vomiting 57611529 R11.2 51 year old male, being evaluated [...] [id number] Quang Jacobs MD Main - [facility] [address] [place] [id number] 03/26/2022 11:00:01 03/28/2022 13:08:23 Diverticulitis [id number] K57.92 [id number] MURIEL WILLINGHAM MD Main - [facility] [address] [place] [phone] 07/09/2023 13:29:14 07/10/2023 10:32:30 Abdominal pain 75789737 R10.9 Nausea and vomiting 1692 1999 R11.2 Health Concerns Section Related Observation LastModified by Organization Detai ls LastModified Time None Recorded Concern Status LastModified by Organization Details LastModified Time None Recorded Advance Directives Directive None Recorded Payers Encounter Date Sequence Insurance Name Policy Number Policy Talbert Covered Member ID Talbert Member ID Guarantor Name 02/23/2022 1 [facility] - DOS PRIOR TO 2022 - DUAL ELIGIBLE (MEDICARE REPLACEMENT/ADV ANTAGE - HMO) Gustavo Thompson [id number] Gustavo Thompson 03/26/2022 1 [facility] - DOS PRIOR TO 2022 - DUAL ELIGIBLE (MEDICARE REPLACEMENT/ADV ANTAGE - HMO) Gustavo Thompson [id number] Gustavo Thompson 07/09/2023 1 [facility] - DOS ON OR AFTER 2022 - DUAL ELIGIBLE - [facility] OPTIONS AND ONE CARE (MEDICARE REPLACEMENT/ADV ANTAGE - HMO) Gustavo Thompson [id number] Gustavo Thompson Notes Date Note Type Note [...] .................... .................... .................... .................... .................... .................... . Tonal Regulator Note: Community Tonal Regulator Crystal MAY6 [facility] 51 [facility] C/O [...] CP, SOB, urinary S/S, negative for edema. [facility] was consulted; pt was advised to continue [...] .................... . Disposition: Sully Cunha MD [address] [facility],[address], [place], [address], JULY - [employer] 02/23/2022 13:03:01 03/26/2022 text/html CRC Nursing Assessment: [...] for diverticulitis Verified identity Quang Jacobs MD [address] [place] [address],[address], [place], [address], [employer] 03/26/2022 11:29:03 07/09/2023 text/html CRC Nurse Triage Notes (Mia Fulton): Reason For Request: Pt reporting a diverticulitis flare>slight vomit today, stomach is firm>typical signs of a flare up>slight bowel movement today Chief Complaints: Nausea/Vomiting PMH: Other Allergies: Unknown Comments: Utility Sales Representative verified the member's name//address and phone number. Member is a a/o3 52 yr old male. PMH > diverticulitis >borderline DM Member had Kuwaiti food yesterday, woke up not feeling well, had a BM and episode of vomiting. Member and is firm with bile, which is a sign of diverticulitis. Member does not have a fever/ but tool tramadol last night with a mild sweat overnight Education provided on the response time and the member was advised to monitor reported s/s and seek emergency treatment if needed Tonal Regulator POC Test Results from Carlos Whiteside [facility] (1) [13:59] pH: 7.336 pH units pCO2: 52.2 mmHg pO2: 26.6 mmHg Na: 140 mmol/L K: 4.3 mmol/L iCa: 1.14 mmol/L Cl: 104 mmol/L TCO2: 27.5 mEq/L Hct: 54 % Hb: 18.6 g/dL Glu: 112 mg/dL Lac: 2.09 mmol/L Cr: 0.99 mg/dL BUN: 6 mg/dL A Tonal Regulator POC Test Results from Carlos Whiteside - [facility] Urine Dipstick (1) [14:15] Urine leukocytes: NR Urine nitrites: NR Urine urobilinogen: 0.2 URO Urine protein: NR Urine pH: 5.0 pH Urine blood: NR Urine specific gravity: 1.02 SG Urine ketones: NR Urine bilirubin: NR Urine glucose: NR .................... .................... .................... .................... .................... .................... .................... . Tonal Regulator Note From Carlos Whiteside: Pt co lower left abdominal pain, passing gas, and very small bowel movement this morning. 1 episode of vomiting. Pt sts ate Kuwaiti food last night and symptoms started this [...] . Disposition: Fulfilled MURIEL WILLINGHAM MD [address] [facility],[address], [place], [address], SANJAY SALAS 07/09/2023 15:20:54
[2024-06-14 11:02] LABS: Alanine Aminotransferase 31 U/L (0-40); Alkaline Phosphatase 35 U/L (39-117); Anion Gap 13 (12-20); Aspartate Amino Transferase 30 U/L (5-37); Bilirubin Total 0.2 mg/dL (0.0-1.0); Blood Urea Nitrogen 11 mg/dL (9-16); Calcium 8.8 mg/dL (8.4-10.2); Carbon Dioxide 24 mmol/L (22-29); Chloride 109 mmol/L (96-108); Estimated Glomerular Filt Rate > 60; Glucose Random 119 mg/dL (60-115); Potassium 4.1 mmol/L (3.3-5.1); Sodium 142 mmol/L (135-145); TSH reflex Free T4 2.89 uIU/mL (0.32-4.0); Total Protein 6.9 g/dL (6.5-8.0)
== END 2024-06-14 06:07 | disposition home or self-care (01) ==
LOC: HO.HMGCLDS 06:06
PROVIDERS: PCP Nurse Practitioner Family; Visit Provider Nurse Practitioner Family
DX: E03.9 Hypothyroidism, unspecified (principal)
CPT/HCPCS: 36415; 80053; 84443

== ENCOUNTER 2024-07-22 06:01 | Outpatient (REF) | payer OTHER, SELFPAY ==
--- OUTSIDE RECORDS SUMMARY | 2024-07-22 06:04 | XMS_ITS | Data Portability ---
Author Organization [facility] Address [address] [place] [id number] Care Team Providers Care Software Performance Engineer Name Role Phone BRAYAN ADDISON Primary Care Provider HIM MARTHA OTHER Assessment Encounter Date Assessment Date Assessment LastModified by Organization Details LastModified Time 03/26/2022 03/26/2022 As noted, judit johnston called to see this patient regarding concerns of diverticulitis. Evaluation in the field was performed by my finance manager colleague, as noted above, I provided real-time [...] and emesis x 1 today. Reports eating belgian food last night. Decreased PO. Drinking POs. Having smaller caliber bowel movement this morning. Passing flatus. No f/c. No urinary sxs. Reports that these sxs are similar to prior episodes of diverticulitis. Evaluation in the field was performed by my finance manager colleague, as noted above, I provided real-time [...] recorded. Lab BMP, serum or plasma 2023 [facility], [address] [place] [address], [id number] 4 17:55:51 urinalysis, dipstick 2023 [facility], [address] [place] [address], [id number] 4 08:26:36 hemoglobin + hematocrit, blood 2023 [facility], [address] [place] [address], [id number] 4 08:27:25 Referral None recorded. Procedures None recorded. Surgeries None recorded. Imaging None recorded. Medication Orders lactated Ringers intravenous solution 2023 [id number] [facility], [address], 4 13:50:19 ondansetron HCl (PF) 4 mg/2 mL injection solution 2023 024 [id number] [facility] [place], [address], 4 13:50:18 ketorolac 30 mg/mL injection solution 2023 [id number] [facility], [address], 4 13:50:18 Augmentin 875 mg-125 mg tablet [address] [id number] [address] [place], [address], 4 14:22:25 Augmentin 875 mg-125 mg tablet 2023 [address]24 [id number] [place], [address], 4 14:22:50 Augmentin 875 mg-125 mg tablet 2022 [address] [id number] [address] [place], [address], 3 11:02:07 ondansetron 4 mg disintegrat ing tablet 2022 023 [facility][id number], [address] [facility], [address], 3 11:03:03 Zofran 4 mg tablet 2022 023 [facility][id number], [address] [facility] , [place], [address], 12:51:43 Patient TargetsNo targets recorded. Patient InstructionsNo [...] Available Not Avai lable Vitals Date Recorded Heart rate Oxygen saturation Oxygen saturation in Arterial blood by Pulse oximetry Respiratory rate Body temperature Systolic blood pressure Diastolic blood pressure Provider Name and Address Organization Details Last Updated DateTime 3 83 /min 100 % 100 % 18 /min 98.2 [degF] 119 mm[Hg] 84 mm[Hg] Not Available [facility] 3 12:48:34 Date Recorded Heart rate Body temperature Oxygen saturation Oxygen saturation in Arterial blood by Pulse oximetry Respiratory rate Body weight Systolic blood pressure Diastolic blood pressure Provider Name and Address Organization Details Last Updated DateTime 3 72 /min 98 [degF] 97 % 97 % 18 /min 527122. 96 g 160 mm[Hg] 105 mm[Hg] Not Available [facility] 3 11:00:12 Date Recorded Body weight Respiratory rate Heart rate Body temperature Oxygen saturation Oxygen saturation in Arterial blood by Pulse oximetry Systolic blood pressure Diastolic blood pressure Provider Name and Address Organization Details Last Updated DateTime 4 744254. 04 g 16 /min 64 /min 98.2 [degF] 98 % 98 % 160 mm[Hg] 98 mm[Hg] Not Available [facility] - production 4 13:29:16 Social History None recorded. Functional Status None recorded. Mental Status None recorded. Family History Nothing Reported. Medical History No medical history recorded. Past Encounters Encounter ID Performer Location Encounter Start Date Encounter Closed Date Diagnosis/Indication Diagnosis SNOMED-CT Code Diagnosis ICD10 Code Diagnosis Note [id number] Merry Cunha MD [facility] [address] [place] [id number] 02/23/2022 12:48:33 02/26/2022 12:19:53 Nausea and vomiting 23861703 R11.2 51 year old male, being evaluated [...] [id number] Quang Jacobs MD Main [facility] [address] [place] [id number] 03/26/2022 11:00:01 03/28/2022 13:08:23 Diverticulitis 661271343 K57.92 [id number] MURIEL WILLINGHAM MD [facility] [address] [place] [id number] 07/09/2023 13:29:14 07/10/2023 10:32:30 Abdominal pain 09136706 R10.9 Nausea and vomiting 1692 1999 R11.2 Health Concerns Section Related Observation LastModified by Organization Detai ls LastModified Time None Recorded Concern Status LastModified by Organization Details LastModified Time None Recorded Advance Directives Directive None Recorded Payers Insurance Date Sequence Insurance Name Policy Number Policy Talbert Covered Member ID Talbert Member ID Guarantor Name 04/06/2023 1 [facility] - DOS PRIOR TO 2022 - DUAL ELIGIBLE (MEDICARE REPLACEMENT/ADV ANTAGE - HMO) Gustavo Donna [id number] Gustavo Renee Thompson 07/09/2023 1 [facility] - DOS ON OR AFTER 2022 - DUAL ELIGIBLE - [employer]LTER OPT[employer] AND ONE CARE (MEDICARE REPLACEMENT/ADV ANTAGE - HMO) Gustavo Donna [id number] Gustavo Renee Thompson Notes Date Note Type Note Provider [...] .................... .................... .................... .................... .................... .................... . Waffle Machine Operator Note: Community Waffle Machine Operator Crystal MAY6 dispatched to [facility] for a 51 yom C/O N/V/D. [...] .................... . Disposition: Fulfilled Merry Cunha MD [address] [facility],[address], [place], [phone], [facility] - [facility] SANJAY 02/23/2022 13:03:01 03/26/2022 text/html CRC Nursing Assessment: [...] diverticulitis Verified identity Quang Jacobs MD [address] [facility],[address], [place], [phone], [facility] 03/26/2022 11:29:03 07/09/2023 text/html CRC Nurse Triage Notes (Mia Fulton): Reason For Request: Pt reporting a diverticulitis flare>slight vomit today, stomach is firm>typical signs of a flare up>slight bowel movement today Chief Complaints: Nausea/Vomiting PMH: Other Allergies: Unknown Comments: Chief Librarian Circulation Department verified the member's name//address and phone number. Member is a a/o3 52 yr old male. PMH > diverticulitis >borderline DM Member had Kittitian food yesterday, woke up not feeling well, had a BM and episode of vomiting. Member and is firm with bile, which is a sign of diverticulitis. Member does not have a fever/ but tool tramadol last night with a mild sweat overnight Education provided on the response time and the member was advised to monitor reported s/s and seek emergency treatment if needed Waffle Machine Operator POC Test Results from [facility] epoc (1) [13:59] pH: 7.336 pH units pCO2: 52.2 mmHg pO2: 26.6 mmHg Na: 140 mmol/L K: 4.3 mmol/L iCa: 1.14 mmol/L Cl: 104 mmol/L TCO2: 27.5 mEq/L Hct: 54 % Hb: 18.6 g/dL Glu: 112 mg/dL Lac: 2.09 mmol/L Cr: 0.99 mg/dL BUN: 6 mg/dL A Waffle Machine Operator POC Test Results from [facility] Urine Dipstick (1) [14:15] Urine leukocytes: NR Urine nitrites: NR Urine urobilinogen: 0.2 URO Urine protein: NR Urine pH: 5.0 pH Urine blood: NR Urine specific gravity: 1.02 SG Urine ketones: NR Urine bilirubin: NR Urine glucose: NR .................... .................... .................... .................... .................... .................... .................... . Waffle Machine Operator Note From [facility]: Pt co lower left abdominal pain, passing gas, and very small bowel movement this morning. 1 episode of vomiting. Pt sts ate Kitt[place] food last night and symptoms started this [...] . Disposition: Fulfilled MURIEL WILLINGHAM MD [address] [facility],[address], [place], [address], SANJAY SALAS 07/09/2023 15:20:54
== END 2024-07-22 06:02 | disposition home or self-care (01) ==
LOC: HO.HMGCLDS 06:01
PROVIDERS: PCP Nurse Practitioner Family; Visit Provider Nurse Practitioner Family
DX: R97.20 Elevated prostate specific antigen [PSA] (principal)
CPT/HCPCS: 36415; 84153

== ENCOUNTER 2024-08-02 13:59 | Outpatient (AMB) | payer OTHER, SELFPAY ==
[2024-08-02 14:03] VITALS: BP 142/74; PULSE 81; RESP 17; TEMP 37.2; O2SAT 95; BMI 37.7
--- NOTE | 2024-08-02 14:03 | A.OFFPC_ITS ---
Vital Signs 08/02/24 14:03 08/02/24 14:55 Height 5 ft 9 in Weight 255 lb BMI 37.7 BP 142/74 H 136/84 Blood Pressure Location Lt brachial Rt brachial Position Sitting Sitting Respiration 17 Pulse 81 Pulse Source Pulse Oximeter Temp 98.9 F Temp Source Oral Pulse Oximetry (%) 95 Oxygen Delivery Method Room Air Intake Visit Reasons: 6 months f/up Intake Note: Pt is here today for his 6mo. f/u Allergies atorvastatin Adverse Reaction (Verified 08/02/24 14:11) muscle ache Tobacco use date assessed: 08/02/24 Dental Screening Dental Screen Date: 08/02/24 Did you have a dental visit in the last 12 months?: Yes Did you have a dental problem in the last 6 months where you did not have access to dental care?: No Was dental information given to patient?: Patient has dentist HPI 6 months f/up HPI Details Chief Complaint The patient presents for a follow-up on hypertension management. History of Present Illness The patient is a 53-year-old male presenting with hypertension management. He is currently on medication for hypertension and reports doing quite well without any dizziness, chest pain, shortness of breath, or headaches. The patient has a significant smoking history and was previously referred to a low dose CT scan program for lung cancer screening, which he did not attend. He was also scheduled for a colonoscopy but did not follow up after the initial appointment. Social History - Smoking: Patient has a significant his tory of smoking. Health Maintenance - Referral for low dose CT scan for lung cancer screening due to smoking history. - Referral for colonoscopy as part of ro utine screening. Review of Systems - Cardiovascular: Denies dizziness, ches t pain. - Respiratory: Denies shortness of breat h. - Neurological: Denies headaches. Physical Exam General: Cooperative, healthy appearing, comfortable, no acute distress and well developed Orientation: Patient oriented x3 Limitations: No limitations Head: Normal to inspection Ears: Hearing grossly normal bilaterally Nose: Normal external nose present Face and sinus: Normal facial exam Eyes: Appearance normal, both eyes and all related structures Neck: Normal visual inspection and Yes full ROM Respiratory: Normal respiratory effort and able to speak in complete sentences. Clear to auscultation bilaterally Cardiovascular: Regular rate and rhythm. Normal S1 and S2 GI: Normal to inspection. Soft to palpation and nontender Skin: No rashes or lesions noted Neuro: Patient oriented x3 Extremities: Normal to inspection, no edema noted Results Plan The patient will continue with his current hypertension medication as he reports good control without adverse symptoms. A referral for a low dose CT scan will be resubmitted to screen for lung cancer due to his smoking history, emphasizing the importance of this screening. Additionally, the patient is encouraged to follow up with Gastroenterology for a colonoscopy as part of routine cancer screening. Discussion Notes I discussed with the patient the importance of continuing his hypertension medication as it is effectively managing his condition without side effects. I emphasized the need for a low dose CT scan for lung cancer screening due to his smoking history and resubmitted the referral. I also highlighted the importance of completing the colonoscopy for routine cancer screening and encouraged him to follow up with Gastroenterology. Patient Instructions - Continue taking your hypertension medi cation as prescribed. - Schedule and attend the low dose CT sc an for lung cancer screening. - Follow up with Gastroenterology for yo ur colonoscopy appointment. [facility] Medical History HTN (hypertension) Hypothyroidism History of prediabetes Nicotine dependence, cigarettes, uncomplicated Diverticulitis Pyelonephritis Obesity Chronic back pain Dislocated shoulder Surgical History History of cholecystectomy History of partial colectomy History of hip surgery Social History Household Members: None Housing: Apartment Housing Other:: one flight of stairs Do you presently have visiting nurse or other home services: Yes ([employer] and occas ional VNA) Unable to assess alcohol history related to: Unknown Alcohol intake: current Alcohol intake frequency: a few times a week Tobacco use type: Cigarette Cigarette Packs Per Day: 0.33 Cigarettes Per Day: 6.6 e-Cigarette/Vaping Use: Never Used Second Hand Smoke Exposure: No Substance Use Type: Marijuana service: No Current occupational status: disabled Current occupational exposures/hazards: No Cognitive needs: No Hearing needs: No Vision needs: Yes Questionnaire PHQ-9 Over the last 2 weeks, how often have you been bothered by any of the following problems? 1. Little interest or pleasure in doing things: not at all 2. Feeling down, depressed, or hopeless: not at all 3. Trouble falling or staying asleep, or sleeping too much: not at all 4. Feeling tired or having little energy: not at all 5. Poor appetite or overeating: not at all 6. Feeling bad about yourself - or that you are a failure or have let yourself or your family down: not at all 7. Trouble concentrating on things, such as reading the newspaper or watching television: not at all 8. Moving or speaking so slowly that other people could have noticed. Or the opposite - being so fidgety or restless that you have been moving around a lot more than usual: not at all 9. Thoughts that you would be better off or of hurting yourself in some way: not at all Total score: 0 Depression Screening Interpretation: Negative Depression Screening Done: Yes 56520 - PHQ-9 Billing: Yes Source: Developed by Drs. Derek Bradford, Rhoda Rizo, Chester Childress and colleagues, with an educational buck from [employer]. Thrive Questionnaire Date Thrive assessed: 08/02/24 I am a: Patient What is your living situation today?: I have a steady place to live Within the past 12 months, did the food you bought not last and you didn't have the money to get more?: Never true Within the past 12 months, did you worry whether your food would run out before you got money to buy more?: I choose not to answer this question Do you have trouble paying for medicines?: No Do you have trouble getting transportation to medical appointments?: No Do you have trouble paying your heating and electricity bill?: No Do you have trouble taking care of your child, family member or friend?: No Do you have trouble with day-to-day activities such as bathing, preparing meals, shopping, managing finances, etc.?: I choose not to answer this question Are you currently unemployed and looking for a job?: No Are you interested in more education?: No Please select the resources that you would like help with: None Currently or been in a relationship where the following occur: I choose not to answer THRIVE Score: 0 AUDIT C Alcohol Use Questionnaire (AUDIT-C) 1. How often do you have a drink containing alcohol?: 2-4 times a month 2. How many drinks containing alcohol do you have on a typical day when you are drinking?: 1 or 2 3. How often do you have six or more drinks on one occasion?: Never Total Score: 2 VINCENT-7 AMB Questionnaire VINCENT-7 Date VINCENT - 7 assessed: 08/02/24 Feeling nervous, anxious, or on edge: 0 = Not at all Not being able to stop or control worryin = Not at all Worrying too much about different things: 0 = Not at all Trouble relaxin = Not at all Being so restless that it is hard to sit still: 0 = Not at all Becoming easily annoyed or irritable: 0 = Not at all Feeling afraid as if something awful might happen: 0 = Not at all Total VINCENT-7 score (0-4 normal; 5-9 mild; 10-14 moderate; 15-21 severe): 0 Source: Developed by Drs. Derek Bradford, Rhoda Rizo, Chester Childress and colleagues, with an educational buck from [employer]. Physical exam (Primary Care) Vital Signs: Last Vital Signs Temp 98.9 F 08/02/24 14:03 Pulse 81 08/02/24 14:03 Resp 17 08/02/24 14:03 BP 142/74 H 08/02/24 14:03 Pulse Ox 95 08/02/24 14:03 Oxygen Delivery Method Room Air 08/02/24 14:03 BMI result Body Mass Index 37.7 Tobacco/Smoking Status: Tobacco use Status Tobacco use date assessed 08/02/24 08/02/24 14:04 Tobacco use type Cigarette 08/02/24 14:04 e-Cigarette/Vaping Use Never Used 08/02/24 14:04 PHQ-9: PHQ-9 Score PHQ-9: Total score 0 08/02/24 14:54 Depression Screening Interpretation: Negative Thrive Assessment: Date of Thrive Assessment Date Thrive assessed 08/02/24 08/02/24 14:10 Currently or been in a relationship where the following occur: I choose not to answer Coding Level of Care Code Est Pt Level 3 (73239) Diagnoses Nicotine dependence, cigarettes, uncomplicated F17.210 HTN (hypertension) I10 Additional Codes PHQ-9 - 77233 - PHQ-9 Billing: Yes ([id number]) Assessment & Plan Assessment & Plan (1) Nicotine dependence, cigarettes, uncomplicated: Code(s): F17.210 - Nicotine dependence, cigarettes, uncomplicated Category: Medical (2) HTN (hypertension): Code(s): I10 - Essential (primary) hypertension Category: Medical Plan . Orders: Orders TSH reflex Free T4 Today I10 - Essential (primary) hypertension Complete Blood Count Auto Diff Today I10 - Essential (primary) hypertension Comprehensive [place]. Panel Fast Today I10 - Essential (primary) hypertension UA CC w/rflx Micro + Cult Today I10 - Essential (primary) hypertension Lipid Panel Today I10 - Essential (primary) hypertension Referrals Lung Cancer Screening Referral F17.210 - Nicotine dependence, cigarettes, uncomplicated Open Access Screening Colonoscopy Referral Z12.11 - Encounter for screening for malignant neoplasm of colon, Z12.12 - Encounter for screening for malignant neoplasm of rectum
[2024-08-02 14:55] VITALS: BP 136/84
--- OUTSIDE RECORDS SUMMARY | 2024-08-02 15:33 | XMS_ITS | Data Portability ---
Author Organization [employer], [facility] Address [address] [place] [address] Care Team Providers Care Telephone Collector Name Role Phone BRAYAN ADDISON Primary Care Provider HIM MARTHA OTHER Assessment Encounter Date Assessment Date Assessment LastModified by Organization Details LastModified Time 03/26/2022 03/26/2022 As noted, judit johnston called to see this patient regarding concerns of diverticulitis. Evaluation in the field was performed by my wildland fire fighter specialist colleague, as noted above, I provided real-time [...] and emesis x 1 today. Reports eating togolese food last night. Decreased PO. Drinking POs. Having smaller caliber bowel movement this morning. Passing flatus. No f/c. No urinary sxs. Reports that these sxs are similar to prior episodes of diverticulitis. Evaluation in the field was performed by my wildland fire fighter specialist colleague, as noted above, I provided real-time [...] recorded. Lab BMP, serum or plasma 2023 [facility], [address] [place] [address], [id number] 4 17:55:51 urinalysis, dipstick 2023 024 [facility], [address] [place] [address], [id number] 4 08:26:36 hemoglobin + hematocrit, blood 2023 024 [facility], [address] [place] [address], [id number] 08:27:25 Referral None recorded. Procedures None recorded. Surgeries None recorded. Imaging None recorded. Medication Orders lactated Ringers intravenous solution [address]/Pharmacy #[id number], 1616 [facility] [place], [address], 4 13:50:19 ondansetron HCl (PF) 4 mg/2 mL injection solution 2023 [address] [place], [address], 4 13:50:18 ketorolac 30 mg/mL injection solution 2023 [address] [place], [address], 4 13:50:18 Augmentin 875 mg-[address] [facility] [address] [place], [address], 4 14:22:25 Augmentin 875 mg-125 mg tablet 2023 [address] [place], [address], 4 14:22:50 Augmentin 875 mg-[address] [facility] [address] [place], [address], 3 11:02:07 ondansetron 4 mg disintegrat ing tablet [address] [facility] [address] [place], [address], 3 11:03:03 Zofran 4 mg tablet 2022 023 [facility]/Pharmacy #[id number], [address] [facility] , [place], [address], 12:51:43 Patient TargetsNo targets recorded. Patient InstructionsNo [...] [degF] 119 mm[Hg] 84 mm[Hg] Not Available Slide 3 12:48:34 Date Recorded Heart rate Body temperature Oxygen saturation Oxygen saturation in Arterial blood by Pulse oximetry Respiratory rate Body weight Systolic blood pressure Diastolic blood pressure Provider Name and Address Organization Details Last Updated DateTime 3 72 /min 98 [degF] 97 % 97 % 18 /min 685318. 96 g 160 mm[Hg] 105 mm[Hg] Not Available [employer] 3 11:00:12 Date Recorded Body weight Respiratory rate Heart rate Body temperature Oxygen saturation Oxygen saturation in Arterial blood by Pulse oximetry Systolic blood pressure Diastolic blood pressure Provider Name and Address Organization Details Last Updated DateTime 4 296988. 04 g 16 /min 64 /min 98.2 [degF] 98 % 98 % 160 mm[Hg] 98 mm[Hg] Not Available [employer] - [employer] 4 13:29:16 Social History None recorded. Functional Status None recorded. Mental Status None recorded. Family History Nothing Reported. Medical History No medical history recorded. Past Encounters Encounter ID Performer Location Encounter Start Date Encounter Closed Date Diagnosis/Indication Diagnosis SNOMED-CT Code Diagnosis ICD10 Code Diagnosis Note [id number] Merry Cunha MD Main - [facility] [address] [place] [phone] 02/23/2022 12:48:33 02/26/2022 12:19:53 Nausea and vomiting 38459742 R11.2 51 year old male, being evaluated [...] [id number] Quang Jacobs MD Main - [facility] [address] [place] [phone] 03/26/2022 11:00:01 03/28/2022 13:08:23 Diverticulitis [id number] K57.92 [id number] MURIEL WILLINGHAM MD Main - [facility] [address] [place] [phone] 07/09/2023 13:29:14 07/10/2023 10:32:30 Abdominal pain 10681440 R10.9 Nausea and vomiting 1692 1999 R11.2 Health Concerns Section Related Observation LastModified by Organization Detai ls LastModified Time None Recorded Concern Status LastModified by Organization Details LastModified Time None Recorded Advance Directives Directive None Recorded Payers Insurance Date Sequence Insurance Name Policy Number Policy Talbert Covered Member ID Talbert Member ID Guarantor Name 04/06/2023 1 [facility] - DOS PRIOR TO 2022 - DUAL ELIGIBLE (MEDICARE REPLACEMENT/ADV ANTAGE - HMO) Gustavo Donna [id number] Gustavo Renee Thompson 07/09/2023 1 [facility] - DOS ON OR AFTER 2022 - DUAL ELIGIBLE - [employer] OPTIONS AND ONE CARE (MEDICARE REPLACEMENT/ADV ANTAGE - HMO) Gustavo Donna [id number] Gustavo D Donna Notes Date Note Type Note Provider Name and Address Organization Details Recorded Time 02/23/2022 text/html [facility] Nursing Assessment: Reason For Request: abd pain Patient Reports: Vague abdominal pain greater than 24 hours; Nausea with or without vomiting; Inability to tolerate foods, fluids or daily medications Denies: Constipation Diarrhea no blood in stool Chief Complaints: Abdominal [...] .................... .................... .................... .................... .................... .................... . Garnetter Note: Community Garnetter Crystal MAY6 dispatched to [facility] for a 51 yom C/O N/V/D. [...] . Disposition: Fulfilled Merry Cunha MD [address] [facility],[address], [place], [address], [facility] - [employer] SANJAY 02/23/2022 13:03:01 03/26/2022 text/html CRC Nursing Assessment: Reason For Request: abd pain Patient Reports: Vague abdominal pain greater than 24 hours; Constipation; Diarrhea no blood in stool; Nausea with or [...] diverticulitis Verified identity Quang Jacobs MD [address] [facility],[address], [place], [address], [employer] 03/26/2022 11:29:03 07/09/2023 text/html CRC Nurse Triage Notes (Mia Fulton): Reason For Request: Pt reporting a diverticulitis flare>slight vomit today, stomach is firm>typical signs of a flare up>slight bowel movement today Chief Complaints: Nausea/Vomiting PMH: Other Allergies: Unknown Comments: Hr Administrator verified the member's name//address and phone number. Member is a a/o3 52 yr old male. PMH > diverticulitis >borderline DM Member had Pashto food yesterday, woke up not feeling well, had a BM and episode of vomiting. Member and is firm with bile, which is a sign of diverticulitis. Member does not have a fever/ but tool tramadol last night with a mild sweat overnight Education provided on the response time and the member was advised to monitor reported s/s and seek emergency treatment if needed Garnetter POC Test Results from Carlos Whiteside epoc (1) [13:59] pH: 7.336 pH units pCO2: 52.2 mmHg pO2: 26.6 mmHg Na: 140 mmol/L K: 4.3 mmol/L iCa: 1.14 mmol/L Cl: 104 mmol/L TCO2: 27.5 mEq/L Hct: 54 % Hb: 18.6 g/dL Glu: 112 mg/dL Lac: 2.09 mmol/L Cr: 0.99 mg/dL BUN: 6 mg/dL A Garnetter POC Test Results from Carlos Whiteside Urine Dipstick (1) [14:15] Urine leukocytes: NR Urine nitrites: NR Urine urobilinogen: 0.2 URO Urine protein: NR Urine pH: 5.0 pH Urine blood: NR Urine specific gravity: 1.02 SG Urine ketones: NR Urine bilirubin: NR Urine glucose: NR .................... .................... .................... .................... .................... .................... .................... . Garnetter Note From Carlos Whiteside: Pt co lower left abdominal pain, passing gas, and very small bowel movement this morning. 1 episode of vomiting. Pt sts ate Pashto food last night and symptoms started this [...] WILLINGHAM MD [address] [facility],[address], [place], [address], SANJAY SALAS 07/09/2023 15:20:54
== END 2024-08-02 14:59 | disposition home or self-care (01) ==
LOC: HO.HMCC 14:00
PROVIDERS: PCP Nurse Practitioner Family; Visit Provider Nurse Practitioner Family
DX: F17.210 Nicotine dependence, cigarettes, uncomplicated (principal); I10 Essential (primary) hypertension

== ENCOUNTER → 2024-08-02 13:59 | Outpatient (BNVA) | payer OTHER, SELFPAY | PROVIDERS: PCP Nurse Practitioner Family; Visit Provider Nurse Practitioner Family | DX: I10 Essential (primary) hypertension (principal); F17.210 Nicotine dependence, cigarettes, uncomplicated | CPT/HCPCS: 96127; 99212 ==

== ENCOUNTER 2024-08-09 09:00 | Outpatient (AMB) | payer OTHER, SELFPAY ==
--- NOTE | 2024-08-09 09:01 | A.OFFVIS_ITS ---
Intake Visit Reasons: 6m followup/PSA(set) Intake Note: Patient presents today for a tele visit follow-up on: PSA lab results Meds: None Allergies to Antibiotic: No Known Allergies Blood Thinner: None * PSA: 3.40 Pipe Buffer Required: No Accompanied by: Self / Same As Patient Allergies atorvastatin Adverse Reaction (Verified 08/09/24 09:34) muscle ache Medication List - Last Reconciled 08/09/24 by REN Boyd docusate sodium 100 mg PO BID PRN emollient combination no.119 (Eucerin Advanced Repair topical cream) 1 appl topical DAILY 30 days levothyroxine 75 mcg PO DAILY losartan 25 mg PO DAILY tramadol 50 mg PO Q8H PRN HPI Comments Details: Gustavo is a very pleasant 53-year-old male patient of Dr. Mcdonald. He has a past medical history of pyelonephritis, morbid obesity, chronic back pain, pre diabetes, and diverticulitis. He is being followed up on today via telehealth for his elevated PSA. In discussion with the patient today he reports to be doing and feeling well. Recent PSA results reviewed with the patient today as noted and trended below. Previous workup has included a retroperitoneal ultrasound 03/05 noting bilateral kidneys with no calculi or hydronephrosis. Right kidney with a benign 1.8 cm Bosniak class 2 cyst with a single septation which requires no additional follow-up per radiology report. The bladder is partially distended, limiting evaluation. Bilateral ureteral jets are demonstrated. Pre void bladder volume is approximately 130 mL. Postvoid bladder volume is approximately 10 mL. Prostate volume was measured at approximately 20 mL. PSAs are as follows: 09/01 2.9, 02/01 2.1, 07/03 2.6, 10/03 2.0, 02/02 2.2, 08/04 3.4 Discussed at length potential causes of elevated PSA as well as bump in PSA over the last 6 months. When asked he continues to deny any bothersome urinary issues or concerns at this time. He does have a family history of prostate cancer. He reports paternal uncle and maternal great uncle with a history of prostate cancer. When asked he otherwise denies urinary urgency, urinary frequency, incontinence, nocturia, hematuria, dysuria, foul smelling urine, changes to urinary stream, flank pain, fever, and or chills. He is happy with his current voiding parameters. We did discuss further interventions to include redraw of PSA verses MRI of the prostate versus prostate biopsy. Risks and benefits of these interventions were discussed. He does believe he had caffeine the morning of his blood work therefore we repeat PSA. All questions were answered. He otherwise offers no other issues or concerns at this time. [facility] Medical History HTN (hypertension) Hypothyroidism History of prediabetes Nicotine dependence, cigarettes, uncomplicated Diverticulitis Pyelonephritis Obesity Chronic back pain Dislocated shoulder Surgical History History of cholecystectomy History of partial colectomy History of hip surgery Social History Household Members: None Housing: Apartment Housing Other:: one flight of stairs Do you presently have visiting nurse or other home services: Yes (DIGITAL MEDIA DIRECTOR and occasional VNA) Unable to assess alcohol history related to: Unknown Alcohol intake: current Alcohol intake frequency: a few times a week Tobacco use type: Cigarette Cigarette Packs Per Day: 0.33 Cigarettes Per Day: 6.6 e-Cigarette/Vaping Use: Never Used Second Hand Smoke Exposure: No Substance Use Type: Marijuana service: No Current occupational status: disabled Current occupational exposures/hazards: No Cognitive needs: No Hearing needs: No Vision needs: Yes Review of Systems Const All systems reviewed & are unremarkable except as noted in HPI and below Eyes Reports no additional complaints ENT Reports no additional complaints Card Reports no additional complaints Resp Reports no additional complaints GI Reports no additional complaints Reports as per HPI Musc Reports no additional complaints Neuro Reports no additional complaints Psych Reports no additional complaints Endo Reports as per HPI Caesar/Lymph Reports no additional complaints Aller/Immun Reports no additional complaints Physical Exam Const General: cooperative Resp Effort & Inspection: able to speak in complete sentences Psych Speech and movement: Clear speech present Attitude: cooperative Thought content: Normal thought content present Insight: Fair insight present (Psych) Judgement: Fair judgement present (Psych) Telehealth Telehealth Telehealth Platform: Telephone Location of provider rendering services: practice address Location of patient: address on file Patient Identification confirmed using: Name, : Yes Telehealth method: voice only Patient verbally consented to treatment: Yes Patient verbally consented to billing insurance company: Yes Patient informed of any privacy concerns related to visit: Yes Minutes spent on Phone/Video with Pt.: 15 Assessment & Plan Assessment & Plan (1) Elevated PSA: Code(s): R97.20 - Elevated prostate specific antigen [PSA] Category: Medical (2) Renal cyst: Code(s): N28.1 - Cyst of kidney, acquired Category: Medical Plan Recent PSA results reviewed with the patient today; as noted above. Discussed at length potential causes for borderline elevated PSA as well as bump in PSA. Patient currently denies any bothersome urinary issues or concerns. He is happy with his current voiding parameters. We discussed further interventions to include repeat PSA verses prostate MRI verses prostate biopsy verses surveillance monitoring; risks and benefits of these interventions were discussed Will obtain redraw of PSA with no sex the night before, no caffeine morning of, and no heavy lifting 1-2 days prior. Follow-up in 1-2 weeks with PSA to be completed prior; or sooner with any issues, concerns, and or questions. Orders: Orders Prostate Specific Antigen Today R97.20 - Elevated prostate specific antigen [PSA] Patient Instructions: The patient had an opportunity to ask questions regarding the treatment plan. All questions were answered. Physical exam, labs, and imaging were discussed and reviewed in detail. As well as risks, benefits, and discussion of treatment choices. No major barriers to understanding were identified. The patient expressed understanding and agreement with the above treatment plan. The patient was made aware they should contact our office by phone for worsening of their current condition, the appearance of new symptoms, or with any questions or concerns. Compliance is encouraged with any medications and follow up testing that is ordered. It is a privilege to be allowed the opportunity to participate in? your urological care.? Again, if you have any questions or concerns If you have any questions or concerns please do not hesitate to contact me. The office is [phone]. This note is constructed using voice recognition software. While every effort has been made to ensure accuracy plywood matcher errors may have been included. Yours sincerely, MARQUIS Boyd-BERT Coding Level of Care Code Tele Est Pt Level 2 (78753) Diagnoses Elevated PSA R97.20 Renal cyst N28.1 Time Spent (min) 15
== END 2024-08-09 09:34 | disposition home or self-care (01) ==
LOC: HO.HUSH 09:01
PROVIDERS: PCP Nurse Practitioner Family; Visit Provider Nurse Practitioner Family
DX: R97.20 Elevated prostate specific antigen [PSA] (principal); N28.1 Cyst of kidney, acquired
CPT/HCPCS: 99212

== ENCOUNTER 2024-08-12 06:03 | Outpatient (REF) | payer OTHER, SELFPAY ==
--- OUTSIDE RECORDS SUMMARY | 2024-08-12 06:05 | XMS_ITS | Data Portability ---
Author Organization [employer], [facility] Address [address] [place] [address] Care Team Providers Care Display Fabricator Name Role Phone BRAYAN ADDISON Primary Care Provider [phone] HIM MARTHA OTHER Assessment Encounter Date Assessment Date Assessment LastModified by Organization Details LastModified Time 03/26/2022 03/26/2022 As noted, judit johnston called to see this patient regarding concerns of diverticulitis. Evaluation in the field was performed by my therapeutic recreation leader colleague, as noted above, I provided real-time [...] and emesis x 1 today. Reports eating belarusian food last night. Decreased PO. Drinking POs. Having smaller caliber bowel movement this morning. Passing flatus. No f/c. No urinary sxs. Reports that these sxs are similar to prior episodes of diverticulitis. Evaluation in the field was performed by my therapeutic recreation leader colleague, as noted above, I provided real-time [...] BMP, serum or plasma 2023 [facility], [address] [place] [address], [id number] 4 17:55:51 urinalysis, dipstick 2023 024 [facility], [address] [place] [address], [address] 4 08:26:36 hemoglobin + hematocrit, blood 2023 024 [facility], [address] [place] [address], [phone] 08:27:25 Referral None recorded. Procedures None recorded. Surgeries None recorded. Imaging None recorded. Medication Orders lactated Ringers intravenous solution [address]/Pharmacy #0693, 1616 [facility] [place], [address], 4 13:50:19 ondansetron HCl (PF) 4 mg/2 mL injection solution 2023 [address] [place], [address], 4 13:50:18 ketorolac 30 mg/mL injection solution 2023 [address] [place], [address], 4 13:50:18 Augmentin 875 mg-125 mg tablet 2023 024 [facility] [address] [place], [address], 4 14:22:25 Augmentin 875 mg-125 mg tablet 2023 [address] [place], [address], 4 14:22:50 Augmentin 875 mg-125 mg tablet 2022 023 [facility] [address] [place], [address], 3 11:02:07 ondansetron 4 mg disintegrat ing tablet 2022 023 [facility] [address] [place], [address], 3 11:03:03 Zofran 4 mg tablet 2022 023 [facility]/Pharmacy #6050, [address] [facility] , [place], [address], 12:51:43 Patient TargetsNo targets recorded. Patient InstructionsNo [...] [degF] 119 mm[Hg] 84 mm[Hg] Not Available [employer] 3 12:48:34 Date Recorded Heart rate Body temperature Oxygen saturation Oxygen saturation in Arterial blood by Pulse oximetry Respiratory rate Body weight Systolic blood pressure Diastolic blood pressure Provider Name and Address Organization Details Last Updated DateTime 3 72 /min 98 [degF] 97 % 97 % 18 /min 183086. 96 g 160 mm[Hg] 105 mm[Hg] Not Available [employer] - production 3 11:00:12 Date Recorded Body weight Respiratory rate Heart rate Body temperature Oxygen saturation Oxygen saturation in Arterial blood by Pulse oximetry Systolic blood pressure Diastolic blood pressure Provider Name and Address Organization Details Last Updated DateTime 4 485437. 04 g 16 /min 64 /min 98.2 [degF] 98 % 98 % 160 mm[Hg] 98 mm[Hg] Not Available [employer] - [employer] 4 13:29:16 Social History None recorded. Functional Status None recorded. Mental Status None recorded. Family History Nothing Reported. Medical History No medical history recorded. Past Encounters Encounter ID Performer Location Encounter Start Date Encounter Closed Date Diagnosis/Indication Diagnosis SNOMED-CT Code Diagnosis ICD10 Code Diagnosis Note [id number] Merry Cunha MD Main - [facility] [address] [place] [id number] 02/23/2022 12:48:33 02/26/2022 12:19:53 Nausea and vomiting [id number] R11.2 51 year old male, being evaluated [...] [id number] Quang Jacobs MD Main - [facility] [address] [place] [phone] 03/26/2022 11:00:01 03/28/2022 13:08:23 Diverticulitis [id number] K57.92 [id number] MURIEL WILLINGHAM MD Main - [facility] [address] [place] [phone] 07/09/2023 13:29:14 07/10/2023 10:32:30 Abdominal pain 09593577 R10.9 Nausea and vomiting 1692 1999 R11.2 Health Concerns Section Related Observation LastModified by Organization Detai ls LastModified Time None Recorded Concern Status LastModified by Organization Details LastModified Time None Recorded Advance Directives Directive None Recorded Payers Insurance Date Sequence Insurance Name Policy Number Policy Talbert Covered Member ID Talbert Member ID Guarantor Name 04/06/2023 1 [facility] - DOS PRIOR TO 2022 - DUAL ELIGIBLE (MEDICARE REPLACEMENT/ADV ANTAGE - HMO) Gustavo Donna [id number] Gustavo Renee Thompson 07/09/2023 1 [facility] - DOS ON OR AFTER 2022 - DUAL ELIGIBLE - LONG-TERM OPTIONS AND ONE CARE (MEDICARE REPLACEMENT/ADV ANTAGE - HMO) Gustavo Donna [id number] Gustavo D Donna Notes Date Note Type [...] .................... .................... .................... .................... .................... .................... . Volunteer Services Specialist Note: Community Volunteer Services Specialist Crystal MAY6 [facility] 51 y[facility] C/O N/V/D. [...] . Disposition: Fulfilled Merry Cunha MD [address] [facility],[address], [place], [address], [facility] - [employer] SANJAY 02/23/2022 13:03:01 03/26/2022 text/html CRC Nursing [...] diverticulitis Verified identity Quang Jacobs MD [address] [facility],[address], [place], [address], [employer] 03/26/2022 11:29:03 07/09/2023 text/html CRC Nurse Triage Notes (Mia Fulton): Reason For Request: Pt reporting a diverticulitis flare>slight vomit today, stomach is firm>typical signs of a flare up>slight bowel movement today Chief Complaints: Nausea/Vomiting PMH: Other Allergies: Unknown Comments: [employer] verified the member's name//address and phone number. Member is a a/o3 52 yr old male. PMH > diverticulitis >borderline DM Member had Korean food yesterday, woke up not feeling well, had a BM and episode of vomiting. Member and is firm with bile, which is a sign of diverticulitis. Member does not have a fever/ but tool tramadol last night with a mild sweat overnight Education provided on the response time and the member was advised to monitor reported s/s and seek emergency treatment if needed Volunteer Services Specialist POC Test Results from Carlos Whiteside epoc (1) [13:59] pH: 7.336 pH units pCO2: 52.2 mmHg pO2: 26.6 mmHg Na: 140 mmol/L K: 4.3 mmol/L iCa: 1.14 mmol/L Cl: 104 mmol/L TCO2: 27.5 mEq/L Hct: 54 % Hb: 18.6 g/dL Glu: 112 mg/dL Lac: 2.09 mmol/L Cr: 0.99 mg/dL BUN: 6 mg/dL A Volunteer Services Specialist POC Test Results from Carlos Whiteside Urine Dipstick (1) [14:15] Urine leukocytes: NR Urine nitrites: NR Urine urobilinogen: 0.2 URO Urine protein: NR Urine pH: 5.0 pH Urine blood: NR Urine specific gravity: 1.02 SG Urine ketones: NR Urine bilirubin: NR Urine glucose: NR .................... .................... .................... .................... .................... .................... .................... . Volunteer Services Specialist Note From Carlos Whiteside: Pt co lower left abdominal pain, passing gas, and very small bowel movement this morning. 1 episode of vomiting. Pt sts ate Korean food last night and symptoms started this [...] . Disposition: Fulfilled MURIEL WILLINGHAM MD [address] [facility],[address], [place], [address], SANJAY SALAS 07/09/2023 15:20:54
--- OUTSIDE RECORDS SUMMARY | 2024-08-12 06:05 | XMS_ITS | Clinical Summary ---
Author Organization [facility] Address [address] [place] [address] Care Team Providers Care Asset Protection Officer Name Role Phone Yaya Egan MD Primary Care Provider Surgical History Surgery Date Site/Laterality Comments OTHER SURGICAL HISTORY PROCEDURE: [facility] UNLISTED PROCEDURE SMALL INTESTINE; COMMENT: for diverticulitis OTHER SURGICAL HISTORY Right PROCEDURE: [facility] OPTX ACTBLR FX INVG ANT/PST 1 COLUMN/FX [...] age to complete this topic Care Teams Asset Protection Officer Relationship Specialty Start Date End Date Yaya Egan MD [address] [place] [id number] PCP - General Internal Medicine 05/26/17
--- OUTSIDE RECORDS SUMMARY | 2024-08-12 06:06 | XMS_ITS | Patient Health Record ---
Author Organization [facility] Address [address] [facility] [address] [place] [address] Care Team Providers Care Patient Accounts Manager Name Role Phone Roma Yousif Primary Care [...] of [place] [address] [place] [phone] [id number] Gustavo Thompson Self - patient is the insured Medical (General) History Medical History History ICD Code Diabetes mellitus type 2 in obese Diverticulitis Obesity Osteoarthritis of right hip Pyelonephritis Renal insufficiency Right hip pain Shoulder dislocation Tobacco use disorder Surgical History Surgery Date(Month/Year) Osteotomy R hip 1982 Diverticulectomy of large intestine
[2024-08-12 11:16] LABS: Prostate Specific Antigen 3.67 ng/mL (<0.05-4.0)
== END 2024-08-12 06:04 | disposition home or self-care (01) ==
LOC: HO.HMGCLDS 06:03
PROVIDERS: PCP Nurse Practitioner Family; Visit Provider Nurse Practitioner Family
DX: R97.20 Elevated prostate specific antigen [PSA] (principal)
CPT/HCPCS: 36415; 84153

== ENCOUNTER 2024-08-19 14:28 | Outpatient (AMB) | payer OTHER, SELFPAY ==
--- NOTE | 2024-08-19 14:30 | A.OFFVIS_ITS ---
Intake Visit Reasons: 1w/PSA Intake Note: Patient presents today for a tele visit follow-up on: PSA lab results Meds: None Allergies to Antibiotic: No Known Allergies Blood Thinner: None * PSA: 3.67 Kennel Technician Required: No Accompanied by: Self / Same As Patient Allergies atorvastatin Adverse Reaction (Verified 08/19/24 14:30) muscle ache HPI Comments Details: Gustavo is a very pleasant 53-year-old male patient of Dr. Mcdonald. He has a past medical history of pyelonephritis, morbid obesity, chronic back pain, pre diabetes, and diverticulitis. He is being followed up on today via telehealth for his elevated PSA. In discussion with the patient today he reports to be doing and feeling well. Recent PSA results reviewed with the patient today as noted and trended below. Previous workup has included a retroperitoneal ultrasound 03/05 noting bilateral kidneys with no calculi or hydronephrosis. Right kidney with a benign 1.8 cm Bosniak class 2 cyst with a single septation which requires no additional follow-up per radiology report. The bladder is partially distended, limiting evaluation. Bilateral ureteral jets are demonstrated. Pre void bladder volume is approximately 130 mL. Postvoid bladder volume is approximately 10 mL. Prostate volume was measured at approximately 20 mL. PSAs are as follows: 09/01 2.9, 02/01 2.1, 07/03 2.6, 10/03 2.0, 02/02 2.2, 08/04 3.4, 09/03 3.7 Discussed at length potential causes of elevated PSA. When asked he continues to deny any bothersome urinary issues or concerns at this time. He does have a family history of prostate cancer. He reports paternal uncle and maternal great uncle with a history of prostate cancer. When asked he otherwise denies urinary urgency, urinary frequency, incontinence, nocturia, hematuria, dysuria, foul smelling urine, changes to urinary stream, flank pain, fever, and or chills. He is happy with his current voiding parameters. We did discuss further i nterventions to include MRI of the prostate versus prostate biopsy versus surveillance monitoring Risks and benefits of these interventions were discussed. All questions were answered. He otherwise offers no other issues or concerns at this time. [facility] Medical History HTN (hypertension) Hypothyroidism History of prediabetes Nicotine dependence, cigarettes, uncomplicated Diverticulitis Pyelonephritis Obesity Chronic back pain Dislocated shoulder Surgical History History of cholecystectomy History of partial colectomy History of hip surgery Social History Household Members: None Housing: Apartment Housing Other:: one flight of stairs Do you presently have visiting nurse or other home services: Yes (RECONCILIATION CLERK and occasional VNA) Unable to assess alcohol history related to: Unknown Alcohol intake: current Alcohol intake frequency: a few times a week Tobacco use type: Cigarette Cigarette Packs Per Day: 0.33 Cigarettes Per Day: 6.6 e-Cigarette/Vaping Use: Never Used Second Hand Smoke Exposure: No Substance Use Type: Marijuana service: No Current occupational status: disabled Current occupational exposures/hazards: No Cognitive needs: No Hearing needs: No Vision needs: Yes Review of Systems Const All systems reviewed & are unremarkable except as noted in HPI and below Eyes Reports no additional complaints ENT Reports no additional complaints Card Reports no additional complaints Resp Reports no additional complaints GI Reports no additional complaints Reports as per HPI Musc Reports no additional complaints Neuro Reports no additional complaints Psych Reports no additional complaints Endo Reports as per HPI Caesar/Lymph Reports no additional complaints Aller/Immun Reports no additional complaints Physical Exam Const General: cooperative Resp Effort & Inspection: able to speak in complete sentences Psych Speech and movement: Clear speech present Attitude: cooperative Thought content: Normal thought content present Insight: Fair insight present (Psych) Judgement: Fair judgement present (Psych) Telehealth Telehealth Telehealth Platform: Telephone Location of patient: address on file Patient Identification confirmed using: Name, : Yes Telehealth method: voice only Patient verbally consented to treatment: Yes Patient verbally consented to billing insurance company: Yes Patient informed of any privacy concerns related to visit: Yes Minutes spent on Phone/Video with Pt.: 15 Assessment & Plan Assessment & Plan (1) Elevated PSA: Code(s): R97.20 - Elevated prostate specific antigen [PSA] Category: Medical (2) Family history of prostate cancer: Code(s): Z80.42 - Family history of malignant neoplasm of prostate Category: Medical (3) Renal cyst: Code(s): N28.1 - Cyst of kidney, acquired Category: Medical Plan Recent PSA results reviewed with the patient today; as noted above. Discussed at length potential causes for borderline elevated PSA Patient currently denies any bothersome urinary issues or concerns. He is happy with his current voiding parameters. We discussed further interventions to include prostate MRI verses prostate biopsy verses surveillance monitoring; risks and benefits of these interventions were discussed Will obtain MRI of the prostate Follow-up in 1-2 months with imaging to be completed prior; or sooner with any issues, concerns, and or questions. Orders: Orders MR Prostate wo/w con Today R97.20 - Elevated prostate specific antigen [PSA] Patient Instructions: The patient had an opportunity to ask questions regarding the treatment plan. All questions were answered. Physical exam, labs, and imaging were discussed and reviewed in detail. As well as risks, benefits, and discussion of treatment choices. No major barriers to understanding were identified. The patient expressed understanding and agreement with the above treatment plan. The patient was made aware they should contact our office by phone for worsening of their current condition, the appearance of new symptoms, or with any questions or concerns. Compliance is encouraged with any medications and follow up testing that is ordered. It is a privilege to be allowed the opportunity to participate in? your urological care.? Again, if you have any questions or concerns If you have any questions or concerns please do not hesitate to contact me. The office is [phone]. This note is constructed using voice recognition software. While every effort has been made to ensure accuracy temperer errors may have been included. Yours sincerely, REN Boyd Coding Level of Care Code Est Pt Level 3 (86211) Diagnoses Elevated PSA R97.20 Family history of prostate cancer Z80.42 Renal cyst N28.1
--- OUTSIDE RECORDS SUMMARY | 2024-08-19 14:37 | XMS_ITS | Patient Health Record ---
Author Organization [facility] Address [address] [facility] [address] [place] [address] Care Team Providers Care Bat Carrier Name Role Phone Roma Yousif Primary Care [...] of [place] [address] [place] [phone] [id number] Gustavo Thompson Self - patient is the insured Medical (General) History Medical History History ICD Code Diabetes mellitus type 2 in obese Diverticulitis Obesity Osteoarthritis of right hip Pyelonephritis Renal insufficiency Right hip pain Shoulder dislocation Tobacco use disorder Surgical History Surgery Date(Month/Year) Osteotomy R hip 1982 Diverticulectomy of large intestine
--- OUTSIDE RECORDS SUMMARY | 2024-08-19 14:37 | XMS_ITS | Clinical Summary ---
Author Organization [facility] Address [address] [place] [address] Care Team Providers Care Stage Manager Name Role Phone Yaya Egan MD Primary Care Provider Surgical History Surgery Date Site/Laterality Comments OTHER SURGICAL HISTORY PROCEDURE: [place] UNLISTED PROCEDURE SMALL INTESTINE; COMMENT: for diverticulitis OTHER SURGICAL HISTORY Right PROCEDURE: [place] OPTX ACTBLR FX INVG ANT/PST 1 COLUMN/FX [...] - 2023-2 5 season) 2023 Influenza Vaccine (#1) 2024 HIB Vaccines Aged Out No longer [...] 5 Years) and At-Risk Patients (6 to 49 Years) Aged Out No longer eligible b ased on patient's age to complete this topic RSV Immunization Patients Un nicolasa 20 months Aged Out No longer eligible b ased on patient's age to complete this topic Varicella Vaccines Aged Out No longer eligible based on patient's age to complete this topic Care Teams Stage Manager Relationship Specialty Start Date End Date Yaya Egan MD [address] [place] [address] PCP - General Internal Medicine 05/26/17
--- OUTSIDE RECORDS SUMMARY | 2024-08-19 14:37 | XMS_ITS | Data Portability ---
Author Organization [facility] Address [address] [place] [address] Care Team Providers Care Hardboard Supervisor Name Role Phone BRAYAN ADDISON Primary Care Provider [phone] HIM MARTHA OTHER Assessment Encounter Date Assessment Date Assessment LastModified by Organization Details LastModified Time 03/26/2022 03/26/2022 As noted, judit johnston called to see this patient regarding concerns of diverticulitis. Evaluation in the field was performed by my welding equipment sales representative colleague, as noted above, I provided real-time [...] and emesis x 1 today. Reports eating cymro food last night. Decreased PO. Drinking POs. Having smaller caliber bowel movement this morning. Passing flatus. No f/c. No urinary sxs. Reports that these sxs are similar to prior episodes of diverticulitis. Evaluation in the field was performed by my welding equipment sales representative colleague, as noted above, I provided real-time [...] recorded. Lab BMP, serum or plasma 2023 [facility], [address] [place] [address], [id number] 4 17:55:51 urinalysis, dipstick 2023 024 [facility], [address] [place] [address], [id number] 4 08:26:36 hemoglobin + hematocrit, blood 2023 024 [facility], [address] [place] [address], [id number] 08:27:25 Referral None recorded. Procedures None recorded. Surgeries None recorded. Imaging None recorded. Medication Orders lactated Ringers intravenous solution [address]/[id number], [address] [facility] [place], [address], 4 13:50:19 ondansetron HCl (PF) 4 mg/2 mL injection solution [address]23 [id number] [place], [address], 4 13:50:18 ketorolac 30 mg/mL injection solution 2023 [id number] [place], [address], 4 13:50:18 Augmentin 875 mg-125 mg tablet 2023 024 [id number] [address] [place], [address], 4 14:22:25 Augmentin 875 mg-125 mg tablet 2023 [id number] [place], [address], 4 14:22:50 Augmentin 875 mg-125 mg tablet 2022 023 [id number] [address] [place], [address], 3 11:02:07 ondansetron 4 mg disintegrat ing tablet 2022 023 [facility] [address] [place], [address], 3 11:03:03 Zofran 4 mg tablet 2022 023 [facility]armacy #[id number], [address] [facility] , [place], [address], 12:51:43 Patient TargetsNo targets recorded. Patient InstructionsNo [...] Pulse oximetry Respiratory rate Body temperature Systolic And Diastolic Provider Name and Address Organization Details Last Updated DateTime 3 83 /min 100 % 100 % 18 /min 98.2 [degF] 119/84 mm[Hg] Not Available [facility] 3 12:48:34 Date Recorded Heart rate Body temperature Oxygen saturation Oxygen saturation in Arterial blood by Pulse oximetry Respiratory rate Body weight Systolic And Diastolic Provider Name and Address Organization Details Last Updated DateTime 3 72 /min 98 [degF] 97 % 97 % 18 /min 898512. 96 g 160/105 mm[Hg] Not Available [facility] 3 11:00:12 Date Recorded Body weight Respiratory rate Heart rate Body temperature Oxygen saturation Oxygen saturation in Arterial blood by Pulse oximetry Systolic And Diastolic Provider Name and Address Organization Details Last Updated DateTime 4 274039. 04 g 16 /min 64 /min 98.2 [degF] 98 % 98 % 160/98 mm[Hg] Not Available [facility] - production 4 13:29:16 Social History None recorded. Functional Status None recorded. Mental Status None recorded. Family History Nothing Reported. Medical History No medical history recorded. Past Encounters Encounter ID Performer Location Encounter Start Date Encounter Closed Date Diagnosis/Indication Diagnosis SNOMED-CT Code Diagnosis ICD10 Code Diagnosis Note [id number] Merry Cunha MD [facility] - [facility] [address] [place] [id number] 02/23/2022 12:48:33 02/26/2022 12:19:53 Nausea and vomiting [id number] R11.2 51 year old male, being evaluated [...] Quang Jacobs MD [facility] - [facility] [address] [place] [id number] 03/26/2022 11:00:01 03/28/2022 13:08:23 Diverticulitis [id number] K57.92 [id number] MURIEL WILLINGHAM MD Main - [facility] [address] [place] [id number] 07/09/2023 13:29:14 07/10/2023 10:32:30 Abdominal pain 66184000 R10.9 Nausea and vomiting 1692 1999 R11.2 Health Concerns Section Related Observation LastModified by Organization Detai ls LastModified Time None Recorded Concern Status LastModified by Organization Details LastModified Time None Recorded Advance Directives Directive None Recorded Payers Insurance Date Sequence Insurance Name Policy Number Policy Talbert Covered Member ID Talbert Member ID Guarantor Name 04/06/2023 1 [facility] - DOS PRIOR TO 2022 - DUAL ELIGIBLE (MEDICARE REPLACEMENT/ADV ANTAGE - HMO) Gustavo Donna [id number] Gustavo Thompson 07/09/2023 1 [facility] - DOS ON OR AFTER 2022 - DUAL ELIGIBLE - [facility] [employer] AND ONE CARE (MEDICARE REPLACEMENT/ADV ANTAGE - HMO) Gustavo Donna [id number] Gustavo Thompson Notes Date Note Type Note [...] .................... .................... .................... .................... .................... .................... . Head Operator Sulfide Note: Community Head Operator Sulfide Crystal MAY6 dispatched to a [facility] for a 51 yom C/O [...] Disposition: Fulfilled Merry Cunha MD [address] [facility], [place], [address], JULY - [employer] [facility]AY 02/23/2022 13:03:01 03/26/2022 text/html [facility] Nursing Assessment: Reason For Request: abd [...] Verified identity Quang Jacobs MD [address] [facility], [place], [address], [facility] 03/26/2022 11:29:03 07/09/2023 text/html [facility] Nurse Triage Notes (Mia Fulton): Reason For Request: Pt reporting a diverticulitis flare>slight vomit today, stomach is firm>typical signs of a flare up>slight bowel movement today Chief Complaints: Nausea/Vomiting PMH: Other Allergies: Unknown Comments: Aircraft Magneto Mechanic verified the member's name//address and phone number. Member is a a/o3 52 yr old male. PMH > diverticulitis >borderline DM Member had American food yesterday, woke up not feeling well, had a BM and episode of vomiting. Member and is firm with bile, which is a sign of diverticulitis. Member does not have a fever/ but tool tramadol last night with a mild sweat overnight Education provided on the response time and the member was advised to monitor reported s/s and seek emergency treatment if needed Head Operator Sulfide POC Test Results from [facility] epoc (1) [13:59] pH: 7.336 pH units pCO2: 52.2 mmHg pO2: 26.6 mmHg Na: 140 mmol/L K: 4.3 mmol/L iCa: 1.14 mmol/L Cl: 104 mmol/L TCO2: 27.5 mEq/L Hct: 54 % Hb: 18.6 g/dL Glu: 112 mg/dL Lac: 2.09 mmol/L Cr: 0.99 mg/dL BUN: 6 mg/dL A Head Operator Sulfide POC Test Results from [facility] Urine Dipstick (1) [14:15] Urine leukocytes: NR Urine nitrites: NR Urine urobilinogen: 0.2 URO Urine protein: NR Urine pH: 5.0 pH Urine blood: NR Urine specific gravity: 1.02 SG Urine ketones: NR Urine bilirubin: NR Urine glucose: NR .................... .................... .................... .................... .................... .................... .................... . Head Operator Sulfide Note From [facility]: Pt co lower left abdominal pain, passing gas, and very small bowel movement this morning. 1 episode of vomiting. Pt sts ate American food last night and symptoms started this morning. Denies diarrhea, fever ,cp , sob, urinary pain. Baseline vitals assessed. Firm lower left abdomen. Slightly tender. Afebrile. [facility] [place] bloodwork lactate elevated, otherwise unremarkable. Urine dip benign. 1l LR given IV with 20g. Augmetin give po 875/125. 4mg zofran IV, 15mg toradol IV. RX for augmentin called in. Pt advise to drink lots of water. Pt education on signs indicating the ER. .................... .................... .................... .................... .................... .................... .................... . Disposition: Fulfilled MURIEL WILLINGHAM MD [address] [facility], [place], [address], [employer] [facility] [employer] 07/09/2023 15:20:54
== END 2024-08-19 16:06 | disposition home or self-care (01) ==
LOC: HO.HUSH 14:28
PROVIDERS: PCP Nurse Practitioner Family; Visit Provider Nurse Practitioner Family
DX: R97.20 Elevated prostate specific antigen [PSA] (principal); Z80.42 Family history of malignant neoplasm of prostate; N28.1 Cyst of kidney, acquired
CPT/HCPCS: 99213

== ENCOUNTER → 2024-08-19 14:28 | Outpatient (BNVA) | payer OTHER, SELFPAY | PROVIDERS: PCP Nurse Practitioner Family; Visit Provider Nurse Practitioner Family | DX: R97.20 Elevated prostate specific antigen [PSA] (principal); N28.1 Cyst of kidney, acquired; Z80.42 Family history of malignant neoplasm of prostate | CPT/HCPCS: 99212 ==

== ENCOUNTER 2024-10-13 09:01 | Outpatient (REF) | payer OTHER, SELFPAY ==
--- OUTSIDE RECORDS SUMMARY | 2024-10-13 09:41 | XMS_ITS | Clinical Summary ---
Author Organization [facility] Address [address] [place] [address] Care Team Providers Care Still Operator Name Role Phone Yaya Egan MD Primary Care Provider Surgical History Surgery Date Site/Laterality Comments OTHER SURGICAL HISTORY PROCEDURE: [place] UNLISTED PROCEDURE SMALL INTESTINE; COMMENT: for diverticulitis OTHER SURGICAL HISTORY Right PROCEDURE: [place] OPTX ACTBLR FX INVG ANT/PST 1 COLUMN/FX [...] 2018 Zoster Vaccines (1 of 2) 2018 Depression Screening 02/11/2024 COVID-19 Vaccine ( - 2023-2 5 season) 2024 Influenza Vaccine (#1) 2024 HIB Vaccines Aged [...] age to complete this topic Care Teams Still Operator Relationship Specialty Start Date End Date Yaya Egan MD [address] [place] [address] PCP - General Internal Medicine 05/26/17
--- OUTSIDE RECORDS SUMMARY | 2024-10-13 09:41 | XMS_ITS | Patient Health Record ---
Author Organization [facility] Address [address] [facility] [address] [place] [address] Care Team Providers Care Talent Acquisition Manager Name Role Phone Roma Yousif Primary [...] of [place] [address] [place] [phone] [id number] Gustavo Thompson Self - patient is the insured Medical (General) History Medical History History ICD Code Diabetes mellitus type 2 in obese Diverticulitis Obesity Osteoarthritis of right hip Pyelonephritis Renal insufficiency Right hip pain Shoulder dislocation Tobacco use disorder Surgical History Surgery Date(Month/Year) Osteotomy R hip 1982 Diverticulectomy of large intestine
== END 2024-10-13 09:02 | disposition home or self-care (01) ==
LOC: HO.MRI 09:01
PROVIDERS: PCP Nurse Practitioner Family; Visit Provider Nurse Practitioner Family
DX: Z13.89 Encounter for screening for other disorder (principal)

== ENCOUNTER 2024-10-20 08:06 | Outpatient (REF) | payer OTHER, SELFPAY ==
--- OUTSIDE RECORDS SUMMARY | 2024-10-20 09:01 | XMS_ITS | Patient Health Record ---
Author Organization [facility] Address [address] [facility] [address] [place] [address] Care Team Providers Care Global Commodity Manager Name Role Phone Roma Yousif Primary [...] of [place] [address] [place] [phone] [id number] Gustavo Thompson Self - patient is the insured Medical (General) History Medical History History ICD Code Diabetes mellitus type 2 in obese Diverticulitis Obesity Osteoarthritis of right hip Pyelonephritis Renal insufficiency Right hip pain Shoulder dislocation Tobacco use disorder Surgical History Surgery Date(Month/Year) Osteotomy R hip 1982 Diverticulectomy of large intestine
--- OUTSIDE RECORDS SUMMARY | 2024-10-20 09:01 | XMS_ITS | Clinical Summary ---
Author Organization [facility] Address [address] [place] [address] Care Team Providers Care Game Tester Name Role Phone Yaya Egan MD Primary Care Provider Surgical History Surgery Date Site/Laterality Comments OTHER SURGICAL HISTORY PROCEDURE: [place] UNLISTED PROCEDURE SMALL INTESTINE; COMMENT: for diverticulitis OTHER SURGICAL HISTORY Right PROCEDURE: [place] OPTX ACTBLR FX INVG ANT/PST 1 COLUMN/FX [...] age to complete this topic Care Teams Game Tester Relationship Specialty Start Date End Date Yaya Egan MD [address] [place] [address] PCP - General Internal Medicine 05/26/17
== END 2024-10-20 08:07 | disposition home or self-care (01) ==
LOC: HO.MRI 08:06
PROVIDERS: PCP Nurse Practitioner Family; Visit Provider Nurse Practitioner Family
DX: Z13.89 Encounter for screening for other disorder (principal)

== ENCOUNTER 2024-11-16 06:51 | Outpatient (AMB) | payer OTHER, SELFPAY ==
--- OUTSIDE RECORDS SUMMARY | 2024-11-16 06:53 | XMS_ITS | Patient Health Record ---
Author Organization [facility] Address [address] [facility] [address] [place] [address] Care Team Providers Care Can Vacuum Tester Name Role Phone Roma Yousif Primary Care [...] of [place] [address] [place] [phone] [id number] Gustavo Thompson Self - patient is the insured Medical (General) History Medical History History ICD Code Diabetes mellitus type 2 in obese Diverticulitis Obesity Osteoarthritis of right hip Pyelonephritis Renal insufficiency Right hip pain Shoulder dislocation Tobacco use disorder Surgical History Surgery Date(Month/Year) Osteotomy R hip 1982 Diverticulectomy of large intestine
--- OUTSIDE RECORDS SUMMARY | 2024-11-16 06:53 | XMS_ITS | Clinical Summary ---
Author Organization [facility] Address [address] [place] [address] Care Team Providers Care Supervisor Twisting Department Name Role Phone Yaya Egan MD Primary Care Provider Surgical History Surgery Date Site/Laterality Comments OTHER SURGICAL HISTORY PROCEDURE: [place] UNLISTED PROCEDURE SMALL INTESTINE; COMMENT: for diverticulitis OTHER SURGICAL HISTORY Right PROCEDURE: [place] OPTX ACTBLR FX INVG ANT/PST 1 COLUMN/FX [...] 5 season) 2024 Influenza Vaccine (#1) 2024 RSV Immunization Adult Patie nts (1 - 1-dose 75+ series) 09/13/2043 HIB Vaccines Aged Out No longer eligi [...] age to complete this topic Care Teams Supervisor Twisting Department Relationship Specialty Start Date End Date Yaya Egan MD [address] [place] [address] PCP - General Internal Medicine 05/26/17
--- NOTE | 2024-11-16 07:34 | A.OFFPC_ITS ---
Intake Visit Reasons: Discuss weight loss med Android [phone] Allergies atorvastatin Adverse Reaction (Verified 08/19/24 14:30) muscle ache Tobacco use date assessed: 08/02/24 Dental Screening Dental Screen Date: 08/02/24 HPI Discuss weight loss med Android [phone] HPI Details History of Present Illness The patient is a 54-year-old male presenting with bilateral shoulder discomfort and right hip pain. The patient reports ongoing bilateral shoulder discomfort and stiffness, particularly in the scapular region, which has been persistent. He describes a sensation of tightness in the upper body, which has not been alleviated by previous interventions. 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 He experiences considerable right hip pain, especially during the winter months, and reports a leg length discrepancy of about a quarter inch. He reports in the last couple of years has been advised to consider a total hip replacement, but he is hesitant due to past trauma associated with the original surgery. The surgery would be complicated, and it was recommended he speaks further with a ortho in [place]. The patient has gained significant weight, also noted to have elevated Fasting Blood Sugar, which he acknowledges is exacerbating his hip pain. He is considering weight management options and plans to check with his healthcare insurance regarding coverage for GLP-1 agonists. Review of Systems - Musculoskeletal: Reports bilateral trevon ulder discomfort and stiffness, right hip pain, and upper body tightness. Plan 1. Bilateral Shoulder Discomfort The patient will be prescribed a muscle relaxant to address the ongoing shoulder discomfort and stiffness. 2. Right Hip Pain The patient has been advised to consider a total hip replacement, but he remains hesitant due to previous surgical trauma. 3. Weight Management The patient is advised to contact his healthcare insurance to determine coverage for GLP-1 agonists as part of his weight management plan. Discussion Notes I discussed with the patient the ongoing issues with his shoulders and hip, emphasizing the potential benefits of a muscle relaxant for his shoulder discomfort. We also reviewed the possibility of a total hip replacement, acknowledging his concerns about past surgical trauma. Additionally, I advised him to check with his healthcare insurance regarding coverage for GLP-1 agonists to assist with weight management. Patient Instructions - Take prescribed muscle relaxant as dir ected to help with shoulder stiffness. - Contact healthcare insurance to check coverage for GLP-1 agonists for weight management. - Consider the option of a total hip rep lacement and discuss any concerns with the practice specialist. - Follow up in 2 months for reassessment . [facility] Medical History Dyslipidemia HTN (hypertension) Hypothyroidism History of prediabetes Nicotine dependence, cigarettes, uncomplicated Diverticulitis Pyelonephritis Obesity Chronic back pain Dislocated shoulder Surgical History History of cholecystectomy History of partial colectomy History of hip surgery Social History Household Members: None Housing: Apartment Housing Other:: one flight of stairs Do you presently have visiting nurse or other home services: Yes (PERSONAL LOAN SPECIALIST and occasional VNA) Alcohol intake: current Alcohol intake frequency: a few times a week Tobacco use type: Cigarette Cigarette Packs Per Day: 0.33 Cigarettes Per Day: 6.6 e-Cigarette/Vaping Use: Never Used Second Hand Smoke Exposure: No Substance Use Type: Marijuana service: No Current occupational status: disabled Current occupational exposures/hazards: No Cognitive needs: No Hearing needs: No Vision needs: Yes Questionnaire Thrive Questionnaire Date Thrive assessed: 08/02/24 I am a: Patient What is your living situation today?: I have a steady place to live Within the past 12 months, did the food you bought not last and you didn't have the money to get more?: Never true Within the past 12 months, did you worry whether your food would run out before you got money to buy more?: I choose not to answer this question Do you have trouble paying for medicines?: No Do you have trouble getting transportation to medical appointments?: No Do you have trouble paying your heating and electricity bill?: No Do you have trouble taking care of your child, family member or friend?: No Do you have trouble with day-to-day activities such as bathing, preparing meals, shopping, managing finances, etc.?: I choose not to answer this question Are you currently unemployed and looking for a job?: No Are you interested in more education?: No Please select the resources that you would like help with: None Currently or been in a relationship where the following occur: I choose not to answer THRIVE Score: 0 VINCENT-7 AMB Questionnaire VINCENT-7 Date VINCENT - 7 assessed: 08/02/24 Source: Developed by Drs. Derek Bradford, Rhoda Rizo, Chester Childress and colleagues, with an educational buck from [employer]. Physical exam (Primary Care) Tobacco/Smoking Status: Tobacco use Status Tobacco use date assessed 08/02/24 08/02/24 14:04 Tobacco use type Cigarette 08/02/24 14:04 e-Cigarette/Vaping Use Never Used 08/02/24 14:04 Thrive Assessment: Date of Thrive Assessment Date Thrive assessed 08/02/24 08/02/24 14:10 Currently or been in a relationship where the following occur: I choose not to answer Telehealth Telehealth Telehealth Platform: Doximity Location of provider rendering services: practice address Location of patient: address on file Patient Identification confirmed using: Name, : Yes Telehealth method: video Patient verbally consented to treatment: Yes Patient verbally consented to billing insurance company: Yes Patient informed of any privacy concerns related to visit: Yes Minutes spent on Phone/Video with Pt.: 12 Coding Level of Care Code Tele Est Pt Level 3 (84042) Diagnoses Arthritis of right hip M16.11 Right hip pain M25.551 Muscle tightness M62.89 Assessment & Plan Assessment & Plan (1) Arthritis of right hip: Code(s): M16.11 - Unilateral primary osteoarthritis, right hip Category: Medical (2) Right hip pain: Code(s): M25.551 - Pain in right hip Category: Medical (3) Muscle tightness: Code(s): M62.89 - Other specified disorders of muscle Category: Medical Plan . Medications: New tizanidine 2 mg PO BID PRN 28 tabs 0RF muscle spasticity 14 days
== END 2024-11-16 07:56 | disposition home or self-care (01) ==
LOC: HO.HMCC 06:52
PROVIDERS: PCP Nurse Practitioner Family; Visit Provider Nurse Practitioner Family
DX: M16.11 Unilateral primary osteoarthritis, right hip (principal); M25.551 Pain in right hip; M62.89 Other specified disorders of muscle

== ENCOUNTER 2024-11-19 09:39 | Outpatient (AMB) | payer OTHER, SELFPAY ==
--- NOTE | 2024-11-19 07:51 | MHC.OFFVIS ---
Intake Visit Reasons: Current Smoker Allergies atorvastatin Adverse Reaction (Verified 08/19/24 14:30) muscle ache HPI HPI Current Smoker: Details: Initial visit for this 54yo smoker with a 20PYH. Patient started smoking at age 13 for 51 years at 1/2ppd. . Occasional marijuana use. Denies second hand smoke exposure. Denies exposure to chemicals or substances like asbestos. . Denies known family history of lung cancer. Denies personal history of cancers. Denies chest CT in last year. . Denies recent travel outside the [place]. Denies recent respiratory illness or recent hospitalization for respiratory issues. Denies testing positive for COVID. Admits receiving COVID Vaccine. . Denies fever, chills, new/worsening cough, hemoptysis, hoarseness or dysphagia. Denies significant chest pain, significant dyspnea or unintentional weight loss. Patient Lung Cancer Screening Questionnaire reviewed with patient by provider. . Shared Decision Making Completed. Patient meets criteria. Discussed in detail with patient, the risk vs benefit of LDCT screening. Patient consents to proceed with scan. Discussed smoking cessation. [facility] Medical History Dyslipidemia HTN (hypertension) Hypothyroidism History of prediabetes Nicotine dependence, cigarettes, uncomplicated Diverticulitis Pyelonephritis Obesity Chronic back pain Dislocated shoulder Surgical History History of cholecystectomy History of partial colectomy History of hip surgery Social History Household Members: None Housing: Apartment Housing Other:: one flight of stairs Do you presently have visiting nurse or other home services: Yes (REFRIGERATION OPERATOR and occasional VNA) Unable to assess alcohol history related to: Unknown Alcohol intake: current Alcohol intake frequency: a few times a week Tobacco use type: Cigarette Cigarette Packs Per Day: 0.33 Cigarettes Per Day: 6.6 e-Cigarette/Vaping Use: Never Used Second Hand Smoke Exposure: No Substance Use Type: Marijuana service: No Current occupational status: disabled Current occupational exposures/hazards: No Cognitive needs: No Hearing needs: No Vision needs: Yes Assessment & Plan Assessment & Plan (1) Nicotine dependence, cigarettes, uncomplicated: Code(s): F17.210 - Nicotine dependence, cigarettes, uncomplicated Category: Medical Plan: - SDM visit completed today in office. - Patient meets criteria for LDCT for lung cancer screening purposes and is asymptomatic. - Smoking cessation counseling offered. Patients can always call [phone]. - Will arrange for a LDCT scan of the chest for screening purposes at [facility]. - Risks, benefits, and alternatives were discussed in detail and the patient agrees to proceed. - Risks discussed include but are not limited to: radiation exposure, anxiety during testing and while awaiting results, false negatives, false positives and possibility of additional intervention such as further imaging or surgical procedures for benign disease. - Benefits are obviously detection of lung cancer at an early stage which can lead to improved outcomes. - Discussed the importance of screening program compliance with adherence to yearly LDCT scan as scheduled - or sooner interval scans for personalized screening regimen. - Discussed follow up plan. Our office will send a letter discussing results and if needed set up phone call and office visit based on CT findings. - Patient educated on results categorization and the management decisions for suspicious findings potentially found on the screening LDCT scan. Any patient with a Lung RADS score of 3 or 4 will be reviewed by a multidisciplinary team at [facility] to form a plan of action in regards to scan findings. - If further work up is warranted for a suspicious lung finding this will be followed by the Lung Cancer Screening program in conjunction with the Thoracic Surgery Department at [facility]. - A copy of the office note and LDCT will be sent to the patient's PCP - as well as documentation on any associated further plans of care. - Incidental findings on LDCT are the PCP's responsibility. These findings are indicated with an S finding on the LDCT Assessment. A note discussing the findings will be sent to the PCP who is then responsible for further management. - All questions answered.? Coding Level of Care Code Lung Cancer Screening G0296 Diagnoses Nicotine dependence, cigarettes, uncomplicated F17.210
--- OUTSIDE RECORDS SUMMARY | 2024-11-19 10:18 | XMS_ITS | Clinical Summary ---
Author Organization [facility] Address [address] [place] [address] Care Team Providers Care Transplant Registered Nurse Name Role Phone Yaya Egan MD Primary [...] age to complete this topic Care Teams Transplant Registered Nurse Relationship Specialty Start Date End Date Yaya Egan MD [address] [place] [id number] PCP - General Internal Medicine 05/26/17
--- OUTSIDE RECORDS SUMMARY | 2024-11-19 10:18 | XMS_ITS | Patient Health Record ---
Author Organization [facility] Address [address] [place] [address] Care Team Providers Care Failure Analysis Technician Name Role Phone Roma Yousif Primary Care [...] of [place] [address] [place] [phone] [id number] Gustavo Thompson Self - patient is the insured Medical (General) History Medical History History ICD Code Diabetes mellitus type 2 in obese Diverticulitis Obesity Osteoarthritis of right hip Pyelonephritis Renal insufficiency Right hip pain Shoulder dislocation Tobacco use disorder Surgical History Surgery Date(Month/Year) Osteotomy R hip 1982 Diverticulectomy of large intestine
== END 2024-11-19 10:47 | disposition home or self-care (01) ==
LOC: HO.HPS 09:40
PROVIDERS: PCP Nurse Practitioner Family; Referring Provider Nurse Practitioner Family; Visit Provider Physician Assistant Medical
DX: F17.210 Nicotine dependence, cigarettes, uncomplicated (principal)
CPT/HCPCS: G0296

== ENCOUNTER 2024-11-19 09:52 | Outpatient (REF) | payer OTHER, SELFPAY ==
--- NOTE | ~2024-11-19 | CT_ITS ---
CLINICAL HISTORY: F17.210 - Nicotine dependence, cigarettes, uncomplicated CT lung cancer screening (LDCT) Comparison: None provided Technique: Axial CT images of the chest using low-dose technique. Referring provider counseled the patient on shared decision-making for LDCT screening. Additional counseling was provided on smoking cessation. Effective radiation dose total: DLP 84.8 mGycm, CTDIvol 2.4 mGy. Findings: Lung: No solid or semi solid lesion Coronary artery calcifications: none Limited upper abdomen: Unremarkable Other: None IMPRESSION: Lung-RADS 1, negative. Annual screening recommended This document has been electronically signed by: Conrado Krishnamurthy MD on 11/21/2024 08:38:34
== END 2024-11-19 09:53 | disposition home or self-care (01) ==
LOC: HO.CT 09:52
PROVIDERS: PCP Nurse Practitioner Family; Visit Provider Physician Assistant Medical
DX: Z12.2 Encounter for screening for malignant neoplasm of respiratory organs (principal); F17.210 Nicotine dependence, cigarettes, uncomplicated
CPT/HCPCS: 71271

== ENCOUNTER → 2024-11-19 09:54 | Outpatient (BNV) | payer OTHER, SELFPAY | PROVIDERS: PCP Nurse Practitioner Family; Visit Provider Specialist | DX: F17.210 Nicotine dependence, cigarettes, uncomplicated (principal) | CPT/HCPCS: 71271 ==

== ENCOUNTER 2024-11-29 08:16 | Outpatient (AMB) | payer OTHER, SELFPAY ==
--- NOTE | 2024-11-29 08:17 | A.OFFVIS_ITS ---
Intake Visit Reasons: Discuss treatment plan(no MRI done) Intake Note: Patient is present for discuss treatment plan Urology Medication:none Antibiotic Allergy:none Blood Thinner:none Engineering Group Manager Required: No Allergies atorvastatin Adverse Reaction (Verified 11/29/24 09:06) muscle ache Medication List - Last Reconciled 11/29/24 by MARQUIS Boyd-BERT diazepam (Valium) 2 mg PO DAILY docusate sodium 100 mg PO BID PRN emollient combination no.119 (Eucerin Advanced Repair topical cream) 1 appl topical DAILY 30 days levothyroxine 75 mcg PO DAILY losartan 25 mg PO DAILY tirzepatide (weight loss) (Zepbound) 2.5 mg (0.5 mL) subcut QWEEK tizanidine 2 mg PO BID PRN 14 days tramadol 50 mg PO Q8H PRN HPI Comments Details: Gustavo is a very pleasant 54-year-old male patient of Dr. Mcdonald. He has a past medical history of pyelonephritis, morbid obesity, chronic back pain, pre diabetes, and diverticulitis. He is being followed up on today via telehealth for his elevated PSA. In discussion with the patient today he reports to be doing and feeling well. Of note, patient was seen approximately 3 months ago at which time an MRI was ordered for further assessment evaluation. However, in discussion with the patient today he reports he was unable to obtain MRI due to claustrophobia. There was an attempt made for an open MRI as well as premedication however he was still unable to obtain MRI due to claustrophobia. We did discussed further treatment options and risks and benefits of these treatment options. He reports given his family history of prostate cancer and labile PSA he would like to proceed with prostate biopsy. We did discussed risks and benefits of prostate biopsy. All questions were answered. Previous workup has included a retroperitoneal ultrasound 03/05 noting bilateral kidneys with no calculi or hydronephrosis. Right kidney with a benign 1.8 cm Bosniak class 2 cyst with a single septation which requires no additional follow-up per radiology report. The bladder is partially distended, limiting evaluation. Bilateral ureteral jets are demonstrated. Pre void bladder volume is approximately 130 mL. Postvoid bladder volume is approximately 10 mL. Prostate volume was measured at approximately 20 mL. PSAs are as follows: 09/01 2.9, 02/01 2.1, 5/24 2.6, 10/03 2.0, 02/02 2.2, 08/04 3.4, 09/03 3.7 Discussed at length potential causes of elevated PSA. When asked he continues to deny any bothersome urinary issues or concerns at this time. He does have a family history of prostate cancer. He reports paternal uncle and maternal great uncle with a history of prostate cancer. When asked he otherwise denies urinary urgency, urinary frequency, incontinence, nocturia, hematuria, dysuria, foul s melling urine, changes to urinary stream, flank pain, fever, and or chills. He is happy with his current voiding parameters. All questions were answered. He otherwise offers no other issues or concerns at this time. [facility] Medical History HTN (hypertension) Dyslipidemia Hypothyroidism History of prediabetes Nicotine dependence, cigarettes, uncomplicated Diverticulitis Pyelonephritis Chronic back pain Dislocated shoulder Obesity Surgical History History of cholecystectomy History of partial colectomy History of hip surgery Social History Household Members: None Housing: Apartment Housing Other:: one flight of stairs Do you presently have visiting nurse or other home services: Yes (REGULATORY AFFAIRS DIRECTOR and occasional VNA) Unable to assess alcohol history related to: Unknown Alcohol intake: current Alcohol intake frequency: a few times a week Tobacco use type: Cigarette Cigarette Packs Per Day: 0.33 Cigarettes Per Day: 6.6 e-Cigarette/Vaping Use: Never Used Second Hand Smoke Exposure: No Substance Use Type: Marijuana service: No Current occupational status: disabled Current occupational exposures/hazards: No Cognitive needs: No Hearing needs: No Vision needs: Yes Review of Systems Const All systems reviewed & are unremarkable except as noted in HPI and below Physical Exam Const General: cooperative Resp Effort & Inspection: able to speak in complete sentences Psych Speech and movement: Clear speech present Attitude: cooperative Thought content: Normal thought content present Insight: Fair insight present (Psych) Judgement: Fair judgement present (Psych) Telehealth Telehealth Telehealth Platform: Telephone Location of provider rendering services: practice address Location of patient: address on file Patient Identification confirmed using: Name, : Yes Telehealth method: voice only Patient verbally consented to treatment: Yes Patient verbally consented to billing insurance company: Yes Patient informed of any privacy concerns related to visit: Yes Minutes spent on Phone/Video with Pt.: 25 Assessment & Plan Assessment & Plan (1) Elevated PSA: Code(s): R97.20 - Elevated prostate specific antigen [PSA] Category: Medical (2) Family history of prostate cancer: Code(s): Z80.42 - Family history of malignant neoplasm of prostate Category: Medical (3) Renal cyst: Code(s): N28.1 - Cyst of kidney, acquired Category: Medical Plan: Plan Risks and benefits regarding trans rectal ultrasound with prostate biopsy were discussed.? Options of continued surveillance, no treatment and biopsy were offered. The risks include but are not limited to, urinary tract infection, sepsis, difficulty urinating, bleeding into the rectum or bladder that requires i ntervention and transfusion,and failure to diagnose prostate cancer. The patient understands the options and the risks involved. They wish to proceed. Printed information was provided to ensure he remains off anticoagulation for the appropriate length of time. He may require cardiology or PCP clearance.? An antibiotic will be administered prior to, and following the procedure Plan Discussed at length potential causes for borderline elevated PSA Patient currently denies any bothersome urinary issues or concerns. He is happy with his current voiding parameters. We discussed further interventions in risks and benefits of these interventions. All questions were answered. Prescription provided for antibiotic therapy; we discussed importance of taking medication 1 day prior to procedure, day of procedure, and day after procedure. Will schedule for prostate biopsy as discussed Follow-up per doctor's orders; or sooner with any issues, concerns, and or questions. Medications: New levofloxacin take 1 tablet day before procedure, 1 tablet day of procedure and 1 tablet day after procedure 500 mg PO DAILY 3 tabs 0RF 3 days Discontinued diazepam (Valium) take one-two prior to procedure Discontinued Reason: Patient Completed Course 2 mg PO DAILY 2 tabs 0RF anxiety R45.89 - Other symptoms and signs involving emotional state Patient Instructions: The patient had an opportunity to ask questions regarding the treatment plan. All questions were answered. Physical exam, labs, and imaging were discussed and reviewed in detail. As well as risks, benefits, and discussion of treatment choices. No major barriers to understanding were identified. The patient expressed understanding and agreement with the above treatment plan. The patient was made aware they should contact our office by phone for worsening of their current condition, the appearance of new symptoms, or with any questions or concerns. Compliance is encouraged with any medications and follow up testing that is ordered. It is a privilege to be allowed the opportunity to participate in? your urological care.? Again, if you have any questions or concerns If you have any questions or concerns please do not hesitate to contact me. The office is [phone]. This note is constructed using voice recognition software. While every effort has been made to ensure accuracy home based assistant errors may have been included. Yours sincerely, REN Boyd Coding Level of Care Code Tele Est Pt Level 4 (33068) Diagnoses Elevated PSA R97.20 Family history of prostate cancer Z80.42 Renal cyst N28.1
--- OUTSIDE RECORDS SUMMARY | 2024-11-29 08:33 | XMS_ITS | Clinical Summary ---
Author Organization [facility] Address [address] [place] [address] Care Team Providers Care Mid Level Practitioner Name Role Phone Yaya Egan MD Primary Care Provider Surgical History Surgery Date Site/Laterality Comments OTHER SURGICAL HISTORY PROCEDURE: [place] UNLISTED PROCEDURE SMALL INTESTINE; COMMENT: for diverticulitis OTHER SURGICAL HISTORY Right PROCEDURE: [place] OPTX ACTBLR FX INVG ANT/PST 1 COLUMN/FX [...] age to complete this topic Care Teams Mid Level Practitioner Relationship Specialty Start Date End Date Yaya Egan MD [address] [place] [id number] PCP - General Internal Medicine 05/26/17
== END 2024-11-29 09:20 | disposition home or self-care (01) ==
LOC: HO.HUSH 08:16
PROVIDERS: PCP Nurse Practitioner Family; Visit Provider Nurse Practitioner Family
DX: R97.20 Elevated prostate specific antigen [PSA] (principal); Z80.42 Family history of malignant neoplasm of prostate; N28.1 Cyst of kidney, acquired
CPT/HCPCS: 99214

== ENCOUNTER → 2024-12-20 16:29 | Outpatient (BNVA) | payer OTHER, SELFPAY | PROVIDERS: PCP Nurse Practitioner Family; Visit Provider Nurse Practitioner Family | DX: B83.9 Helminthiasis, unspecified (principal) | CPT/HCPCS: 99212 ==

== ENCOUNTER → 2024-12-20 16:29 | Outpatient (AMB) | payer OTHER, SELFPAY ==
[2024-12-20 16:37] VITALS: BP 120/76; PULSE 77; TEMP 37; O2SAT 97; BMI 38.8
--- NOTE | 2024-12-20 16:37 | MHC.OFFWIV ---
Intake Vital Signs 12/20/24 16:37 Height 5 ft 9 in Weight 263 lb BMI 38.8 BP 120/76 Blood Pressure Location Lt brachial Position Sitting Pulse 77 Pulse Source Pulse Oximeter Temp 98.6 F Temp Source Oral Pulse Oximetry (%) 97 Oxygen Delivery Method Room Air Intake Visit Reasons: EP something in stool, worms? Intake Note: pt presents with concern for possible worm in stool after seeing a white string like object in his stool today. Pt reports that he ate shrimp that had the head in place from [employer] a couple weeks ago andhad diarrhea for a couple days afterwards. Pt denies stomach pain, cramping, diarrhea or bloody stools. Allergies atorvastatin Adverse Reaction (Verified 12/20/24 16:42) muscle ache Do you need a note to return to daycare/school/sports/work: No HPI HPI Comments History of Present Illness Details 54 y/o Male presents to the walk-in clinic with c/o seeing ?worms? in his stool. Reports noticing a thin white string in his stool this morning. Two weeks ago, he had two episodes of diarrhea after consuming shrimp that was near expiration. Denies current diarrhea, constipation, abdominal cramping, rectal bleeding, rectal itching, or pain. Denies nausea or vomiting. [facility] Medical History (Updated 12/20/24 @ 16:53 by Lynn Servin NP) Worms in stool HTN (hypertension) Dyslipidemia Hypothyroidism History of prediabetes Nicotine dependence, cigarettes, uncomplicated Diverticulitis Pyelonephritis Chronic back pain Dislocated shoulder Obesity Surgical History History of cholecystectomy History of partial colectomy History of hip surgery Social History Household Members: None Housing: Apartment Housing Other:: one flight of stairs Do you presently have visiting nurse or other home services: Yes (SILVICULTURIST and occasional VNA) Alcohol intake: current Alcohol intake frequency: a few times a week Tobacco use type: Cigarette Cigarette Packs Per Day: 0.33 Cigarettes Per Day: 6.6 e-Cigarette/Vaping Use: Never Used Second Hand Smoke Exposure: No Substance Use Type: Marijuana service: No Current occupational status: disabled Current occupational exposures/hazards: No Cognitive needs: No Hearing needs: No Vision needs: Yes Review of Systems Const All systems reviewed & are unremarkable except as noted in HPI and below Physical Exam Vital Signs: Last Vital Signs Temp 98.6 F 12/20/24 16:37 Pulse 77 12/20/24 16:37 BP 120/76 12/20/24 16:37 Pulse Ox 97 12/20/24 16:37 Oxygen Delivery Method Room Air 12/20/24 16:37 BMI result Body Mass Index 38.8 Const General: no acute distress Nutritional Appearance: obese Orientation/consciousness: patient oriented x3 Resp Effort & Inspection: normal respiratory effort Cardio Heart sounds: S1 normal heart sound present and S2 normal heart sound present GI Inspection: Yes Abdominal panniculus present and Yes obesity Palpation (GI): Soft to palpation, not firm, nontender, no guarding and not rigid Auscultation: normal bowel sounds Neuro General: patient oriented x3, gait normal and moves all extremities Psych Speech and movement: Normal speech and movement present Assessment & Plan Assessment & Plan (1) Worms in stool: Code(s): B83.9 - Helminthiasis, unspecified Plan: Possible intestinal parasitic infection (rule out pinworm or tapeworm). Differential: Mucus strand, undigested food fiber, or artifact in stool. Order stool Ova and Parasite (O&P) examination. Consider stool culture if symptoms persist or recur. Educate patient on proper food handling and cooking of seafood. Encourage hydration and balanced diet. Follow-up with PCP pending stool test results or sooner if symptoms worsen (e.g., abdominal pain, persistent diarrhea, rectal itching, or visible worms). Orders: Orders Ova and Parasite Today B83.9 - Helminthiasis, unspecified Coding Level of Care Code Est Pt Level 4 (25645) Diagnoses Worms in stool B83.9 Time Spent (min) 20
--- OUTSIDE RECORDS SUMMARY | 2024-12-20 18:02 | XMS_ITS | Clinical Summary ---
Author Organization [facility] Address [address] [place] [address] Care Team Providers Care Boiler Helper Name Role Phone Yaya Egan MD Primary Care Provider Surgical History Surgery Date Site/Laterality Comments OTHER SURGICAL HISTORY PROCEDURE: IN UNLISTED PROCEDURE SMALL INTESTINE; COMMENT: for diverticulitis OTHER SURGICAL HISTORY Right PROCEDURE: IN OPTX ACTBLR FX INVG ANT/PST 1 COLUMN/FX [...] age to complete this topic Care Teams Boiler Helper Relationship Specialty Start Date End Date Yaya Egan MD [address] [place] [id number] PCP - General Internal Medicine 05/26/17
--- OUTSIDE RECORDS SUMMARY | 2024-12-20 18:02 | XMS_ITS | Data Portability ---
Author Organization [employer] Address [address] [place] [phone] Care Team Providers Care Sponge Press Operator Name Role Phone BRAYAN ADDISON Primary Care Provider HIM MARTHA OTHER Assessment Encounter Date Assessment Date Assessment LastModified by Organization Details LastModified Time 03/26/2022 03/26/2022 As noted, judit johnston called to see this patient regarding concerns of diverticulitis. Evaluation in the field was performed by my fig washer colleague, as noted above, I provided real-time [...] and emesis x 1 today. Reports eating telugu food last night. Decreased PO. Drinking POs. Having smaller caliber bowel movement this morning. Passing flatus. No f/c. No urinary sxs. Reports that these sxs are similar to prior episodes of diverticulitis. Evaluation in the field was performed by my fig washer colleague, as noted above, I provided real-time [...] recorded. Lab BMP, serum or plasma 2023 [facility], [address] [place] [address], [id number] 4 17:55:51 urinalysis, dipstick 2023 024 [facility], [address] [place] [address], [id number] 4 08:26:36 hemoglobin + hematocrit, blood 2023 024 [facility], [address] [place] [address], [id number] 08:27:25 Referral None recorded. Procedures None recorded. Surgeries None recorded. Imaging None recorded. Medication Orders lactated Ringers intravenous solution [address]/[facility]armacy #[id number], [address] [facility] [place], [address], 4 13:50:19 ondansetron HCl (PF) 4 mg/2 mL injection solution [address]23 [id number] [place], [address], 4 13:50:18 ketorolac 30 mg/mL injection solution 2023 [id number] [place], [address], 4 13:50:18 Augmentin 875 mg-125 mg tablet 2023 024 [id number] [address] [place], [address], 4 14:22:25 Augmentin 875 mg-125 mg tablet 2023 [id number] [place], [address], 4 14:22:50 Augmentin 875 mg-125 mg tablet 2022 023 [id number] [address] [place], [address], 3 11:02:07 ondansetron 4 mg disintegrat ing tablet 2022 023 [id number] [address] [place], [address], 3 11:03:03 Zofran 4 mg tablet 2022 023 [facility]acy #[id number], [address] [facility] , [place], [address], 12:51:43 Patient TargetsNo targets recorded. Patient InstructionsNo [...] /min 98.2 [degF] 119/84 mm[Hg] Not Available [employer] 3 12:48:34 Date Recorded Heart rate Body temperature Oxygen saturation Oxygen saturation in Arterial blood by Pulse oximetry Respiratory rate Body weight Systolic And Diastolic Provider Name and Address Organization Details Last Updated DateTime 3 72 /min 98 [degF] 97 % 97 % 18 /min 818503. 96 g 160/105 mm[Hg] Not Available [employer] 3 11:00:12 Date Recorded Body weight Respiratory rate Heart rate Body temperature Oxygen saturation Oxygen saturation in Arterial blood by Pulse oximetry Systolic And Diastolic Provider Name and Address Organization Details Last Updated DateTime 4 228382. 04 g 16 /min 64 /min 98.2 [degF] 98 % 98 % 160/98 mm[Hg] Not Available [employer] - production 4 13:29:16 Social History None recorded. Functional Status None recorded. Mental Status None recorded. Family History Nothing Reported. Medical History No medical history recorded. Past Encounters Encounter ID Performer Location Encounter Start Date Encounter Closed Date Diagnosis/Indication Diagnosis SNOMED-CT Code Diagnosis ICD10 Code Diagnosis IMO Codes Diagnosis Note [id number] Merry Cunha MD [facility] [address] [place] [phone] 02/23/2022 12:48:33 02/26/2022 12:19:53 Nausea and vomiting 06321863 R11.2 51 year old male, being evaluated [...] [id number] Quang Jacobs MD [facility] [address] [place] [phone] 03/26/2022 11:00:01 03/28/2022 13:08:23 Diverticulitis 994737576 K57.92 [id number] MURIEL WILLINGHAM MD [facility] [address] [place] [id number] 07/09/2023 13:29:14 07/10/2023 10:32:30 Abdominal pain 59283747 R10.9 Nausea and vomiting 1692 1999 R11.2 Health Concerns Section Related Observation LastModified by Organization Detai ls LastModified Time None Recorded Concern Status LastModified by Organization Details LastModified Time None Recorded Advance Directives Directive None Recorded Payers Insurance Date Sequence Insurance Name Policy Number Policy Talbert Covered Member ID Talbert Member ID Guarantor Name 04/06/2023 1 [facility] - DOS PRIOR TO 2022 - DUAL ELIGIBLE (MEDICARE REPLACEMENT/ADV ANTAGE - HMO) Gustavo Thompson [id number] Gustavo Thompson 07/09/2023 1 [facility] - DOS ON OR AFTER 2022 - DUAL ELIGIBLE - ASSISTED OPTIONS AND ONE CARE (MEDICARE REPLACEMENT/ADV ANTAGE - HMO) Gustavo Donna [id number] Gustavo Thompson Notes Date Note Type Note [...] .................... .................... .................... .................... .................... .................... . [employer] Note: Community [employer] Crystal MAY6 dispatched to a [facility] for a 51 yom C/O N/V/D. [...] . Disposition: Fulfilled Merry Cunha MD [address] [facility],[address], [place], [address], [place] - [employer] 02/23/2022 13:03:01 03/26/2022 text/html CRC Nursing Assessment: [...] diverticulitis Verified identity Quang Jacobs MD [address] [facility],[address], [place], [address], [employer] 03/26/2022 11:29:03 07/09/2023 text/html ROS as noted in the HPI CRC Nurse Triage Notes (Mia Fulton): Reason For Request: Pt reporting a diverticulitis flare>slight vomit today, stomach is firm>typical signs of a flare up>slight bowel movement today Chief Complaints: Nausea/Vomiting PMH: Other Allergies: Unknown Comments: Veterans Service Officer verified the member's name//address and phone number. Member is a a/o3 52 yr old male. PMH > diverticulitis >borderline DM Member had Thai food yesterday, woke up not feeling well, had a BM and episode of vomiting. Member and is firm with bile, which is a sign of diverticulitis. Member does not have a fever/ but tool tramadol last night with a mild sweat overnight Education provided on the response time and the member was advised to monitor reported s/s and seek emergency treatment if needed [employer] POC Test Results from [facility] Whiteside epoc (1) [13:59] pH: 7.336 pH units pCO2: 52.2 mmHg pO2: 26.6 mmHg Na: 140 mmol/L K: 4.3 mmol/L iCa: 1.14 mmol/L Cl: 104 mmol/L TCO2: 27.5 mEq/L Hct: 54 % Hb: 18.6 g/dL Glu: 112 mg/dL Lac: 2.09 mmol/L Cr: 0.99 mg/dL BUN: 6 mg/dL A [employer] POC Test Results from [facility] Urine Dipstick (1) [14:15] Urine leukocytes: NR Urine nitrites: NR Urine urobilinogen: 0.2 URO Urine protein: NR Urine pH: 5.0 pH Urine blood: NR Urine specific gravity: 1.02 SG Urine ketones: NR Urine bilirubin: NR Urine glucose: NR .................... .................... .................... .................... .................... .................... .................... . [employer] Note From [facility] Whiteside: Pt co lower left abdominal pain, passing gas, and very small bowel movement this morning. 1 episode of vomiting. Pt sts ate Thai food last night and symptoms started this [...] . Disposition: Fulfilled MURIEL WILLINGHAM MD [address] [facility],[address], [place], [address], [place] SANJAY SALAS 07/09/2023 15:20:54
== END ==
PROVIDERS: PCP Nurse Practitioner Family; Visit Provider Nurse Practitioner Family
DX: B83.9 Helminthiasis, unspecified (principal)

== ENCOUNTER 2025-02-02 12:51 | Outpatient (AMB) | payer OTHER, SELFPAY ==
[2025-02-02 12:53] VITALS: BP 124/82; PULSE 88; RESP 16; O2SAT 98; BMI 38.4
--- NOTE | 2025-02-02 12:53 | MHC.PC.OV ---
Vital Signs 02/02/25 12:53 Height 5 ft 9 in Weight 260 lb BMI 38.4 BP 124/82 Blood Pressure Location Lt brachial Position Sitting Respiration 16 Pulse 88 Pulse Source Pulse Oximeter Pulse Oximetry (%) 98 Oxygen Delivery Method Room Air Intake Visit Reasons: 6 months f/up Business Operations Analyst Required: No Accompanied by: Self / Same As Patient Allergies atorvastatin Adverse Reaction (Verified 02/02/25 13:18) muscle ache Medication List - Last Reconciled 02/02/25 by MARQUIS Juarez- bisacodyl (Dulcolax (bisacodyl)) 20 mg (4 x 5 mg) PO ONCE 1 day docusate sodium 100 mg PO BID PRN emollient combination no.119 (Eucerin Advanced Repair topical cream) 1 appl topical DAILY 30 days levothyroxine 75 mcg PO DAILY losartan 25 mg PO DAILY peg 3350-electrolytes 236-22.74-6.74 -5.86 gram 240 mL PO Q10M tizanidine 2 mg PO BID PRN 14 days tramadol 50 mg PO Q8H PRN Tobacco use date assessed: 02/02/25 Dental Screening Dental Screen Date: 02/02/25 Did you have a dental visit in the last 12 months?: Yes Did you have a dental problem in the last 6 months where you did not have access to dental care?: No Was dental information given to patient?: Patient has dentist HPI 6 months f/up HPI Details Chief Complaint Patient presents for a follow-up visit for management of chronic conditions, including hypertension and leukemia. History of Present Illness The patient is a 54 year old male presenting for follow-up for hypertension, dyslipidemia , and hypothyroidism. He is currently taking losartan for hypertension, and his blood pressure is stable. He denies any chest pain, shortness of breath, dizziness, blurred vision, or headaches. He is also on levothyroxine for hypothyroidism. The patient has a history of smoking and undergoes annual low-dose CT scans for screening. Social History - Substance Use: The patient is a current smoker. Health Maintenance - The patient undergoes low-dose CT scans once a year for lung cancer screening due to his smoking history. Review of Systems - Cardiovascular: Denies chest pain. - Respiratory: Denies shortness of breath. - Neurological: Denies dizziness and headaches. - Eyes: Denies blurred vision. Physical Exam General: Cooperative, healthy appearing, comfortable, no acute distress and well developed, obese Orientation: Patient oriented x3 Limitations: No limitations Head: Normal to inspection Ears: Hearing grossly normal bilaterally Nose: Normal external nose present Face and sinus: Normal facial exam Eyes: Appearance normal, both eyes and all related structures Neck: Normal visual inspection and Yes full ROM Respiratory: Lungs were clear, normal respiratory effort and able to speak in complete sentences. Clear to auscultation bilaterally Cardiovascular: Regular rate and rhythm. Normal S1 and S2 GI: Normal to inspection. Soft to palpation and nontender Skin: No rashes or lesions noted Neuro: Patient oriented x3 Extremities: Normal to inspection, no edema Results Plan 1. Hypertension The patient's blood pressure is stable on losartan. He denies any associated symptoms such as chest pain, shortness of breath, dizziness, blurred vision, or headaches. Fasting labs will be ordered to monitor his condition. 2. Hypothyroidism The patient is on levothyroxine for hypothyroidism. Thyroid levels will be checked with the upcoming lab work. 3. Tobacco Use The patient is a current smoker. He will be encouraged to quit smoking. He will continue with annual low-dose CT scans for lung cancer screening. 4. dyslipidemia: encouraged labs in the near future. Discussion Notes I will encourage him to obtain fasting labs in the near future. We reviewed that his blood pressure is stable, and he is on losartan. I will also check his thyroid levels as he is taking levothyroxine for hypothyroidism. I advised him to quit smoking and will continue to monitor with yearly low-dose CAT scans. Patient Instructions - Please get fasting blood tests done in the near future. - Continue taking your losartan for blood pressure. - It is important to try and quit smoking. - Continue to get your low dose CAT scan once a year. - Continue taking levothyroxine for your thyroid condition. 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 CLERK and occasional VNA) Alcohol intake: current Alcohol intake frequency: a few times a week Tobacco use type: Cigarette Cigarette Packs Per Day: 0.33 Cigarettes Per Day: 6.6 e-Cigarette/Vaping Use: Never Used Second Hand Smoke Exposure: No Substance Use Type: Marijuana service: No Current occupational status: disabled Current occupational exposures/hazards: No Cognitive needs: No Hearing needs: No Vision needs: Yes Questionnaire Thrive Questionnaire Date Thrive assessed: 08/02/24 I am a: Patient What is your living situation today?: I have a steady place to live Within the past 12 months, did the food you bought not last and you didn't have the money to get more?: Never true Within the past 12 months, did you worry whether your food would run out before you got money to buy more?: I choose not to answer this question Do you have trouble paying for medicines?: No Do you have trouble getting transportation to medical appointments?: No Do you have trouble paying your heating and electricity bill?: No Do you have trouble taking care of your child, family member or friend?: No Do you have trouble with day-to-day activities such as bathing, preparing meals, shopping, managing finances, etc.?: I choose not to answer this question Are you currently unemployed and looking for a job?: No Are you interested in more education?: No Currently or been in a relationship where the following occur: I choose not to answer THRIVE Score: 0 VINCENT-7 AMB Questionnaire VINCENT-7 Date VINCENT - 7 assessed: 08/02/24 Source: Developed by Drs. Derek Bradford, Rhoda Rizo, Chester Childress and colleagues, with an educational buck from [employer]. Physical exam (Primary Care) Vital Signs: Last Vital Signs Pulse 88 02/02/25 12:53 Resp 16 02/02/25 12:53 BP 124/82 02/02/25 12:53 Pulse Ox 98 02/02/25 12:53 Oxygen Delivery Method Room Air 02/02/25 12:53 BMI result Body Mass Index 38.4 Tobacco/Smoking Status: Tobacco use Status Tobacco use date assessed 02/02/25 02/02/25 12:59 Tobacco use type Cigarette 02/02/25 12:59 e-Cigarette/Vaping Use Never Used 02/02/25 12:59 Thrive Assessment: Date of Thrive Assessment Date Thrive assessed 08/02/24 02/02/25 12:59 Currently or been in a relationship where the following occur: I choose not to answer Coding Level of Care Code Est Pt Level 3 (90783) Diagnoses HTN (hypertension) I10 Dyslipidemia E78.5 Screening for colon cancer Z12.11 Nicotine dependence, cigarettes, uncomplicated F17.210 Assessment & Plan Assessment & Plan (1) HTN (hypertension): Code(s): I10 - Essential (primary) hypertension Category: Medical (2) Dyslipidemia: Code(s): E78.5 - Hyperlipidemia, unspecified Category: Medical (3) Screening for colon cancer: Code(s): Z12.11 - Encounter for screening for malignant neoplasm of colon Category: Medical (4) Nicotine dependence, cigarettes, uncomplicated: Code(s): F17.210 - Nicotine dependence, cigarettes, uncomplicated Category: Medical Plan . Orders: Orders Complete Blood Count Auto Diff Today E78.5 - Hyperlipidemia, unspecified, I10 - Essential (primary) hypertension Comprehensive [place]. Panel Fast Today E78.5 - Hyperlipidemia, unspecified, I10 - Essential (primary) hypertension TSH reflex Free T4 Today E78.5 - Hyperlipidemia, unspecified, I10 - Essential (primary) hypertension Lipid Panel Today E78.5 - Hyperlipidemia, unspecified, I10 - Essential (primary) hypertension UA CC w/rflx Micro + Cult Today E78.5 - Hyperlipidemia, unspecified, I10 - Essential (primary) hypertension Referrals Gastroenterology Referral Z12.11 - Encounter for screening for malignant neoplasm of colon
--- OUTSIDE RECORDS SUMMARY | 2025-02-02 12:54 | XMS_ITS | Clinical Summary ---
Author Organization [facility] Address [address] [place] [address] Care Team Providers Care Supervisor Heavy Equipment Name Role Phone Yaya Egan MD Primary [...] on file Sexual Orientation Not on file Plan of Treatment Health Maintenance Due Date Last Done Comments DTaP,Tdap,and Td Vaccines (1 - Tdap) 09/13/1987 Hepatitis B Vaccines (1 of 3 - 19+ 3-dose series) 09/13/1987 Pneumococcal Vaccine: 50+ Ye ars (1 of 1 - PCV) 2018 Zoster Vaccines (1 of 2) 2018 Depression Screening 02/11/2024 COVID-19 Vaccine ( - 2024-2 6 season) 2024 Influenza Vaccine (#1) 2024 RSV [...] to complete this topic Care Teams Supervisor Heavy Equipment Relationship Specialty Start Date End Date Yaya Egan MD [address] [place] [id number] PCP - General Internal Medicine 05/26/17
--- OUTSIDE RECORDS SUMMARY | 2025-02-02 12:54 | XMS_ITS | Data Portability ---
Author Organization [employer], [facility] Address [address] [place] [address] Care Team Providers Care Instructor Bus Trolley And Taxi Name Role Phone BRAYAN ADDISON Primary Care Provider HIM MARTHA OTHER Assessment Encounter Date Assessment Date Assessment LastModified by Organization Details LastModified Time 03/26/2022 03/26/2022 As noted, judit johnston called to see this patient regarding concerns of diverticulitis. Evaluation in the field was performed by my adjunct professor colleague, as noted above, I provided real-time [...] and emesis x 1 today. Reports eating japanese food last night. Decreased PO. Drinking POs. Having smaller caliber bowel movement this morning. Passing flatus. No f/c. No urinary sxs. Reports that these sxs are similar to prior episodes of diverticulitis. Evaluation in the field was performed by my adjunct professor colleague, as noted above, I provided real-time [...] serum or plasma 2023 [facility] [address] [place] [address], [id number] 4 17:55:51 urinalysis, dipstick 2023 024 [facility], [address] [place] [address], [id number] 4 08:26:36 hemoglobin + hematocrit, blood 2023 024 [facility], [address] [place] [address], [phone] 08:27:25 Referral None recorded. Procedures None recorded. Surgeries None recorded. Imaging None recorded. Medication Orders lactated Ringers intravenous solution [address]/Pharmacy #[id number], [address] [facility] [place], [address], 4 13:50:19 ondansetron HCl (PF) 4 mg/2 mL injection solution 2023 [address] [place], [address], 4 13:50:18 ketorolac 30 mg/mL injection solution 2023 [address] [place], [address], 4 13:50:18 Augmentin 875 mg-125 mg tablet 2023 024 [facility] [address] [place], [address], 4 14:22:25 Augmentin 875 mg-125 mg tablet 2023 [address]24 [address] [place], [address], 4 14:22:50 Augmentin 875 mg-125 mg tablet 2022 023 [facility] [address] [place], [address], 3 11:02:07 ondansetron 4 mg disintegrat ing tablet 2022 023 [facility] [address] [place], [address], 3 11:03:03 Zofran 4 mg tablet 2022 023 [facility]/Pharmacy #[id number], [address] [facility] , [place], [address], 12:51:43 Patient TargetsNo targets recorded. Patient InstructionsNo [...] Vitals Date Recorded Heart rate Oxygen saturation Respiratory rate Body temperature Systolic And Diastolic Provider Name and Address Organization Details Last Updated DateTime 3 83 /min 100 % 18 /min 98.2 [degF] 119/84 mm[Hg] Not Available [employer] - production 3 12:48:34 Date Recorded Heart rate Body temperature Oxygen saturation Respiratory rate Body weight Systolic And Diastolic Provider Name and Address Organization Details Last Updated DateTime 3 72 /min 98 [degF] 97 % 18 /min 762518. 96 g 160/105 mm[Hg] Not Available [employer] - production 3 11:00:12 Date Recorded Body weight Respiratory rate Heart rate Body temperature Oxygen saturation Systolic And Diastolic Provider Name and Address Organization Details Last Updated DateTime 4 772670. 04 g 16 /min 64 /min 98.2 [degF] 98 % 160/98 mm[Hg] Not Available [employer] [...] Merry Cunha MD Main - [facility] [address] [place] [phone] 02/23/2022 12:48:33 02/26/2022 12:19:53 Nausea and vomiting [id number] R11.2 51 year old male, being evaluated [...] intake. 7756 [facility]ang Jacobs [facility] [address] [place] [phone] 03/26/2022 11:00:01 03/28/2022 13:08:23 Diverticulitis [id number] K57.92 52742 MURIEL WILLINGHAM MD Main - [facility] [address] [place] [phone] 07/09/2023 13:29:14 07/10/2023 10:32:30 Abdominal pain 35708496 R10.9 Nausea and vomiting 1692 1999 R11.2 Health Concerns Section Related Observation LastModified by Organization Detai ls LastModified Time None Recorded Concern Status LastModified by Organization Details LastModified Time None Recorded Advance Directives Directive None Recorded Payers Insurance Date Sequence Insurance Name Policy Number Policy Talbert Covered Member ID Talbert Member ID Guarantor Name 04/06/[address] [facility] - DOS PRIOR TO 2022 - DUAL ELIGIBLE (MEDICARE REPLACEMENT/ADV ANTAGE - HMO) Gustavo Thompson [id number] Gustavo Renee Thompson 07/09/[address] [facility] - DOS ON OR AFTER 2022 - DUAL ELIGIBLE - LONGTERM OPTIONS AND ONE CARE (MEDICARE REPLACEMENT/ADV ANTAGE - HMO) Gustavo Thompson [id number] Gustavo Duran Donna Notes Date Note Type [...] .................... .................... .................... .................... .................... .................... . Vocational Rehabilitation Counselor Note: Community Vocational Rehabilitation Counselor Crystal Carty SC6 dispatched to a [facility] for a 51 yom C/O N/V/D. [...] CP, SOB, urinary S/S, negative for edema. C was consulted; pt was advised to continue ingesting small and intermittent amounts of food and fluids, and to monitor his S/S. He was informed that if his S/S got worse, to seek medical attention NOELLE (insted, walk in clinic, PCP/GI, or ED). He was prescribed ondansetron as well. Red flags discussed. .................... .................... .................... .................... .................... .................... .................... . Disposition: Fulfilled Mrery Cunha MD [address] [place] [address],[address], [place], [address], [employer] - [employer] 02/23/2022 13:03:01 03/26/2022 text/html CRC Nursing Assessment: [...] diverticulitis Verified identity Quang Jacobs MD [address] [facility],[address], [place], [address], [employer] 03/26/2022 11:29:03 07/09/2023 text/html ROS as noted in the HPI CRC Nurse Triage Notes (Mia Fulton): Reason For Request: Pt reporting a diverticulitis flare>slight vomit today, stomach is firm>typical signs of a flare up>slight bowel movement today Chief Complaints: Nausea/Vomiting PMH: Other Allergies: Unknown Comments: Deaf And Hard Of Hearing Teacher verified the member's name//address and phone number. Member is a a/o3 52 yr old male. PMH > diverticulitis >borderline DM Member had Nepalese food yesterday, woke up not feeling well, had a BM and episode of vomiting. Member and is firm with bile, which is a sign of diverticulitis. Member does not have a fever/ but tool tramadol last night with a mild sweat overnight Education provided on the response time and the member was advised to monitor reported s/s and seek emergency treatment if needed Vocational Rehabilitation Counselor POC Test Results from Carlos Whiteside epoc (1) [13:59] pH: 7.336 pH units pCO2: 52.2 mmHg pO2: 26.6 mmHg Na: 140 mmol/L K: 4.3 mmol/L iCa: 1.14 mmol/L Cl: 104 mmol/L TCO2: 27.5 mEq/L Hct: 54 % Hb: 18.6 g/dL Glu: 112 mg/dL Lac: 2.09 mmol/L Cr: 0.99 mg/dL BUN: 6 mg/dL A Vocational Rehabilitation Counselor POC Test Results from Carlos Whiteside Urine Dipstick (1) [14:15] Urine leukocytes: NR Urine nitrites: NR Urine urobilinogen: 0.2 URO Urine protein: NR Urine pH: 5.0 pH Urine blood: NR Urine specific gravity: 1.02 SG Urine ketones: NR Urine bilirubin: NR Urine glucose: NR .................... .................... .................... .................... .................... .................... .................... . Vocational Rehabilitation Counselor Note From Carlos Whiteside: Pt co lower left abdominal pain, passing gas, and very small bowel movement this morning. 1 episode of vomiting. Pt sts ate Nepalese food last night and symptoms started this [...] . Disposition: Fulfilled MURIEL WILLINGHAM MD [address] [facility],[address], [place], [address], JULY - [employer] MARTINEZ 07/09/2023 15:20:54
--- OUTSIDE RECORDS SUMMARY | 2025-02-02 12:54 | XMS_ITS | Patient Health Record ---
Author Organization [employer] [facility] Address [address] [place] [address] Care Team Providers Care Helper/Driver Name Role Phone Roma Yousif Primary Care [...] of [place] [address] [place] [phone] [id number] Gustavo Thompson Self - patient is the insured Medical (General) History Medical History History ICD Code Diabetes mellitus type 2 in obese Diverticulitis Obesity Osteoarthritis of right hip Pyelonephritis Renal insufficiency Right hip pain Shoulder dislocation Tobacco use disorder Surgical History Surgery Date(Month/Year) Osteotomy R hip 1982 Diverticulectomy of large intestine
== END 2025-02-02 13:16 | disposition home or self-care (01) ==
LOC: HO.HMCC 12:51
PROVIDERS: PCP Nurse Practitioner Family; Visit Provider Nurse Practitioner Family
DX: I10 Essential (primary) hypertension (principal); E78.5 Hyperlipidemia, unspecified; Z12.11 Encounter for screening for malignant neoplasm of colon; F17.210 Nicotine dependence, cigarettes, uncomplicated

== ENCOUNTER → 2025-02-02 12:51 | Outpatient (BNVA) | payer OTHER, SELFPAY | PROVIDERS: PCP Nurse Practitioner Family; Visit Provider Nurse Practitioner Family | DX: Z12.11 Encounter for screening for malignant neoplasm of colon (principal); I10 Essential (primary) hypertension; E78.5 Hyperlipidemia, unspecified; F17.210 Nicotine dependence, cigarettes, uncomplicated | CPT/HCPCS: 99212 ==

== ENCOUNTER 2025-02-05 23:44 | Inpatient (IN) | payer OTHER, SELFPAY ==
--- NOTE | ~2025-02-05 | CT_ITS ---
CLINICAL HISTORY: LLQ pain divertic? CT abdomen and pelvis with contrast Comparison: MR/OR/SR - MR ABDOMEN WO/W CON - 10/22/23 09:[address]/REG/SR - CT ABDOMEN PELVIS W IV CON - 08/04/23 00:35 EDT Findings: The lung bases are clear. Hepatic steatosis. Multiple cysts and hemangiomas in the liver. Cholecystectomy. No biliary duct dilatation. Pancreas, spleen, and adrenal glands are within normal limits. No hydronephrosis. Symmetric contrast enhancement of the kidneys. Right renal cyst Prior distal colonic resection. Left lower quadrant diverticulitis. No perforation or abscess. No bowel obstruction, pneumatosis or pneumoperitoneum. Pelvic contents unremarkable. Fixation hardware in the right proximal femur. No acute fracture. IMPRESSION: Left lower quadrant diverticulitis without perforation or abscess. This document has been electronically signed by: Rory Hauser MD on 02/06/2025 04:42:10
[2025-02-06] VITALS (10 sets, daily range): BP systolic 135–159; BP diastolic 63–95; PULSE 81–103; RESP 12–18; TEMP 36.2–37.3; O2SAT 95–98; BMI 37.6; BMI 37.7
[2025-02-06 00:21] LABS: Hematocrit 46.4 % (42.0-52.0); Hemoglobin 15.1 g/dl (14.0-18.0); Imm Gran Abs Auto 0.06 X10*3/uL (0.00-0.03); Imm Gran Pct Auto 0.4 % (0.0-0.4); Lymphocytes Absolute Auto 3.8 X10*3/uL (1.2-4.9); MANUAL DIFF FLAG SCAN; Mean Corpuscular HGB Conc 32.5 g/dl (31.0-36.0); Mean Corpuscular Hemoglobin 27.2 pg (27.0-33.0); Mean Corpuscular Volume 83.5 fL (80.0-98.0); NRBC Abs Auto 0.000 X10*3/uL (0.0-0.012); NRBC Pct Auto 0.0 /100WBC (0.0-0.2); Platelet Count 242 X10*3/uL (160-400); Red Blood Count 5.56 X10*6/uL (4.60-5.80); SCAN SMEAR FLAG 1; White Blood Count 16.2 X10*3/uL (4.8-10.8)
[2025-02-06 00:36] LABS: Alanine Aminotransferase 39 U/L (0-40); Albumin Level 4.3 g/dL (3.5-5.0); Alkaline Phosphatase 36 U/L (39-117); Anion Gap 14 (12-20); Aspartate Amino Transferase 23 U/L (5-37); Blood Urea Nitrogen 8 mg/dL (9-16); Calcium 9.2 mg/dL (8.4-10.2); Carbon Dioxide 23 mmol/L (22-29); Chloride 106 mmol/L (96-108); Creatinine Clr Calc Pharmacy 95.7; Estimated Glomerular Filt Rate > 60; Lipase 45 U/L (8-78); Magnesium 2.1 mg/dL (1.6-2.6); Potassium 3.8 mmol/L (3.3-5.1); Sodium 139 mmol/L (135-145); Total Protein 7.9 g/dL (6.5-8.0)
--- OUTSIDE RECORDS SUMMARY | 2025-02-06 03:20 | XMS_ITS | Clinical Summary ---
Author Organization [facility] Address [address] [place] [address] Care Team Providers Care Furniture Inspector Name Role Phone Yaya Egan MD Primary Care Provider Surgical History Surgery Date Site/Laterality Comments OTHER SURGICAL HISTORY PROCEDURE: [place] UNLISTED PROCEDURE SMALL INTESTINE; COMMENT: for diverticulitis OTHER SURGICAL HISTORY Right PROCEDURE: [place] OPTX ACTBLR FX INVG ANT/PST 1 COLUMN/FX [...] age to complete this topic Care Teams Furniture Inspector Relationship Specialty Start Date End Date Yaya Egan MD [address] [place] [id number] PCP - General Internal Medicine 05/26/17
--- OUTSIDE RECORDS SUMMARY | 2025-02-06 03:20 | XMS_ITS | Patient Health Record ---
Author Organization [facility] Address [address] [facility] [address] [place] [address] Care Team Providers Care Sign Erector And Repairer Name Role Phone Roma Yousif Primary Care [...] of [place] [address] [place] [phone] [id number] Gustavo Thompson Self - patient is the insured Medical (General) History Medical History History ICD Code Diabetes mellitus type 2 in obese Diverticulitis Obesity Osteoarthritis of right hip Pyelonephritis Renal insufficiency Right hip pain Shoulder dislocation Tobacco use disorder Surgical History Surgery Date(Month/Year) Osteotomy R hip 1982 Diverticulectomy of large intestine
--- OUTSIDE RECORDS SUMMARY | 2025-02-06 03:20 | XMS_ITS | Data Portability ---
Author Organization [employer], [facility] [employer] [facility] Address [address] [place] [address] Care Team Providers Care Tugboat Engineer Name Role Phone BRAYAN ADDISON Primary Care Provider HIM MARTHA OTHER Assessment Encounter Date Assessment Date Assessment LastModified by Organization Details LastModified Time 03/26/2022 03/26/2022 As noted, judit johnston called to see this patient regarding concerns of diverticulitis. Evaluation in the field was performed by my appliquer colleague, as noted above, I provided real-time [...] and emesis x 1 today. Reports eating portuguese food last night. Decreased PO. Drinking POs. Having smaller caliber bowel movement this morning. Passing flatus. No f/c. No urinary sxs. Reports that these sxs are similar to prior episodes of diverticulitis. Evaluation in the field was performed by my appliquer colleague, as noted above, I provided real-time [...] recorded. Lab BMP, serum or plasma 2023 [facility], [address] [place] [address], [phone] 4 17:55:51 urinalysis, dipstick 2023 024 [facility], [address] [place] [address], [phone] 4 08:26:36 hemoglobin + hematocrit, blood 2023 024 [facility], [address] [place] [address], [phone] 08:27:25 Referral None recorded. Procedures None recorded. Surgeries None recorded. Imaging None recorded. Medication Orders lactated Ringers intravenous solution [address]/Pharmacy #0693, [address] [place], [address], 4 13:50:19 ondansetron HCl (PF) 4 mg/2 mL injection solution 2023 024 [address] [place], [address], 4 13:50:18 ketorolac 30 mg/mL injection solution 2023 024 [address] [place], [address], 4 13:50:18 Augmentin 875 mg-125 mg tablet 2023 024 [facility] [address] [place], [address], 4 14:22:25 Augmentin 875 mg-125 mg tablet 2023 024 [address] [place], [address], 4 14:22:50 Augmentin 875 mg-125 mg tablet 2022 023 [facility] [address] [place], [address], 3 11:02:07 ondansetron 4 mg disintegrat ing tablet 2022 023 [facility] [address] [place], [address], 3 11:03:03 Zofran 4 mg tablet 2022 023 [facility]/Pharmacy #9196, [address] , [place], [address], 12:51:43 Patient TargetsNo targets recorded. Patient InstructionsNo [...] /min 98.2 [degF] 119/84 mm[Hg] Not Available [employer] - production 3 12:48:34 Date Recorded Heart rate Body temperature Oxygen saturation Respiratory rate Body weight Systolic And Diastolic Provider Name and Address Organization Details Last Updated DateTime 3 72 /min 98 [degF] 97 % 18 /min 890120. 96 g 160/105 mm[Hg] Not Available [employer] - production 3 11:00:12 Date Recorded Body weight Respiratory rate Heart rate Body temperature Oxygen saturation Systolic And Diastolic Provider Name and Address Organization Details Last Updated DateTime 4 583563. 04 g 16 /min 64 /min 98.2 [...] 7031 Merry Cunha MD Main - [facility] [address] [place] [phone] 02/23/2022 12:48:33 02/26/2022 12:19:53 Nausea and vomiting [id number] R11.2 51 year old male, being evaluated [...] intake. 7756 [facility]ang Jacobs MD [facility] [address] [place] [phone] 03/26/2022 11:00:01 03/28/2022 13:08:23 Diverticulitis [id number] K57.92 [id number] MURIEL WILLINGHAM MD Main - [facility] [address] [place] [phone] 07/09/2023 13:29:14 07/10/2023 10:32:30 Abdominal pain 64665193 R10.9 Nausea and vomiting 1692 1999 R11.2 Health Concerns Section Related Observation LastModified by Organization Detai ls LastModified Time None Recorded Concern Status LastModified by Organization Details LastModified Time None Recorded Advance Directives Directive None Recorded Payers Insurance Date Sequence Insurance Name Policy Number Policy Talbert Covered Member ID Talbert Member ID Guarantor Name 04/06/2023 1 [facility] - DOS PRIOR TO 2022 - DUAL ELIGIBLE (MEDICARE REPLACEMENT/ADV ANTAGE - HMO) Gustavo Thompson [id number] Gustavo Renee Thompson 07/09/2023 1 [facility] - DOS ON OR AFTER 2022 - DUAL ELIGIBLE - JAIL OPTIONS AND ONE CARE (MEDICARE REPLACEMENT/ADV ANTAGE - HMO) Gustavo Thompson [id number] Gustavo Duran Donna Notes Date Note Type [...] .................... .................... .................... .................... .................... .................... . Acquisition Manager Note: Community Acquisition Manager Crystal Carty SC6 [facility] 51 yom C/O N/V/D. [...] .................... . Disposition: Fulfilled Merry Cunha MD [address] [place] [address],[address], [place], [address], [employer] 02/23/2022 13:03:01 03/26/2022 text/html CRC Nursing Assessment: [...] identity Quang Jacobs MD [address] [facility],[address], [place], [address], [employer] 03/26/2022 11:29:03 07/09/2023 text/html ROS as noted in the HPI CRC Nurse Triage Notes (Mia Fulton): Reason For Request: Pt reporting a diverticulitis flare>slight vomit today, stomach is firm>typical signs of a flare up>slight bowel movement today Chief Complaints: Nausea/Vomiting PMH: Other Allergies: Unknown Comments: Sheep Farmer verified the member's name//address and phone number. Member is a a/o3 52 yr old male. PMH > diverticulitis >borderline DM Member had Bolivian food yesterday, woke up not feeling well, had a BM and episode of vomiting. Member and is firm with bile, which is a sign of diverticulitis. Member does not have a fever/ but tool tramadol last night with a mild sweat overnight Education provided on the response time and the member was advised to monitor reported s/s and seek emergency treatment if needed Acquisition Manager POC Test Results from [facility] Whiteside epoc (1) [13:59] pH: 7.336 pH units pCO2: 52.2 mmHg pO2: 26.6 mmHg Na: 140 mmol/L K: 4.3 mmol/L iCa: 1.14 mmol/L Cl: 104 mmol/L TCO2: 27.5 mEq/L Hct: 54 % Hb: 18.6 g/dL Glu: 112 mg/dL Lac: 2.09 mmol/L Cr: 0.99 mg/dL BUN: 6 mg/dL A Acquisition Manager POC Test Results from Carlos Whiteside Urine Dipstick (1) [14:15] Urine leukocytes: NR Urine nitrites: NR Urine urobilinogen: 0.2 URO Urine protein: NR Urine pH: 5.0 pH Urine blood: NR Urine specific gravity: 1.02 SG Urine ketones: NR Urine bilirubin: NR Urine glucose: NR .................... .................... .................... .................... .................... .................... .................... . Acquisition Manager Note From Carlos Whiteside: Pt co lower left abdominal pain, passing gas, and very small bowel movement this morning. 1 episode of vomiting. Pt sts ate Bolivian food last night and symptoms started this [...] Fulfilled MURIEL WILLINGHAM MD [address] [facility],[address], [place], [address], JULY - [employer]JAY MARTINEZ 07/09/2023 15:20:54
[2025-02-06] MEDS: iohexoL 350 MG/ML 100 ML INFUS..BTL IV (04:03)
--- NOTE | 2025-02-06 04:32 | ED.GENADULT ---
HPI - General Adult General Chief complaint: Abdominal Pain Stated complaint: diverticulitis symptoms Time Seen by Provider: 02/06/25 03:10 Source: patient Limitations: no limitations History of Present Illness ED Provider: Cira Liang PA-C HPI narrative: 54-year-old male with a history of recurrent diverticulitis, now status post partial colectomy x2 secondary to complex diverticulitis, hypertension, hyperlipidemia, hypothyroidism, prediabetes, chronic kidney disease, morbid obesity who presents with the abdominal pain x3 days. Pain is focal to the left lower quadrant, it has become severe, unable to describe the nature of his discomfort. The patient developed nausea with dry heaving today. Denies fever. Patient is having loose stool, although he does state he took a stool softener, he thought he may be constipated. Related Data Previous Rx's ?Medication ?Instructions ?Recorded emollient combination no.119 1 appl topical DAILY 30 days #454 10/09/23 (Eucerin Advanced Repair topical grams cream) losartan 25 mg tablet 25 mg PO DAILY #90 tabs 11/08/24 tizanidine 2 mg tablet 2 mg PO BID PRN muscle spasticity 11/16/24 14 days #28 tabs docusate sodium 100 mg capsule 100 mg PO BID PRN Constipation 11/17/24 #180 caps bisacodyl 5 mg tablet,delayed 20 mg (4 x 5 mg) PO ONCE 01/03/25 release (Dulcolax (bisacodyl)) colonoscopy prep 1 day #4 tabs peg 3350-electrolytes 236 240 ml PO Q10M COLONOSCOPY PREP 01/03/25 gram-22.74 gram-6.74 gram-5.86 #4,000 mL gram solution tramadol 50 mg tablet 50 mg PO Q8H PRN pain #60 tabs 01/26/25 levothyroxine 75 mcg tablet 75 mcg PO DAILY #90 tabs 02/02/25 Allergies Allergy/AdvReac Type Severity Reaction Status Date / Time atorvastatin AdvReac muscle ache Verified 02/06/25 00:02 Review of Systems Review of Systems: Yes all other systems are reviewed and are negative Constitutional: Constitutional: Denies fatigue and Denies fever(s) Cardiovascular: Cardiovascular: Denies chest pain and Denies dyspnea Respiratory: Respiratory: Denies dyspnea Gastrointestinal: Gastrointestinal: Reports abdominal pain, Reports loose stools, Reports nausea and Denies vomiting Genitourinary: Genitourinary: Denies dysuria and Denies flank pain Endocrine: Endocrine: Denies fatigue PMFSH Past Medical History Attestation statement: The following information was validated with the patient. Medical History Worms in stool HTN (hypertension) Dyslipidemia Hypothyroidism History of prediabetes Nicotine dependence, cigarettes, uncomplicated Diverticulitis Pyelonephritis Chronic back pain Dislocated shoulder Obesity Surgical History History of cholecystectomy History of partial colectomy History of hip surgery Social History Social History Household Members: None Housing: Apartment Housing Other:: one flight of stairs Do you presently have visiting nurse or other home services: Yes (CLINICAL EXERCISE PHYSIOLOGIST and occasional VNA) Alcohol intake: current Alcohol intake frequency: a few times a week Tobacco use type: Cigarette Cigarette Packs Per Day: 0.33 Cigarettes Per Day: 6.6 e-Cigarette/Vaping Use: Never Used Second Hand Smoke Exposure: No Substance Use Type: Marijuana Advance Directives: No Advance Directives Information Provided: Yes service: No Current occupational status: disabled Current occupational exposures/hazards: No Cognitive needs: No Hearing needs: No Vision needs: Yes Physical Exam ED Vital Signs: Vital Signs - 24 hr 02/06/25 00:00 02/06/25 02:52 02/06/25 04:07 Temperature 98.3 F 98.2 F Pulse Rate 103 H 87 88 Respiratory Rate 18 15 17 Blood Pressure 135/91 H 145/78 H 159/78 H Pulse Oximetry 95 98 98 Oxygen Delivery Method Room Air Room Air BMI result Body Mass Index 37.6 Const Other: Alert Orientation/consciousness: patient oriented x3 HENMT Other: Dry oral mucosa Resp Effort & Inspection: normal respiratory effort Cardio Other: Normal peripheral perfusion GI Other: Obese abdomen, moderate to severe tenderness left lower quadrant with moderate involuntary guarding, Skin Other: Warm dry no rash Neuro General: patient oriented x3, gait normal, no focal motor deficits and CN's II-XI intact bilaterally Psych Other: Cooperative Medications Administered Discontinued Medications Generic Name Dose Route Start Last Admin Trade Name Freq PRN Reason Stop Dose Admin Sodium Chloride 1,000 mls @ 999 mls/hr 02/06/25 03:30 02/06/25 03:46 Ns IV 02/06/25 04:30 999 mls/hr .Q1H1M WILLIAN Administration Iohexol 100 ml 02/06/25 04:00 02/06/25 04:03 Iohexol 350 Mg/Ml 100 Ml Infus..Btl IV 02/06/25 04:01 100 ml ONCE ONE Administration Morphine Sulfate 4 mg 02/06/25 03:17 02/06/25 04:03 Morphine Sulfate 4 Mg/Ml Cartridge IVPUSH 02/06/25 03:18 4 mg ONCE ONE Administration Protocol Ondansetron HCl 4 mg 02/06/25 03:17 02/06/25 03:45 Ondansetron Hcl 4 Mg/2 Ml Vial IVPUSH 02/06/25 03:18 4 mg ONCE ONE Administration Medical Decision Making Medical Decision Making MDM Narrative: 54-year-old male with a history of recurrent diverticulitis, now status post partial colectomy x2 secondary to complex diverticulitis, hypertension, hyperlipidemia, hypothyroidism, prediabetes, chronic kidney disease, morbid obesity who presents with the abdominal pain x3 days. Pain is focal to the left lower quadrant, it has become severe, unable to describe the nature of his discomfort. The patient developed nausea with dry heaving today. Denies fever. Patient is having loose stool, although he does state he took a stool softener, he thought he may be constipated. Problem: Recurrent complex diverticulitis, prediabetes History: Per patient I have considered the following differential diagnoses: Diverticulitis, complex diverticulitis with perforation, intra-abdominal abscess, UTI, renal colic Plan: Given distribution of discomfort, the patient's history and nature of his symptoms, there was concern for diverticulitis. Screening labs already collected, adding on a CT scan of the abdomen and pelvis. Giving morphine Zofran and IV fluids. Thought about related pathology, although he has no symptoms, there was no report of flank pain, urine was collected. I have independently reviewed the following tests: Labs: Leukocytosis of 16.2, not anemic, no electrolyte abnormality, urine not infected no hematuria CT abdomen and pelvis:Findings: The lung bases are clear. Hepatic steatosis. Multiple cysts and hemangiomas in the liver. Cholecystectomy. No biliary duct dilatation. Pancreas, spleen, and adrenal glands are within normal limits. No hydronephrosis. Symmetric contrast enhancement of the kidneys. Right renal cyst Prior distal colonic resection. Left lower quadrant diverticulitis. No perforation or abscess. No bowel obstruction, pneumatosis or pneumoperitoneum. Pelvic contents unremarkable. Fixation hardware in the right proximal femur. No acute fracture. IMPRESSION: Left lower quadrant diverticulitis without perforation or abscess. Differential Diagnosis Differential Diagnoses: The differential diagnosis associated with the presentation includes See [facility] Admission/Observation Consideration of admission/observation: Escalation of care including admission/observation considered admit Consult Healthcare Provider Management of the patient was discussed with: Hospitalist Lab Data [facility] Lab Attestation statement: I reviewed the patient's lab results. 02/06/25 00:15 02/06/25 00:15 Labs: Lab Results 02/06/25 02/06/25 Range/Units 00:15 04:28 WBC 16.2 H (4.8-10.8) X10*3/uL RBC 5.56 (4.60-5.80) X10*6/uL Hgb 15.1 (14.0-18.0) g/dl Hct 46.4 (42.0-52.0) % MCV 83.5 (80.0-98.0) fL MCH 27.2 (27.0-33.0) pg MCHC 32.5 (31.0-36.0) g/dl RDW 13.2 (11.0-16.0) % Plt Count 242 (160-400) X10*3/uL MPV 9.8 (9.4-12.4) fL Immature Gran % (Auto) 0.4 (0.0-0.4) % Neut % (Auto) 65.8 (45-73) % Lymph % (Auto) 23.6 (20-40) % [place] % (Auto) 9.9 (2-11) % Eos % (Auto) 0.1 (0-4) % Baso % (Auto) 0.2 (0-2) % Lymph # (Auto) 3.8 (1.2-4.9) X10*3/uL [place] # (Auto) 1.6 H (0.1-1.2) X10*3/uL Eos # (Auto) 0.0 (0.0-0.4) X10*3/uL Baso # (Auto) 0.0 (0.0-0.2) X10*3/uL Abs Immat Gran (auto) 0.06 H (0.00-0.03) X10*3/uL Absolute Neuts (auto) 10.6 H (2.0-8.3) x10*3/uL Absolute Nucleated RBC 0.000 (0.0-0.012) X10*3/uL Nucleated RBC % (auto) 0.0 (0.0-0.2) /100WBC Smear Tech's Comments VERIFIED Sodium 139 (135-145) mmol/L Potassium 3.8 (3.3-5.1) mmol/L Chloride 106 (96-108) mmol/L Carbon Dioxide 23 (22-29) mmol/L Anion Gap 14 (12-20) BUN 8 L (9-16) mg/dL Creatinine 1.08 (0.5-1.4) mg/dL Estim Creat Clear Calc 95.7 Estimated GFR > 60 Fasting Glucose 138 H (60-99) mg/dL Calcium 9.2 (8.4-10.2) mg/dL Magnesium 2.1 (1.6-2.6) mg/dL Total Bilirubin 0.5 (0.0-1.0) mg/dL AST 23 (5-37) U/L ALT 39 (0-40) U/L Alkaline Phosphatase 36 L (39-117) U/L Total Protein 7.9 (6.5-8.0) g/dL Albumin 4.3 (3.5-5.0) g/dL Lipase 45 (8-78) U/L Urine Color Yellow Urine Appearance Clear Urine pH 6.5 (5.0-9.0) Ur Specific [place] >= 1.030 H (1.005-1.025) Urine Protein Negative (Neg-Trace) mg/dL Urine Glucose (UA) Negative (Negative) mg/dL Urine Ketones Negative (Negative) mg/dL Urine Blood Negative (Negative) Urine Nitrite Negative (Negative) Ur Leukocyte Esterase Negative (Negative) Radiology Impression Discussion of test interpretation with radiology: I have reviewed the radiologist's reading. Discharge Plan Discharge Clinical Impression: Acute diverticulitis Patient Disposition: Admitted As Inpatient Print Language: Pashto
[2025-02-06 04:34] LABS: Appearance Urine Clear; Glucose Urine UA Negative (Negative); PH 6.5 (5.0-9.0); Specific Gravity - Urine >= 1.030 (1.005-1.025)
--- NOTE | 2025-02-06 05:32 | P.HPHOSP_ITS ---
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 Patient does follow the specific diet regimens including no seeds and more specifically no white shunt or popcorn and states these flares often times occur out of the blue for no reason. Patient denies any nausea or vomiting, chest pain or shortness of breath at rest or with exertion. Patient states he is not having any diarrhea and stool is formed and soft. Patient stated the pain started intermittently 3 days ago. Patient does try to follow the diet recommendations including no seeds and a low residual diet for his known history of diverticulitis/diverticulosis. In addition patient has been dealing recently with an elevated PSA and has plans for an intervention with Urology February 15. In addition patient has plans to have his 1st colonoscopy in June [address] Hancock. Workup in the ED included a CT scan of the abdomen and pelvis which noted diverticulitis acute without perforation or abscess. Patient received ceftriaxone and Flagyl. Patient presented with hemodynamics that are stable without fever. Patient does not meet the criteria for sepsis. Lactic acid pending. UA negative for UTI. No leukocytosis or anemia. Electrolytes stable. Renal function at baseline. LFTs normal. Request for admission for acute diverticulitis. Review of Systems 2 Review of Systems: Patient denies any chest pain, shortness of breath at rest or with exertion, nausea or vomiting. Patient is having anywhere from 6-8 left lower quadrant abdominal pain. Patient's last BM was earlier on 02/05/2025. Patient denies any problems swallowing, reflux or history of GI bleed. Yes all other systems are reviewed and are negative PMFSH Medical History Worms in stool HTN (hypertension) Dyslipidemia Hypothyroidism History of prediabetes Nicotine dependence, cigarettes, uncomplicated Diverticulitis Pyelonephritis Chronic back pain Dislocated shoulder Obesity Cognitive capacity: Alert and orientated x3 Surgical History History of cholecystectomy History of partial colectomy History of hip surgery Social History Household Members: None Housing: Apartment Housing Other:: one flight of stairs Do you presently have visiting nurse or other home services: Yes (CHIEF PROJECTIONIST and occasional VNA) Alcohol intake: current Alcohol intake frequency: a few times a week Patient Tobacco Use Status: Current everyday Tobacco user Tobacco use type: Cigarette Cigarette Packs Per Day: 0.33 Cigarettes Per Day: 6.6 Smoked in Last 30 Days: Yes e-Cigarette/Vaping Use: Never Used Second Hand Smoke Exposure: No Use of substances other than those prescribed or required for medical reasons: No Substance Use Type: Marijuana Advance Directives: No Advance Directives Information Provided: Yes Nutrition Risks: No Nutritional Risk service: No Current occupational status: disabled Current occupational exposures/hazards: No Cognitive needs: No Hearing needs: No Vision needs: Yes Meds Allergies Allergy/AdvReac Type Severity Reaction Status Date / Time atorvastatin AdvReac muscle ache Verified 02/06/25 00:02 Active Medications: Current Medications Acetaminophen (Acetaminophen 325 Mg Tablet) 650 mg PO Q6H PRN PRN Reason: Pain, Mild 1-3,fever,headache Albuterol/Ipratropium (Albuterol/Iprat 2.5/0.5mg 3 Ml Ampul.Neb) 3 ml INHALE Q4H PRN PRN Reason: Shortness of Breath/Wheezing Calcium Carbonate (Calcium Carbonate 750 Mg Tab.Chew) 750 mg PO Q4H PRN PRN Reason: Heartburn Hydromorphone HCl (Hydromorphone Hcl 1 Mg/Ml Syringe) 0.5 mg IVPUSH Q4H PRN; Protocol PRN Reason: Pain, Moderate(Pain Scale 4-6) Hydromorphone HCl (Hydromorphone Hcl 1 Mg/Ml Syringe) 1 mg IVPUSH Q4H PRN; Protocol PRN Reason: Pain, Severe (Pain Scale 7-10) Ceftriaxone Sodium 2 gm/ (Sodium Chloride) 50 mls @ 100 mls/hr IV ONCE ONE Stop: 02/06/25 05:43 Metronidazole (Flagyl) 500 mg in 100 mls @ 100 mls/hr IV ONCE ONE Stop: 02/06/25 06:13 Sodium Chloride (Ns) 1,000 mls @ 100 mls/hr IVCONT .Q10H WILLIAN Magnesium Hydroxide (Milk Of Magnesia 30 Ml Oral.Susp) 30 ml PO DAILY PRN PRN Reason: Constipation Melatonin (Melatonin 3 Mg Tablet) 6 mg PO BEDTIME PRN PRN Reason: Insomnia Polyethylene Glycol (Polyethylene Glycol 3350 17 Gm Powd.Pack) 17 gm PO DAILY PRN PRN Reason: Constipation Sodium Chloride (0.9 % Sodium Chloride Flush 3 Ml Syringe) 3 ml IVFLUSH QSHIFT WILLIAN Physical Exam 2 Vital Signs and Narrative: Vital Signs: Last Vital Signs Temp 98.2 F 02/06/25 02:52 Pulse 88 02/06/25 04:07 Resp 17 02/06/25 04:07 BP 159/78 H 02/06/25 04:07 Pulse Ox 98 02/06/25 04:07 O2 Del Method Room Air 02/06/25 04:07 BMI result Body Mass Index 37.6 Alert and orientated X3, able to give good history. Neuro: CN II-X11 intact, no deficits, visual acuity intact EYES: PERRLA, EOM intact, sclerae nonicteric, conjunctiva pink, mild exophthalmos ENT: hearing intact, no issues with swallowing, uvula midline, lips dry, nares patent no epistaxis, no thrush noted Cardiac: S1 S2 RRR, no murmur, no JVD, no edema in Lower ext Pulmonary: lungs diminished bilaterally, no adventitious sounds Abdominal: BS active in all 4 quadrants, no guarding, moderate tenderness tenderness LLQ, no rebounding MSK: strength 5/5 upper and lower extremities : no CVA tenderness no bladder distension Extremities: no edema in lower extremities, PT and DP pulses palpable +2 Psych: mood stable, judgement and insight good Skin: No new rashes or lesions Results Labs 02/06/25 00:15 02/06/25 00:15 Labs: Laboratory Results - last 24 hr 02/06/25 02/06/25 00:15 04:28 MCV 83.5 MCH 27.2 MCHC 32.5 RDW 13.2 Plt Count 242 MPV 9.8 Immature Gran % (Auto) 0.4 Neut % (Auto) 65.8 Lymph % (Auto) 23.6 [place] % (Auto) 9.9 Eos % (Auto) 0.1 Baso % (Auto) 0.2 Lymph # (Auto) 3.8 [place] # (Auto) 1.6 H Eos # (Auto) 0.0 Baso # (Auto) 0.0 Abs Immat Gran (auto) 0.06 H Absolute Neuts (auto) 10.6 H Absolute Nucleated RBC 0.000 Nucleated RBC % (auto) 0.0 Smear Tech's Comments VERIFIED Anion Gap 14 Estim Creat Clear Calc 95.7 Estimated GFR > 60 Fasting Glucose 138 H Calcium 9.2 Magnesium 2.1 Total Bilirubin 0.5 AST 23 ALT 39 Alkaline Phosphatase 36 L Total Protein 7.9 Albumin 4.3 Lipase 45 Urine Color Yellow Urine Appearance Clear Urine pH 6.5 Ur Specific [place] >= 1.030 H Urine Protein Negative Urine Glucose (UA) Negative Urine Ketones Negative Urine Blood Negative Urine Nitrite Negative Ur Leukocyte Esterase Negative Imaging Radiologist's Impressions: CT abdomen and pelvis Findings: The lung bases are clear. Hepatic steatosis. Multiple cysts and hemangiomas in the liver. Cholecystectomy. No biliary duct dilatation. Pancreas, spleen, and adrenal glands are within normal limits. No hydronephrosis. Symmetric contrast enhancement of the kidneys. Right renal cyst Prior distal colonic resection. Left lower quadrant diverticulitis. No perforation or abscess. No bowel obstruction, pneumatosis or pneumoperitoneum. Pelvic contents unremarkable. Fixation hardware in the right proximal femur. No acute fracture. IMPRESSION: Left lower quadrant diverticulitis without perforation or abscess. 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 Patient being admitted for acute diverticulitis. Patient does not meet the criteria for sepsis on admission. Acute Diverticulitis/ history of colectomy x2 No perforation or abscess on CT scan General Surgery consulted: pt requested surgeon to see him due to his significant hx Dilaudid for pain Pt started on ceftriaxone and flagyl in the ED, will continue IV ABX Noted Leukocytosis: Patient afebrile, UA negative, no hypoxia LA pending, BC collected IVF Bowel rest, Pt is NPO HTN Hydralazine p.r.n. as patient is currently NPO Med rec pending, resume usual meds once patient is able to tolerate p.o. intake Hypothyroidism Continue levothyroxine once med rec completed Enlarged prostate Relatively new finding Patient has outpatient follow-up with Urology for evaluation Patient denies any issue with frequency, hesitancy or dysuria. Patient denies any hematuria UA negative for UTI, hematuria Tobacco dependence Patient's smokes 1 pack over 2 days Patient is requesting nicotine patch Patient counseled on the benefits of smoking cessation Patient does not use oxygen, nebs or inhalers at home Alcohol use Patient states he drinks cognac and beers most days Pt denies issues with alcohol use Hepatic steatosis on CT scan, LFTs stable Will order CIWA as a precautionary measure No indication for pheobarbitol Pt defers need for addicitons DVT prophylaxis: Lovenox if no complications and will start in 24 hours Med rec pending Full code status Patient will require at least 2 midnight stay for IV antibiotics and close hemodynamic monitoring as patient is at risk for clinical decline to include complications related to diverticulitis requiring expert consultation with General surgery. Quality Stroke Does the patient have a stroke diagnosis?: No Reason for No Anti-thrombotic by Day Two: Contraindicated (First 24 hours noting risk for complications related to diverticulitis and need for surgical intervention) VTE Prior VTE?: No VTE Risk Level:: Medical - moderate - high VTE Device Contraindication: N/A - Device Ordered VTE Drug Contraindication: Treatment Not Indicated
[2025-02-06] MEDS: metroNIDAZOLE/NS 500 MG/100 ML PIGGYBACK 100 MG IV ×3 (06:39→21:02)
--- NOTE | 2025-02-06 09:23 | PHA.MEDREC ---
Pharmacy Consult ? Medication Reconciliation Pharmacy has completed the medication reconciliation. Spoke to patient to confirm medication list. Last dose of medications was yesterday 02/05/25.
--- NOTE | 2025-02-06 15:01 | P.EN_ITS ---
Event Note Date of Service: 02/07/25 Event Note: Patient admitted to the hospital because of acute diverticulitis. Seen and examined by hospitalist service this morning, seen and examined- abdominal pain somewhat improving Physical exam- similar berkley&P Assessment and plan- per h&P clear diet continue iv antibiotics Gi/surgery eval pending Time Spent With Patient Time: Total time managing care of this patient today ____ minutes.
--- NOTE | 2025-02-06 17:37 | PM.CNGS ---
History of Present Illness Consult details Consult date: 02/06/25 Requesting physician: Nelda Samano Narrative: 54-year-old gentleman presents with several-day history of abdominal pain in the gradually localized to the left lower quadrant. Radiographic interrogation of his abdomen is indicative of uncomplicated left-sided colonic diverticulitis. Patient has a reported history of right colonic resection as well as primary sigmoid resection with immediate restorationist of continuity on 2 separate occasions at an outside institution. Those operative notes are not available at this point. At time of the visit patient was resting comfortably in said he felt ?better? with medications. He denied any fevers chills nausea or vomiting. Review of Systems Review of Systems: Yes all other systems are reviewed and are negative PMFSH Past Medical History Medical History (Updated 02/06/25 @ 17:41 by Kaz Julien MD) Worms in stool HTN (hypertension) Dyslipidemia Hypothyroidism History of prediabetes Nicotine dependence, cigarettes, uncomplicated Diverticulitis Pyelonephritis Chronic back pain Dislocated shoulder Obesity Surgical History Surgical History History of cholecystectomy History of partial colectomy History of hip surgery Social History Social History Household Members: None Housing: Apartment Housing Other:: one flight of stairs Do you presently have visiting nurse or other home services: Yes Alcohol intake: current Alcohol intake frequency: a few times a week Patient Tobacco Use Status: Current everyday Tobacco user Tobacco use type: Cigarette Cigarette Packs Per Day: 0.33 Cigarettes Per Day: 6.6 Smoked in Last 30 Days: Yes e-Cigarette/Vaping Use: Never Used Patient Interested in Nicotine Replacement: Yes Second Hand Smoke Exposure: No Use of substances other than those prescribed or required for medical reasons: No Substance Use Type: Marijuana Advance Directives: No Advance Directives Information Provided: Yes Do you have a plan to hurt others: No Plan Nutrition Risks: No Nutritional Risk service: No Current occupational status: disabled Current occupational exposures/hazards: No Cognitive needs: No Hearing needs: No Vision needs: Yes Meds Allergies Allergy/AdvReac Type Severity Reaction Status Date / Time atorvastatin AdvReac muscle ache Verified 02/06/25 00:02 Active Medications: Current Medications Acetaminophen (Acetaminophen 325 Mg Tablet) 650 mg PO Q6H PRN PRN Reason: Pain, Mild 1-3,fever,headache Albuterol/Ipratropium (Albuterol/Iprat 2.5/0.5mg 3 Ml Ampul.Neb) 3 ml INHALE Q4H PRN PRN Reason: Shortness of Breath/Wheezing Calcium Carbonate (Calcium Carbonate 750 Mg Tab.Chew) 750 mg PO Q4H PRN PRN Reason: Heartburn Hydralazine HCl (Hydralazine Hcl 20 Mg/Ml Vial) 10 mg IVPUSH Q6H PRN; Protocol PRN Reason: SBP > 160 Hydromorphone HCl (Hydromorphone Hcl 1 Mg/Ml Syringe) 0.5 mg IVPUSH Q4H PRN; Protocol PRN Reason: Pain, Moderate(Pain Scale 4-6) Last Admin: 02/06/25 14:45 Dose: 0.5 mg Hydromorphone HCl (Hydromorphone Hcl 1 Mg/Ml Syringe) 1 mg IVPUSH Q4H PRN; Protocol PRN Reason: Pain, Severe (Pain Scale 7-10) Sodium Chloride (Ns) 1,000 mls @ 100 mls/hr IVCONT .Q10H [facility] Last Admin: 02/06/25 14:40 Dose: 100 mls/hr Ceftriaxone Sodium 2 gm/ (Sodium Chloride) 50 mls @ 100 mls/hr IV Q24H [facility] Metronidazole (Flagyl) 500 mg in 100 mls @ 100 mls/hr IV Q8H [facility] Last Infusion: 02/06/25 13:40 Dose: Infused Levothyroxine Sodium (Levothyroxine Sodium 75 Mcg Tablet) 75 mcg PO DAILY@0600 [facility] Last Admin: 02/06/25 10:03 Dose: 75 mcg Losartan Potassium (Losartan Potassium 25 Mg Tablet) 25 mg PO DAILY [facility]; Protocol Last Admin: 02/06/25 10:04 Dose: 25 mg Magnesium Hydroxide (Milk Of Magnesia 30 Ml Oral.Susp) 30 ml PO DAILY PRN PRN Reason: Constipation Melatonin (Melatonin 3 Mg Tablet) 6 mg PO BEDTIME PRN PRN Reason: Insomnia Nicotine (Nicotine 21 Mg Patch.Td24) 21 mg TRANSDERMA DAILY [facility] Last Admin: 02/06/25 07:42 Dose: Not Given Polyethylene Glycol (Polyethylene Glycol 3350 17 Gm Powd.Pack) 17 gm PO DAILY PRN PRN Reason: Constipation Sodium Chloride (0.9 % Sodium Chloride Flush 3 Ml Syringe) 3 ml IVFLUSH QSHIFT [facility] Last Admin: 02/06/25 14:40 Dose: Not Given Home Medications ?Medication ?Instructions ?Recorded ?Confirmed ?Last Taken ?Type levothyroxine 75 mcg tablet 75 mcg PO DAILY@0600 02/06/25 02/06/25 02/05/25 History Physical Exam Vital Signs: Vital Signs: Last Vital Signs Temp 97.2 F 02/06/25 16:31 Pulse 87 02/06/25 16:31 Resp 18 02/06/25 16:31 BP 142/90 H 02/06/25 16:31 Pulse Ox 96 02/06/25 16:31 O2 Del Method Room Air 02/06/25 16:31 BMI result Body Mass Index 37.7 Const: General: cooperative and comfortable Nutritional Appearance: obese morbidly obese Orientation/consciousness: oriented to person, oriented to place and oriented to time HEENT: Head: Yes normal to inspection and Yes normocephalic Ears: hearing grossly normal bilaterally General nose exam: Normal external nose present Neck: Neck: Yes normal visual inspection Chest: Chest palpation & inspection: normal inspection of the chest Resp: Effort & Inspection: normal respiratory effort and able to speak in complete sentences Cardio: Rate: regular rate Rhythm: regular rhythm GI: Other: Morbidly obese nondistended. Limited midline supraumbilical scar and trocar port scars consistent with his past surgical history. Some tenderness to palpation in left lower aspect of his abdomen. No evidence of diffuse peritoneal signs. Skin: General skin exam: no rashes or lesions noted Neuro: General: oriented to person, oriented to place and oriented to time Results Labs 02/06/25 00:15 02/06/25 00:15 Labs: Abnormal lab results 02/06/25 02/06/25 Range/Units 00:15 04:28 WBC 16.2 H (4.8-10.8) X10*3/uL [place] # (Auto) 1.6 H (0.1-1.2) X10*3/uL Abs Immat Gran (auto) 0.06 H (0.00-0.03) X10*3/uL Absolute Neuts (auto) 10.6 H (2.0-8.3) x10*3/uL BUN 8 L (9-16) mg/dL Fasting Glucose 138 H (60-99) mg/dL Alkaline Phosphatase 36 L (39-117) U/L Ur Specific [place] >= 1.030 H (1.005-1.025) Short CBC 02/06/25 Range/Units 00:15 WBC 16.2 H (4.8-10.8) X10*3/uL Hgb 15.1 (14.0-18.0) g/dl Hct 46.4 (42.0-52.0) % Plt Count 242 (160-400) X10*3/uL BMP 02/06/25 00:15 Sodium 139 Potassium 3.8 Chloride 106 Carbon Dioxide 23 BUN 8 L Creatinine 1.08 Calcium 9.2 Liver Function 02/06/25 Range/Units 00:15 Total Bilirubin 0.5 (0.0-1.0) mg/dL AST 23 (5-37) U/L ALT 39 (0-40) U/L Alkaline Phosphatase 36 L (39-117) U/L Albumin 4.3 (3.5-5.0) g/dL Urine 02/06/25 Range/Units 04:28 Urine Color Yellow Urine Appearance Clear Urine pH 6.5 (5.0-9.0) Ur Specific [place] >= 1.030 H (1.005-1.025) Urine Protein Negative (Neg-Trace) mg/dL Urine Glucose (UA) Negative (Negative) mg/dL All other labs normal. Assessment and Plan (1) Diverticulitis: Status: Acute Plan For now the patient should have limited p.o. intake with clear liquids and medications only. He is to continue antibiotic therapy and not undergo any nutritional oral responsibility until his abdominal pain and tenderness completely disappear and his laboratory studies normalized. I reviewed with the with the patient he indicated he understood and he agreed with the assessment and plan as it was outlined to him. Total time managing care of this patient today: 50 minutes. Procedures Date of Service Date of Service: 02/06/25
--- NOTE | 2025-02-06 18:32 | P.EN_ITS ---
Event Note Date of Service: 02/06/25 Event Note: GI Consult-Full note dictated-History from patient and EMR Imp: Recurrent uncomplicated diverticulitis Rec: Continue IV antibiotics for another 1 to 2 days and then a 10 day course of po antibiotics. Advance diet as tolerated once his pain improves. If exam worse ns, or does not improve, I would obtain a repeat CT and Surgical consult. He is scheduled for a colonoscopy with Dr. Hancock for 06/2025 and I told him to keep that appointment, but call to cancel if has another bout of diverticulitis as the procedure date approaches. He was comfortable with the plan. Thanks Time Spent With Patient Time: Total time managing care of this patient today ____ minutes.
[2025-02-07] VITALS (7 sets, daily range): BP systolic 119–143; BP diastolic 64–84; PULSE 67–95; RESP 16–20; TEMP 36.1–36.6; O2SAT 96–99
--- NOTE | 2025-02-07 01:57 | CONS_ITS ---
DATE OF SERVICE: 02/06/2025 REASON FOR CONSULTATION: Diverticulitis. This has been obtained from the patient and the medical record. HISTORY OF PRESENT ILLNESS: The patient is a 54-year-old male with a longstanding history of intermittent diverticulitis that has required 2 previous surgeries. He has been seen here by Dr. Starr and Dr. Cifuentes. According to a surgical consult from March 2023, it describes a previous right colectomy and a sigmoid colectomy at [facility] for presumed diverticulitis. He was last admitted here for diverticulitis in July 2023. He reports that things have been stable in that regard up until the past 3 days when he began having significant left lower quadrant pain. This persisted and progressed prompting his ER visit and admission to the hospital for diverticulitis as described on a CT scan. He is feeling somewhat better than he was yesterday. He denies any vomiting. He has not noticed any signs of jaundice. He denies any chills. He has been afebrile in the hospital. He reports that prior to the onset of his pain, his bowel movements have been fairly regular with the use of a stool softener. He has not noticed any hematochezia or melena. Of note, he has never had a colonoscopy. He had been scheduled for colonoscopy with Dr. Hancock, but had to cancel that due to an episode of diverticulitis. He reports that he is scheduled for a colonoscopy in June [address] Hancock. The patient denies any known family history of colorectal cancer. He denies any urinary symptoms such as dysuria, pneumaturia, or hematuria. MEDICATIONS: His medications at home included levothyroxine and losartan. His medications here in the hospital include IV ceftriaxone, hydralazine p.r.n., Dilaudid p.r.n., levothyroxine, losartan, melatonin p.r.n., IV Flagyl, morphine p.r.n., nicotine patch, and MiraLAX p.r.n. PAST MEDICAL HISTORY: Diverticulitis with surgeries as above. Cholecystectomy. Right hip fracture with surgery for placement of hardware. He has a history of hypertension and hypothyroidism. He denies any history of [place], diabetes, stroke, or lung disease. SOCIAL HISTORY: He does smoke. He describes having at least a couple of drinks most days and possibly more alcohol intermittently. He was rather vague about that. He is single. FAMILY HISTORY: Noncontributory. REVIEW OF SYSTEMS: CONSTITUTIONAL: Up until the past 3 days, he was feeling well with good energy and good appetite. SKIN: No rash or pruritus. CARDIAC: No chest pain. PULMONARY: No coughing or hemoptysis. GI: As above. URINARY: No dysuria or hematuria. NEUROLOGIC: No headache or seizures. PHYSICAL EXAMINATION: GENERAL: The patient is a pleasant, alert, comfortable-appearing male. VITAL SIGNS: Have been stable, and he has been afebrile. SKIN: Warm and dry. Anicteric sclerae. Moist mucous membranes. NECK: Supple. CARDIAC: Normal S1, S2. ABDOMEN: Soft, nondistended, but with left lower quadrant tenderness. There is no palpable mass. There is some guarding but no rebound. LABORATORY DATA: White blood cell count 16.2, hemoglobin 15.1, platelets 242,000. Normal chemistries and renal function. Normal LFTs, lipase 45. Urinalysis was negative for any sign of infection. His CT scan describes an uncomplicated left lower quadrant diverticulitis and without any sign of perforation, abscess, or bowel obstruction. IMPRESSION: The patient presents with a recurrent episode of diverticulitis. This appears to be uncomplicated based on the CT scan. 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 At this point, I would continue his IV antibiotics and n.p.o. status. I would continue analgesics and supportive care otherwise. If he continues to improve on the IV antibiotics, I would then slowly advance his diet as tolerated. I would switch him over to an oral course of antibiotics for at least another 7 to 10 days as an outpatient given his previous history. I did advise him to certainly keep his appointment for the colonoscopy in June with Dr. Hancock, but to certainly notify Dr. Hancock's office if he has recurrent diverticulitis as the procedure approaches as it would need to be rescheduled again. I would recommend a surgical consultation and a repeat CT scan if his abdominal pain does not improve or certainly if it worsens. This has all been discussed in detail with the patient, and he is comfortable with that plan. Thank you for the consultation. MD JERONIMO Chandler/FRANCOIS / [id number] MTDD
[2025-02-07] MEDS: metroNIDAZOLE/NS 500 MG/100 ML PIGGYBACK 100 MG IV ×3 (05:46→21:37)
[2025-02-07 07:07] LABS: MANUAL DIFF FLAG NO
[2025-02-07 07:16] LABS: Hematocrit 42.5 % (42.0-52.0); Hemoglobin 13.5 g/dl (14.0-18.0); Imm Gran Abs Auto 0.03 X10*3/uL (0.00-0.03); Imm Gran Pct Auto 0.3 % (0.0-0.4); Lymphocytes Absolute Auto 3.0 X10*3/uL (1.2-4.9); Mean Corpuscular HGB Conc 31.8 g/dl (31.0-36.0); Mean Corpuscular Hemoglobin 27.2 pg (27.0-33.0); Mean Corpuscular Volume 85.5 fL (80.0-98.0); NRBC Abs Auto 0.000 X10*3/uL (0.0-0.012); NRBC Pct Auto 0.0 /100WBC (0.0-0.2); Platelet Count 258 X10*3/uL (160-400); Red Blood Count 4.97 X10*6/uL (4.60-5.80); White Blood Count 10.6 X10*3/uL (4.8-10.8)
[2025-02-07 07:30] LABS: Anion Gap 13 (12-20); Blood Urea Nitrogen 6 mg/dL (9-16); Calcium 8.6 mg/dL (8.4-10.2); Carbon Dioxide 24 mmol/L (22-29); Chloride 109 mmol/L (96-108); Creatinine Clr Calc Pharmacy 110.0; Estimated Glomerular Filt Rate > 60; Potassium 3.7 mmol/L (3.3-5.1); Sodium 142 mmol/L (135-145)
--- NOTE | 2025-02-07 07:48 | PM.PNGS ---
Subjective Subjective Date of Service: 02/07/25 Interval history: felling improved but still having some pain in the LLQ. now a 3/4 out of 10. Denies nausea or vomiting. tolerating clear liquid diet. has been ambulating. has passed some soft bowel movements but nothing substantial . Physical Exam Vital Signs: Vital Signs: Last Vital Signs Temp 97.2 F 02/07/25 07:31 Pulse 77 02/07/25 07:31 Resp 16 02/07/25 07:31 BP 131/83 02/07/25 07:31 Pulse Ox 99 02/07/25 07:31 O2 Del Method Room Air 02/07/25 07:31 BMI result Body Mass Index 37.7 Const: General: comfortable and no acute distress Orientation/consciousness: patient oriented x3 GI: Inspection: No distended Palpation (GI): Soft to palpation, Tenderness to palpation present (GI) in the LLQ and no guarding Neuro: General: patient oriented x3 Objective Data Active Medications Acetaminophen (Acetaminophen 325 Mg Tablet) 650 mg PO Q6H PRN PRN Reason: Pain, Mild 1-3,fever,headache Albuterol/Ipratropium (Albuterol/Iprat 2.5/0.5mg 3 Ml Ampul.Neb) 3 ml INHALE Q4H PRN PRN Reason: Shortness of Breath/Wheezing Calcium Carbonate (Calcium Carbonate 750 Mg Tab.Chew) 750 mg PO Q4H PRN PRN Reason: Heartburn Hydralazine HCl (Hydralazine Hcl 20 Mg/Ml Vial) 10 mg IVPUSH Q6H PRN; Protocol PRN Reason: SBP > 160 Hydromorphone HCl (Hydromorphone Hcl 1 Mg/Ml Syringe) 0.5 mg IVPUSH Q4H PRN; Protocol PRN Reason: Pain, Moderate(Pain Scale 4-6) Last Admin: 02/06/25 23:43 Dose: 0.5 mg Documented By: JESUS Hydromorphone HCl (Hydromorphone Hcl 1 Mg/Ml Syringe) 1 mg IVPUSH Q4H PRN; Protocol PRN Reason: Pain, Severe (Pain Scale 7-10) Sodium Chloride (Ns) 1,000 mls @ 100 mls/hr IVCONT .Q10H [facility] Last Admin: 02/06/25 23:46 Dose: 100 mls/hr Documented By: JESUS Ceftriaxone Sodium 2 gm/ (Sodium Chloride) 50 mls @ 100 mls/hr IV Q24H [facility] Last Infusion: 02/07/25 05:40 Dose: Infused Documented By: JESUS Metronidazole (Flagyl) 500 mg in 100 mls @ 100 mls/hr IV Q8H [facility] Last Infusion: 02/07/25 06:57 Dose: Infused Documented By: JESUS Levothyroxine Sodium (Levothyroxine Sodium 75 Mcg Tablet) 75 mcg PO DAILY@0600 [facility] Last Admin: 02/07/25 05:10 Dose: 75 mcg Documented By: JESUS Losartan Potassium (Losartan Potassium 25 Mg Tablet) 25 mg PO DAILY [facility]; Protocol Last Admin: 02/06/25 10:04 Dose: 25 mg Documented By: JH Magnesium Hydroxide (Milk Of Magnesia 30 Ml Oral.Susp) 30 ml PO DAILY PRN PRN Reason: Constipation Melatonin (Melatonin 3 Mg Tablet) 6 mg PO BEDTIME PRN PRN Reason: Insomnia Nicotine (Nicotine 21 Mg Patch.Td24) 21 mg TRANSDERMA DAILY [facility] Last Admin: 02/06/25 07:42 Dose: Not Given Documented By: JH Non-Admin Reason: Patient Refused Polyethylene Glycol (Polyethylene Glycol 3350 17 Gm Powd.Pack) 17 gm PO DAILY PRN PRN Reason: Constipation Sodium Chloride (0.9 % Sodium Chloride Flush 3 Ml Syringe) 3 ml IVFLUSH QSHIFT [facility] Last Admin: 02/06/25 23:54 Dose: Not Given Documented By: JESUS Non-Admin Reason: IV Running Labs 02/07/25 05:59 02/07/25 05:59 Labs: Laboratory Results - last 24 hr 02/06/25 02/07/25 05:33 05:59 MCV 85.5 MCH 27.2 MCHC 31.8 RDW 13.4 Plt Count 258 MPV 10.3 Immature Gran % (Auto) 0.3 Neut % (Auto) 60.5 Lymph % (Auto) 28.7 [place] % (Auto) 9.6 Eos % (Auto) 0.7 Baso % (Auto) 0.2 Lymph # (Auto) 3.0 [place] # (Auto) 1.0 Eos # (Auto) 0.1 Baso # (Auto) 0.0 Abs Immat Gran (auto) 0.03 Absolute Neuts (auto) 6.4 Absolute Nucleated RBC 0.000 Nucleated RBC % (auto) 0.0 Anion Gap 13 Estim Creat Clear Calc 110.0 Estimated GFR > 60 Random Glucose 108 Lactic Acid 1.0 Calcium 8.6 D Microbiology Microbiology Results: Microbiology 02/06/25 05:33 Blood Culture - Preliminary Blood - Venous No growth after 24 hours. 02/06/25 05:33 Blood Culture - Preliminary Blood - Venous No growth after 24 hours. Procedures Date of Service Date of Service: 02/07/25 Progress Note: A&P Assessment and plan (1) Acute diverticulitis: Status: Acute Plan 54 year old male with a history of right colon resection, sigmoid resection admitted for uncomplicated diverticulitis. He reports he is feeling better. Still ahs some pain in the LLQ but is much improved since admission. Denying N/v. tolerating CLD. White count improved today. Ambulating around the room. He has passed some small soft bowel movements. His abdomen is soft, tender in the LLQ. continue abx ambualtion as tolerated continue CLD, will advance when exam more benign and no pain at rest Time Spent With Patient Time: Total time managing care of this patient today ____ minutes. Quality Stroke Does the patient have a stroke diagnosis?: No Reason for No Anti-thrombotic by Day Two: Contraindicated (First 24 hours noting risk for complications related to diverticulitis and need for surgical intervention) VTE Prior VTE?: No VTE Risk Level:: Medical - moderate - high VTE Device Contraindication: N/A - Device Ordered VTE Drug Contraindication: Treatment Not Indicated
[2025-02-07] MEDS: 0.9 % Sodium Chloride Flush 3 ML SYRINGE IVFLUSH (08:10)
--- NOTE | 2025-02-07 13:44 | HO.PM.IMPN ---
Subjective Subjective Date of Service: 02/07/25 Interval History: Diverticulitis Review of Systems Still has significant left lower quadrant pain. no fevers Physical Exam Exam: Exam: Appearance: Alert.? Oriented X3 cvs: rrr, [id number] , no murmur res: clear to auscultation ,no rales or wheezing abd: no rebound or guarding ,llq, bs present. ext pulses present , no cyanosis . neuro: axo3 , nonfocal. Vital Signs: Vital Signs: Last Vital Signs Temp 97.8 F 02/07/25 11:29 Pulse 73 02/07/25 11:29 Resp 18 02/07/25 11:29 BP 122/78 02/07/25 11:29 Pulse Ox 96 02/07/25 11:29 O2 Del Method Room Air 02/07/25 11:29 BMI result Body Mass Index 37.7 Objective Data Active Medications Acetaminophen (Acetaminophen 325 Mg Tablet) 650 mg PO Q6H PRN PRN Reason: Pain, Mild 1-3,fever,headache Albuterol/Ipratropium (Albuterol/Iprat 2.5/0.5mg 3 Ml Ampul.Neb) 3 ml INHALE Q4H PRN PRN Reason: Shortness of Breath/Wheezing Calcium Carbonate (Calcium Carbonate 750 Mg Tab.Chew) 750 mg PO Q4H PRN PRN Reason: Heartburn Hydralazine HCl (Hydralazine Hcl 20 Mg/Ml Vial) 10 mg IVPUSH Q6H PRN; Protocol PRN Reason: SBP > 160 Hydromorphone HCl (Hydromorphone Hcl 1 Mg/Ml Syringe) 0.5 mg IVPUSH Q4H PRN; Protocol PRN Reason: Pain, Moderate(Pain Scale 4-6) Last Admin: 02/07/25 11:11 Dose: 0.5 mg Documented By: PRICE Hydromorphone HCl (Hydromorphone Hcl 1 Mg/Ml Syringe) 1 mg IVPUSH Q4H PRN; Protocol PRN Reason: Pain, Severe (Pain Scale 7-10) Sodium Chloride (Ns) 1,000 mls @ 100 mls/hr IVCONT .Q10H [facility] Last Admin: 02/07/25 13:21 Dose: 100 mls/hr Documented By: PRICE Ceftriaxone Sodium 2 gm/ (Sodium Chloride) 50 mls @ 100 mls/hr IV Q24H [facility] Last Infusion: 02/07/25 05:40 Dose: Infused Documented By: JESUS Metronidazole (Flagyl) 500 mg in 100 mls @ 100 mls/hr IV Q8H [facility] Last Infusion: 02/07/25 13:23 Dose: Infused Documented By: PRICE Levothyroxine Sodium (Levothyroxine Sodium 75 Mcg Tablet) 75 mcg PO DAILY@0600 [facility] Last Admin: 02/07/25 05:10 Dose: 75 mcg Documented By: JESUS Losartan Potassium (Losartan Potassium 25 Mg Tablet) 25 mg PO DAILY [facility]; Protocol Last Admin: 02/07/25 08:10 Dose: 25 mg Documented By: PRICE Magnesium Hydroxide (Milk Of Magnesia 30 Ml Oral.Susp) 30 ml PO DAILY PRN PRN Reason: Constipation Melatonin (Melatonin 3 Mg Tablet) 6 mg PO BEDTIME PRN PRN Reason: Insomnia Nicotine (Nicotine 21 Mg Patch.Td24) 21 mg TRANSDERMA DAILY [facility] Last Admin: 02/07/25 08:11 Dose: Not Given Documented By: PRICE Non-Admin Reason: Patient Refused Polyethylene Glycol (Polyethylene Glycol 3350 17 Gm Powd.Pack) 17 gm PO DAILY PRN PRN Reason: Constipation Sodium Chloride (0.9 % Sodium Chloride Flush 3 Ml Syringe) 3 ml IVFLUSH QSHIFT [facility] Last Admin: 02/07/25 13:27 Dose: Not Given Documented By: PRICE Non-Admin Reason: IV Running Labs 02/07/25 05:59 02/07/25 05:59 Labs: Laboratory Results - last 24 hr 02/07/25 05:59 MCV 85.5 MCH 27.2 MCHC 31.8 RDW 13.4 Plt Count 258 MPV 10.3 Immature Gran % (Auto) 0.3 Neut % (Auto) 60.5 Lymph % (Auto) 28.7 [place] % (Auto) 9.6 Eos % (Auto) 0.7 Baso % (Auto) 0.2 Lymph # (Auto) 3.0 [place] # (Auto) 1.0 Eos # (Auto) 0.1 Baso # (Auto) 0.0 Abs Immat Gran (auto) 0.03 Absolute Neuts (auto) 6.4 Absolute Nucleated RBC 0.000 Nucleated RBC % (auto) 0.0 Anion Gap 13 Estim Creat Clear Calc 110.0 Estimated GFR > 60 Random Glucose 108 Calcium 8.6 D Microbiology Microbiology Results: Microbiology 02/06/25 05:33 Blood Culture - Preliminary Blood - Venous No growth after 24 hours. 02/06/25 05:33 Blood Culture - Preliminary Blood - Venous No growth after 24 hours. Assessment and Plan (1) Diverticulitis: Status: Acute Plan 54-year-old black male with past medical history diverticulosis/diverticulitis with history of colectomy x2, cholecystectomy, pyelonephritis, hypertension, hypothyroidism, alcohol use, marijuana use, tobacco dependence, obesity, elevated PSA, hepatic steatosis, history of illicit drug use snorting cocaine stopped approximately 5 years ago, ongoing issues with dislocation of right shoulder, right hip surgery as a child (zia's) currently on disability for this is being seen in the ED with a history of known diverticulitis reporting mid left and left lower abdominal pain, similar to past experiences. Patient being admitted for acute diverticulitis. Patient does not meet the criteria for sepsis on admission. Acute Diverticulitis/ history of colectomy x2 No perforation or abscess on CT scan General Surgery consulted: pt requested surgeon to see him due to his significant hx Dilaudid for pain Pt started on ceftriaxone and flagyl in the ED, will continue IV ABX Noted Leukocytosis: Patient afebrile, UA negative, no hypoxia LA normal, BC collected IVF, clearliquid HTN Hydralazine p.r.n. continue home meds Hypothyroidism Continue levothyroxine. Enlarged prostate Relatively new finding Patient has outpatient follow-up with Urology for evaluation Patient denies any issue with frequency, hesitancy or dysuria. Patient denies any hematuria UA negative for UTI, hematuria Tobacco dependence Patient's smokes 1 pack over 2 days Patient is requesting nicotine patch Patient counseled on the benefits of smoking cessation Patient does not use oxygen, nebs or inhalers at home Alcohol use Patient states he drinks cognac and beers most days Pt denies issues with alcohol use Hepatic steatosis on CT scan, LFTs stable DVT prophylaxis: Lovenox if no complications and will start in 24 hours ongoing need for stay for IV antibiotics and close hemodynamic monitoring as patient is at risk for clinical decline to include complications related to diverticulitis requiring expert consultation with General surgery. Quality Stroke Does the patient have a stroke diagnosis?: No Reason for No Anti-thrombotic by Day Two: Contraindicated (First 24 hours noting risk for complications related to diverticulitis and need for surgical intervention) VTE Prior VTE?: No VTE Risk Level:: Medical - moderate - high VTE Device Contraindication: N/A - Device Ordered VTE Drug Contraindication: Treatment Not Indicated
--- NOTE | 2025-02-07 16:47 | MHC.CM.PN ---
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
[2025-02-08 04:00] VITALS: BP 145/79; PULSE 78; RESP 16; TEMP 36.5; O2SAT 96
[2025-02-08] MEDS: metroNIDAZOLE/NS 500 MG/100 ML PIGGYBACK 100 MG IV ×2 (05:40→13:49)
[2025-02-08 08:00] VITALS: BP 167/79; PULSE 74; RESP 16; TEMP 36.1; O2SAT 99
[2025-02-08] MEDS: 0.9 % Sodium Chloride Flush 3 ML SYRINGE IVFLUSH (09:12)
--- NOTE | 2025-02-08 10:44 | P.PNGS_ITS ---
Subjective Subjective Date of Service: 02/08/25 Interval history: Reports some increased pain in the left lower quadrant today. 07/20. Denies nausea or vomiting. But this made it difficult for him to sleep, although was sleeping comfortably this morning when rounding. Passing some bowel movements, small. Small amounts of gas as well. Physical Exam 2 Vital Signs: Vital Signs: Last Vital Signs Temp 96.9 F 02/08/25 08:00 Pulse 74 02/08/25 08:00 Resp 16 02/08/25 08:00 BP 167/79 H 02/08/25 08:00 Pulse Ox 99 02/08/25 08:00 O2 Del Method Room Air 02/08/25 08:00 BMI result Body Mass Index 37.7 Const: General: comfortable and no acute distress O rientation/consciousness: patient oriented x3 GI: Inspection: No distended Palpation (GI): Soft to palpation and Tenderness to palpation present (GI) in the LLQ Neuro: General: patient oriented x3 Objective Data Active Medications Acetaminophen (Acetaminophen 325 Mg Tablet) 650 mg PO Q6H PRN PRN Reason: Pain, Mild 1-3,fever,headache Albuterol/Ipratropium (Albuterol/Iprat 2.5/0.5mg 3 Ml Ampul.Neb) 3 ml INHALE Q4H PRN PRN Reason: Shortness of Breath/Wheezing Calcium Carbonate (Calcium Carbonate 750 Mg Tab.Chew) 750 mg PO Q4H PRN PRN Reason: Heartburn Hydralazine HCl (Hydralazine Hcl 20 Mg/Ml Vial) 10 mg IVPUSH Q6H PRN; Protocol PRN Reason: SBP > 160 Hydromorphone HCl (Hydromorphone Hcl 1 Mg/Ml Syringe) 0.5 mg IVPUSH Q4H PRN; Protocol PRN Reason: Pain, Moderate(Pain Scale 4-6) Last Admin: 02/08/25 03:50 Dose: 0.5 mg Documented By: MICHAELRISM Hydromorphone HCl (Hydromorphone Hcl 1 Mg/Ml Syringe) 1 mg IVPUSH Q4H PRN; Protocol PRN Reason: Pain, Severe (Pain Scale 7-10) Last Admin: 02/08/25 09:11 Dose: 1 mg Documented By: DAYAN Ceftriaxone Sodium 2 gm/ (Sodium Chloride) 50 mls @ 100 mls/hr IV Q24H [facility] Metronidazole (Flagyl) 500 mg in 100 mls @ 100 mls/hr IV Q8H [facility] Levothyroxine Sodium (Levothyroxine Sodium 75 Mcg Tablet) 75 mcg PO DAILY@0600 [facility] Last Admin: 02/08/25 05:40 Dose: 75 mcg Documented By: JESUS Losartan Potassium (Losartan Potassium 25 Mg Tablet) 25 mg PO DAILY [facility]; Protocol Last Admin: 02/08/25 09:03 Dose: 25 mg Documented By: DAYAN Magnesium Hydroxide (Milk Of Magnesia 30 Ml Oral.Susp) 30 ml PO DAILY PRN PRN Reason: Constipation Melatonin (Melatonin 3 Mg Tablet) 6 mg PO BEDTIME PRN PRN Reason: Insomnia Last Admin: 02/07/25 21:42 Dose: 6 mg Documented By: JESUS Nicotine (Nicotine 21 Mg Patch.Td24) 21 mg TRANSDERMA DAILY [facility] Last Admin: 02/08/25 09:14 Dose: Not Given Documented By: DAYAN Non-Admin Reason: Patient Refused Polyethylene Glycol (Polyethylene Glycol 3350 17 Gm Powd.Pack) 17 gm PO DAILY PRN PRN Reason: Constipation Sodium Chloride (0.9 % Sodium Chloride Flush 3 Ml Syringe) 3 ml IVFLUSH QSHIFT [facility] Last Admin: 02/08/25 09:12 Dose: 3 ml Documented By: DAYAN Labs 02/07/25 05:59 02/07/25 05:59 Microbiology Microbiology Results: Microbiology 02/06/25 05:33 Blood Culture - Preliminary Blood - Venous No growth after 48 hours. 02/06/25 05:33 Blood Culture - Preliminary Blood - Venous No growth after 48 hours. Procedures Date of Service Date of Service: 02/08/25 Progress Note: A&P Assessment and plan (1) Acute diverticulitis: Status: Acute Plan 54 year old male with a history of right colon resection, sigmoid resection admitted for uncomplicated diverticulitis. He reports he is feeling better than when he was admitted but pain is worse today than yesterday. This was making it difficult for him to sleep at night. Denying N/v. tolerating CLD.He again has passed some small soft bowel movements. His abdomen is soft, tender in the LLQ. Nondistended. continue abx ambulation as tolerated continue CLD, will advance when exam more benign and no pain at rest Time Spent With Patient Time: Total time managing care of this patient today ____ minutes. Quality Stroke Does the patient have a stroke diagnosis?: No Reason for No Anti-thrombotic by Day Two: Contraindicated (First 24 hours noting risk for complications related to diverticulitis and need for surgical intervention) VTE Prior VTE?: No VTE Risk Level:: Medical - moderate - high VTE Device Contraindication: N/A - Device Ordered VTE Drug Contraindication: Treatment Not Indicated
[2025-02-08 11:39] VITALS: BP 141/75; PULSE 63; RESP 16; TEMP 36.1; O2SAT 97
--- NOTE | 2025-02-08 14:30 | P.PNIM_ITS ---
Subjective Subjective Date of Service: 02/08/25 Interval History: Acute diverticulitis Review of Systems Patient is still has significant pain , feel nauseated, unable to tolerate diet yet We will keep clears Physical Exam 2 Exam: Exam: Appearance: Alert.? Oriented X3 cvs: rrr, [id number] , no murmur res: clear to auscultation ,no rales or wheezing abd: no rebound or guarding ,llq, bs present. ext pulses present , no cyanosis . neuro: axo3 , nonfocal. Vital Signs: Vital Signs: Last Vital Signs Temp 97.0 F 02/08/25 11:39 Pulse 63 02/08/25 11:39 Resp 16 02/08/25 11:39 BP 141/75 H 02/08/25 11:39 Pulse Ox 97 02/08/25 11:39 O2 Del Method Room Air 02/08/25 11:39 BMI result Body Mass Index 37.7 Objective Data Active Medications Acetaminophen (Acetaminophen 325 Mg Tablet) 650 mg PO Q6H PRN PRN Reason: Pain, Mild 1-3,fever,headache Albuterol/Ipratropium (Albuterol/Iprat 2.5/0.5mg 3 Ml Ampul.Neb) 3 ml INHALE Q4H PRN PRN Reason: Shortness of Breath/Wheezing Calcium Carbonate (Calcium Carbonate 750 Mg Tab.Chew) 750 mg PO Q4H PRN PRN Reason: Heartburn Hydralazine HCl (Hydralazine Hcl 20 Mg/Ml Vial) 10 mg IVPUSH Q6H PRN; Protocol PRN Reason: SBP > 160 Hydromorphone HCl (Hydromorphone Hcl 1 Mg/Ml Syringe) 0.5 mg IVPUSH Q4H PRN; Protocol PRN Reason: Pain, Moderate(Pain Scale 4-6) Last Admin: 02/08/25 03:50 Dose: 0.5 mg Documented By: ODRISM Hydromorphone HCl (Hydromorphone Hcl 1 Mg/Ml Syringe) 1 mg IVPUSH Q4H PRN; Protocol PRN Reason: Pain, Severe (Pain Scale 7-10) Last Admin: 02/08/25 13:54 Dose: 1 mg Documented By: DAYAN Ceftriaxone Sodium 2 gm/ (Sodium Chloride) 50 mls @ 100 mls/hr IV Q24H [facility] Metronidazole (Flagyl) 500 mg in 100 mls @ 100 mls/hr IV Q8H [facility] Last Admin: 02/08/25 13:49 Dose: 100 mls/hr Documented By: DAYAN Levothyroxine Sodium (Levothyroxine Sodium 75 Mcg Tablet) 75 mcg PO DAILY@0600 [facility] Last Admin: 02/08/25 05:40 Dose: 75 mcg Documented By: JESUS Losartan Potassium (Losartan Potassium 25 Mg Tablet) 25 mg PO DAILY [facility]; Protocol Last Admin: 02/08/25 09:03 Dose: 25 mg Documented By: DAYAN Magnesium Hydroxide (Milk Of Magnesia 30 Ml Oral.Susp) 30 ml PO DAILY PRN PRN Reason: Constipation Melatonin (Melatonin 3 Mg Tablet) 6 mg PO BEDTIME PRN PRN Reason: Insomnia Last Admin: 02/07/25 21:42 Dose: 6 mg Documented By: JESUS Nicotine (Nicotine 21 Mg Patch.Td24) 21 mg TRANSDERMA DAILY [facility] Last Admin: 02/08/25 09:14 Dose: Not Given Documented By: DAYAN Non-Admin Reason: Patient Refused Ondansetron HCl (Ondansetron Hcl 4 Mg/2 Ml Vial) 4 mg IVPUSH Q6H PRN PRN Reason: Nausea and Vomiting Polyethylene Glycol (Polyethylene Glycol 3350 17 Gm Powd.Pack) 17 gm PO DAILY PRN PRN Reason: Constipation Sodium Chloride (0.9 % Sodium Chloride Flush 3 Ml Syringe) 3 ml IVFLUSH QSHIFT [facility] Last Admin: 02/08/25 09:12 Dose: 3 ml Documented By: DAYAN Labs 02/07/25 05:59 02/07/25 05:59 Microbiology Microbiology Results: Microbiology 02/06/25 05:33 Blood Culture - Preliminary Blood - Venous No growth after 48 hours. 02/06/25 05:33 Blood Culture - Preliminary Blood - Venous No growth after 48 hours. Assessment and Plan (1) Diverticulitis: Status: Acute Plan 54-year-old black male with past medical history diverticulosis/diverticulitis with history of colectomy x2, cholecystectomy, pyelonephritis, hypertension, hypothyroidism, alcohol use, marijuana use, tobacco dependence, obesity, elevated PSA, hepatic steatosis, history of illicit drug use snorting cocaine stopped approximately 5 years ago, ongoing issues with dislocation of right shoulder, right hip surgery as a child ([id number]) currently on disability for this is being seen in the ED with a history of known diverticulitis reporting mid left and left lower abdominal pain, similar to past experiences. Patient being admitted for acute diverticulitis. Patient does not meet the criteria for sepsis on admission. Acute Diverticulitis/ history of colectomy x2 No perforation or abscess on CT scan General Surgery consulted: pt requested surgeon to see him due to his significant hx Dilaudid for pain Pt started on ceftriaxone and flagyl in the ED, will continue IV ABX Noted Leukocytosis: Patient afebrile, UA negative, no hypoxia LA normal, BC collected IVF, clearliquid HTN Hydralazine p.r.n. continue home meds Hypothyroidism Continue levothyroxine. Enlarged prostate Relatively new finding Patient has outpatient follow-up with Urology for evaluation Patient denies any issue with frequency, hesitancy or dysuria. Patient denies any hematuria UA negative for UTI, hematuria Tobacco dependence Patient's smokes 1 pack over 2 days Patient is requesting nicotine patch Patient counseled on the benefits of smoking cessation Patient does not use oxygen, nebs or inhalers at home Alcohol use Patient states he drinks cognac and beers most days Pt denies issues with alcohol use Hepatic steatosis on CT scan, LFTs stable DVT prophylaxis: mech devices incase needs any surgerical intervention ongoing need for stay for IV antibiotics and close hemodynamic monitoring as patient is at risk for clinical decline to include complications related to diverticulitis requiring expert consultation with General surgery. Quality Stroke Does the patient have a stroke diagnosis?: No Reason for No Anti-thrombotic by Day Two: Contraindicated (First 24 hours noting risk for complications related to diverticulitis and need for surgical intervention) VTE Prior VTE?: No VTE Risk Level:: Medical - moderate - high VTE Device Contraindication: N/A - Device Ordered VTE Drug Contraindication: Treatment Not Indicated
[2025-02-08 15:05] VITALS: BP 144/72; PULSE 64; RESP 18; TEMP 36.1; O2SAT 97
--- NOTE | 2025-02-08 15:47 | P.DS_ITS ---
DS: Providers Provider Date of admission: 02/06/25 05:27 Date of discharge: 02/08/25 Primary care physician: REN Mckeon Consults: 02/06/25 06:52 Consult to General Surgery [place]ine [place]ing Provider[place] [facility] [place] [facility] Reason for consultation: Acute diverticulitis with hx of 2 colectomy's Has provider been notified: No 02/06/25 11:08 Consult to Gastroenterology Routine Consulting Provider: [facility] [place] [facility] Reason for consultation: Diverticulitis Attending physician on discharge: Nelda Samano Discharging clinician: Nelda Samano DS: Diagnosis Discharge Diagnosis (1) Diverticulitis: Status: Acute DS: Summary Hospital Course Hospital Course: HPI:54-year-old black male with past medical history diverticu losis/diverticulitis with history of colectomy x2, cholecystectomy, pyelonephritis, hypertension, hypothyroidism, alcohol use (cognac and beer most days), marijuana use, tobacco dependence, obesity, elevated PSA, hepatic steatosis, history of illicit drug use snorting cocaine stopped approximately 5 years ago, ongoing issues with dislocation of right shoulder, right hip surgery as a child ([employer]) currently on disability for this is being seen in the ED with a history of known diverticulitis reporting mid left and left lower abdominal pain, similar to past experiences. Patient does follow the specific diet regimens including no seeds and more specifically no white shunt or popcorn and states these flares often times occur out of the blue for no reason. Patient denies any nausea or vomiting, chest pain or shortness of breath at rest or with exertion. Patient states he is not having any diarrhea and stool is formed and soft. Patient stated the pain started intermittently 3 days ago. Patient does try to follow the diet recommendations including no seeds and a low residual diet for his known history of diverticulitis/diverticulosis. In addition patient has been dealing recently with an elevated PSA and has plans for an intervention with Urology February 15. In addition patient has plans to have his 1st colonoscopy in June [address] Hancock. Workup in the ED included a CT scan of the abdomen and pelvis which noted diverticulitis acute without perforation or abscess. Patient received ceftriaxone and Flagyl. Patient presented with hemodynamics that are stable wi thout fever. Patient does not meet the criteria for sepsis. Lactic acid pending. UA negative for UTI. No leukocytosis or anemia. Electrolytes stable. Renal function at baseline. LFTs normal. Request for admission for acute diverticulitis. Hospital course: Patient was admitted for acute diverticulitis, has history ofhistory of colectomy, CTA abdomen-No perforation or abscess on CT scan, blood cultures sent: Patient is started on IV antibiotics, consulted surgery, added IV pain medication as well antiemetics-with the above management patient pain somewhat improving but still not optimal, feel nauseated: Patient was suggested by surgery to continue IV antibiotics and monitor closely, but patient decided to go against medical advice. Risk of leaving against medical advice -worsening diverticulitis, sepsis including even discussed in detail, he understand and still wants to leave, he is alert oriented x3, able to say back his understanding. Patient also told go to nearest emergency room to seek help, p.o. Augmentin given with the understanding that p.o. antibiotics are not optimal as IV. In addition patient was told to follow up with GI outpatient Enlarged prostate Relatively new finding Patient has outpatient follow-up with Urology for evaluation Patient denies any issue with frequency, hesitancy or dysuria. Patient denies any hematuria UA negative for UTI, hematuria In addition patient was strongly advised to abstain from tobacco and alcohol use. Plan: As above. Patient left against medical advice, assessment and plan coordination time spent 45 minute. Patient understand and in agreement with the above plan, staff was present during whole conversation. Time Attestation Total time managing care of this patient today: 50 mintues. Discharge Coordination Time (in mins): 50 min Quality: Safe Use of Opioids Does Pt have an Active Cancer Diagnosis on the Problem List?: No Quality: Stroke Does the patient have a stroke diagnosis?: No Physical Exam Exam: Exam: Refused, see my physical exam from today's note earlier. Vital Signs: Vital Signs: Last Vital Signs Temp 97.0 F 02/08/25 15:05 Pulse 64 02/08/25 15:05 Resp 18 02/08/25 15:05 BP 144/72 H 02/08/25 15:05 Pulse Ox 97 02/08/25 15:05 O2 Del Method Room Air 02/08/25 15:05 BMI result Body Mass Index 37.7 DS: Data Data Completed and Pending Labs on day of discharge: Preliminary micro results at discharge 02/06/25 05:33 Blood Culture - Preliminary Blood - Venous No growth after 48 hours. 02/06/25 05:33 Blood Culture - Preliminary Blood - Venous No growth after [address] scan - abdomen: Radiologist's impression: ct abd: Left lower quadrant diverticulitis without perforation or abscess. Discharge Plan Discharge Anticipated Discharge Date/Time: 02/08/25 15:42 Patient Disposition: Left Against Medical Advice Discharge Diagnosis: diverticuitis Referrals: Carlos Mcdonald, ADMISSIONS ASSISTANT-BC [Primary Care Provider, Internal Medicine] - 1 Week Discharge Medications: New amoxicillin-pot clavulanate 875-125 mg Tablet 1 tab PO Q12H Qty: 14 0RF Continued losartan 25 mg tablet 25 mg PO DAILY Qty: 90 1RF levothyroxine 75 mcg tablet 75 mcg PO DAILY@0600 Discharge Orders: Discharge Order (Routine); Ordered 02/08/25 Ordered By: Nelda Samano Diet: Advance to usual diet Activity on Discharge: As tolerated Stand Alone Forms: Patient Portal Discharge page Print Language: Serbian Care Plan Goals: patient left ama -risks of leaving ama d/d with him in detail -worsening diverticuliitis ,sepsis including . po antibiotics given advised to go to nearest ED to get evaluated . Health Concerns: as above. Plan of Treatment: as above. Assessment: as above.
--- NOTE | 2025-02-08 15:49 | PC.NURSE ---
Pt leaving AMA, IV out, educated on not leaving, notified, Pt is of sound mind. Pt wishes to leave AMA.
--- NOTE | 2025-02-08 16:00 | MHC.CM.PN ---
Patient left AMA.
== END 2025-02-08 15:54 | disposition left against medical advice (07) | DRG 392 ==
LOC: HO.ED 02-06 05:33 → HO.EDOVER 02-06 05:52 → HO.S3 02-06 14:48
PROVIDERS: Physician Assistant Medical; Admitting Provider Nurse Practitioner Family; Emergency Provider Emergency Medicine; PCP Nurse Practitioner Family; Visit Provider Internal Medicine
DX: K57.92 Diverticulitis of intestine, part unspecified, without perforation or abscess without bleeding (principal); E03.9 Hypothyroidism, unspecified; F17.210 Nicotine dependence, cigarettes, uncomplicated; Z71.6 Tobacco abuse counseling; I10 Essential (primary) hypertension; Z98.0 Intestinal bypass and anastomosis status; N40.0 Benign prostatic hyperplasia without lower urinary tract symptoms; K76.0 Fatty (change of) liver, not elsewhere classified; Z79.890 Hormone replacement therapy; Z79.899 Other long term (current) drug therapy
CPT/HCPCS: 36415; 74177; 80048; 80053; 81003; 83605; 83690; 83735; 85025; 87040; 99285; J0696; J1171; J1836; J2270; J2405; Q9967

== ENCOUNTER → 2025-02-06 03:17 | Outpatient (BNV) | payer OTHER, SELFPAY | PROVIDERS: Emergency Provider Emergency Medicine; PCP Nurse Practitioner Family; Visit Provider Radiology Diagnostic Radiology | DX: K57.32 Diverticulitis of large intestine without perforation or abscess without bleeding (principal) | CPT/HCPCS: 74177 ==

== ENCOUNTER → 2025-02-06 05:27 | Outpatient (BNV) | payer OTHER, SELFPAY | PROVIDERS: Admitting Provider Nurse Practitioner Family; Emergency Provider Emergency Medicine; PCP Nurse Practitioner Family; Visit Provider Surgery | DX: K57.92 Diverticulitis of intestine, part unspecified, without perforation or abscess without bleeding (principal) | CPT/HCPCS: 99232 ==

== ENCOUNTER → 2025-02-06 05:27 | Outpatient (BNV) | payer OTHER, SELFPAY | PROVIDERS: Admitting Provider Nurse Practitioner Family; Emergency Provider Emergency Medicine; PCP Nurse Practitioner Family; Visit Provider Nurse Practitioner Family | DX: K57.92 Diverticulitis of intestine, part unspecified, without perforation or abscess without bleeding (principal) | CPT/HCPCS: 99223; 99232; 99499 ==